=== PATIENT | male | born 1935 | race Caucasian/White ===

== ENCOUNTER → 2018-01-24 00:16 | Outpatient (CLI) | payer MEDICARE, OTHER, SELFPAY ==
--- NOTE | 2018-01-24 09:45 | DI.REPORT_ITS ---
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 Comparison CT scan is 01/05/18. There is normal signal in the spinal cord. No evidence of tonsillar ectopia is seen. At C7-T1 there is no focal disc herniation, central spinal canal or neuroforaminal stenosis. At C6-C7 there is a moderate sized left paracentral bridging osteophyte seen posteriorly. It does impinge upon the anterior aspect of the spinal cord. There is CSF seen posterior to the spinal cord but the result is mild narrowing of the central spinal canal. There does appear to be a small right paracentral disc herniation at this level also contributing to narrowing of the spinal canal. Mild bilateral neural foraminal narrowing is seen. At C5-C6 there is prominence of the osteophyte disc complex resulting in narrowing of the central spinal canal. There is moderately severe narrowing of the right neural foramen and mild narrowing of the left neural foramen. At C4-C5 there is prominence of the osteophyte disc complex without significant central spinal canal stenosis. There are hypertrophic changes of the facets on the left causing mild narrowing of the neural foramen. The right neural foramen is patent. At C3-C4 there are hypertrophic changes of the facets on the left causing marked narrowing of the left neural foramen. No central spinal canal stenosis or right neural foraminal stenosis is present. C2-C3 shows prominence of the uncal vertebral joints bilaterally causing moderate narrowing of the neural foramen. No significant central spinal canal stenosis is seen. Prominent bridging osteophytes are seen from C4-5 through C7-T1. IMPRESSION: 1. Marked arthritic changes throughout the cervical spine. The findings do result in central spinal canal and neural foraminal stenosis. The findings are most marked at C6-C7, C5-C6 and on the left at C3-C4. Please refer to the above discussion for complete details.
== END ==
PROVIDERS: PCP Family Medicine; Visit Provider Internal Medicine
DX: M47.812 Spondylosis without myelopathy or radiculopathy, cervical region (principal); M54.2 Cervicalgia; M50.322 Other cervical disc degeneration at C5-C6 level
CPT/HCPCS: 72141

== ENCOUNTER 2018-07-23 00:14 | Outpatient (CLI) | payer MEDICARE, OTHER, SELFPAY ==
--- NOTE | 2018-07-23 10:20 | MERGE_ITS ---
*[facility]* *[facility]* [address] [place] [address] Date of study: 07/23/2018 Transthoracic Echocardiography M-mode, complete 2D, complete spectral Doppler, and color Doppler *STUDY CONCLUSIONS* Summary: 1. Left ventricle: The cavity size was normal. Wall thickness was increased in a pattern of mild LVH. Systolic function was normal. The estimated ejection fraction was 60-65%. Doppler parameters are consistent with high ventricular filling pressure. 2. Mitral valve: Mild prolapse, involving the anterior leaflet and the posterior leaflet. There was moderate to severe regurgitation directed eccentrically and toward the free wall. 3. Left atrium: The atrium was moderately dilated. 4. Right ventricle: The cavity size was normal. Wall thickness was normal. Systolic function was normal. 5. Right atrium: The atrium was mildly dilated. 6. Atrial septum: No defect or patent foramen ovale was identified. 7. Pulmonary arteries: Pulmonary systolic pressure was in the range of 15mm Hg to 25mm Hg. 8. Inferior vena cava: The vessel was patent and normal in size. The respirophasic diameter changes were in the normal range (greater than or equal to 50%), consistent with normal central venous pressure. *PATIENT PRESENTATION* Height: 160cm ((63in) ) S/D Pressure: 158 / 69 Weight: 79.4kg ((174.6lb) ) BSA: 1.91m^2 Test start time: 10:40 AM. Test stop time: 11:30 AM. PERFORMING Unknown ORDERING Tanja Thakkar REFERRING Tanja Thakkar CONSULTING Guzman Thompson PERFORMING [facility] CUSTOMER SUCCESS DIRECTOR RT Rachel (R)(CT), RDCS *PROCEDURE DATA* Procedure information: The patient was identified by two identifiers. This study was interpreted by [facility]. Pertinent images and digital data are archived for permanent storage and are available for subsequent review. Comparison was made to the study of 11/25/2016. Study status: Routine. Transthoracic echocardiography. M-mode, complete 2D, complete spectral Doppler, and color Doppler. A Transthoracic Echocardiogram was performed. Scanning was performed from the parasternal, apical, subcostal, and suprasternal notch acoustic windows. Images were obtained using an [id number] cardiac ultrasound machine. Image quality was adequate. Study completion: The patient tolerated the procedure well. History: PMH: No CP no SOB per patient. Tired. had stents and bypass in past. EKG mat NSR LV LVH mild ef est to be 60-65% borderline filling pressures. mobile lateral annulus. ? apex mildly hypo, anterior wall mildly hypo, inferior and inferolateral midly hypo. RV seems ok LA/RA/IAS FRANCISCO JAVIRE. cannot r/o PFO MV thickened valve. MVP. moderate to severe MR. cannot exclude chordae rupture AOV trileaflet trivial AI no TV tr trivial RVSP = 19+RAP PV IVC normal pericardium ? small posterior pericardial effusion vs. circumferential fat. cannot exclude pleural OTHER Limited SSn due to neck mobility issues. Technically challenging study, patient unable to stay close to side of table, afraid to fall, leaning back, vs. LLD. *CARDIAC ANATOMY* Left ventricle: The cavity size was normal. Wall thickness was increased in a pattern of mild LVH. Systolic function was normal. The estimated ejection fraction was 60-65%. Doppler parameters are consistent with high ventricular filling pressure. Aortic valve: Trileaflet. Doppler: There was no stenosis. There was no significant regurgitation. VTI ratio of LVOT to aortic valve: 0.74. Valve area (VTI): 2.3cm^2. Indexed valve area (VTI): 1.2cm^2/m^2. Peak velocity ratio of LVOT to aortic valve: 0.67. Valve area (Vmax): 2.1cm^2. Indexed valve area (Vmax): 1.1cm^2/m^2. Mean velocity ratio of LVOT to aortic valve: 0.74. Valve area (Vmean): 2.3cm^2. Indexed valve area (Vmean): 1.2cm^2/m^2. Mean gradient (S): 3mm Hg. Peak gradient (S): 6.4mm Hg. Aorta: Aortic root: The aortic root was normal in size. Ascending aorta: The ascending aorta was normal in size. Mitral valve: Mild prolapse, involving the anterior leaflet and the posterior leaflet. Doppler: There was no evidence for stenosis. There was moderate to severe regurgitation directed eccentrically and toward the free wall. Valve area by pressure half-time: 4.6cm^2. Indexed valve area by pressure half-time: 2.4cm^2/m^2. Peak gradient (D): 3.7mm Hg. Left atrium: The atrium was moderately dilated. Atrial septum: No defect or patent foramen ovale was identified. Right ventricle: The cavity size was normal. Wall thickness was normal. Systolic function was normal. Pulmonic valve: Doppler: There was no evidence for stenosis. There was mild regurgitation. Tricuspid valve: Doppler: There was mild regurgitation. Pulmonary artery: Poorly visualized. Pulmonary systolic pressure was in the range of 15mm Hg to 25mm Hg. Right atrium: The atrium was mildly dilated. Pericardium: There was no pericardial effusion. Systemic veins: Inferior vena cava: Well visualized. The vessel was patent and normal in size. The respirophasic diameter changes were in the normal range (greater than or equal to 50%), consistent with normal central venous pressure. Baseline ECG: Sinus bradycardia. Measurements Left ventricle Value 11/25/2016 Reference LV ID, ED, PLAX 4.8 cm 4.8 3.5 - 6.0 LV ID, ES, PLAX 2.9 cm 3.5 2.1 - 4.0 LV PW thickness, ED, PLAX 1.1 cm 1.2 LV end-diastolic volume, 99 ml 85 1-p A2C LV ejection fraction, 1-p 59 % 63 A2C LV end-diastolic volume, 136 ml 103 1-p A4C LV ejection fraction, 1-p 70 % 69 A4C LV e', lateral 0.102 m/sec LV E/e', lateral 9 LV e', medial 0.037 m/sec LV E/e', medial 26 LV e', average 0.07 m/sec LV E/e', average 14 Ventricular septum Value 11/25/2016 Reference IVS thickness, ED, PLAX 1.3 cm 1.2 LVOT Value 11/25/2016 Reference LVOT ID, A-P 2.0 cm 2.0 LVOT area 3.1 cm^2 3.3 LVOT peak velocity, S 0.84 m/sec 0.85 LVOT mean velocity, S 0.59 m/sec LVOT VTI, S 17.7 cm 18.1 LVOT peak gradient, S 2.8 mm Hg LVOT mean gradient, S 1.6 mm Hg 1.5 Stroke volume (SV), LVOT 55 ml DP Stroke index (SV/bsa), 29 ml/m^2 LVOT DP Aortic valve Value 11/25/2016 Reference Aortic valve peak 1.3 m/sec velocity, S Aortic valve mean 0.8 m/sec velocity, S Aortic valve VTI, S 24.0 cm Aortic mean gradient, S 3 mm Hg 4 Aortic peak gradient, S 6.4 mm Hg 7 VTI ratio, LVOT/AV 0.74 Aortic valve area, VTI 2.3 cm^2 2.3 Velocity ratio, peak, 0.67 LVOT/AV Aortic valve area, peak 2.1 cm^2 2.1 velocity Velocity ratio, mean, 0.74 LVOT/AV Aortic valve area, mean 2.3 cm^2 velocity Aortic valve area/bsa, 1.2 cm^2/m^2 mean velocity Aorta Value 11/25/2016 Reference Aortic root ID, ED 3.5 cm 3.6 Ascending aorta ID, A-P, S 3.5 cm 3.5 Left atrium Value 11/25/2016 Reference LA ID, A-P, ES 3.6 cm LA ID/bsa, A-P 1.9 cm/m^2 <=2.2 LA area, ES, A4C (H) 26.3 cm^2 24 8.8 - 23.4 LA area, ES, A2C 27 cm^2 LA volume/bsa, ES, 1-p A4C 60 ml/m^2 47 LA volume, ES, 2-p 91 ml LA volume/bsa, ES, 2-p 48 ml/m^2 LA/aortic root ratio 1.01 1.11 Mitral valve Value 11/25/2016 Reference Mitral E-wave peak 0.97 m/sec 0.98 velocity Mitral A-wave peak 0.73 m/sec 0.63 velocity Mitral deceleration time 164 ms 150 - 230 Mitral pressure half-time 48 ms 54 Mitral peak gradient, D 3.7 mm Hg Mitral E/A ratio, peak 1.33 1.56 Mitral valve area, PHT, DP 4.6 cm^2 4.1 Pulmonary veins Value 11/25/2016 Reference Pulmonary vein peak 0.67 m/sec 0.66 velocity, S Pulmonary vein peak 0.98 m/sec 0.8 velocity, D Pulmonary vein velocity 0.68 0.83 ratio, peak, S/D Pulmonary vein A-wave 0.45 m/sec 0.41 reversal peak velocity Tricuspid valve Value 11/25/2016 Reference Tricuspid regurg peak 2.2 m/sec 2.5 velocity Tricuspid peak RV-RA 18.9 mm Hg 25.1 gradient Right atrium Value 11/25/2016 Reference RA area, ES, A4C (H) 19.7 cm^2 21 8.3 - 19.5 Legend: (L) and (H) gonzalo values outside specified reference range. I have personally reviewed the images and have reviewed and edited the reported findings. Electronically signed by Pranav Scott MD 07/23/2018 16:37
== END 2018-07-23 00:34 ==
PROVIDERS: PCP Family Medicine; Visit Provider Internal Medicine Cardiovascular Disease
DX: I05.9 Rheumatic mitral valve disease, unspecified (principal); I51.7 Cardiomegaly; I25.10 Atherosclerotic heart disease of native coronary artery without angina pectoris; I10 Essential (primary) hypertension; Z95.1 Presence of aortocoronary bypass graft
CPT/HCPCS: 93306

== ENCOUNTER → 2018-08-16 11:05 | Outpatient (BNVA) | payer MEDICARE, OTHER, SELFPAY | PROVIDERS: Visit Provider Internal Medicine Cardiovascular Disease | DX: E78.5 Hyperlipidemia, unspecified (principal); I10 Essential (primary) hypertension; I25.10 Atherosclerotic heart disease of native coronary artery without angina pectoris; I05.9 Rheumatic mitral valve disease, unspecified | CPT/HCPCS: 99214 ==

== ENCOUNTER 2018-09-08 21:52 | Emergency (ER) | payer MEDICARE, OTHER, SELFPAY ==
[2018-09-08] VITALS (15 sets, daily range): BP systolic 138–190; BP diastolic 60–89; PULSE 51–62; RESP 18–20; TEMP 36.3; O2SAT 86–97
[2018-09-08] MEDS: FAMOTIDINE 20 MG/50 ML BAG 200 MG IVPB (22:07)
[2018-09-08] MEDS: methylPREDNISolone SUCC 125 MG VIAL IVP (22:07)
--- NOTE | 2018-09-08 22:07 | ED.GENADUL_ITS ---
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) Primary Care Provider: Guzman Thompson ED Provider: Pranav Red Home Meds and New Rx's Prescriptions: New prednisone 20 mg tablet 20 mg PO DAILY 4 Days Qty: 4 RF: 0 famotidine 20 mg tablet 20 mg PO BID 7 Days Qty: 14 RF: 0 Continued lovastatin 40 mg tablet 20 mg PO DAILY RF: 0 sildenafil (antihypertensive) 20 mg tablet 20 - 100 mg PO DAILY PRN (Reason: sexual activity) Qty: 30 RF: 5 nitroglycerin 0.4 mg tablet, sublingual 0.4 mg Sublingual TID PRN (Reason: chest pain) Qty: 25 RF: 0 aspirin 81 MG tablet,chewable 81 mg PO DAILY RF: 0 epinephrine [EpiPen 2-Raffi] 0.3 MG/0.3 ML auto-injector 0.3 mg IM ONCE PRNRF: 0 Metoprolol Succinate 25 MG TAB.ER.24H 25 mg PO DAILY Qty: 90 RF: 3 Discontinued lisinopril 10 mg tablet 10 mg PO DAILY Qty: 90 RF: 3 Discharge Instructions Instructions: Angioedema (ED) Additional Instructions: Stop taking your lisinopril as this likely caused your tongue and lip swelling. Follow up with your primary care provider this week to discuss a new blood pressure medicine if you feel you are having worsening swelling, difficulty breathing or severe abdominal pain/persistent vomit return to the emergency department Medical Decision Making 83 yo male comes in with cc of tongue and lip swelling starting earlier today. Denies gi or respiratory symptoms. Has had a rash on his right arm for 2 weeks and saw his pcp on 08/28 for this and was felt to be hives due to omeprazole. he has mild erythema of right forearm that is not warm to touch and does have apperaance of hives, and he reiterates this has been present for over 2 weeks. He has a swollen tongue and lower lip, speaking in full setnences and clearing his secreations. i am unable to visualize the posterior phyarnx. Clera lungs, soft abdomen. I suspect jeremie inhibitor angioedema. Will treat with steroids and ffp along and monitor. pt already improving with just steroids and famotidine. Will hold on FFP at this time. pt remains stable, tongue much reduced in size as is lip with clear lung sounds. will d/c with steroids and famotidine and have him f/u with pcp Differential Diagnosis angioedema, jeremie inhibitor angioedema HPI General Mode of arrival: ambulatory . Date/Time Provider Initiated Documentation: 09/08/18 21:53 . Limitations to Documentation: no limitations . Information obtained by: patient . History of Present Illness 83 year old M presents to the emergency department with the chief complaint of tongue and lip swelling, described as moderate, with intensity rated at 5. Patient started experiencing this hour(s) (4) and it has been constant. No relieving factors improve symptom(s), No exacerbating factors reported . Patient notes no other symptoms.. Patient did receive the following treatments prior to arrival, none Related Data Home Medications Medication Instructions Recorded Confirmed aspirin 81 mg PO DAILY tab-cap 08/18/16 09/08/18 epinephrine [EpiPen 2-Raffi] 0.3 mg IM ONCE PRN 08/23/16 09/08/18 nitroglycerin 0.4 mg sublingual 0.4 mg SUBLINGUAL TID PRN #25 05/23/18 09/08/18 tablet tab-cap lovastatin 40 mg tablet 20 mg PO DAILY tab-cap 08/16/18 09/08/18 sildenafil (antihypertensive) 20 20 - 100 mg PO DAILY PRN #30 tab 08/28/18 09/08/18 mg tablet famotidine 20 mg PO BID 7 Days #14 tab 09/08/18 prednisone 20 mg PO DAILY 4 Days #4 tab 09/08/18 Previous Rx's Medication Instructions Recorded nitroglycerin 0.4 mg sublingual 0.4 mg SUBLINGUAL TID PRN #25 05/23/18 tablet tab-cap sildenafil (antihypertensive) 20 20 - 100 mg PO DAILY PRN #30 tab 08/28/18 mg tablet famotidine 20 mg PO BID 7 Days #14 tab 09/08/18 prednisone 20 mg PO DAILY 4 Days #4 tab 09/08/18 Allergies Allergy/AdvReac Type Severity Reaction Status Date / Time lisinopril Allergy Severe Anaphylaxsi Unverified 09/08/18 22:36 s niacin Allergy Unknown Unverified 08/28/18 08:58 Pyrazoles Allergy Unknown Unverified 08/28/18 08:58 sertraline Allergy Unknown Unverified 08/28/18 08:58 omeprazole Allergy Hives Verified 08/28/18 08:58 trazodone Allergy Unverified 08/28/18 08:58 ezetimibe AdvReac Unknown intolerance Unverified 08/28/18 08:58 rosuvastatin AdvReac Unknown intolerance Unverified 08/28/18 08:58 Review of Systems Review of Systems All systems reviewed & are unremarkable except as noted in HPI and below Constitutional Denies chills, Denies fever(s) and Denies weakness ENT Denies change in voice Cardiovascular Denies chest pain and Denies dyspnea Respiratory Denies cough and Denies dyspnea Gastrointestinal Denies abdominal pain, Denies nausea and Denies vomiting Genitourinary Denies dysuria Integumentary/Breasts Denies rash Neurologic Denies weakness [facility] Surgical History Coronary Artery Bypass Gaft (CABG) (~1988) Extraction of cataract Stent placement ZIO PATCH Family History Mother Diabetes Heart disease Father Depression Sister Heart disease Grandfather No problems noted. Grandfather No problems noted. Grandmother No problems noted. Grandmother No problems noted. Son Diabetes Heart disease Son Heart disease Social History Smoking/Tobacco Use Status: Never Alcohol Intake: never Drug use: Never Substance use type: does not use Do you feel safe at home: Yes Do you feel safe in your relationship?: Yes Exam Const General: no acute distress Orientation: alert HENMT Head: normal to inspection Ears: external ears normal General nose exam: external nose normal Mouth: moist mucous membranes Eyes General: appearance normal, both eyes and all related structures Neck Neck: normal visual inspection Resp Effort & Inspection: normal respiratory effort and able to speak in complete sentences Cardio Rate: regular rate Skin General skin exam: no rashes or lesions noted Neuro General: alert and oriented x3 Extrem General: normal to inspection Psych Mental Status: mental status grossly normal
--- NOTE | 2018-09-08 23:34 | NUR.NOTE ---
Nursing Note: patient resting quietly, hives have subsided, tongue swelling decreased but still present, speech clearer. MD aware.
--- NOTE | 2018-09-10 09:51 | PDOC.ERCMPRO ---
Care Management Progress Note 09/10-Dr. Red requested assistance with a PCP (Jay) f/u within one week for angioedema, stopped Lisinopril. Referral faxed to [facility] this am.
== END 2018-09-08 23:58 | disposition home or self-care (01) ==
PROVIDERS: Emergency Provider Emergency Medicine; PCP Family Medicine
DX: T78.3XXA Angioneurotic edema, initial encounter (principal); T44.5X5A Adverse effect of predominantly beta-adrenoreceptor agonists, initial encounter
CPT/HCPCS: 36415; 86850; 86900; 86901; 96374; 96375; 99284; J2930

== ENCOUNTER → 2019-03-21 11:14 | Outpatient (BNVA) | payer MEDICARE, OTHER, SELFPAY | PROVIDERS: PCP Family Medicine; Referring Provider Family Medicine; Visit Provider Internal Medicine Cardiovascular Disease | DX: E78.2 Mixed hyperlipidemia (principal); I34.0 Nonrheumatic mitral (valve) insufficiency; I10 Essential (primary) hypertension; I25.10 Atherosclerotic heart disease of native coronary artery without angina pectoris; Z95.1 Presence of aortocoronary bypass graft | CPT/HCPCS: 99213 ==

== ENCOUNTER 2019-05-01 08:22 | Outpatient (CLI) | payer MEDICARE, OTHER, SELFPAY ==
--- NOTE | 2019-05-01 08:00 | DI.RAD_ITS ---
EXAM: XR CHEST 2V PA LATERAL CLINICAL HISTORY: cough, hx of asbestos exposure, R05, Z77.090 COMPARISON: CHEST 2 VIEWS PA,LAT from 08/01/2016 PORTABLE CHEST ONE VIEW from 08/12/2016 FINDINGS: PA and lateral chest was obtained and is compared with prior PA and lateral chest of 08/01/2016. Car diac size is within normal limits. Note is made of sternal sutures. Lungs are predominantly clear. There is question of enlargement of the inferior right hilum in comparison with the previous examina tion. No focal pulmonary consolidation seen. There is mild diffuse pulmonary scarring. No pleural effusion seen. IMPRESSION: Question enlargement inferior right hilum. Chest CT recommended for further evaluation to exclude n eoplastic disease.
== END 2019-05-01 08:42 ==
PROVIDERS: PCP Family Medicine; Visit Provider Family Medicine
DX: R05 Cough (principal); J98.4 Other disorders of lung; Z77.090 Contact with and (suspected) exposure to asbestos
CPT/HCPCS: 71046

== ENCOUNTER 2019-05-06 01:16 | Outpatient (CLI) | payer MEDICARE, OTHER, SELFPAY ==
[2019-05-06 14:17] LABS: CREATININE 1.13 mg/dL (0.70-1.30)
--- NOTE | 2019-05-06 14:50 | DI.CT_ITS ---
EXAM: CT CHEST W CLINICAL HISTORY: ABNL CXR R93.89, ? ENLARGEMENT INFERIOR RT HILUM TECHNIQUE: Imaging Protocol: Axial computed tomography images with coronal and sagittal reformatted images were created and reviewed CONTRAST MATERIAL: Intravenous: Omnipaque 350 Contrast volume:100 mL contrast route:IV - Oral: No COMPARISON: CHEST ABD WITH CONTRAST from 03/15/2014 XR CHEST 2V PA LATERAL from 05/01/2019 FINDINGS: Tracheobronchial tree: Patent where visualized. Mediastinum and Jada: No dominant adenopathy or fluid collection. Pulmonary parenchyma: No focal consolidation is present. Areas of scarring or atelectasis are seen i n the lung bases bilaterally. No pulmonary mass is appreciated. No architectural distortion. Pleura: No effusion or pneumothorax. Heart/Aorta: There is no evidence of a thoracic aortic aneurysm. There is atherosclerosis present. The heart appears mildly enlarged. Coronary artery calcifications are present. No pericardial effus ion is present. Upper abdomen: No acute abnormality. Lymph nodes: Within normal limits. Pulmonary arteries: No evidence of central pulmonary emboli. Bones: Median sternotomy wires are present. 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 IMPRESSION: 1. No evidence of a thoracic mass or mediastinal adenopathy. 2. Atelectasis or scarring in the lung bases bilaterally. No pulmonary nodules are identified. DATA REPOSITORY: All CT scans at this facility are submitted to the National Radiology Data Registry (NRDR) Dose Index Registry (DIR) with the [employer] (A[employer]). RADIATION OPTIMIZATION: All CT scans at this facility use at least one of these dose optimization te chniques: automated exposure control; mA and/or kV adjustment per patient size (includes targeted exa ms where dose is matched to clinical indication); or iterative reconstruction.
[2019-05-06] MEDS: Omnipaque 350 MG/ML 100 ML BTL 70 ML IJ (14:51)
== END 2019-05-06 01:36 ==
PROVIDERS: PCP Family Medicine; Visit Provider Family Medicine
DX: R91.8 Other nonspecific abnormal finding of lung field (principal); J98.4 Other disorders of lung; I51.7 Cardiomegaly
CPT/HCPCS: 71260; 82565; J3490

== ENCOUNTER 2019-06-14 02:40 | Outpatient (CLI) | payer MEDICARE, OTHER, SELFPAY ==
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
== END 2019-06-14 03:00 ==
PROVIDERS: PCP Family Medicine; Visit Provider Family Medicine
DX: M79.672 Pain in left foot (principal); M25.772 Osteophyte, left ankle; M19.072 Primary osteoarthritis, left ankle and foot
CPT/HCPCS: 73630

== ENCOUNTER 2019-07-25 20:53 | Observation (INO) | payer MEDICARE, OTHER, SELFPAY ==
[2019-07-25 21:02] VITALS: BP 175/69; PULSE 87; RESP 20; TEMP 37.7; O2SAT 94
[2019-07-25 21:05] VITALS: RESP 20
--- NOTE | 2019-07-25 21:11 | ED.GENADUL_ITS ---
Discharge Plan Disposition Patient Disposition: [facility] INPATIENT Condition: Fair Discharge Details Chief Complaint: GenMedical Clinical Impression: General weakness, CAP (community acquired pneumonia) Primary Care Provider: Guzman Thompson ED Provider: Garrett Saha Home Meds and New Rx's Prescriptions: No Action nitroglycerin 0.4 mg tablet, sublingual 0.4 mg Sublingual TID PRN (Reason: chest pain) Qty: 25 RF: 0 aspirin 81 MG tablet,chewable 81 mg PO DAILY RF: 0 epinephrine [EpiPen 2-Raffi] 0.3 MG/0.3 ML auto-injector 0.3 mg IM ONCE PRNRF: 0 metoprolol succinate 25 mg tablet extended release 24 hr 25 mg PO DAILY Qty: 90 RF: 2 lovastatin 40 mg tablet 20 mg PO DAILY Qty: 45 RF: 3 Medical Decision Making Patient feels a lot warmer than 100 degrees. He has complaint of weakness, runny nose, cough and has focal lung findings on physical exam. He is not tachycardic but he is beta blocked. He is not hypotensive. IV established and fluids started. Tylenol given for fever. Laboratory studies obtained including blood cultures and lactic acid. Chest x-ray and urine ordered. Laboratory studies are unremarkable. Lactic acid is normal. White count is normal. Kidney function fine. Urine still not collected at this point. Vitals have been stable. Chest x-ray read by radiology preliminary is negative. On reevaluation patient continues to have focal findings on lung exam at the right base. His flu swab is negative. I suspect pneumonia and given 2 falls this evening and the fact that he lives home alone will discuss with hospitalist for observation admission overnight. Patient is agreeable to admission. Medical Records Medical records reviewed: Yes I reviewed the patient's medical records. Lab Data Lab results reviewed: Yes I reviewed the patient's lab results. HPI General Mode of arrival: wheelchair . Date/Time Provider Initiated Documentation: 07/25/19 21:06 . Limitations to Documentation: no limitations . Information obtained by: patient, family, RN notes reviewed and old records reviewed . HPI Narrative: Patient presents to ED with complaint of generalized weakness and falls this evening. Patient felt fine yesterday. Today he has had a little bit of a cough and runny nose. This evening he fell twice due to generalized weakness. He did not injure himself in the falls. He did not have syncope. He lives by himself but was able to call for help. He is brought in for evaluation. He denies having headache, chest pain, shortness of breath, abdominal pain, vomiting, diarrhea, bloody stool, difficulty urinating. He did eat and drink today. Related Data Home Medications Medication Instructions Recorded Confirmed aspirin 81 mg PO DAILY tab-cap 08/18/16 07/25/19 epinephrine [EpiPen 2-Raffi] 0.3 mg IM ONCE PRN 08/23/16 07/25/19 metoprolol succinate 25 mg 25 mg PO DAILY #90 tab 05/17/19 07/25/19 tablet,extended release 24 hr nitroglycerin 0.4 mg sublingual 0.4 mg SUBLINGUAL TID PRN #25 06/07/19 07/25/19 tablet tab-cap lovastatin 40 mg tablet 20 mg PO DAILY #45 tab-cap 06/12/19 07/25/19 Previous Rx's Medication Instructions Recorded metoprolol succinate 25 mg 25 mg PO DAILY #90 tab 05/17/19 tablet,extended release 24 hr nitroglycerin 0.4 mg sublingual 0.4 mg SUBLINGUAL TID PRN #25 06/07/19 tablet tab-cap lovastatin 40 mg tablet 20 mg PO DAILY #45 tab-cap 06/12/19 Allergies Allergy/AdvReac Type Severity Reaction Status Date / Time lisinopril Allergy Severe Anaphylaxsi Verified 07/25/19 21:04 s niacin Allergy Unknown Verified 07/25/19 21:04 Pyrazoles Allergy Unknown Verified 07/25/19 21:04 sertraline Allergy Unknown Verified 07/25/19 21:04 omeprazole Allergy Hives Verified 07/25/19 21:04 trazodone Allergy Verified 07/25/19 21:04 ezetimibe AdvReac Unknown intolerance Verified 07/25/19 21:04 rosuvastatin AdvReac Unknown intolerance Verified 07/25/19 21:04 General Stated Complaint: GenMedical DEB: 3 Review of Systems Narrative: 04/08 Review of Systems completed and is negative except as stated above in HPI (Systems reviewed: Const, Eyes, ENT, Resp, CV, GI, , MSK, Skin, Neuro) [facility] Medical History (Updated 07/25/19 @ 22:44 by Garrett Saha MD) Anxiety disorder (Chronic) Chronic GERD (Chronic) resume omeprazole Glaucoma (Chronic 08/26/11) Hypertension (Chronic) PTSD (post-traumatic stress disorder) (Chronic) Pure hypercholesterolemia (Chronic 06/26/88) MEVACOR EFFECTIVE 1988 Surgical History Coronary Artery Bypass Gaft (CABG) (~1988) X 2 Extraction of cataract LEFT 09/23/04 Stent placement 08/16/16-[facility] [place]; 3 STENTS PLACED;1) LEFT MAIN ARTERY 2) 1ST DIAG OF LAD 3) 2ND DIAG OF LAD ZIO PATCH 01/01/18-NEGATIVE Social History Smoking/Tobacco Use Status: Former Tobacco Use Alcohol Intake: never Drug use: Never Substance use type: does not use Do you feel safe at home: Yes Do you feel safe in your relationship?: Yes Exam Narrative Exam Narrative: Vitals: Temp of 100. Room air saturations in the low 90s. Heart rate normal at 87 but beta-hu. Blood pressure elevated initially 175/69. Const: Obese male in NAD. HEENT: NC/AT. Normal facial exam. Eyes: Normal conjunctiva and sclera. Neck: Supple. Trachea midline. Normal ROM. Lungs: Normal respiratory effort. Lungs with rhonchi and wheeze in the right base otherwise clear. Cor: RRR with systolic murmur heard best at apex. Good radial pulses. GI: Soft. NT/ND. No guarding or rebound. Neuro: A+O x 3. Normal speech, mentation, gait. Cranial nerves II - XII grossly intact. No gross motor or sensory deficit. Ext: No C/C/E. Skin: Warm and dry without rash or wound. Course Vital Signs Vital signs: Vital Signs Temperature 100 F H 07/25/19 21: Pulse 87 07/25/19 21:02 Respiratory Rate 07/25/19 21:02 Blood Pressure 175/69 H 07/25/19 21:02 Pulse Oximetry 94 L 07/25/19 21:02 Temperature 100 F H 07/25/19 21:02 Temperature Source Oral 07/25/19 21:02 Pulse 87 07/25/19 21:02 Respiratory Rate 20 07/25/19 21:05 Respiratory Effort Non-Labored 07/25/19 21:05 Respiratory Depth Normal 07/25/19 21:05 Respiratory Pattern Normal 07/25/19 21:05 Blood Pressure 175/69 H 07/25/19 21:02 Blood Pressure Position Sitting 07/25/19 21:02 Pulse Oximetry 94 L 07/25/19 21:02 Oxygen Delivery Method Room Air 07/25/19 21:02 Oxygen Flow Rate 0 07/25/19 21:02 Pain Level 0 07/25/19 21:02 Lab/Test Results Lab/Test Results: 07/25/19 21:09 Nasopharynx Influenza Types A,B Antigen - Pending
[2019-07-25 21:44] LABS: Absolute Basophil Count 0.01 k/cumm (0.0-0.2); Absolute Lymphocyte Count 0.37 k/cumm (1.2-3.4); Absolute Monocyte Count 0.53 k/cumm (0.11-0.7); Absolute Neutrophil Count 4.89 k/cumm (1.2-6.7); Basophils % 0.2; Eosinophils % 1.7; HCT 39.1 % (40.0-50.0); HGB 13.2 g/dL (13.5-17.5); Lactate 1.2 mmol/L (0.6-1.4); Lymphocytes % 6.3; Mean Corp. HGB Concentration 33.8 g/dL (32.0-36.0); Mean Corpuscular Hemoglobin 30.4 pg (27.0-33.0); Mean Corpuscular Volume 90.1 fL (80-95); Mean Platelet Volume 10.5 fL (8.0-11.0); Neutrophils % 82.8; Platelet Count 161 x1000/uL (130-400); RBC 4.34 m/cumm (4.50-6.00); RBC Distribution Width 12.2 % (11.8-14.1)
[2019-07-25 22:03] LABS: ALT 15 U/L (16-63); AST 14 U/L (15-37); Albumin 3.6 g/dL (3.4-5.0); Alkaline Phosphatase 72 U/L (46-116); Anion Gap 7.9 mmol/L (3-11); BUN 18 mg/dL (7-18); Bilirubin, Total 0.9 mg/dL (0.2-1.0); CO2 27.1 mmol/L (21.0-32.0); Calcium 8.2 mg/dL (8.5-10.1); Chloride 104 mmol/L (98-107); Glucose 133 mg/dL (74-106); Magnesium 1.7 mg/dL (1.8-2.4); Potassium 3.9 mmol/L (3.5-5.1); Sodium 139 mmol/L (136-145); Troponin I < 0.05 ng/Ml (<0.06)
--- NOTE | 2019-07-25 22:15 | DI.RAD_ITS ---
EXAM: XR CHEST 2V PA LATERAL CLINICAL HISTORY: fever, cough, rhonchi right base TECHNIQUE: COMPARISON: XR CHEST 2V PA LATERAL from 05/01/2019 FINDINGS: There are multiple sternal sutures cardiac size is at the upper limits of normal. No focal pulmonary consolidation. No change in appearance of the chest since examination of May 01, 2019. No pleural effusion seen. IMPRESSION: No evidence of acute process.
[2019-07-25] MEDS: Lactated Ringers 1,000 ML 150 ML IV (22:22)
[2019-07-25] MEDS: Acetaminophen 325 MG TAB 650 MG PO (22:23)
[2019-07-25] MEDS: Normal Saline Flush 10 ML SYR IVP (22:23)
--- NOTE | 2019-07-25 22:25 | DI.VRAD_ITS ---
PROCEDURE INFORMATION: Exam: XR Chest, 2 Views Exam date and time: 07/25/2019 10:05 PM Age: 84 years old Clinical indication: Cough and fever; Prior surgery; Surgery date: 6+ months; Additional info: Fever, cough, ronchi right base TECHNIQUE: Imaging protocol: XR of the chest Views: 2 views. COMPARISON: CR XR CHEST 2V PA LATERAL 05/01/2019 7:49 AM FINDINGS: Lungs: Mild chronic interstitial prominence.No consolidation. Pleural space: . No pleural effusion. No pneumothorax. Heart/Mediastinum: Grossly stable. Bones/joints: Unremarkable. IMPRESSION: No acute findings. No radiographic eviedence for pneumonia Dictated and Authenticated by: Cayetano Valdivia MD. Ordering:DOMINIQUE Tucker MD
[2019-07-25 22:26] VITALS: TEMP 37.5
[2019-07-25] MEDS: cefTRIAXone 1 GM/50 ML BAG IVPB (22:43)
--- NOTE | 2019-07-25 23:07 | W.PM.HP.N ---
Date of service: 07/25/19 Time of Service: 23:07 Assessment and Plan Assessment and plan (1) CAP (community acquired pneumonia): Status: Acute Assessment and plan: Continue parenteral antibiotics including ceftriaxone, doxycycline. Continue with mucolytic's including Mucinex and will treat his cough with Tessalon Perles. He will be given aerosolized bronchodilators and supplemental oxygen on an as-needed basis. Continue to receive IV fluids overnight. Depending upon his amatory status he may be able to be discharged home on oral antibiotics in the morning Qualifiers: Laterality: unspecified laterality Qualified Code(s): J18.9 - Pneumonia, unspecified organism (2) General weakness: Status: Acute Assessment and plan: Will consult with physical therapy to evaluate his strength and ambulatory status. He may benefit from some home PT upon discharge History of Present Illness History of Present Illness Chief Complaint: Fever, chills, falls Narrative: 84-year-old gentleman presents emergency department with complaints of generalized weakness and a couple of falls this evening. Patient was in his usual state of good health as of yesterday but today was complaining of a cough and a runny nose and generalized weakness. Patient has to go up and down stairs to feed his wood fired furnace. During one of these trips he sustained a fall not associated with any syncope. He denies any injuries from the falls. He reportedly was running a fever of 101.4 at home. He called his son who brought him to the emergency department. Patient was evaluated the emergency department by Dr. Garrett Saha and work-up included routine labs including a CBC that did not show a leukocytosis. Hemoglobin hematocrit are borderline anemic with hemoglobin 13.2 g hematocrit 39%. Normal platelet count 161,000. CMP was fairly unremarkable except for a borderline low calcium 8.2 and magnesium 1.7 otherwise normal electrolytes LFTs and renal function. Chest 2 Views showed mild chronic interstitial prominence but no consolidation no pleural effusion no pneumothorax. Nevertheless the patient was found to be with coarse rhonchi and wheezes at the right lung base on physical exam and running a low-grade temperature 37.7 ?C he was not hypotensive but rather he was hypertensive at 175/69. His pulse oximetry was 94% on room air. Respirations were nonlabored at 20 breaths/min as pulse is 87 bpm. Patient felt he was too weak to return home tonight and was decided to treat him empirically for an incipient pneumonia and admit him on observation for aerosolized bronchodilators, mucolytic's, Acapella treatments, parenteral antibiotics. Patient was started on Rocephin 1 g IV and doxycycline 100 mg IV in the emergency department. Patient acknowledges he has had a cough productive of yellowish sputum today. No chest tightness or pain or pressure however some dyspnea Along with fever and rigors. [facility] Medical History (Updated 07/26/19 @ 00:43 by Kelvin Henry) Anxiety disorder (Chronic) CAD (coronary artery disease) (Chronic) Chronic GERD (Chronic) resume omeprazole Glaucoma (Chronic 08/26/11) Hypertension (Chronic) PTSD (post-traumatic stress disorder) (Chronic) Pure hypercholesterolemia (Chronic 06/26/88) MEVACOR EFFECTIVE 1988 Surgical History Coronary Artery Bypass Gaft (CABG) (~1988) X 2 Extraction of cataract LEFT 09/23/04 Stent placement 08/16/16[place] [place]; 3 STENTS PLACED;1) LEFT MAIN ARTERY 2) 1ST DIAG OF LAD 3) 2ND DIAG OF LAD ZIO PATCH 01/01/18-NEGATIVE Social History Smoking/Tobacco Use Status: Former Tobacco Use Alcohol Intake: never Drug use: Never Substance use type: does not use Do you feel safe at home: Yes Do you feel safe in your relationship?: Yes Meds Home Medications and Allergies Home Medications Medication Instructions Recorded Confirmed Type aspirin 81 mg PO DAILY tab-cap 08/18/16 07/25/19 History epinephrine [EpiPen 2-Raffi] 0.3 mg IM ONCE PRN 08/23/16 07/25/19 History metoprolol succinate 25 mg 25 mg PO DAILY #90 tab 05/17/19 07/25/19 Rx tablet,extended release 24 hr nitroglycerin 0.4 mg sublingual 0.4 mg SUBLINGUAL TID PRN #25 06/07/19 07/25/19 Rx tablet tab-cap lovastatin 40 mg tablet 20 mg PO DAILY #45 tab-cap 06/12/19 07/25/19 Rx Allergies Allergy/AdvReac Type Severity Reaction Status Date / Time aspirin Allergy Severe Anaphylaxsi Unverified 07/25/19 22:59 s lisinopril Allergy Severe Anaphylaxsi Verified 07/25/19 21:04 s niacin Allergy Unknown Verified 07/25/19 21:04 Pyrazoles Allergy Unknown Verified 07/25/19 21:04 sertraline Allergy Unknown Verified 07/25/19 21:04 omeprazole Allergy Hives Verified 07/25/19 21:04 trazodone Allergy Verified 07/25/19 21:04 ezetimibe AdvReac Unknown intolerance Verified 07/25/19 21:04 rosuvastatin AdvReac Unknown intolerance Verified 07/25/19 21:04 Exam Narrative Exam Narrative: Elderly male who is alert oriented person place time and circumstance but very hard of hearing. HEENT is remarkable for upper dentures otherwise TMs are intact without erythema or bulging nares is moist pale without epistaxis or discharge oropharynx without injection or exudate Neck supple nontender without JVD normal carotid pulses no bruits. Lungs reveal rales at the right lung base upper bella are clear Heart is regular rate and rhythm without murmur rub or gallop. Abdomen is obese soft and nontender Extremities without peripheral cyanosis or edema. Neurologic exam is grossly intact except he is very hard of hearing. No facial asymmetry no dysarthric speech, No focal motor deficits and range of motion. Results Labs Result diagrams: 07/25/19 21:30 07/25/19 21:30 Labs: Laboratory Results - last 24 hr 07/25/19 07/25/19 07/25/19 21:30 21:30 21:30 WBC 5.90 RBC 4.34 L Hgb 13.2 L Hct 39.1 L MCV 90.1 MCH 30.4 MCHC 33.8 RDW 12.2 Plt Count 161 MPV 10.5 Immature Gran % 0.0 Neutrophils % 82.8 Lymphocytes % 6.3 Monocytes % 9.0 Eosinophils % 1.7 Basophils % 0.2 Absolute Neutrophils 4.89 Absolute Lymphocytes 0.37 L Absolute Monocytes 0.53 Absolute Eosinophils 0.10 Absolute Basophils 0.01 Sodium 139 Potassium 3.9 Chloride 104 Carbon Dioxide 27.1 Anion Gap 7.9 BUN 18 Creatinine 1.10 Estimated GFR/1.73 m2 >= 60.00 Glucose 133 H Lactate 1.2 Calcium 8.2 L Magnesium 1.7 L Total Bilirubin 0.9 AST 14 L ALT 15 L Alkaline Phosphatase 72 Troponin I < 0.05 Total Protein 7.0 Albumin 3.6 Last Vital Signs Temp 37.5 C 07/25/19 22:26 Pulse 87 07/25/19 21:02 Resp 20 07/25/19 21:05 BP 175/69 H 07/25/19 21:02 Pulse Ox 94 L 07/25/19 21:02
[2019-07-25 23:27] VITALS: BP 175/69; PULSE 87; RESP 20; TEMP 37.5; O2SAT 94
[2019-07-25 23:48] LABS: Procalcitonin < 0.1 ng/mL
[2019-07-25] MEDS: Benzonatate 200 MG CAP PO (23:59)
[2019-07-25] MEDS: guaiFENesin 600 MG TABCR PO (23:59)
[2019-07-26] VITALS (7 sets, daily range): BP systolic 145–186; BP diastolic 67–74; PULSE 67–82; RESP 1–22; TEMP 37–38.5; O2SAT 95–98
[2019-07-26] MEDS: DOXYCYCLINE 100 MG in Normal Saline 100 ML IVPB ×2 (00:13→10:40)
[2019-07-26] MEDS: Normal Saline 1,000 ML 65 ML IV (00:13)
[2019-07-26] MEDS: Normal Saline Flush 10 ML SYR IVP ×3 (00:14→11:50)
[2019-07-26] MEDS: Albuterol/Ipratropium 3 ML UPD VIAL UPD ×2 (00:23→04:57)
[2019-07-26 00:49] LABS: Clarity Clear (Clear)
[2019-07-26 00:50] LABS: Bilirubin Negative (Negative); Blood Trace-lysed (Negative); Glucose Negative (Negative); Ketones Negative (Negative); Leukocyte Esterase Negative (Negative); Nitrite Negative (Negative); Urobilinogen 0.2 EU/dL (Up TO 0.2)
[2019-07-26 00:51] LABS: C & S Indicated? No
[2019-07-26 07:38] LABS: Abs Immature Grans 0.01 k/cumm (0.0-0.09); Absolute Basophil Count 0.01 k/cumm (0.0-0.2); Absolute Eosinophil Count 0.03 k/cumm (0.0-0.7); Absolute Lymphocyte Count 0.63 k/cumm (1.2-3.4); Absolute Monocyte Count 0.54 k/cumm (0.11-0.7); Absolute Neutrophil Count 2.71 k/cumm (1.2-6.7); Basophils % 0.3; Eosinophils % 0.8; HCT 39.4 % (40.0-50.0); Immature Grans % 0.3 %; Mean Platelet Volume 10.8 fL (8.0-11.0); Monocytes % 13.7; Neutrophils % 68.9; Platelet Count 159 x1000/uL (130-400); RBC 4.33 m/cumm (4.50-6.00); RBC Distribution Width 12.5 % (11.8-14.1); White Blood Cell Count 3.93 k/cumm (4.4-10.8)
[2019-07-26 07:47] LABS: Anion Gap 8.9 mmol/L (3-11); BUN 17 mg/dL (7-18); CO2 27.1 mmol/L (21.0-32.0); CREATININE 1.17 mg/dL (0.70-1.30); Chloride 108 mmol/L (98-107); Estimated GFR 59.68 (mL/min/1.73m2); Glucose 170 mg/dL (74-106); Potassium 3.3 mmol/L (3.5-5.1); Sodium 144 mmol/L (136-145)
[2019-07-26] MEDS: Benzonatate 200 MG CAP PO ×2 (08:39→14:33)
[2019-07-26] MEDS: Lovastatin 20 MG TAB PO (08:39)
[2019-07-26] MEDS: Metoprolol CR 25 MG TABCR PO (08:40)
[2019-07-26] MEDS: guaiFENesin 600 MG TABCR PO (08:40)
[2019-07-26] MEDS: Aspirin 81 MG CHEW PO (08:40)
[2019-07-26] MEDS: Enoxaparin 40 MG/0.4 ML SYR SC (08:41)
--- NOTE | 2019-07-26 11:15 | IN_ITS ---
Date of service: 07/26/19 PT Notes Visit Reasons: Pneumonia Physical Therapy Inpatient Initial Evaluation Date: 07/25/2019 Referring Doctor: Kelvin Henry M.D. PT Orders: PT CONSULT: Safety consult for D/C Precautions: Fall. Standard. Activity as tolerated. Patient Profile/Admitting Diagnosis: Patient is an 84-year-old male that presented to the ER on 07/24/2019 with complaints of weakness, runny nose, falls, cough, and focal lung findings. He was admitted to the hospital with a diagnosis of community acquired pneumonia and generalized weakness. PMHX: Medical History (Updated 07/26/19 @ 00:43 by Kelvin Henry) Anxiety disorder (Chronic) CAD (coronary artery disease) (Chronic) Chronic GERD (Chronic) resume omeprazole Glaucoma (Chronic 08/26/11) Hypertension (Chronic) PTSD (post-traumatic stress disorder) (Chronic) Pure hypercholesterolemia (Chronic 06/26/88) MEVACOR EFFECTIVE 1988 Surgical History Coronary Artery Bypass Gaft (CABG) (~1988) X 2 Extraction of cataract LEFT 09/23/04 Stent placement 08/16/16-[facility] [place]; 3 STENTS PLACED;1) LEFT MAIN ARTERY 2) 1ST DIAG OF LAD 3) 2ND DIAG OF LAD ZIO PATCH 01/01/18-NEGATIVE Social History/Home Situation: Patient lives alone at home. He has one step into the home. There are 12 steps to the basement, which he says he has to use about 4-5x every day to put wood in fire. His son lives about a half mile down the road. Equipment Owned/DME: walker, cane, crutches. Subjective: Patient reports that last night while putting wood in his fire in the basement felt very off balance fell two times. He was able to crawl up the stairs and fell again in the kitchen. He then crawled to the phone to call his son to bring him to the hospital. Denies pain from the falls. He reports that other than the falls he had last night he has only had one other fall in the past 12 months which was due to snow and ice. States that he still cuts his own firewood, shovels, climbs mountains and is very physically activity Objective: General Observation: Patient was independently walking around his room with shoes on when PT arrived for initial evaluation. Mental status: alert and oriented x4 Pain: 0/10 ROM: Right Upper Extremity: Shoulder Flexion WFL. Shoulder abduction WFL. Elbow flexion WFL. Wrist flexion WFL. Opening and closing of hand WFL. Left Upper Extremity: Shoulder Flexion WFL. Shoulder abduction WFL. Elbow flexion WFL. Wrist flexion WFL. Opening and closing of hand WFL. Right Lower Extremity: Hip flexion WFL. Hip abduction WFL. Knee flexion WFL. Ankle dorsiflexion WFL. Ankle plantarflexion WFL. Left Lower Extremity: Hip flexion WFL. Hip abduction WFL. Knee flexion WFL. Ankle dorsiflexion WFL. Ankle plantarflexion WFL. Strength: Right Upper Extremity: Shoulder flexors 3+/5. Shoulder abductors 3+/5. Elbow flexors 5/5. Elbow extensors 5/5. Baby Doctor strong. Left Upper Extremity: Shoulder flexors 3+/5. Shoulder abductors 3+/5. Elbow flexors 5/5. Elbow extensors 5/5. Baby Doctor strong. Right Lower Extremity: Hip flexors 5/5. Hip abductors 5/5. Knee flexors 5/5. Knee extensors 5/5. Ankle dorsiflexors 5/5. Ankle plantarflexors 5/5. Left Lower Extremity: Hip flexors 5/5. Hip abductors 5/5. Knee flexors 5/5. Knee extensors 5/5. Ankle dorsiflexors 5/5. Ankle plantarflexors 5/5. Sensation: Intact as to pain and pressure on bilateral lower extremities. Bed Mobility/Transfers: Rolling independent Supine to sit independent Sit to supine independent Sit to stand independent Stand to sit independent Bed to chair independent Chair to bed independent Gait: Patient was able to ambulate independently 150 feet + 100 feet + 50 feet + 50 feet without the use of an assistive device. He denied experiencing SOB, chest pain, dizziness. Reciprocal gait pattern. Unremarkable. Balance: Static Sitting: Normal Dynamic Sitting: Normal Static Standing: Good Dynamic Standing: Good 4-stage balance test: Patient was able to maintain a narrow base of support and semi-tandem stance for greater than 10 seconds without difficulty. With tandem stance he was able to maintain balance for about 8 seconds leading with the left and less than 5 seconds leading with the right. Unable to perform single leg stance bilaterally. Special Tests: Mobility Limitations Standardized Measure [facility] AM-PAC 6 clicks Basic Mobility Inpatient Short Form: Raw Score: 24 CMS Score: 0% deficit Two-minute walk test: Patient was able to complete 187 feet within two minutes of walking which signifies ability to perform community ambulation (norm for his age is 177 feet) Informed Consent/Education: Patient instructed in purpose of PT consult and plan of care. Assessment: Patient is an 84-year-old male that presented to the ER on 07/24/2019 with complaints of weakness, runny nose, falls, cough, and focal lung findings. He was admitted to the hospital with a diagnosis of community acquired pneumonia and generalized weakness. Patient presented to physical therapy with good strength and functional range of motion of the upper and lower extremities. He demonstrated some difficulty with balance as he had difficulty with tandem stance and unable to perform a single leg stance. Patient also presented with good endurance as he was able to complete 187 steps in two minutes, which is good compared to the average for his age group of 177 steps. He does not require skilled physical therapy at this time. Patient presents with clinical signs and symptoms consistent with current/admitting diagnoses that have resulted to mobility limitations and generalized weakness demonstrated by the following impairment level findings: 1. Decreased strength to B UE shoulder muscle groups 2. Impaired standing balance Impairments are contributing to the following functional limitations: 1. Increased fall risk Patient is [place] a 50493 low complexity based on the following: History: Patient is an 84-year-old male that presented to the ER on 07/24/2019 with complaints of weakness, runny nose, falls, cough, and focal lung findings. He was admitted to the hospital with a diagnosis of community acquired pneumonia and generalized weakness. Examination: Demonstrable impairment balance with underlying impairments and functional limitations as documented above Presentation: Stable Decision Makin low complexity Goals: N/A. Physical therapy evaluation only. DISCHARGE RECOMMENDATIONS: Discharge to home when medically cleared. No equipment recommendations at this time. TREATMENT CODE/TIME: 19689 low complexity x 20 minutes beginning at 9:40 A.M. Thank you very much for this referral. Tamar Garcia, SPT Doctor of Physical Therapy Student [facility] Supervision provided by Hermila Cowan PT, DPT, CLT [facility] [place], [place]
[2019-07-26] MEDS: Potassium Chloride 20 MEQ TABCR 40 MEQ PO (11:48)
--- NOTE | 2019-07-26 12:24 | PHARADMIT ---
Admission Pharmacy Clinical Review PNEUMONIA Code Status Full Code Current Weight Wgt-79.8 kg Renally Cleared and Narrow Therapeutic Index Meds CrCl~ 37 mL/min Meds-OK QTc Value / Action Taken none current BP Control, Fever BP- 163/68 Tmax- 37.5C Electrolytes reviewed Na- 144 K63.3 Mag1.7 DVT Prophylaxis ASA, Lovenox 40mg Opiate Usage / Scheduled Bowel Regimen Ordered No Yes Plt/SCr for Heparin / Enoxaparin Plts-19 SCr-1.17 INR for Warfarin na H/H stable, WBC/Bands H&H- 13.0/39.4 WBC- 3.93 Antibiotic appropriateness Rocephin, Doxycycline Cultures and Sensitivities Sputum, Blood, Pending, Flu-neg Surgical ABX d/c within 24 hr na DM control / Insulin Dosing BG- 170 Heart Failure (Check EF%) (JEREMIE's, B-Block, Diuretics) Toprol-XL, NTG IV to PO Switch No Home Meds Reviewed Yes Home Meds Not Ordered EpiPen, Omeprazole Comments
[2019-07-26] MEDS: Normal Saline 500 ML 65 ML IVPB (12:54)
--- NOTE | 2019-07-26 13:46 | INITIAL_ITS ---
- If Service Date Differs Date of service: 07/26/19 Time of Service: 13:46 Care Management Initial Assess REASON FOR HOSPITALIZATION:: Community Aquired Pneumonia PAST MEDICAL HISTORY/PAST SURGICAL HISTORY:: Anxiety disorder, coronary artery disease, GERD, glaucoma, hypertension, PTSD, hypercholesteremia, insomnia, osteoarthritis, neoplasm of the uncertain skin, mitral valve disorder, lactose intolerant, surgical history: Coronary artery bypass graft, cataract surgery, stent placement. PREVIOUS FUNCTIONAL STATUS/SOCIAL/FAMILY SUPPORTS:: Timmy lives alone in [place], [place] he has two boys both grown. Timmy is independent and is able to care to his own ADL's. He has a supportive family and community. CURRENT FUNCTIONAL STATUS:: Timmy is alert and engaged, he smiles frequently he is ambulating independently. He states he feels better today and ready to be discharged home. He was able to ambulate in the halls including the stairs with PT. Timmy is being discharged home on oral antibiotics. ADVANCE DIRECTIVES:: On file Syed Farrell is the agent Has patient been provided with information about the portal?: Yes Did the patient sign up for the portal?: No CODE STATUS:: Full Code INSURANCE COVERAGE / FINANCIAL ISSUES:: Medicare and [facility] CURRENT HOME/COMMUNITY SERVICES/EQUIPMENT:: None PRIMARY CARE PHYSICIAN:: Dr. Thompson POTENTIAL DISCHARGE NEEDS:: Follow-up appointment scheduled with Dr. Thompson PATIENT/FAMILY EDUCATION NEEDS:: Discharge education, limitations, follow-up plan of care and asked me 3. ANTICIPATED BARRIERS TO DISCHARGE:: None TRANSPORTATION:: Via private car with family at time of discharge. PLAN:: Timmy is improved today, anticipate he will be discharged this afternoon. He will return home on oral antibiotics and follow-up with his primary care provider as directed. CM to continue to provide support discharge planning.
--- NOTE | 2019-07-26 15:13 | CHAPLAIN ---
Timmy was sitting up in his chair when I visited. He told me about falling at home and having to call his son for assistance, and how wiped out he felt from the pneumonia, after feeling fine for several days. His sister came into visit as I was leaving. He has two sons in the area. 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 He said he loved his work and having his own business.
--- NOTE | 2019-07-26 19:38 | DSE_ITS ---
Date of service: 07/26/19 Time of Service: 19:38 DS: Diagnosis Discharge Diagnosis (1) CAP (community acquired pneumonia): Status: Acute Asessment and Plan: Presented with fever and weakness. Clinically found to have pneumonia in the right lower lobe despite negative chest x-ray. Treated with ceftriaxone and doxycycline. Discharged on oral doxycycline x7 more days. (2) General weakness: Status: Acute Asessment and Plan: He was stumbling and falling with weakness and RIG ORs. It is presumed it was secondary to this acute respiratory illness. He is asymptomatic at this time Discharge Plan Disposition Patient Disposition: HOME Condition: Improving Discharge Details Chief Complaint: GenMedical Clinical Impression: General weakness, CAP (community acquired pneumonia) Reason For Visit: PNEUMONIA Admit Date/Time: 07/25/19 22:53 Admit Provider: Kelvin Henry Attending Provider: Kelvin Henry Primary Care Provider: Guzman Thompson ED Provider: [facility] Course Hospital Course: This is an 84-year-old man who presented to the emergency room with complaint of generalized weakness after a couple of falls the evening of admission. He was previously healthy but on the day of admission developed a cough runny nose and generalized weakness. He had been going up and down stairs to feed his wood fired furnace, he felt woozy and leaned against the wall. A similar instance occurred when he went back upstairs. He developed a fever of 101.4 at home In the emergency room there was suspicion of a right lower lobe pneumonia by exam, [id number] ultrasound, and hinted at in the x-ray. He subsequently went on to develop a fever of 38.5. He was admitted to observation. He received ceftriaxone and doxycycline intravenously. By hospital day 2 he was walking around actively without any complaints. He had no cough. He had no further fever. His flu swab was negative, procalcitonin negative. He is discharged on 7 days of oral doxycycline. Home Meds and New Rx's Prescriptions: New doxycycline hyclate 100 mg capsule 100 mg PO BID Qty: 14 RF: 0 Continued nitroglycerin 0.4 mg tablet, sublingual 0.4 mg Sublingual TID PRN (Reason: chest pain) Qty: 25 RF: 0 aspirin 81 MG tablet,chewable 81 mg PO DAILY RF: 0 epinephrine [EpiPen 2-Raffi] 0.3 MG/0.3 ML auto-injector 0.3 mg IM ONCE PRNRF: 0 metoprolol succinate 25 mg tablet extended release 24 hr 25 mg PO DAILY Qty: 90 RF: 2 lovastatin 40 mg tablet 20 mg PO DAILY Qty: 45 RF: 3 Discharge Instructions Instructions: Community Acquired Pneumonia (DC) Stand Alone Forms: Nursing Discharge Form Referrals: Guzman Thompson [Primary Care Provider] - (Please call Monday to make a follow up appointment with you PCP. ) Activity:: Activity as Tolerated Equipment/Supplies:: No Equipment Needed Diet:: As Tolerated Discharge Orders Discharge Orders: Discharge Order (Routine); Ordered 07/26/19 Ordered By: Pranav Gamble Discharge Data Discharge Date/Time-TO BE ENTERED AT DEPARTURE: 07/26/19 15:43 DS: Summary Status at Discharge Functional status at discharge: independent ambulation Overall status at discharge: patient is back to baseline Mental Status: mental status grossly normal Speech and Movement: speech and movement normal Mood: congruent mood Affect: normal affect Time Spent with Patient providing and/or coordinating discharge services: Greater than 30 minutes Exam Narrative Exam Narrative: On the day of discharge patient was wandering the halls without oxygen without any difficulty. He was alert and lucid without any evident weakness. His lung exam still shows a hint of rales at the right base clear and the other lung bella. Heart was regular and strong. Psych Mental Status: mental status grossly normal Speech and Movement: speech and movement normal Mood: congruent mood Affect: normal affect DS: Data Vitals/I&O Vitals and I&O: Vital Signs Temperature 37 C 07/26/19 15:30 Temperature Source Temporal Artery Scan 07/26/19 15:30 Pulse 67 07/26/19 15:30 Pulse Rhythm Regular 07/26/19 08:20 Respiratory Rate 20 07/26/19 15:30 Respiratory Effort 07/26/19 08:20 Respiratory Depth Normal 07/26/19 08:20 Respiratory Pattern Normal 07/26/19 08:20 Blood Pressure 186/70 H 07/26/19 15:30 Blood Pressure Position Sitting 07/25/19 21:02 Pulse Oximetry 98 07/26/19 15:30 Oxygen Delivery Method Room Air 07/26/19 15:30 Oxygen Flow Rate 0 07/26/19 15:30 Pain Level 0 07/26/19 11:25 Intake & Output 07/25/19 07/26/19 07/26/19 23:59 11:59 23:59 Intake Total 930 / 1420 490 / 1420 Output Total 1425 / 1425 Balance -495 / -5 490 / -5 Weight 78.018 kg 79.8 kg Intake: Oral 930 / 1420 490 / 1420 Output: Urine 1425 / 1425 Other: Urine Color Yellow Urine Appearance Clear Urine Odor Normal Comment very light yellow this void. Voiding Methods Urinal Data Completed and Pending Labs on day of discharge: Labs from last 24 hours 07/26/19 07/26/19 07/26/19 06:32 06:32 00:05 WBC 3.93 L D RBC 4.33 L Hgb 13.0 L Hct 39.4 L MCV 91.0 MCH 30.0 MCHC 33.0 RDW 12.5 Plt Count 159 MPV 10.8 Immature Gran % 0.3 Neutrophils % 68.9 Lymphocytes % 16.0 Monocytes % 13.7 Eosinophils % 0.8 Basophils % 0.3 Absolute Neutrophils 2.71 Absolute Lymphocytes 0.63 L Absolute Monocytes 0.54 Absolute Eosinophils 0.03 Absolute Basophils 0.01 Sodium 144 Potassium 3.3 L Chloride 108 H Carbon Dioxide 27.1 Anion Gap 8.9 BUN 17 Creatinine 1.17 Estimated GFR/1.73 m2 59.68 Glucose 170 H Lactate Calcium 8.0 L Magnesium Total Bilirubin AST ALT Alkaline Phosphatase Troponin I Total Protein Albumin Procalcitonin Urine Color Urine Clarity Urine pH Ur Specific [place] Urine Protein Urine Ketones Urine Blood Urine Nitrite Urine Bilirubin Urine Urobilinogen Ur Leukocyte Esterase Urine RBC Urine WBC Ur Epithelial Cells Urine Crystals Urine Bacteria Urine Mucus Ur Culture Indicated? Urine Glucose Ur Strep pneumoniae Ag Pending 07/25/19 07/25/19 07/25/19 21:30 21:30 21:30 WBC 5.90 RBC 4.34 L Hgb 13.2 L Hct 39.1 L MCV 90.1 MCH 30.4 MCHC 33.8 RDW 12.2 Plt Count 161 MPV 10.5 Immature Gran % 0.0 Neutrophils % 82.8 Lymphocytes % 6.3 Monocytes % 9.0 Eosinophils % 1.7 Basophils % 0.2 Absolute Neutrophils 4.89 Absolute Lymphocytes 0.37 L Absolute Monocytes 0.53 Absolute Eosinophils 0.10 Absolute Basophils 0.01 Sodium Potassium Chloride Carbon Dioxide Anion Gap BUN Creatinine Estimated GFR/1.73 m2 Glucose Lactate 1.2 Calcium Magnesium Total Bilirubin AST ALT Alkaline Phosphatase Troponin I Total Protein Albumin Procalcitonin < 0.1 Urine Color Urine Clarity Urine pH Ur Specific [place] Urine Protein Urine Ketones Urine Blood Urine Nitrite Urine Bilirubin Urine Urobilinogen Ur Leukocyte Esterase Urine RBC Urine WBC Ur Epithelial Cells Urine Crystals Urine Bacteria Urine Mucus Ur Culture Indicated? Urine Glucose Ur Strep pneumoniae Ag 07/25/19 07/25/19 21:30 00:05 WBC RBC Hgb Hct MCV MCH MCHC RDW Plt Count MPV Immature Gran % Neutrophils % Lymphocytes % Monocytes % Eosinophils % Basophils % Absolute Neutrophils Absolute Lymphocytes Absolute Monocytes Absolute Eosinophils Absolute Basophils Sodium 139 Potassium 3.9 Chloride 104 Carbon Dioxide 27.1 Anion Gap 7.9 BUN 18 Creatinine 1.10 Estimated GFR/1.73 m2 >= 60.00 Glucose 133 H Lactate Calcium 8.2 L Magnesium 1.7 L Total Bilirubin 0.9 AST 14 L ALT 15 L Alkaline Phosphatase 72 Troponin I < 0.05 Total Protein 7.0 Albumin 3.6 Procalcitonin Urine Color Yellow Urine Clarity Clear Urine pH 8.0 Ur Specific [place] 1.020 Urine Protein Negative Urine Ketones Negative Urine Blood Trace-lysed H Urine Nitrite Negative Urine Bilirubin Negative Urine Urobilinogen 0.2 Ur Leukocyte Esterase Negative Urine RBC 5-10 H Urine WBC Not Applicable Ur Epithelial Cells Not Applicable Urine Crystals Not Applicable Urine Bacteria Not Applicable Urine Mucus Not Applicable Ur Culture Indicated? No Urine Glucose Negative Ur Strep pneumoniae Ag 07/25/19 21:45 Blood Blood Culture - Pending 07/25/19 21:30 Blood Blood Culture - Pending Preliminary micro results at discharge 07/25/19 21:45 Blood Culture - Pending Blood 07/25/19 21:30 Blood Culture - Pending Blood [facility] Medical History Anxiety disorder (Chronic) CAD (coronary artery disease) (Chronic) Chronic GERD (Chronic) resume omeprazole Glaucoma (Chronic 08/26/11) Hypertension (Chronic) PTSD (post-traumatic stress disorder) (Chronic) Pure hypercholesterolemia (Chronic 06/26/88) MEVACOR EFFECTIVE 1988 Surgical History Coronary Artery Bypass Gaft (CABG) (~1988) X 2 Extraction of cataract LEFT 09/23/04 Stent placement 08/16/16[place] – [place]; 3 STENTS PLACED;1) LEFT MAIN ARTERY 2) 1ST DIAG OF LAD 3) 2ND DIAG OF LAD ZIO PATCH 01/01/18-NEGATIVE Family History Mother Diabetes Heart disease Father , SUICIDE at age 77. Depression Sister Heart disease Grandfather No problems noted. Grandfather No problems noted. Grandmother No problems noted. Grandmother No problems noted. Son Diabetes Heart disease Son Heart disease Social History Smoking/Tobacco Use Status: Former Tobacco Use Alcohol Intake: never Drug use: Never Substance use type: does not use Do you feel safe at home: Yes Do you feel safe in your relationship?: Yes
[2019-07-29 09:00] LABS: Streptococcus Pneumoniae Ag, U Negative (Negative)
== END 2019-07-26 15:43 | disposition home or self-care (01) ==
LOC: ER 23:05 → MS 23:17
PROVIDERS: Admitting Provider Internal Medicine; Emergency Provider Emergency Medicine; PCP Family Medicine; Visit Provider Family Medicine
DX: J18.9 Pneumonia, unspecified organism (principal); R53.1 Weakness; W19.XXXA Unspecified fall, initial encounter; I10 Essential (primary) hypertension; H40.9 Unspecified glaucoma; K21.9 Gastro-esophageal reflux disease without esophagitis
CPT/HCPCS: 36415; 80048; 80053; 84145; 87040; 87449; 93005; 96361; 96365; 97161; 99217; 99220; 99285; J1650; 71046; 81003; 81015; 83605; 83735; 84484; 85025; 87070; 87205; 87450; 93010; G0378; J0696; J7620

== ENCOUNTER 2019-09-12 10:04 | Outpatient (CLI) | payer MEDICARE, OTHER, SELFPAY ==
--- NOTE | 2019-09-12 15:13 | DI.US_ITS ---
APPROVED REPORT EXAM: Comprehensive 2D, Doppler, and color-flow Echocardiogram Patient Location: Out-Patient [employer] Supervisor: Jany Garcia RDCS (AE) Indications: CAD, Mitral Regurgitation Conclusion Left Ventricle : The left ventricle is normal size. The left ventricular systolic function is normal. The left ventricular ejection fraction is within the normal range. There is normal left ventricular wall thickness. There is normal LV segmental wall motion. LVEF is 50-55%. There is grade 2 diastolic dysfunction with decreased relaxation and elevated LA pressure. Right Ventricle : The right ventricle is normal size. The right ventricular systolic function is norm al. Atria : Left atrium is dilated. Right atrium is borderline dilated. Mitral Valve : There is mitral annular calcification. Moderate mitral regurgitation. Mitral regurgita tion jet is eccentrically directed. No evidence of mitral valve stenosis. Mild mitral valve prolapse. Tricuspid Valve : The tricuspid valve is normal in structure. Trace tricuspid regurgitation. There i s no tricuspid valve stenosis. Great Vessels : IVC is normal in size and collapses >50% with inspiration. There is not enough TR to assess PA pressure. Compared to echocardiogram dated 07/23/2018: The patient's mitral regurgitation has not worsened but e jection fraction has decreased slightly. Wall motion Left Ventricle The left ventricle is normal size. The left ventricular systolic function is normal. The left ventric ular ejection fraction is within the normal range. There is normal left ventricular wall thickness. T here is normal LV segmental wall motion. There is grade 2 diastolic dysfunction with decreased relaxa tion and elevated LA pressure. Ventricular septum is not well visualized. LVEF is 50-55%. Right Ventricle The right ventricle is normal size. The right ventricular systolic function is normal. Atria Left atrium is dilated. Right atrium is borderline dilated. The interatrial septum is intact with no evidence for an atrial septal defect. Aortic Valve Aortic valve is trileaflet. The Aortic valve is sclerotic. There is no aortic valvular stenosis. Trac e aortic regurgitation. Mitral Valve There is mitral annular calcification. No evidence of mitral valve stenosis. Moderate mitral regurgit ation. Mitral regurgitation jet is eccentrically directed. Mild mitral valve prolapse. Tricuspid Valve The tricuspid valve is normal in structure. There is no tricuspid valve stenosis. Trace tricuspid reg urgitation. Pulmonic Valve The pulmonary valve is normal in structure. There is no pulmonic valvular stenosis. Trace pulmonic re gurgitation. Great Vessels The aortic root is normal in size. The ascending aorta is normal in size. Aortic arch is not well vis ualized. IVC is normal in size and collapses >50% with inspiration. There is not enough TR to assess PA pressure. Pericardium There is no pericardial effusion. There is no pleural effusion. 2D Dimensions IVSD d PLAX 1.03 cm M: 0.6-1.2 LV Vol A2C d MOD 143.7 mL LVPW d PLAX 1.05 cm M: 0.6 - 1.2 LV Vol A4C d MOD 131.3 mL LVID d PLAX 4.96 cm M: 4.2 - 5.8 LA vol/ BSA A2C s A-L 49.3 mL/m2 LVDs 3.00 cm M: 2.5 - 4.0 LA vol/ BSA A4C s A-L 38.7 mL/m2 Ao Root d 3.40 cm M: 3.1 - 3.7 LA Vol/ BSA Biplane s A-L 44.6 mL/m2 RA Area A4C 19.99 cm2 LA Area A4C s MOD 21.72 cm2 RA Vol/ BSA A4C s A-L 35.1 mL/m2 LA Area A2C s MOD 25.02 cm2 Ao Asc Diam d 3.48 cm M: 2.6 - 3.4 LV EF A4C MOD 57.3 % LV EF Teichholz 69.7 % LV EF A2C MOD 50.0 % LVEF (Day's) 53.04 % M: 52 - 72 LV EF Biplane MOD 53.0 % LV Volume 109.61 mL M: 62 - 150 LV Volume Index 60.22 mL/m2 M: 34 - 74 LV Vol Biplane MOD 141.7 mL FS 39.40 % LV Diastology MV E' medial 0.042 (>0.07 m/s) E/A Ratio 1.2 LV E/e MED 19.30 (<14) MV E Vmax 0.82 (0.4-1.3 m/s) MV E' lateral 0.093 (>0.1 m/s) MV A Vmax 0.70 (0.4-1.3 m/s) LV E/e LAT 8.80 (<14) MV E/A Ratio 1.17 MV E/E' medial 19.33 MV E/E' lateral 8.82 Aortic Valve LVOT Area 2.30 cm2 AoV Area Vmax 1.79 cm2 LVOT Vmax 1.03 m/s AoV Area/ BSA (Vmax) 0.98 cm2/m2 LVOT Mean René. 0.59 m/s EMILIO Mean René. 1.54 cm2 LVOT Peak Grad 4.2 mmHg EMILIO Mean René. Index 0.84 cm2/m2 LVOT Mean Grad 1.7 mmHg LVOT VTI 0.215 m LVOT Diam s 1.70 cm (M/F) 1.5-2.5 AoV Vmax 1.32 (0.5-1.3 m/s) Velocity Ratio 0.78 AoV Mean René. 0.88 m/s AoV Peak Grad 7.0 mmHg LVOT SV 49.58 mL AoV Mean Grad 3.7 (<5 mmHg) AoV VTI 0.263 (0.18-0.25 m) AoV Area VTI 1.89 (2.5-4.5 cm2) AoV Area/ BSA (VTI) 1.03 cm/m2 Mitral Valve MV DT 178 (160-240 msec) MR Vmax 5.96 m/s MV PHT 52 msec MR VTI 1.217 m MV Area PHT 4.26 cm2 MR Peak Grad 142.3 mmHg MV VTI 0.443 m MR Mean Grad 83.4 mmHg MV Area VTI 1.12 (4.0-6.0 cm2) MR PISA Radius 0.44 cm MR EROA 0.07 cm2 MR Aliasing Velocity 0.35 m/s MR PISA 1.23 cm2 Pulmonary Valve PV Vmax 1.20 (0.5-1.5 m/s) RVOT Peak Gr. 1.44 mmHg PV Peak Grad 5.8 mmHg RVOT Mean Gr. 0.80 mmHg PV Mean Grad 3.2 mmHg RVOT VTI 0.145 m PV VTI 0.254 m RVOT Vmax 0.60 m/s
== END 2019-09-12 10:24 ==
PROVIDERS: PCP Family Medicine; Visit Provider Internal Medicine Cardiovascular Disease
DX: I34.0 Nonrheumatic mitral (valve) insufficiency (principal); I34.1 Nonrheumatic mitral (valve) prolapse; I25.10 Atherosclerotic heart disease of native coronary artery without angina pectoris; I50.30 Unspecified diastolic (congestive) heart failure; I10 Essential (primary) hypertension
CPT/HCPCS: 93306

== ENCOUNTER → 2019-09-24 14:41 | Outpatient (BNVA) | payer MEDICARE, OTHER, SELFPAY | PROVIDERS: PCP Family Medicine; Referring Provider Family Medicine; Visit Provider Internal Medicine Cardiovascular Disease | DX: I25.10 Atherosclerotic heart disease of native coronary artery without angina pectoris (principal); I05.9 Rheumatic mitral valve disease, unspecified; I10 Essential (primary) hypertension | CPT/HCPCS: 99212; 99441 ==

== ENCOUNTER → 2020-03-24 09:07 | Outpatient (BNVA) | payer MEDICARE, OTHER, SELFPAY | PROVIDERS: PCP Family Medicine; Referring Provider Family Medicine; Visit Provider Internal Medicine Cardiovascular Disease | DX: I25.10 Atherosclerotic heart disease of native coronary artery without angina pectoris (principal); I10 Essential (primary) hypertension; I34.0 Nonrheumatic mitral (valve) insufficiency; Z95.1 Presence of aortocoronary bypass graft | CPT/HCPCS: 99214 ==

== ENCOUNTER → 2020-09-21 10:48 | Outpatient (BNVA) | payer MEDICARE, OTHER, SELFPAY | PROVIDERS: PCP Family Medicine; Referring Provider Family Medicine; Visit Provider Internal Medicine Cardiovascular Disease | DX: E78.00 Pure hypercholesterolemia, unspecified (principal); I25.10 Atherosclerotic heart disease of native coronary artery without angina pectoris; Z95.1 Presence of aortocoronary bypass graft; I05.9 Rheumatic mitral valve disease, unspecified | CPT/HCPCS: 99214; 99213 ==

== ENCOUNTER 2021-01-27 07:04 | Outpatient (RCR) | payer MEDICARE, OTHER, SELFPAY ==
--- NOTE | 2021-01-27 13:30 | HOLTER_ITS ---
APPROVED REPORT Conclusion Is a 48-hour monitor ordered for occasional palpitations. The patient was in normal sinus rhythm for the majority of the recording with an average heart rate o f 66 bpm. There were no episodes of ventricular tachycardia and rare PVCs. The patient had one episode of atrial fibrillation lasting a total of 9 hours. During this time the peak heart rate was 160. The patient had no symptomatic episodes during this recording.
--- NOTE | 2021-01-29 15:25 | RESPIRATORY ---
[facility] were called and I left about the 5 second pause with no symptoms during AF
== END 2021-02-23 23:59 | disposition home or self-care (01) ==
LOC: RT 07:04
PROVIDERS: PCP Family Medicine; Visit Provider Family Medicine
DX: R00.2 Palpitations (principal); I48.91 Unspecified atrial fibrillation
CPT/HCPCS: 93227; 93225; 93226

== ENCOUNTER → 2021-03-23 09:52 | Outpatient (BNVA) | payer MEDICARE, OTHER, SELFPAY | PROVIDERS: PCP Family Medicine; Referring Provider Family Medicine; Visit Provider Internal Medicine Cardiovascular Disease | DX: I48.0 Paroxysmal atrial fibrillation (principal); I25.10 Atherosclerotic heart disease of native coronary artery without angina pectoris; I10 Essential (primary) hypertension; Z79.01 Long term (current) use of anticoagulants | CPT/HCPCS: 99214; 99213 ==

== ENCOUNTER 2021-05-04 01:04 | Outpatient (CLI) | payer MEDICARE, OTHER, SELFPAY ==
--- NOTE | 2021-05-04 06:30 | DI.US_ITS ---
APPROVED REPORT EXAM: Comprehensive 2D, Doppler, and color-flow Echocardiogram Patient Location: Out-Patient Indications: CAD Other Information Study Quality: Adequate Conclusion Normal left ventricular wall thickness and chamber size. Estimated ejection fraction is 55 to 60%. Wall motion is normal Normal right ventricular size and systolic function Left atrium is mildly dilated. The right atrium is normal in size Aortic valve is trileaflet without stenosis or regurgitation Mildly thickened mitral leaflets. There is moderate eccentric mitral regurgitation. Mild mitral amarilis ve prolapse of anterior leaflet Normal tricuspid valve with trace regurgitation. Right ventricular systolic pressure could not be es timated Mildly dilated ascending aorta measuring 3.51 cm Wall motion Left Ventricle The left ventricle is normal size. The left ventricular systolic function is normal. The left ventric ular ejection fraction is within the normal range. There is normal left ventricular wall thickness. T here is normal LV segmental wall motion. There is no ventricular septal defect visualized. LVEF is 55 -60%. Right Ventricle The right ventricle is normal size. The right ventricular systolic function is normal. Atria Left atrium is mildly dilated. The right atrium size is normal. The interatrial septum is intact with no evidence for an atrial septal defect. Aortic Valve The aortic valve is normal in structure. Aortic valve is trileaflet. There is no aortic valvular sten osis. No aortic regurgitation is present. Mitral Valve Mitral valve leaflets are mildly thickened. No evidence of mitral valve stenosis. Moderate mitral reg urgitation. Mitral regurgitation jet is eccentrically directed. Mild mitral valve prolapse. Tricuspid Valve The tricuspid valve is normal in structure. There is no tricuspid valve stenosis. Trace tricuspid reg urgitation. Unable to assess PA pressure. Pulmonic Valve The pulmonary valve is normal in structure. There is no pulmonic valvular stenosis. Trace pulmonic re gurgitation. Great Vessels The aortic root is normal in size. The ascending aorta is mildly dilated. Aortic arch is not well vis ualized. IVC is normal in size and collapses >50% with inspiration. Pericardium There is no pericardial effusion. 2D Dimensions IVSD d PLAX 1.01 cm M: 0.6-1.2 LV Vol A2C d MOD 122.7 mL LVPW d PLAX 1.01 cm M: 0.6 - 1.2 LV Vol A4C d MOD 130.4 mL LVID d PLAX 4.85 cm M: 4.2 - 5.8 LA vol/ BSA A2C s A-L 36.4 mL/m2 LVDs 3.20 cm M: 2.5 - 4.0 LA vol/ BSA A4C s A-L 32.2 mL/m2 Ao Root d 3.48 cm M: 3.1 - 3.7 LA Vol/ BSA Biplane s A-L 34.3 mL/m2 RA Area A4C 15.18 cm2 LA Area A4C s MOD 19.35 cm2 RA Vol/ BSA A4C s A-L 21.0 mL/m2 LA Area A2C s MOD 20.61 cm2 Ao Asc Diam d 3.51 cm M: 2.6 - 3.4 LV EF A4C MOD 55.9 % LV EF Teichholz 62.5 % LV EF A2C MOD 56.1 % LVEF (Day's) 56.39 % M: 52 - 72 LV EF Biplane MOD 56.4 % LV Volume 99.46 mL M: 62 - 150 SV 72.18 mL LV Volume Index 55.25 mL/m2 M: 34 - 74 SV Index 39.99 mL/m2 LV Vol Biplane MOD 128.0 mL FS 33.80 % M-Mode TAPSE 1.93 cm (M/F) >1.7 LV Diastology MV E' medial 0.087 (>0.07 m/s) E/A Ratio 1.3 LV E/e MED 10.25 (<14) MV E Vmax 0.89 (0.4-1.3 m/s) MV E' lateral 0.110 (>0.1 m/s) MV A Vmax 0.70 (0.4-1.3 m/s) LV E/e LAT 8.05 (<14) MV E/A Ratio 1.26 MV E/E' medial 10.25 MV E/E' lateral 8.08 Aortic Valve LVOT Area 2.67 cm2 AoV Area Vmax 2.00 cm2 LVOT Vmax 0.94 m/s AoV Area/ BSA (Vmax) 1.11 cm2/m2 LVOT Mean René. 0.59 m/s EMILIO Mean René. 1.87 cm2 LVOT Peak Grad 3.5 mmHg EMILIO Mean René. Index 1.04 cm2/m2 LVOT Mean Grad 1.7 mmHg LVOT VTI 0.194 m LVOT Diam s 1.80 cm AoV Vmax 1.25 m/s Velocity Ratio 0.75 AoV Mean René. 0.84 m/s AoV Peak Grad 6.3 mmHg LVOT SV 51.80 mL AoV Mean Grad 3.4 mmHg AoV VTI 0.243 m AoV Area VTI 2.13 cm2 AoV Area/ BSA (VTI) 1.18 cm/m2 Mitral Valve MV DT 178 (160-240 msec) MR Vmax 5.62 m/s MV PHT 52 msec MR VTI 1.538 m MV Area PHT 4.26 cm2 MR Peak Grad 126.4 mmHg MV VTI 0.419 m MR Mean Grad 66.6 mmHg MV Area VTI 1.24 (4.0-6.0 cm2) Pulmonary Valve PV Vmax 1.18 (0.5-1.5 m/s) RVOT Peak Gr. 1.52 mmHg PV Peak Grad 5.5 mmHg RVOT Mean Gr. 0.85 mmHg PV Mean Grad 2.8 mmHg RVOT VTI 0.156 m PV VTI 0.255 m RVOT Vmax 0.62 m/s
== END 2021-05-04 01:24 ==
PROVIDERS: PCP Family Medicine; Visit Provider Internal Medicine Cardiovascular Disease
DX: I25.84 Coronary atherosclerosis due to calcified coronary lesion (principal); I25.10 Atherosclerotic heart disease of native coronary artery without angina pectoris; I77.810 Thoracic aortic ectasia; I34.1 Nonrheumatic mitral (valve) prolapse
CPT/HCPCS: 93016; 93018; 93306

== ENCOUNTER 2021-07-14 03:06 | Outpatient (CLI) | payer MEDICARE, OTHER, SELFPAY ==
[2021-07-14 10:19] LABS: Anion Gap 3.2 mmol/L (3-11); BUN 15 mg/dL (7-18); CO2 31.8 mmol/L (21.0-32.0); CREATININE 1.1 mg/dL (0.70-1.30); Calcium 8.5 mg/dL (8.5-10.1); Calculated LDL 112 mg/dL (<100); Chloride 106 mmol/L (98-107); Cholesterol 178 mg/dL (<200); Glucose 91 mg/dL (74-106); HDL Cholesterol 51 mg/dL (40-60); Potassium 4.3 mmol/L (3.5-5.1); Sodium 141 mmol/L (136-145); Triglyceride 77 mg/dL (<150)
== END 2021-07-14 03:07 | disposition home or self-care (01) ==
LOC: LBO 03:06
PROVIDERS: PCP Family Medicine; Visit Provider Family Medicine
DX: E87.1 Hypo-osmolality and hyponatremia (principal); E78.5 Hyperlipidemia, unspecified; I25.84 Coronary atherosclerosis due to calcified coronary lesion; I48.0 Paroxysmal atrial fibrillation
CPT/HCPCS: 36415; 80048; 80061

== ENCOUNTER 2021-07-22 03:28 | Outpatient (CLI) | payer MEDICARE, OTHER, SELFPAY ==
[2021-07-22 09:16] LABS: HCT 42.1 % (40.0-50.0); HGB 13.7 g/dL (13.5-17.5); MCH 30.6 pg (27.0-33.0); MCHC 32.5 % (32.0-36.0); MCV 94.2 fL (80-95); Platelet Count 158 10^3/uL (130-400); RBC 4.47 10^6/uL (4.36-5.78); RDW-SD 41.9 fL; WBC 5.53 10^3/uL (4.4-10.8)
== END 2021-07-22 03:29 | disposition home or self-care (01) ==
LOC: LBO 03:28
PROVIDERS: PCP Family Medicine; Visit Provider Family Medicine
DX: R53.83 Other fatigue (principal)
CPT/HCPCS: 36415; 85027

== ENCOUNTER → 2021-08-12 09:52 | Outpatient (BNVA) | payer MEDICARE, OTHER, SELFPAY | PROVIDERS: PCP Family Medicine; Visit Provider Internal Medicine Cardiovascular Disease | DX: I48.0 Paroxysmal atrial fibrillation (principal); I25.10 Atherosclerotic heart disease of native coronary artery without angina pectoris; I25.84 Coronary atherosclerosis due to calcified coronary lesion | CPT/HCPCS: 99214; 99213 ==

== ENCOUNTER 2021-10-29 20:35 | Inpatient (IN) | payer MEDICARE, OTHER, SELFPAY ==
[2021-10-29] VITALS (42 sets, daily range): BP systolic 132–218; BP diastolic 64–126; PULSE 56–162; RESP 12–45; TEMP 36.5–37.1; O2SAT 87–100
--- NOTE | 2021-10-29 20:30 | RT.EKG_ITS ---
APPROVED REPORT Exam: Resting ECG Reason for Exam: SHORT OF BREATH Patient Location: E HR:161 bpm ECG Measurements Heart Rate 161 AXIS AZ 129 P 180 QRSd 126 QRS 54 QT 344 T -78 QTc 564 Conclusion Wide-QRS tachycardia...V-rate>(220-age), QRSd>120 Nonspecific intraventricular conduction delay...QRSd >115mS, not LBBB/RBBB narrow complex regular rhythm, normal axis
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
[2021-10-29 20:56] LABS: Abs Immature Grans 0.02 10^3/uL (0.0-0.06); Absolute Basophil Count 0.01 10^3/uL (0.0-0.2); Absolute Eosinophil Count 0.06 10^3/uL (0.0-0.7); Absolute Lymphocyte Count 0.67 10^3/uL (1.2-3.4); Absolute Monocyte Count 0.69 10^3/uL (0.1-0.8); Absolute Neutrophil Count 4.61 10^3/uL (1.2-6.7); Basophils % 0.2; HCT 36.5 % (40.0-50.0); HGB 12.1 g/dL (13.5-17.5); Immature Grans % 0.3; Lymphocytes % 11.1; MCH 30.5 pg (27.0-33.0); MCHC 33.2 % (32.0-36.0); MCV 92 fL (80-95); MPV 11.7 fL (8.0-11.0); Monocytes % 11.4; Platelet Count 159 10^3/uL (130-400); RBC 3.97 10^6/uL (4.36-5.78); RDW 12.8 % (11.8-14.1); RDW-SD 43.4 fL; WBC 6.06 10^3/uL (4.4-10.8)
[2021-10-29] MEDS: dilTIAZem 25 MG/5 ML VIAL 15 MG IVP (20:56)
[2021-10-29] MEDS: Normal Saline 1,000 ML 1000 ML IV (20:56)
[2021-10-29 21:10] LABS: ALT 24 U/L (16-63); AST 23 U/L (15-37); Albumin 3.1 g/dL (3.4-5.0); Alkaline Phosphatase 75 U/L (46-116); Anion Gap 11.6 mmol/L (3-11); BUN 21 mg/dL (7-18); Bilirubin, Total 1.6 mg/dL (0.2-1.0); CO2 20.4 mmol/L (21.0-32.0); CREATININE 1.1 mg/dL (0.70-1.30); Calcium 7.7 mg/dL (8.5-10.1); Chloride 108 mmol/L (98-107); Glucose 135 mg/dL (74-106); Potassium 3.7 mmol/L (3.5-5.1); Sodium 140 mmol/L (136-145); Total Protein 6.6 g/dL (6.4-8.2)
[2021-10-29 21:14] LABS: INR 1.2 (0.9-1.1); PTT Activated 30.1 sec (21.0-27.5); Prothrombin Time 12.4 sec (9.3-11.0)
--- NOTE | 2021-10-29 21:45 | DI.RAD_ITS ---
Exam(s) XR PORTABLE CHEST AP EXAM: XR PORTABLE CHEST AP CLINICAL HISTORY: sob, tachy, concern for chf TECHNIQUE: COMPARISON: CR,XR XR CHEST 2V PA LATERAL from 07/25/2019 FINDINGS: There are multiple sternal sutures. Heart is mildly enlarged. There is suspicion of right pleural e ffusion. This cannot be confirmed on the frontal film. There are patchy and streaky areas of increa sed radiodensity in both lungs, most prominent in perihilar areas and lung bases, findings are sugges tive of CHF, however other etiologies including multifocal pneumonia are not excluded on the basis of these findings. IMPRESSION: Probable CHF, multifocal pneumonia not excluded, please correlate clinically. RADIATION DOSE DELIVERED: Total DLP
[2021-10-29] MEDS: Furosemide 40 MG/4 ML VIAL IVP (22:05)
[2021-10-29 22:12] LABS: Source Nasal/Nares
[2021-10-29 22:27] LABS: NT-proBNP 2360 pg/mL (<300)
[2021-10-29 22:30] LABS: Troponin I 64 ng/L (<or=60)
[2021-10-29 22:57] LABS: COVID-19 PCR Negative (Negative)
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
[2021-10-29] MEDS: nitroGLYcerin 0.4 MG TAB SL (23:14)
--- NOTE | 2021-10-29 23:34 | DI.VRAD_ITS ---
PROCEDURE INFORMATION: Exam: XR Chest Exam date and time: 10/29/2021 23:00 Age: 86 years old Clinical indication: Shortness of breath; Additional info: SOB TECHNIQUE: Imaging protocol: XR of the chest. Views: 1 view. COMPARISON: CR XR CHEST 2V PA LATERAL 07/25/2019 22:04 FINDINGS: Lungs: Probable dependent mild compressive atelectasis. Favored over pneumonia. Probable interstitial edema. Pleural spaces: New small right pleural effusion. No pneumothorax. Heart/Mediastinum: Mild cardiomegaly with mild vascular congestion both new since prior. Bones/joints: Median sternotomy wires. No displaced fracture. IMPRESSION: 1. New mild to moderate CHF/volume overload. 2. Probable dependent mild compressive atelectasis. Favored over pneumonia. Dictated and Authenticated by: Kate Duncan MD. Ordering:SANJUANA Galloway MD
[2021-10-30] VITALS (95 sets, daily range): BP systolic 111–152; BP diastolic 61–86; PULSE 77–108; RESP 12–28; TEMP 36.2–37.6; O2SAT 95–97
[2021-10-30 01:40] LABS: Troponin I 83 ng/L (<or=60)
[2021-10-30 07:04] LABS: BUN 21 mg/dL (7-18); CREATININE 1.2 mg/dL (0.70-1.30); Calcium 8.1 mg/dL (8.5-10.1); Chloride 105 mmol/L (98-107); Estimated GFR 57.68 (mL/min/1.73m2); Glucose 123 mg/dL (74-106); Potassium 3.6 mmol/L (3.5-5.1); Sodium 139 mmol/L (136-145)
[2021-10-30 07:05] LABS: Calculated LDL 108 mg/dL (<100); Cholesterol 163 mg/dL (<200); HDL Cholesterol 43 mg/dL (40-60); Triglyceride 61 mg/dL (<150)
[2021-10-30 07:07] LABS: Troponin I 79 ng/L (<or=60)
[2021-10-30] MEDS: Furosemide 40 MG/4 ML VIAL IVP (08:12)
[2021-10-30] MEDS: Normal Saline Flush 10 ML SYR IVP (08:12)
[2021-10-30] MEDS: Lovastatin 20 MG TAB PO (08:12)
[2021-10-30] MEDS: Aspirin 81 MG CHEW PO (08:12)
[2021-10-30] MEDS: Apixaban 5 MG TAB PO ×2 (08:13→20:34)
[2021-10-30] MEDS: Carvedilol 6.25 MG TAB 12.5 MG PO ×2 (08:13→20:33)
[2021-10-30] MEDS: Omeprazole 20 MG CAPCR 40 MG PO (08:13)
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
--- NOTE | 2021-10-30 08:53 | W.PM.PROGNOT ---
Date of Service Date of service: 10/30/21 Time of Service: 08:53 Assessment and Plan Assessment and plan (1) Atrial flutter with rapid ventricular response: Status: Resolved Assessment and plan: Rates are now controlled. Continue higher dose of coreg. Continue apixaban. Ok to transfer out of the ICU. (2) Acute on chronic diastolic CHF (congestive heart failure), NYHA class 1: Status: Acute Assessment and plan: Likely rate related and the primary cause of acute hypoxic respiratory failure. Control HR. Ok to transition to PO lasix. Monitor I/O's and daily weights. Wean O2 as tolerated. Last echo in our system was done on 05/04/21: LVEF of 55-60%, preserved wall motion, moderate mitral regurgitation. If still hospitalized on Monday, would benefit from a repeat echo. (3) Acute respiratory failure with hypoxia: Status: Acute Assessment and plan: As above. Off BiPAP and on 2L of O2 by NC. Diurese and wean o2 as tolerated. O2 is new. (4) Elevated troponin I level: Status: Acute Assessment and plan: No evidence of ACS. Troponin elevation was due to demand ischemia of rapid heart rate, CHF, hypoxia. No further ischemic workup planned at this time., (5) CAD (coronary artery disease): Status: Chronic Assessment and plan: Continue increased dose of coreg, asa, statin. Qualifiers: Associated angina: without angina Coronary Disease-Associated Artery/Lesion type: [place] artery [place] vs. transplanted heart: [place] heart Qualified Code(s): I25.10 - Atherosclerotic heart disease of [place] coronary artery without angina pectoris (6) Chronic GERD: Status: Chronic Assessment and plan: Continue omeprazole (7) Pure hypercholesterolemia: Status: Chronic Assessment and plan: LDL 108, HDL 43. Continue lovastatin - it appears the patient has intolerance to other statins. (8) Hypertension: Status: Chronic Assessment and plan: Monitor BP on increased dose of coreg. Qualifiers: Hypertension type: essential hypertension Qualified Code(s): I10 - Essential (primary) hypertension (9) Leg cramps, sleep related: Status: Chronic Assessment and plan: Suspect restless legs. Will try baclofen tonight. Check iron studies. (10) DVT prophylaxis: Status: Acute Assessment and plan: On chronic apixaban (11) Discharge planning issues: Status: Acute Assessment and plan: DNR/DNI PT consulted. Transfer out of the ICU. Subjective Subjective Interval history since last seen: Mr Farrell is now in rate controlled A flutter with HR in the 80s. His breathing is night and day. He is off of BiPAP and on 2L of O2 with O2 sats in the 90s. We discussed that the form of heart failure he had was likely due to the rapid heart rate, but that he would benefit from a repeat echocardiogram, be that as inpatient or outpatient. Denies dizziness, chest pain, shortness of breath, nausea. Reports chronic cramps in his legs at night - better with movement. He states that he does not kick. We discussed that he might have restless legs and that we would try baclofen tonight to see if there is an improvement while I am checking iron studies. Exam Narrative Exam Narrative: General: Pleasant elderly male who is sitting up in a chair, A&Ox3, on 2L of O2, no dyspnea/tachypnea/cyanosis HEENT: EOMI, MMM Heart: RRR, no m/r/g (Aflutter with HR of 82 on the monitor) Lungs: Diminished breath sounds at B bases Abdomen: soft, nontender, nondistended Extremities: 1+ pitting BLE edema to B ankles Objective Last Vital Signs Temp 36.8 C 10/30/21 07:15 Pulse 81 10/30/21 05:01 Resp 17 10/30/21 07:15 BP 130/64 10/30/21 05:01 Pulse Ox 97 10/30/21 07:15 Laboratory Results - last 24 hr 10/29/21 10/29/21 10/29/21 20:50 20:50 20:50 WBC 6.06 RBC 3.97 L Hgb 12.1 L Hct 36.5 L MCV 92 MCH 30.5 MCHC 33.2 RDW 12.8 Plt Count 159 MPV 11.7 H Immature Gran % 0.3 Neutrophils % 76.0 Lymphocytes % 11.1 Monocytes % 11.4 Eosinophils % 1.0 Basophils % 0.2 Nucleated RBC % 0.0 Absolute Neutrophils 4.61 Absolute Lymphocytes 0.67 L Absolute Monocytes 0.69 Absolute Eosinophils 0.06 Absolute Basophils 0.01 PT 12.4 H INR 1.2 H APTT 30.1 H Sodium 140 Potassium 3.7 Chloride 108 H Carbon Dioxide 20.4 L Anion Gap 11.6 H BUN 21 H Creatinine 1.1 Estimated GFR/1.73 m2 >= 60.00 Glucose 135 H Calcium 7.7 L Magnesium 2.0 Total Bilirubin 1.6 H AST 23 ALT 24 Alkaline Phosphatase 75 Troponin I NT-Pro-B Natriuret Pep Total Protein 6.6 Albumin 3.1 L Triglycerides Total Cholesterol LDL Cholesterol, Calc HDL Cholesterol COVID-19 Source SARS-CoV-2 (PCR) 10/29/21 10/29/21 10/30/21 22:05 22:09 00:50 WBC RBC Hgb Hct MCV MCH MCHC RDW Plt Count MPV Immature Gran % Neutrophils % Lymphocytes % Monocytes % Eosinophils % Basophils % Nucleated RBC % Absolute Neutrophils Absolute Lymphocytes Absolute Monocytes Absolute Eosinophils Absolute Basophils PT INR APTT Sodium Potassium Chloride Carbon Dioxide Anion Gap BUN Creatinine Estimated GFR/1.73 m2 Glucose Calcium Magnesium Total Bilirubin AST ALT Alkaline Phosphatase Troponin I 64 H* Cancelled NT-Pro-B Natriuret Pep 2360 H Total Protein Albumin Triglycerides Total Cholesterol LDL Cholesterol, Calc HDL Cholesterol COVID-19 Source Nasal/Nares SARS-CoV-2 (PCR) Negative 10/30/21 10/30/21 10/30/21 01:01 03:02 06:04 WBC RBC Hgb Hct MCV MCH MCHC RDW Plt Count MPV Immature Gran % Neutrophils % Lymphocytes % Monocytes % Eosinophils % Basophils % Nucleated RBC % Absolute Neutrophils Absolute Lymphocytes Absolute Monocytes Absolute Eosinophils Absolute Basophils PT INR APTT Sodium Potassium Chloride Carbon Dioxide Anion Gap BUN Creatinine Estimated GFR/1.73 m2 Glucose Calcium Magnesium Total Bilirubin AST ALT Alkaline Phosphatase Troponin I 83 H* Cancelled 79 H* NT-Pro-B Natriuret Pep Total Protein Albumin Triglycerides 61 Total Cholesterol 163 LDL Cholesterol, Calc 108 H HDL Cholesterol 43 COVID-19 Source SARS-CoV-2 (PCR) 10/30/21 06:04 WBC RBC Hgb Hct MCV MCH MCHC RDW Plt Count MPV Immature Gran % Neutrophils % Lymphocytes % Monocytes % Eosinophils % Basophils % Nucleated RBC % Absolute Neutrophils Absolute Lymphocytes Absolute Monocytes Absolute Eosinophils Absolute Basophils PT INR APTT Sodium 139 Potassium 3.6 Chloride 105 Carbon Dioxide 25.0 Anion Gap 9.0 BUN 21 H Creatinine 1.2 Estimated GFR/1.73 m2 57.68 Glucose 123 H Calcium 8.1 L Magnesium Total Bilirubin AST ALT Alkaline Phosphatase Troponin I NT-Pro-B Natriuret Pep Total Protein Albumin Triglycerides Total Cholesterol LDL Cholesterol, Calc HDL Cholesterol COVID-19 Source SARS-CoV-2 (PCR)
--- NOTE | 2021-10-30 12:39 | IN_ITS ---
PT Notes Visit Reasons: Artrial Flutter w/ RVR, Acute CHF, Elevated Tropon Inpatient Physical Therapy Evaluation Date: October Referring Doctor: Lelo Hicks PT Orders: PT CONSULT: Precautions: standard Patient Profile/Admitting Diagnosis: Pt. is a pleasant 86 yo male admitted 10/29/2021 with Atrial Flutter, PT evaluation for discharge planning in ICU. PMHX: All Active Problems?(Updated 10/30/21 @ 01:00 by Kelvin Henry) DNR (do not resuscitate) discussion (Chronic) Elevated troponin I level (Acute) Lipoma of neck (Acute) Lipoma of arm (Acute) CAD (coronary artery disease) (Chronic) CHF (congestive heart failure) (Chronic) Atrial flutter (Chronic) Abdominal pain (Acute) Paroxysmal atrial fibrillation (Acute) Holter alpitations (Acute) Pure hypercholesterolemia (Chronic 06/26/88) MEVACOR EFFECTIVE 1988 Chronic GERD (Chronic) resume omeprazole Social History/Home Situation: Lives alone, independnet with all activity of daily living including manageing 7 cords of wood. Has steep basement stairs that he maneuvers without railing carrying wood, laundry. Living area all on 1 floor but needs basement for laundry and wood. Has plenty of neighbors to help out if he needs it but he doesn't Current Functional Limitations: Cramping primarily left foot, chronic, steps on ice to relieve Equipment Owned/DME: N/A Subjective: I have a goal to hike [place] before I'm 87 I get dehydrated becasue I don't want to have to get up to go to the bathroom becasue I get terrible cramps Objective: General Observation: Independent, cramping left foot on standing, icing to alleviate Mental Status: A and O x3 Pain: none except cramp Vital signs: HR 80 O2 96 on 2 L nasal cannula ROM: Right Upper Extremity: WNL Left Upper Extremity: WNL Right Lower Extremity: WNL Left Lower Extremity: WNL Strength: Right Upper Extremity: WFL Left Upper Extremity: WFL Right Lower Extremity: WFL Left Lower Extremity: WFL Sensation: Intact to light touch Bed Mobility/Transfers: Independent Gait: Without assisted device, linited due to confines of the room and leads however moving about without issue. Balance: Static Sitting: Indep Dynamic Sitting: Indep Static Standing: Indep Dynamic Standing: Indep Special Tests: Mobility Limitations Standardized Measure [facility] AM-PAC 6 clicks Basic Mobility Inpatient Short Form: Raw Score: 24 Standardized Score: CMS Score: 0% Informed Consent/Education: Patient instructed in purpose of PT consult and plan of care. Assessment: Patient is a 86 year old male referred to physical therapy services with the diagnosis of Atrial Flutter. Patient has no noted limitations on PT exam that would prevent him from returning home independently once medical status allows Patient is assessed as a x Low 54132 Moderate 52936 [] High 29184 complexity based on the following: Goals: Pt. should be able to return to home indepdnently once medically cleared. He is advised to gradually increase activity at home. Plan of Care/Treatment Plan: No need for skilled PT services at this time. TREATMENT CODE/TIME: 24835/'
--- NOTE | 2021-10-30 14:37 | NUR.NOTE ---
Nursing Note: At 1417 patient transferred from ICU to room 207 on med surg.
[2021-10-30] MEDS: Furosemide 40 MG TAB PO (16:37)
[2021-10-30] MEDS: Baclofen 10 MG TAB 5 MG PO (21:11)
[2021-10-31] VITALS (9 sets, daily range): BP systolic 105–123; BP diastolic 55–74; PULSE 78–85; RESP 16–20; TEMP 36.2–36.5; O2SAT 94–98
[2021-10-31 06:53] LABS: HCT 37.3 % (40.0-50.0); HGB 12.1 g/dL (13.5-17.5); MCH 30.4 pg (27.0-33.0); MCHC 32.4 % (32.0-36.0); MCV 94 fL (80-95); MPV 11.7 fL (8.0-11.0); Platelet Count 156 10^3/uL (130-400); RBC 3.98 10^6/uL (4.36-5.78); RDW 12.9 % (11.8-14.1); WBC 5.09 10^3/uL (4.4-10.8)
[2021-10-31 07:06] LABS: Anion Gap 6.8 mmol/L (3-11); BUN 27 mg/dL (7-18); CO2 28.2 mmol/L (21.0-32.0); CREATININE 1.3 mg/dL (0.70-1.30); Chloride 106 mmol/L (98-107); Estimated GFR 52.59 (mL/min/1.73m2); Glucose 90 mg/dL (74-106); Potassium 3.9 mmol/L (3.5-5.1); Sodium 141 mmol/L (136-145)
[2021-10-31 07:15] LABS: Iron 24 ug/dL (65-175); Total Iron Binding Capacity 254 ug/dL (250-450); Transferrin Sat 9 % (20-55)
[2021-10-31 07:23] LABS: Ferritin 199 ng/mL (26-388); Magnesium 2.2 mg/dL (1.8-2.4); TSH (W/Ref FT4) 3.52 uIU/mL (0.36-3.74)
[2021-10-31] MEDS: Lovastatin 20 MG TAB PO (07:41)
[2021-10-31] MEDS: Omeprazole 20 MG CAPCR 40 MG PO (07:41)
[2021-10-31] MEDS: Carvedilol 6.25 MG TAB 12.5 MG PO (07:41)
[2021-10-31] MEDS: Furosemide 40 MG TAB PO (07:41)
[2021-10-31] MEDS: Aspirin 81 MG CHEW PO (07:41)
[2021-10-31] MEDS: Apixaban 5 MG TAB PO (07:42)
[2021-10-31] MEDS: Normal Saline Flush 10 ML SYR IVP (07:42)
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
== END 2021-10-31 16:16 | disposition home or self-care (01) | DRG 291 ==
LOC: ER 23:42 → ICU 10-30 00:01 → MS 10-30 14:33
PROVIDERS: Internal Medicine; Admitting Provider Internal Medicine; Emergency Provider Emergency Medicine; PCP Family Medicine; Visit Provider Internal Medicine
DX: I11.0 Hypertensive heart disease with heart failure (principal); I50.33 Acute on chronic diastolic (congestive) heart failure; J96.01 Acute respiratory failure with hypoxia; I48.92 Unspecified atrial flutter; I24.8 Other forms of acute ischemic heart disease; Z66 Do not resuscitate; I25.10 Atherosclerotic heart disease of native coronary artery without angina pectoris; I48.0 Paroxysmal atrial fibrillation; E78.00 Pure hypercholesterolemia, unspecified; K21.9 Gastro-esophageal reflux disease without esophagitis; H40.9 Unspecified glaucoma; F41.9 Anxiety disorder, unspecified; F43.10 Post-traumatic stress disorder, unspecified; G47.00 Insomnia, unspecified; M47.812 Spondylosis without myelopathy or radiculopathy, cervical region; I34.0 Nonrheumatic mitral (valve) insufficiency; K58.9 Irritable bowel syndrome, unspecified; E78.5 Hyperlipidemia, unspecified; G47.62 Sleep related leg cramps; E73.8 Other lactose intolerance; I25.84 Coronary atherosclerosis due to calcified coronary lesion; Z95.1 Presence of aortocoronary bypass graft; Z95.5 Presence of coronary angioplasty implant and graft; Z87.891 Personal history of nicotine dependence
CPT/HCPCS: 36415; 80048; 80053; 80061; 85027; 87635; 93005; 96361; 96374; 96375; 97161; 99285; 71045; 82728; 83540; 83550; 83735; 83880; 84443; 84484; 85025; 85610; 85730; 93010; 94660; 99232; 99239; 99291; J1940

== ENCOUNTER 2021-10-31 13:47 | Outpatient (CLI) | payer MEDICARE, OTHER, SELFPAY ==
--- NOTE | 2021-12-02 15:17 | W.CARDEVENT ---
Date of service: 12/02/21 Time of Service: 15:17 Cardiac Event Recorder Referring Provider:: Lelo Hicks Indications:: Paroxysmal atrial flutter Cardiac Event Note: This is a 30-day radiation monitor ordered for atrial flutter Predominant rhythm was atrial flutter, though occasionally the patient converted to sinus rhythm. Conversion pauses were noted, ranging from 3.4 seconds, 3.7,.seconds, 5.2 seconds, 5.6 seconds and 8.8 seconds When in sinus rhythm heart rate was 50 to 53 bpm
== END 2021-10-31 13:48 | disposition home or self-care (01) ==
LOC: RT 11-10 14:24
PROVIDERS: PCP Family Medicine; Visit Provider Internal Medicine
DX: I48.92 Unspecified atrial flutter (principal)
CPT/HCPCS: 93270

== ENCOUNTER → 2021-11-08 02:24 | Outpatient (CLI) | payer MEDICARE, OTHER, SELFPAY ==
--- NOTE | 2021-11-08 15:07 | DI.US_ITS ---
APPROVED REPORT EXAM: Comprehensive 2D, Doppler, and color-flow Echocardiogram Patient Location: Out-Patient Tar Roofer: Jany Garcia RDCS (AE) Indications: CHF Rapid A Flutter Other Information Study Quality: Adequate Conclusion Normal left ventricular wall thickness and chamber size. Estimated ejection fraction is 55 to 60%. Wall motion is normal Right ventricle is grossly normal in size and systolic function Mildly dilated left atrium. Right atrium is normal in size Trileaflet aortic valve without stenosis or regurgitation Mildly thickened mitral leaflets with systolic prolapse. There is moderate mitral regurgitation Normal tricuspid valve with mild regurgitation. Estimated right ventricular systolic pressure is 43 mmHg Wall motion Left Ventricle The left ventricle is normal size. The left ventricular systolic function is normal. The left ventric ular ejection fraction is within the normal range. There is normal left ventricular wall thickness. T here is normal LV segmental wall motion. There is no ventricular septal defect visualized. LVEF is 57 %. Right Ventricle Right ventricle is grossly normal in size. Right ventricular systolic function is grossly normal. The RVSP is 43.0mmHg. There is a thrombus in the right ventricle. A calcified moderator band is seen in the right ventricle. Pacemaker lead is present in the right ventricle. Device lead is present in the right ventricle. Atria Left atrium is mildly dilated. The right atrium size is normal. The interatrial septum is intact with no evidence for an atrial septal defect. Aortic Valve The aortic valve is normal in structure. Aortic valve is trileaflet. There is no aortic valvular sten osis. No aortic regurgitation is present. Mitral Valve Mitral valve leaflets are mildly thickened. No evidence of mitral valve stenosis. Moderate mitral reg urgitation. Mitral regurgitation jet is eccentrically directed. Mild mitral valve prolapse. Tricuspid Valve The tricuspid valve is normal in structure. There is no tricuspid valve stenosis. Mild tricuspid regu rgitation. Pulmonic Valve The pulmonary valve is normal in structure. There is no pulmonic valvular stenosis. Trace pulmonic re gurgitation. Great Vessels The aortic root is normal in size. Ascending aorta is normal in caliber. Aortic arch is not well visu alized. IVC is normal in size and collapses >50% with inspiration. Pericardium There is no pericardial effusion. 2D Dimensions IVSD d PLAX 1.06 cm M: 0.6-1.2 LV Vol A2C d MOD 162.5 mL LVPW d PLAX 1.05 cm M: 0.6 - 1.2 LV Vol A4C d MOD 143.7 mL LVID d PLAX 4.72 cm M: 4.2 - 5.8 LA vol/ BSA A2C s A-L 48.3 mL/m2 LVDs 3.40 cm M: 2.5 - 4.0 LA vol/ BSA A4C s A-L 35.2 mL/m2 Ao Root d 3.47 cm M: 3.1 - 3.7 LA Vol/ BSA Biplane s A-L 43.0 mL/m2 RA Area A4C 17.24 cm2 LA Area A4C s MOD 20.75 cm2 RA Vol/ BSA A4C s A-L 25.6 mL/m2 LA Area A2C s MOD 25.33 cm2 Ao Asc Diam d 3.52 cm M: 2.6 - 3.4 LV EF A4C MOD 57.8 % LV EF Teichholz 52.7 % LV EF A2C MOD 57.2 % LVEF (Day's) 56.81 % M: 52 - 72 LV EF Biplane MOD 56.8 % LV Volume 120.75 mL M: 62 - 150 SV 88.29 mL LV Volume Index 67.08 mL/m2 M: 34 - 74 SV Index 48.92 mL/m2 LV Vol Biplane MOD 155.4 mL FS 27.05 % M-Mode TAPSE 1.06 cm (M/F) >1.7 LV Diastology MV E' medial 0.040 (>0.07 m/s) E/A Ratio 3.2 LV E/e MED 27.95 (<14) MV E Vmax 1.12 (0.4-1.3 m/s) MV E' lateral 0.045 (>0.1 m/s) MV A Vmax 0.35 (0.4-1.3 m/s) LV E/e LAT 24.90 (<14) MV E/A Ratio 3.19 MV E/E' medial 27.97 MV E/E' lateral 24.93 Aortic Valve LVOT Area 3.10 cm2 AoV Area Vmax 2.37 cm2 LVOT Vmax 1.10 m/s AoV Area/ BSA (Vmax) 1.32 cm2/m2 LVOT Mean René. 0.68 m/s EMILIO Mean René. 2.24 cm2 LVOT Peak Grad 4.8 mmHg EMILIO Mean René. Index 1.24 cm2/m2 LVOT Mean Grad 2.2 mmHg LVOT VTI 0.199 m LVOT Diam s 1.95 cm AoV Vmax 1.44 m/s Velocity Ratio 0.76 AoV Mean René. 0.94 m/s AoV Peak Grad 8.2 mmHg LVOT SV 61.78 mL AoV Mean Grad 4.2 mmHg AoV VTI 0.201 m AoV Area VTI 3.07 cm2 AoV Area/ BSA (VTI) 1.70 cm/m2 Mitral Valve MV DT 199 (160-240 msec) MV PHT 58 msec MV Area PHT 3.81 cm2 MV VTI 0.388 m MV VTI Annulus 0.367 m MV Area VTI 1.51 (4.0-6.0 cm2) Pulmonary Valve PV Vmax 0.90 (0.5-1.5 m/s) RVOT Peak Gr. 1.09 mmHg PV Peak Grad 3.2 mmHg RVOT Mean Gr. 0.50 mmHg PV Mean Grad 1.4 mmHg RVOT VTI 0.106 m PV VTI 0.141 m RVOT Vmax 0.52 m/s Tricuspid Valve TR Peak Grad 39.9 mmHg TR Vmax 3.16 m/s RA Pressure 3.00 mmHg RVSP (TR) 43.0 mmHg
== END ==
PROVIDERS: PCP Family Medicine; Visit Provider Internal Medicine
DX: I48.92 Unspecified atrial flutter (principal); I50.33 Acute on chronic diastolic (congestive) heart failure; I34.0 Nonrheumatic mitral (valve) insufficiency
CPT/HCPCS: 93306

== ENCOUNTER 2021-11-09 02:11 | Outpatient (CLI) | payer MEDICARE, OTHER, SELFPAY ==
[2021-11-09 11:28] LABS: Anion Gap 5.2 mmol/L (3-11); BUN 24 mg/dL (7-18); CO2 27.8 mmol/L (21.0-32.0); CREATININE 1.2 mg/dL (0.70-1.30); Calcium 8.3 mg/dL (8.5-10.1); Chloride 106 mmol/L (98-107); Estimated GFR 57.68 (mL/min/1.73m2); Glucose 106 mg/dL (74-106); NT-proBNP 1648 pg/mL (<300); Sodium 139 mmol/L (136-145)
== END 2021-11-09 02:12 | disposition home or self-care (01) ==
LOC: LBO 02:11
PROVIDERS: PCP Family Medicine; Visit Provider Internal Medicine
DX: I50.33 Acute on chronic diastolic (congestive) heart failure (principal)
CPT/HCPCS: 36415; 80048; 83880

== ENCOUNTER 2021-11-14 18:45 | Emergency (ER) | payer MEDICARE, OTHER, SELFPAY ==
[2021-11-14] VITALS (41 sets, daily range): BP systolic 142–189; BP diastolic 57–117; PULSE 53–124; RESP 2–31; TEMP 37.1; O2SAT 88–100
--- NOTE | 2021-11-14 18:45 | RT.EKG_ITS ---
APPROVED REPORT Exam: Resting ECG Reason for Exam: SOB Patient Location: E HR:81 bpm ECG Measurements Heart Rate 81 AXIS NC [id number] P [id number] QRSd 90 QRS 33 QT 496 T 261 QTc 596 Conclusion Atrial flutter with predominant 4:1 AV block. Multiple ventricular premature complexes. Nonspecific T abnormalities, lateral leads..
--- NOTE | 2021-11-14 19:00 | DI.RAD_ITS ---
Exam(s) XR PORTABLE CHEST AP EXAM: XR PORTABLE CHEST AP CLINICAL HISTORY: PUI, SOB TECHNIQUE: 2D digital imaging was performed. COMPARISON: CR XR CHEST 2V PA LATERAL from 05/01/2019 CR,XR XR CHEST 2V PA LATERAL from 07/25/2019 CR,XR XR PORTABLE CHEST AP from 10/29/2021 FINDINGS: LUNGS: Blunting both costophrenic angles. Some improvement in bilateral lower lobe infiltrates. HEART: Normal. AORTA: Mildly tortuous. BONES: Sternal wires. Degenerative changes both shoulders. Soft tissues: Monitoring device projecting over upper thoracic region. IMPRESSION: Some improvement in bibasilar infiltrates. Small bilateral pleural effusions are suspected. Finding s could represent CHF. DATA REPOSITORY: RADIATION DOSE DELIVERED:
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
[2021-11-14 19:43] LABS: Abs Immature Grans 0.01 10^3/uL (0.0-0.06); Absolute Basophil Count 0.01 10^3/uL (0.0-0.2); Absolute Eosinophil Count 0.18 10^3/uL (0.0-0.7); Absolute Lymphocyte Count 1.06 10^3/uL (1.2-3.4); Absolute Monocyte Count 0.72 10^3/uL (0.1-0.8); Absolute Neutrophil Count 4.15 10^3/uL (1.2-6.7); Basophils % 0.2; Eosinophils % 2.9; HCT 38.4 % (40.0-50.0); HGB 12.4 g/dL (13.5-17.5); Immature Grans % 0.2; Lymphocytes % 17.3; MCH 29.7 pg (27.0-33.0); MCHC 32.3 % (32.0-36.0); MCV 92 fL (80-95); MPV 11.1 fL (8.0-11.0); Monocytes % 11.7; Neutrophils % 67.7; Platelet Count 180 10^3/uL (130-400); RBC 4.18 10^6/uL (4.36-5.78); RDW 12.7 % (11.8-14.1); RDW-SD 42.6 fL; WBC 6.13 10^3/uL (4.4-10.8)
[2021-11-14 19:57] LABS: INR 1.1 (0.9-1.1); PTT Activated 30.3 sec (21.0-27.5); Prothrombin Time 11.1 sec (9.3-11.0)
[2021-11-14 20:02] LABS: ALT 20 U/L (16-63); AST 19 U/L (15-37); Albumin 3.4 g/dL (3.4-5.0); Alkaline Phosphatase 76 U/L (46-116); Anion Gap 9.2 mmol/L (3-11); BUN 21 mg/dL (7-18); CO2 26.8 mmol/L (21.0-32.0); CREATININE 1.4 mg/dL (0.70-1.30); Calcium 8.1 mg/dL (8.5-10.1); Chloride 104 mmol/L (98-107); Estimated GFR 48.28 (mL/min/1.73m2); Glucose 102 mg/dL (74-106); Magnesium 1.9 mg/dL (1.8-2.4); NT-proBNP 3038 pg/mL (<300); Sodium 140 mmol/L (136-145); Total Protein 7.2 g/dL (6.4-8.2); Troponin I < 50 ng/L (<or=60)
[2021-11-14] MEDS: Baclofen 10 MG TAB 5 MG PO (20:38)
[2021-11-14 20:40] LABS: COVID-19 PCR Negative (Negative); Influenza A PCR Negative (Negative); Influenza B PCR Negative (Negative); RSV PCR Negative (Negative)
--- NOTE | 2021-11-14 20:46 | DI.VRAD_ITS ---
PROCEDURE INFORMATION: Exam: XR Chest Exam date and time: 11/14/2021 8:13 PM Age: 86 years old Clinical indication: Cough and shortness of breath TECHNIQUE: Imaging protocol: XR of the chest. Views: 1 view. COMPARISON: XR PORTABLE CHEST AP 10/29/2021 11:00 PM FINDINGS: Lungs: Bibasilar airspace opacities have improved since the prior study. Pleural spaces: Small right pleural effusion, stable. No pneumothorax. Heart/Mediastinum: Cardiomegaly. Bones/joints: Sternotomy. IMPRESSION: Bibasilar airspace opacities have improved since the prior study. Dictated and Authenticated by: Trenton Chris MD. Ordering:TOM Mcclure MD
[2021-11-14] MEDS: Albuterol/Ipratropium 3 ML UPD VIAL UPD (20:55)
[2021-11-14] MEDS: Furosemide 20 MG/2 ML VIAL IVP (20:55)
[2021-11-14 22:34] LABS: Troponin I < 50 ng/L (<or=60)
[2021-11-14] MEDS: Inhaler, Assist Device 1 EACH MC (22:56)
[2021-11-14] MEDS: Albuterol HFA 8 GM 60 PUFF INH IH (22:56)
== END 2021-11-14 23:15 | disposition home or self-care (01) ==
PROVIDERS: Emergency Provider Registered Nurse Emergency; PCP Family Medicine
DX: I11.0 Hypertensive heart disease with heart failure (principal); I50.32 Chronic diastolic (congestive) heart failure; R06.02 Shortness of breath
CPT/HCPCS: 80053; 87637; 93005; 94640; 96374; 99284; 71045; 83735; 83880; 84484; 85025; 85610; 85730; 93010; J1941; J7620

== ENCOUNTER → 2021-11-19 15:00 | Outpatient (BNVA) | payer MEDICARE, OTHER, SELFPAY | PROVIDERS: PCP Family Medicine; Referring Provider Family Medicine; Visit Provider Internal Medicine Cardiovascular Disease | DX: I48.92 Unspecified atrial flutter (principal); I50.9 Heart failure, unspecified; I25.10 Atherosclerotic heart disease of native coronary artery without angina pectoris; I05.9 Rheumatic mitral valve disease, unspecified | CPT/HCPCS: 99214; 99213 ==

== ENCOUNTER 2021-12-02 15:17 | Outpatient (CLI) | payer MEDICARE, OTHER, SELFPAY | END 2021-12-02 15:18 | LOC: CARDO 01-10 12:26 | PROVIDERS: PCP Family Medicine; Referring Provider Internal Medicine; Visit Provider Internal Medicine Cardiovascular Disease | DX: I48.92 Unspecified atrial flutter (principal) | CPT/HCPCS: 93272 ==

== ENCOUNTER → 2022-02-18 10:39 | Outpatient (BNVA) | payer MEDICARE, OTHER, SELFPAY | PROVIDERS: PCP Family Medicine; Referring Provider Family Medicine; Visit Provider Internal Medicine Cardiovascular Disease | DX: I48.92 Unspecified atrial flutter (principal); I25.10 Atherosclerotic heart disease of native coronary artery without angina pectoris; I50.9 Heart failure, unspecified | CPT/HCPCS: 99213 ==

== ENCOUNTER → 2022-03-24 03:06 | Outpatient (CLI) | payer MEDICARE, OTHER, SELFPAY ==
--- NOTE | 2022-03-24 06:45 | DI.CT_ITS ---
Exam(s) CT ABDOMEN PELVIS W EXAM: CT ABDOMEN PELVIS W CLINICAL HISTORY: abd distension,r14.0 TECHNIQUE: Imaging Protocol: Axial computed tomography images with coronal and sagittal reformatted images were created and reviewed CONTRAST MATERIAL: Intravenous: Omnipaque 350 Contrast volume:100 mL Oral: Yes COMPARISON: CT ABD PELVIS WITH CONTRAST from 07/15/2008 CT PELVIC/LOWER ABD WITH CON(P) from 11/24/2009 CT CTA BRAIN AND NECK from 12/21/[address] CHEST W from 05/06/2019 FINDINGS: ABDOMEN: Lung Bases: There is a moderate-sized right pleural effusion. There is consolidation in the right lo wer lobe. Patchy infiltrates are also seen in the left lower lobe. Cardiomegaly is present. Flores ry artery calcifications are present. Liver: There is a mottled enhancement pattern of the liver without discrete mass. There are tiny hyp odensities seen within the liver which are too small for further characterization but may reflect sma ll cysts. There is a stable cyst in the caudal aspect of the liver. Portal, Superior Mesenteric, and Splenic Veins: Unremarkable. Gallbladder and Biliary Tract: No radiodense calculus or dilation. Pancreas: Normal density, no abnormal calcifications or inflammatory process. Spleen: Normal. Adrenals: No masses seen. Kidneys: Normal size, contour and axis. No radiodense stones or obstructive uropathy. No masses seen. Abdominal Aorta: Abdominal portion non-dilated. Atherosclerosis is present. Bowel: No obstruction or bowel wall thickening. Appendix is unremarkable. Peritoneal Cavity: No ascites, collection or mesenteric inflammatory response. No free air. Lymph Nodes: Within normal limits. Bones: Within normal limits for the patient's age. Soft Tissues: There are large bilateral fat containing inguinal hernias, left greater than right. Th ere is a small fat containing umbilical hernia. PELVIS: Bladder: There is diffuse thickening of the wall of the urinary bladder. Reproductive Organs: The prostate gland is markedly enlarged. Lymph Nodes: Within normal limits. Bones: Within normal limits for the patient's age. IMPRESSION: 1. Mottled enhancement pattern of the liver without discrete mass. This may reflect diffuse hepatic disease/hepatitis, abnormal cardiac function/congestive heart failure or hepatic cirrhosis among othe r causes. Please correlate clinically. MRI may be considered for further evaluation. 2. Moderate right pleural effusion and bilateral basilar infiltrates which may represent pneumonia or atelectasis. Please correlate clinically. 3. Cardiomegaly, coronary artery disease and atherosclerosis. 4. Prostatomegaly. 5. Diffuse thickening of the wall of the urinary bladder. This may be due to chronic bladder outlet obstruction, neurogenic bladder or infectious/inflammatory cystitis. 6. Umbilical and bilateral fat containing inguinal hernia. RADIATION DOSE DELIVERED: 920.87mGy.cm Total DLP DATA REPOSITORY: All CT scans at this facility are submitted to the National Radiology Data Registry (NRDR) Dose Index Registry (DIR) with the [employer] (A[employer]). RADIATION OPTIMIZATION: All CT scans at this facility use at least one of these dose optimization te chniques: automated exposure control; mA and/or kV adjustment per patient size (includes targeted exa ms where dose is matched to clinical indication); or iterative reconstruction.
[2022-03-24] MEDS: Barium Sulfate 2% W/V-Berry Smoothie 450 ML BTL 900 ML PO (07:00)
[2022-03-24 07:36] LABS: CREATININE 1.6 mg/dL (0.70-1.30); Estimated GFR 41.96 (mL/min/1.73m2)
[2022-03-24] MEDS: Omnipaque 350 MG/ML 100 ML BTL IJ (08:11)
== END ==
PROVIDERS: PCP Family Medicine; Visit Provider Family Medicine
DX: K40.90 Unilateral inguinal hernia, without obstruction or gangrene, not specified as recurrent (principal); I25.10 Atherosclerotic heart disease of native coronary artery without angina pectoris; I51.7 Cardiomegaly; R91.8 Other nonspecific abnormal finding of lung field; N40.0 Benign prostatic hyperplasia without lower urinary tract symptoms
CPT/HCPCS: 74177; 82565; J3490

== ENCOUNTER 2022-04-08 01:34 | Outpatient (CLI) | payer MEDICARE, OTHER, SELFPAY ==
--- OUTSIDE RECORDS SUMMARY | 2022-04-08 01:37 | XMS_ITS | Clinical Summary ---
:1935 Author Organization [facility] [place] [address] Care Team Providers Name Role Phone Guzman Thompson MD Primary Care Provider [phone] Allergies Active Allergy Reactions Severity Noted Date Comments Ezetimibe 07/10/2015 Other reaction( s): intolerance Niacin Other (See 07/10/2015 Comments) Prednisone 08/13/2016 Per pt, he repo rted hallucinations after taking predniso ne Pyrazolones Other (See 07/10/2015 Comments) Rosuvastatin Other (See 07/10/2015 Comments) Rosuvastatin Calcium HEAD SO RENESS Sertraline Other (See 07/10/2015 Comments) Llwyrqt-Jvv-Ptb INTOLERANce . However, Reductase Inhibitors tolerat es Mevacor without problem s. Trazodone Other (See 07/10/2015 Comments) Medications Medication Sig Dispensed Refills Start Date End Date Status epiNEPHrine (EPIPEN) one injection, 0 01/15/2009 Active 0.3 mg/0.3 mL injection IM, PRN lovastatin (MEVACOR) 40 Take 1 tablet by 90 tablet 3 6 Active mg Tablet mouth nightly. Additional Information Patient taking differently: 40 mg Oral NIGHTLY, Takes 1/2 once a day, Reported on 12/02/2021 aspirin 81 mg Tablet, Chewable Take 81 mg by mouth 30 tablet 0 08/16/2016 Active daily. nitroGLYcerin (NITROSTAT) 0.4 Place 1 tablet under 25 tablet 08/16/2016 Active mg Tablet, Sublingual the tongue every 5 minutes as needed for Chest pain. meTOPROLOL succinate (TOPROL Take 1 tablet by mouth 30 tablet 3 08/16/2016 Active XL) 50 mg Tablet Sustained daily. Release 24 hr furosemide (Lasix) 20 mg Take 20 mg by mouth 2 0 Active Tablet times daily. omeprazole (PriLOSEC) 40 mg Take 40 mg by mouth 0 Active Capsule, Delayed Release(E.C.) daily. apixaban (Eliquis) 5 mg Tablet Take by mouth. 0 Active albuteroL 90 mcg/actuation HFA Inhale 2 puffs into the 0 Active Aerosol Inhaler lungs every 4 hours as needed for Wheezing. Use with spacer Active Problems Problem Noted Date Atrial flutter 03/29/2022 Atrial flutter with rapid ventricular response 022 Urticaria 09/02/2017 Unstable angina with positive stress test 08/13/2016 Cardiomyopathy, ischemic 08/13/2016 Actinic keratosis 07/21/2015 Essential hypertension 07/21/2015 History of tobacco use 07/21/2015 Lactose intolerance 07/21/2015 Disorder of joint 08/26/2011 Irritable bowel syndrome 08/26/2011 3+ Mitral regurgitation 08/26/2011 Overview: Myxomatous valve with anterior prolapse her echo at [facility] Obesity 08/26/2011 Dyssomnia 08/26/2011 Bilateral inguinal hernia 08/26/2011 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 Was on no meds as of June 2015 --> st arted Mevacor 20 05/2016: uptitrate Mevacor to 40. Refuse s clopidogrel. Resolved Problems Problem Noted Date Resolved Date Pure hypercholesterolemia 06/26/1988 06/08/2016 Encounters Date Type Specialty Care Team Description 03/29/2022 Anesthesia Event Cardiology Amado Rolon MD 03/29/2022 Surgery Cardiology Yury Francis MD ELECTROPHY SIOLOGY PROCEDURE 03/29/2022 - Hospital Encounter Cardiology Yury Francis MD Typical atrial flutter; 03/30/2022 Kentrell Michelle, 3+ Mitral regurgitation; Acute and chron ic respiratory failure with hypoxia; Acute respirato ry failure with hypoxia; Chest pain, uns pecified type 03/16/2022 Telephone Cardiology Jeane Cedillo, Elias Procedu re Call RN 02/16/2022 Office Visit Cardiology Yury Francis MD Typical at rial flutter from Last 3 Months Immunizations Name Administration Dates Next Due Td, adult 01/03/2006 Family History Medical History Relation Comments Diabetes Mother Relation Status Comments Mother Social History Tobacco Use Types Packs/Day Years Used Date Former Smoker Quit: 06/26/18 Smokeless Tobacco: Never Used Alcohol Use Standard Drinks/Week Comments Not Currently 2 (1 standard drink = 0.6 oz pure alcoho l) Sex Assigned at Date Recorded Not on file Last Filed Vital Signs Vital Sign Reading Time Taken Comments Blood Pressure 104/53 03/30/2022 10:00 AM EDT Pulse 77 03/30/2022 10:00 AM EDT Temperature 36.9 ??C (98.4 ??F) 03/30/2022 9:00 AM EDT Respiratory Rate 21 03/30/2022 10:00 AM EDT Oxygen Saturation 93% 03/30/2022 10:00 AM EDT Inhaled Oxygen Concentration - - Weight 78 kg (172 lb) 03/29/2022 7:14 AM EDT Height 157.5 cm (5' 2) 03/29/2022 7:14 AM EDT Body Mass Index 31.46 03/29/2022 7:14 AM EDT Plan of Treatment Health Maintenance Due Date Last Done Comments Covid-19 Vaccine (#1) 1935 Pneumoccocal Vaccine: 65+ (1 - PCV) 1941 Tdap adult 1956 Zoster vaccine (1 of 2) 1987 Advance Directive 1992 Tetanus vaccine 01/04/2016 01/03/2006 Influenza (Flu) vaccine (1 of 1 - Influenza standard 02/24/2022 series) Procedures Procedure Name Priority Date/Time Associated Comments Diagnosis HC POTASSIUM Routine 03/30/2022 8:00 Results for this AM EDT procedure are i n the results section. HC TROPONIN T STAT 03/30/2022 8:00 Results for this AM EDT procedure are i n the results section. EKG 12-LEAD Routine 03/30/2022 7:51 Acute respiratory Results for this AM EDT failure with procedure are i n hypoxia the results section. XR CHEST ONE VIEW Routine 03/30/2022 6:25 Results for this AM EDT procedure are i n the results section. HC TROPONIN T STAT 03/30/2022 1:30 Results for this AM EDT procedure are i n the results section. DIFFERENTIAL, AUTOMATED Routine 03/30/2022 1:30 R esults for this AM EDT procedure are i n the results section. HEMOGRAM Routine 03/30/2022 1:30 Results for this AM EDT procedure are i n the results section. HC MAGNESIUM, SERUM Routine 03/30/2022 1:30 Resul ts for this AM EDT procedure are i n the results section. HC CBC,PLT & AUTO DIFF Routine 03/30/2022 1:30 AM EDT BASIC METABOLIC PANEL Routine 03/30/2022 1:30 Res ults for this (NON-FASTING) AM EDT procedure are in the results section. BLOOD GAS 2 ARTERIAL Routine 03/29/2022 5:42 Resu lts for this PM EDT procedure are i n the results section. HC TROPONIN T STAT 03/29/2022 5:20 Results for this PM EDT procedure are i n the results section. DIFFERENTIAL, AUTOMATED Routine 03/29/2022 5:20 R esults for this PM EDT procedure are i n the results section. HEMOGRAM Routine 03/29/2022 5:20 Results for this PM EDT procedure are i n the results section. HC PROBNP Routine 03/29/2022 5:20 Results for this PM EDT procedure are i n the results section. BASIC METABOLIC PANEL Routine 03/29/2022 5:20 Res ults for this (NON-FASTING) PM EDT procedure are in the results section. HC CBC,PLT & AUTO DIFF Routine 03/29/2022 5:20 PM EDT HC TROPONIN T STAT 03/29/2022 4:15 Results for this PM EDT procedure are i n the results section. HC PROBNP Routine 03/29/2022 4:15 Results for this PM EDT procedure are i n the results section. ECHOCARDIOGRAM Routine 03/29/2022 4:06 Results fo r this TRANSTHORACIC(LEB) PM EDT procedure are in the results section. EKG 12-LEAD STAT 03/29/2022 3:59 Acute and chronic Results for this PM EDT respiratory procedure are i n failure with the results hypoxia section. XR CHEST ONE VIEW STAT 03/29/2022 3:10 Results for this PM EDT procedure are i n the results section. SCAN DOC: TELEMETRY 03/29/2022 10:52 Resu lts for this STRIPS AM EDT procedure are i n the results section. ELECTROPHYSIOLOGY Routine 03/29/2022 7:32 Typical atrial Resul ts for this PROCEDURE AM EDT flutter procedure are i n the results section. DIFFERENTIAL, AUTOMATED STAT 03/29/2022 7:20 R esults for this AM EDT procedure are i n the results section. HEMOGRAM STAT 03/29/2022 7:20 Results for this AM EDT procedure are i n the results section. BMP W/FASTING GLUCOSE STAT 03/29/2022 7:20 Res ults for this AM EDT procedure are i n the results section. HC CBC,PLT & AUTO DIFF STAT 03/29/2022 7:20 AM EDT HC PROTHROMBIN TIME STAT 03/29/2022 7:20 Resul ts for this AM EDT procedure are i n the results section. EKG 12-LEAD Routine 02/16/2022 3:56 Typical atrial Results fo r this PM EDT flutter procedure are i n the results section. from Last 3 Months Results (ABNORMAL) Troponin (03/30/2022 8:00 AM EDT)Only the most recent of4 results within the time period is included. athologist Signature Troponin-T 0.47 (H) 0.00 - [place] [facility] 0.00 ng/mL [facility] Comment: The 99th percentile for Troponin T is le ss than 0.01 ng/mL, any detectable cTnT concentration using this assay should be considered elevated. According to the third universal definit ion of myocardial infarction the following criteria with a clinical prese ntation consistent with acute myocardial ischemia meets the diagnosis for a myocardial infarction (LA). Detection of a rise and/or fall of cTnT, with at least one value greater than the 99th percentile (> or = 0.01) and wi th at least one of the following ?? Symptoms of ischemia ?? New or presumed new significant ST-se gment-T wave (ST-T) changes or new left bundle branch block (LBBB) ?? Development of pathologic Q waves in the ECG ?? Imaging evidence of new loss of viabl e myocardium or new regional wall motion abnormality ?? Identification of an intracoronary th rombus by angiography or autopsy Samples for cTnT testing should be obtai ren serially upon first assessment and again 3 to 6 hours later. If the clinica l suspicion is high and previous samples have been negative an additional sample may be indicated. Reference: Third [place] Definition of Myocardial Infarction. Journal of the [place] College [employer] 2012;60:1581-98 Troponin-T HS 430 (H) <=22 ng/L [facility] Comment: This patient's troponin T concentration was determined using the Shandra 5th Generation troponin T assay. The 99th pe rcentile for Troponin T for this test is 14 ng/L for females, and 22 ng/L for males. According to the fourth universal defini tion of myocardial infarction, the term acute myocardial infarction should be used when there is acute myocardial injury with clinical evidence of acute m yocardial ischemia and with detection of a rise and/or fall of cardiac troponi n values with at least one value above the 99th percentile and at least one of the following: - Symptoms of myocardial ischemia; - New ischemic ECG changes; - Development of pathological Q waves; - Imaging evidence of new loss of viable myocardium or new regional wall motion abnormality in a pattern consistent with an ischemic etiology; - Identification of a coronary thrombus by angiography or autopsy (not for type 2 or 3 MIs) Serial measurement of troponin and the c hange in troponin concentration over time (delta) is crucial for the diagnosi s of acute myocardial infarction. Guidance on the interpretation of the ne w 5th Generation Troponin T values and the delta troponin value can be found in the [facility] Laboratory Test Catalog Troponin - [facility] Laboratory Test Catalog Reference: Fourth [place] Definition of Myocardia l Infarction. Journal of the [place] College [employer]iology 2018;72:0360-8193 Specimen Anatomical Collection Method Collection Time Receive d Time (Source) Location / / Volume Laterality Blood 03/30/2022 8:00 AM 2 8:11 EDT AM EDT Resulting Agency Comment Spec In Lab Jaja Cronin MD CHEMISTRY ORDERABLES Performing Organization Address City/[facility]/ZIP Code Phon e Number [address] Potassium (03/30/2022 8:00 AM EDT) P athologist Signature Potassium 3.7 3.5 - 5.0 [facility] mmol/L [facility] Comment: Please note: ??Patients with WBC >100,00 0 may have falsely elevated Potassium levels. ??For accurate Potassium quantif ication in these patients send serum separator tube (gold top) for subsequent determinations. ??Contact the Clinical Chemistry Laboratory if there are any qu estions. Specimen Anatomical Collection Method Collection Time Receive d Time (Source) Location / / Volume Laterality Blood 03/30/2022 8:00 AM 2 8:11 EDT AM EDT Resulting Agency Comment Spec In Lab Kentrell Michelle MD CHEMISTRY ORDERABLES Performing Organization Address City/[facility]/ZIP [place] [address] EKG 12 Lead (03/30/2022 7:51 AM EDT)Only the most recent of3 resultswithin the time period is included. Component Value Ref Range Test Analysis Performed Pathologis t Method Time At Signature Ventricular rate 70 BPM MUSE SYSTEM Atrial Rate 70 BPM MUSE SYSTEM P-R Interval 196 ms MUSE SYSTEM QRS Duration 100 ms MUSE SYSTEM Q-T Interval 400 ms MUSE SYSTEM QTC Calculated 432 ms MUSE SYSTEM (Bezet) Calculated P Eastern 41 degrees MUSE SYSTEM Calculated R Eastern 53 degrees MUSE SYSTEM Calculated T Eastern -25 degrees MUSE SYSTEM INTERPRETATION Sinus rhythm Occasional Premature ventricular complexe s MUSE SYSTEM T wave abnormality, consider anterior ischemia Inferior infarct Abnormal ECG When compared with ECG of 29-MAR-2022 15:59, (unconfirmed) No significant change was found Confirmed by fellow MD Navas Daniel ([id number]) on 03/30/2022 9:42:51 AM Confirmed by MD Miguel Angel, Kentrell ([id number]) on 03/30/2022 10:41:05 AM Specimen Anatomical Collection Method Collection Time Receive d Time (Source) Location / / Volume Laterality 03/30/2022 7:51 AM EDT 10:41 AM EDT Kentrell Michelle MD ECG ORDERABLES Performing Organization Address City/State/ZIP Code Phon e Number MUSE SYSTEM XR Chest One View (03/30/2022 6:25 AM EDT)Only the most recent of2 resultswithin the time period is included. Anatomical Region Laterality Modality Chest N/A Digital Radiography Specimen (Source) Anatomical Location Collection Method / Collectio n Time Received Time / Laterality Volume Impressions 03/30/2022 8:26 AM EDT 1. Diminished lung volumes and enlarged right pleural effusion and right base opacity compared to the exam of the day prior. Compressive atelectasis versus pneumonia. 2. Continued evidence of pulmonary edema . Thank you for letting us participate in the care of this patient. ??If you are a health care provider and have any questi ons regarding this report, please contact the number below. ??For patients who have questions please contact the health day care attendant that requested your imaging first. ? Electronically signed by: Kristin simmons MD, [facility] ([phone]), at 03/30/2022 8:26 AM Narrative 03/30/2022 8:26 AM EDT EXAMINATION: XR CHEST ONE VIEW CLINICAL HISTORY: pulmonary edema TECHNIQUE: 1 view of the chest Single upright AP ch est portable radiograph COMPARISON: 03/29/2022 FINDINGS: Sternotomy wires are intact. Indistinct vascular markings, enlarged cardiac silhouette and hazy opacities of the pratik gs accentuating interstitial markings suggesting ongoing pulmonary edema. Mode rate right pleural effusion. No pneumothorax. Diminished aeration bilate ral bases, particularly at the right likely related to combination of atelect asis and fluid although underlying pneumonia would be difficult to exclude with certainty. Osseous structures are stable. Lung volumes are low. Procedure Note Kristin Peres MD - 03/30/2022Form atting of this note might be different from the original. EXAMINATION: XR CHEST ONE VIEW CLINICAL HISTORY: pulmonary edema TECHNIQUE: 1 view of the chest Single upright AP ch est portable radiograph COMPARISON: 03/29/2022 FINDINGS: Sternotomy wires are intact. Indistinct vascular markings, enlarged cardiac silhouette and hazy opacities of the pratik gs accentuating interstitial markings suggesting ongoing pulmonary edema. Mode rate right pleural effusion. No pneumothorax. Diminished aeration bilate ral bases, particularly at the right likely related to combination of atelect asis and fluid although underlying pneumonia would be difficult to exclude with certainty. Osseous structures are stable. Lung volumes are low. IMPRESSION 1. Diminished lung volumes and enlarged right pleural effusion and right base opacity compared to the exam of the day prior. Compressive atelectasis versus pneumonia. 2. Continued evidence of pulmonary edema . Thank you for letting us participate in the care of this patient. If you are a health care provider and have any questi ons regarding this report, please contact the number below. For patients w ho have questions please contact the health day care attendant that requested your imaging first. Yury Francis MD IMG DX ORDERABLES (ABNORMAL) Hemogram (03/30/2022 1:30 AM EDT)Only the most recent of3 results within the time period is included. Analysis Performed At Patho logist Time Signature WBC 8.1 4.0 - 9.5 [facility] LABORATORY RBC 3.94 (L) 4.58 - [facility] 5.54 [facility] x10(6)/[facility] LABORATORY Hemoglobin 12.1 (L) 13.7 - [facility] 16.5 g/dL [facility] Hematocrit 36.0 (L) 40.5 - [facility] 48.5 % [facility] MCV 91.4 82.9 - [facility] 93.1 fL [facility] MCH 30.7 27.5 - [facility] 32.1 pg [facility] MCHC 33.6 32.0 - [facility] 35.7 g/dL [facility] Platelets 165 145 - 357 [facility] x10(3)/[facility] LABORATORY RDWSD 45.0 36.0 - [facility] 45.0 [facility] LABORATORY RDWCV 13.4 11.4 - [facility] 13.8 % [facility] MPV 11.9 7.6 - 12.9 [facility] LABORATORY nRBC % Auto 0.0 % [facility] LABORATORY nRBC Abs Auto 0.000 0.000 - [facility] 0.000 [facility] x10(3)[facility] LABORATORY Specimen Anatomical Collection Method Collection Time Receive d Time (Source) Location / / Volume Laterality Blood 03/30/2022 1:30 AM 2:15 EDT AM EDT Resulting Agency Comment Spec In Lab Lissa Franco MD HEMATOLOGY ORDERABLES Performing Organization Address City/State/[place] [address] Differential, Automated (03/30/2022 1:30 AM EDT)Only the most recent of3 results within the time period is included. P athologist Signature Neutrophils % 72.2 % [facility] LABORATORY Neutr Abs (ANC) 5.83 1.70 - [facility] 6.10 [facility] x10(3)[facility] LABORATORY Lymphocytes % 16.7 % [facility] LABORATORY Lymphocytes Abs 1.4 0.9 - 3.2 [facility] x10(3)/[facility] LABORATORY Monocytes % 9.0 % [facility]ORY Monocyte Abs 0.7 0.3 - 0.9 [facility] x10(3)/[facility] LABORATORY Eosinophils % 1.7 % [facility] Eosinophils Abs 0.1 0.0 - 0.4 [facility] x10(3)/[facility] LABORATORY Basophils % 0.2 % [facility] Basophils Abs 0.0 0.0 - 0.1 [facility] x10(3)/[facility] LABORATORY Immature Gran % 0.20 % [facility] Comment: Immature granulocytes(IG's)percentage an d absolute count will include metamyelocytes, myelocytes, and promyelo cytes. Blood smears from CBCs yielding IG's will be scanned manually for concor dance. If this scan disagrees with the automated IG or if promyelocytes are not ed, a manual differential will be performed. Karen Gran Abs 0.02 0.00 - 0.04 x10(3)/[facility] LABORATORY Specimen Anatomical Collection Method Collection Time Receive d Time (Source) Location / / Volume Laterality Blood 03/30/2022 1:30 AM 2 2:15 EDT AM EDT Resulting Agency Comment Spec In Lab Lissa Franco MD HEMATOLOGY ORDERABLES Performing Organization Address City/[facility]/ZIP Code Phon e Number [address] Magnesium (03/30/2022 1:30 AM EDT) athologist Signature Magnesium 0.83 0.69 - 1.07 [facility] mmol/L [facility] Specimen Anatomical Collection Method Collection Time Receive d Time (Source) Location / / Volume Laterality Blood 03/30/2022 1:30 AM 2 2:15 EDT AM EDT Resulting Agency Comment Spec In Lab Kentrell Michelle MD CHEMISTRY ORDERABLES Performing Organization Address City/State/[place] [address] (ABNORMAL) Basic Metabolic Panel (non-fasting) (03/30/2022 1:30 AM EDT)Only the most recent of2 resultswithin the time period is included. athologist Signature Glucose Lvl 118 65 - 199 [facility] mg/dL [facility] Comment: Diabetes: >=200 mg/dL plus symp toms BUN 20 10 - 20 mg/dL [facility] Creatinine 1.58 (H) 0.80 - 1.50 mg/dL [facility] Sodium 141 135 - 145 mmol/L [facility] Potassium 3.3 (L) 3.5 - 5.0 mmol/L [facility] Comment: result rechecked-trb Please note: ??Patients with WBC >100,00 0 may have falsely elevated Potassium levels. ??For accurate Potassium quantif ication in these patients send serum separator tube (gold top) for subsequent determinations. ??Contact the Clinical Chemistry Laboratory if there are any qu estions. Chloride 104 98 - 107 mmol/L [facility] CO2 26 22 - 31 mmol/L [facility] Anion Gap 11 5 - 15 mmol/L [facility] Calcium 8.6 8.5 - 10.5 mg/dL [facility] Estimated GFR 43 (L) >=60 mL/min/1.73 m?? [facility] Comment: This patient's estimated GFR was calcula ally using the 2020 CKD-EPI equation. The estimated GFR can vary from the mary ured GFR by up to 30% in the absence of rapidly changing kidney function. Assess ment of the estimated GFR is not appropriate when creatinine concentratio ns are rapidly changing. For clinical situations in which a more precise estim ate of GFR is necessary, consider alternative methods of GFR estimation mata ch as a 24-hour urine creatinine clearance. Assignment of CKD stage 1-5 for patients with an eGFR near the transition point between stages may be based on clinical assessment of muscle mass and symptoms in addition to eGFR. Specimen Anatomical Collection Method Collection Time Receive d Time (Source) Location / / Volume Laterality Blood 03/30/2022 1:30 AM 2 2:15 EDT AM EDT Resulting Agency Comment Spec In Lab Kentrell Michelle MD CHEMISTRY ORDERABLES Performing Organization Address City/State/[place] [address] (ABNORMAL) BLOOD GAS 2 ARTERIAL (03/29/2022 5:42 PM EDT) Analysis Performed At Patho logis Time Signature pH Art 7.40 7.35 - [facility] 7.45 [facility] pCO2 Art 38 35 - 45 [facility] LABORATORY pO2 Art 126 (H) 85 - 104 [facility] LABORATORY HCO3 Art 23.5 20.0 - [facility] 26.0 [facility] mmol/L [facility] BE Art -1.2 -3.0 - 3.0 [facility] mmol/L [facility] Hgb Blood Gas 13.6 (L) 13.7 - [facility] 16.5 g/dL [facility] O2HB Art 97.2 (H) 94.0 - [facility] 97.0 % [facility] COHB Art 0.4 % [facility] Comment: Nonsmokers: 0.5-1.5% COHB Smokers: Variable, but usually less than 10% Toxic: 20-30% COHB Lethal: Greater than 60% COHB METHB Art 0.7 <=1.5 % [facility] Na Whole Blood 140 135 - 145 mmol/L [facility] K Whole Blood 3.9 3.5 - 5.0 mmol/L [facility] Comment: Please note: Patients with WBC >100,000 may have falsely elevated Potassium levels. Contact the Clinical Chemistry L aboratory if there are any questions. ICa Whole Blood 1.17 1.15 - 1.33 mmol/L [facility] Comment: Note: ??Total bilirubin higher than 20 m g/dL may lead to falsely low ionized calcium. CL Whole Blood 105 98 - 107 mmol/L [facility] Gluc Whole Bld 120 65 - 199 mg/dL [facility] Comment: Diabetes: >=200 mg/dL plus symp toms. Lactate WB 1.1 0.5 - 2.2 mmol/L [facility] FIO2 Art 40 % [facility] PF Ratio Art 315 [facility] Specimen Anatomical Collection Method Collection Time Receive d Time (Source) Location / / Volume Laterality Blood 03/29/2022 5:42 PM 5:42 EDT PM EDT Kentrell Michelle MD CHEMISTRY ORDERABLES Performing Organization Address City/State/[place] [address] (ABNORMAL) pro-Brain Natriuretic Peptide (03/29/2022 5:20 PM EDT)Only the most recent of2 resultswithin the time period is included. athologist Signature ProBNP 3,282 (H) <=449 LYNNE BLEVINS pg/mL [facility] Specimen Anatomical Collection Method Collection Time Receive d Time (Source) Location / / Volume Laterality Blood 03/29/2022 5:20 PM 5:33 EDT PM EDT Resulting Agency Comment Spec In Lab Jaja Cronin MD CHEMISTRY ORDERABLES Performing Organization Address City/State/ZIP Code Phon e Number [address] Echocardiogram Transthoracic (03/29/2022 4:06 PM EDT) Anatomical Region Laterality Modality Cardiac Other Specimen (Source) Anatomical Collection Method Collection Time Re ceived Time Location / / Volume Laterality 03/29/2022 4:06 PM EDT Narrative 03/29/2022 5:30 PM EDT ? Echocardiogram Report Name: LUANNEPAPAY Kit ? Study Date: 03/29/2022 04:06 PM ? HR: 65 : 1935 ? Height: 156 cm Age: 87 yrs ? Weight: 78 kg Gender: Male ?BSA: 1.8 m2 Ordering Physician: Kentrell Michelle MD Referring Physician: Kentrell Michelle MD Performed By: Neville Cadena MD Interpreting Fellow: Neville Cadena. Exam Location: [facility]. Interpretation Summary 1) The left ventricle is normal in size, wall thickness and global systolic function with an estimated ejection frac tion of 65%. Diastology was not assessed. 2) The right ventricle is probably rambo l in size and systolic function. 3) There is mild to moderate eccentric m itral regurgitation (RV 26 ml, ERO 0.19 cm2) due to anterior leaflet prolapse. 4) There is no other hemodynamically sig nificant valvular disease. 5) There is no pericardial effusion. 6) In comparison to the prior study date d 08/14/2016 there is no significant change. Left Ventricle Left ventricle is of normal size. Left v entricular systolic function is normal. Left ventricular ejection fraction is es timated visually at 65%. There are no segmental wall motion abnormalities. Right Ventricle The right ventricle is of normal size. R ight ventricular systolic function is normal. Left Atrium The left atrium is probably normal. No a bnormality of the interatrial septum is identified. There is no evidence for a p atent foramen ovale. Right Atrium The right atrium is probably normal in s ize. Aortic Valve The aortic valve is structurally normal. The aortic valve is tricuspid. There is no aortic stenosis. There is trace aorti c regurgitation. Mitral Valve Moderate prolapse of the anterior leafle t of the mitral valve. There is no mitral stenosis. There is mild to moderate mitr al regurgitation. The eccentric color Doppler jet is due to primary (eg. Prola pse) valve dysfunction. The color Doppler jet is posteriorly directed. The regurgi tant volume is calculated at 26 ml. The effective regurgitant orifice area is ca lculated at 0.19 cm2. Tricuspid Valve The tricuspid valve is structurally norm al. There is no tricuspid stenosis. There is trace tricuspid regurgitation. Pulmonic Valve The pulmonic valve is not well visualize d. There is no valvular pulmonic stenosis. There is no pulmonic valve regurgitation . Great Arteries The aortic root at the level of the sinu ses of Valsalva is mildly dilated. Venous Inferior vena cava is normal in size. In ferior vena cava collapse greater than 50% with respiration. Pericardium/Pleural The pericardium appears normal. There is no pericardial effusion. Hemodynamics The peak right ventricular systolic pres sure is 31 mmHg. Plus RA presssure. The estimated right atrial pressure is 3mmHg . ? 2D Measurements ? Volumes ?I VSd: 1.2 cm ? SV(LVOT): 37.0 ml ?L VIDd: 4.8 cm ?L VPWd: 1.0 cm ?SI(LVOT): 20.8 ml/m2 ?L V mass(C)d: 196.0 grams ?L V mass(C)dI: 110.1 grams/m2 ?A o root diam: 3.5 cm ?A o root diam index: 2.0 ?L VOT diam: 2.0 cm Doppler TR max stephanie: 278.3 cm/sec LV V1 VTI: 11.8 cm MV E max stephanie: 117.6 cm/sec MR ERO: 0.19 cm2 I ?WMSI = 1.00 ? % Normal = 1 00 ?Segments ??Size X - Cannot ?? 1 - Normal ?? 2 - ? 3 - Akinetic 4 - ?1-2 ? small Interpret ? Hypoki netic ?Dyskinetic ?? 3-5 ? moderate 5 - ? 6-14 ?large Aneurysmal ?15-16 ?? diffuse Procedure Note Thomas Avery MD - 03/29/2022Formkindra dunham of this note might be different from the original. Echocardiogram Report Name: JOSE D STROUD Study Date: 03/29/20 04:06 PM HR: 65 : 1935 Height: 156 cm Age: 87 yrs Weight: 78 kg Gender: Male BSA: 1.8 m2 Ordering Physician: Kentrell Michelle MD Referring Physician: Kentrell Michelle MD Performed By: Neville Cadena MD Interpreting Fellow: Neville Cadena. Exam Location: [facility]. Interpretation Summary 1) The left ventricle is normal in size, wall thickness and global systolic function with an estimated ejection frac tion of 65%. Diastology was not assessed. 2) The right ventricle is probably rambo l in size and systolic function. 3) There is mild to moderate eccentric m itral regurgitation (RV 26 ml, ERO 0.19 cm2) due to anterior leaflet prolapse. 4) There is no other hemodynamically sig nificant valvular disease. 5) There is no pericardial effusion. 6) In comparison to the prior study date d 08/14/2016 there is no significant change. Left Ventricle Left ventricle is of normal size. Left v entricular systolic function is normal. Left ventricular ejection fraction is es timated visually at 65%. There are no segmental wall motion abnormalities. Right Ventricle The right ventricle is of normal size. R ight ventricular systolic function is normal. Left Atrium The left atrium is probably normal. No a bnormality of the interatrial septum is identified. There is no evidence for a p atent foramen ovale. Right Atrium The right atrium is probably normal in s ize. Aortic Valve The aortic valve is structurally normal. The aortic valve is tricuspid. There is no aortic stenosis. There is trace aorti c regurgitation. Mitral Valve Moderate prolapse of the anterior leafle t of the mitral valve. There is no mitral stenosis. There is mild to moderate mitr al regurgitation. The eccentric color Doppler jet is due to primary (eg. Prola pse) valve dysfunction. The color Doppler jet is posteriorly directed. The regurgi tant volume is calculated at 26 ml. The effective regurgitant orifice area is ca lculated at 0.19 cm2. Tricuspid Valve The tricuspid valve is structurally norm al. There is no tricuspid stenosis. There is trace tricuspid regurgitation. Pulmonic Valve The pulmonic valve is not well visualize d. There is no valvular pulmonic stenosis. There is no pulmonic valve regurgitation . Great Arteries The aortic root at the level of the sinu ses of Valsalva is mildly dilated. Venous Inferior vena cava is normal in size. In ferior vena cava collapse greater than 50% with respiration. Pericardium/Pleural The pericardium appears normal. There is no pericardial effusion. Hemodynamics The peak right ventricular systolic pres sure is 31 mmHg. Plus RA presssure. The estimated right atrial pressure is 3mmHg . 2D Measurements Volumes IVSd: 1.2 cm SV(LVOT): 37.0 ml LVIDd: 4.8 cm LVPWd: 1.0 cm SI(LVOT): 20.8 ml/m2 LV mass(C)d: 196.0 grams LV mass(C)dI: 110.1 grams/m2 Ao root diam: 3.5 cm Ao root diam index: 2.0 LVOT diam: 2.0 cm Doppler TR max stephanie: 278.3 cm/sec LV V1 VTI: 11.8 cm MV E max stephanie: 117.6 cm/sec MR ERO: 0.19 cm2 I WMSI = 1.00 % Normal = 100 Segments Size X - Cannot 1 - Normal 2 - 3 - Akinetic 4 - 1-2 small Interpret Hypokinetic Dyskinetic 3-5 mod erate 5 - 6-14 large Aneurysmal 15-16 diffuse Unknown ECHO ORDERABLES SCAN DOC: TELEMETRY STRIPS (03/29/2022 10:52 AM EDT) Narrative 03/29/2022 10:52 AM EDT This result has an attachment that is no t available. Ordered by an unspecified provider. Scanning Provider MEDIA MGR SCAN EXT ORDR/RSLT ELECTROPHYSIOLOGY PROCEDURE (03/29/2022 7:32 AM EDT) Anatomical Region Laterality Modality Other Specimen (Source) Anatomical Location Collection Method / Collectio n Time Received Time / Laterality Volume Narrative 04/04/2022 10:36 PM EDT Procedure: Atrial flutter ablation Third Mate: Yuyr Fracnis MD Fellow: Lopez Thompson MD Referring physician: Lynne Ham MD Anesthesia: General anesthesia PATIENT HISTORY: Mr. Stroud is a 87 y/o ma n with CAD and prior CABG, HTN, 3+ mitral regurgitation, obesity, and rambo l LVEF who this year has had multiple admission to hospital with deco mpensated congestive heart failure and concomitant atrial flutter. Atrial f lutter appears typical (counterclockwise cavotricuspid isthmus- dependent) on 12 lead EKG. He has not had atrial fibrillation. He presents for atrial flutter ablation. He has not missed any doses of apixaban ant icoagulation in the past 3 weeks, at least. PROCEDURE: The patient was brought to the Cardiac E lectrophysiology laboratory in a post-absorptive, fasting state. Informed consent was obtained. A peripheral IV was in place. Continuous e lectrocardiographic, blood pressure, oxygen saturation and carbon dioxide monitoring was initiated. Self-adhesive cardioversion p atches were positioned on the chest. General anesthesia was administer ed and the patient intubated per anesthesiology. The patient was then pre pped and draped in the usual sterile fashion. The right groin was inf iltrated with a 50/50 mixture of lidocaine (2%) and bupivicaine (0.5%). The patient arrived in atrial flutter wi th variable AV conduction. An 8.5F sheath and a 7F sheath were plac ed in the right femoral vein using the modified Seldinger technique and a m icropuncture kit. Under fluoroscopic guidance 6F decapolar duc ter was placed in the coronary sinus to record and pace from the left a trium. At this point, an atrial flutter rhythm was identified on the CS catheter with Atrial Cycle length of 210 ms and c oncentric CS activation. Activation mapping showed a clockwise at rial flutter involving the right atrium. Overdriving pacing from the prox imal CS showed a PPI-TCL of 25 ms. Overdrive pacing from the the distal CS showed a PPI-TCL of ~75 ms. Findings were consistent with CTI depend ent Atrial Flutter. At this point our 6 F sheath was exchanged for a long 8.5F RAMP sheath, through which a 7.5 F irrigated ablation catheter was ad vanced to the right atrium. 3D electroanatomic mapping of the Right atrium and CTI region was performed to delineate a CTI ablation li ne. Multiple applications of RF energy were applied to the cavotricuspid isthmus between the tricuspid valve and IVC until the tachycardia was terminated and bidirectional block was demonstrated by mapping the right at rium around the tricuspid annulus with the ablation catheter and CS cathet er. In addition trans-isthmus conduction time post ablation was > 150 ms, and differential pacing demonstrated bidirectional block. Follow ing this a waiting period of 30 minutes was initiated. At the end of the waiting period, transisthmus conduction times remained >150 ms with d ifferential pacing confirming persistent bi-directional block at the C TI line. Post ablation measurements in Sinus Rhyt hm: AH 108 ms HV 49 ms RR 1289 ms OR 214 ms, QRS 93 ms, QT 452 ms Following this the catheters and RAMP sh eath was withdrawn and hemostasis was maintained with manual pressure. The patient tolerated the procedure well and was transferred in stable condi tion. Dr. Francis was present for and participated in the entire procedure . RADIOLOGY SUMMARY: Total Fluoro time (minutes) ??0.3 Dose area product (cGycm2) ??13 CLINICAL IMAGES: FINDINGS: 1. CTI dependent ATRIAL FLUTTER 2. Successful ablation of CTI dependent flutter. 3. Normal HV interval post ablation. CONCLUSIONS: 1. Successful Atrial Flutter ablation. 2. Continue Apixaban 5mg twice daily. 3. Admit overnight for telemetry 4. Follow up in EP Clinic in 2-[address] Francis. Procedures performed: atrial flutter abl ation Yury Francis MD S Cardiac Electrophysiology 04/04/2022 10:35 PM Yury Francis MD EP PROCEDURE ORDERABLES (ABNORMAL) BMP w/fasting Glucose (03/29/2022 7:20 AM EDT) athologist Signature Glucose 101 (H) 65 - 99 [facility] Fasting mg/dL [facility] Comment: ?Fasting* Glucose Interpretive C riteria Normal ?65-99 mg/dL Impaired Fasting glucose ?100-125 mg/dL Consistent with Diabetes Mellitus ? >or= 126 mg/dL *Fasting is defined as no caloric intake for at least 8 hours In the absence of unequivocal hypergly cemia a plasma glucose value of >or= 126 mg/dL should be repeated on a subseq uent day. Diagnosis and Classification of Diabetes Mellitus, Position Statement from the [place] [employer]. ??Diabete s Care, Volume 33, Supplement 1, Jun 2009 BUN 14 10 - 20 mg/dL [facility] Creatinine 1.27 0.80 - 1.50 mg/dL [facility] Sodium 142 135 - 145 mmol/L [facility] Potassium 3.9 3.5 - 5.0 mmol/L [facility] Comment: Please note: ??Patients with WBC >100,00 0 may have falsely elevated Potassium levels. ??For accurate Potassium quantif ication in these patients send serum separator tube (gold top) for subsequent determinations. ??Contact the Clinical Chemistry Laboratory if there are any qu estions. Chloride 108 (H) 98 - 107 mmol/L [facility] CO2 24 22 - 31 mmol/L [facility] Anion Gap 10 5 - 15 mmol/L [facility] Calcium 8.9 8.5 - 10.5 mg/dL [facility] Estimated GFR 55 (L) >=60 mL/min/1.73 m?? [facility] Comment: This patient's estimated GFR was calcula ally using the 2020 CKD-EPI equation. The estimated GFR can vary from the mary ured GFR by up to 30% in the absence of rapidly changing kidney function. Assess ment of the estimated GFR is not appropriate when creatinine concentratio ns are rapidly changing. For clinical situations in which a more precise estim ate of GFR is necessary, consider alternative methods of GFR estimation mata ch as a 24-hour urine creatinine clearance. Assignment of CKD stage 1-5 for patients with an eGFR near the transition point between stages may be based on clinical assessment of muscle mass and symptoms in addition to eGFR. Specimen Anatomical Collection Method Collection Time Receive d Time (Source) Location / / Volume Laterality Blood 03/29/2022 7:20 AM 10/04/202 2 7:41 EDT AM EDT Resulting Agency Comment Spec In Lab Yury Francis MD CHEMISTRY ORDERABLES Performing Organization Address City/State/ZIP Code Phon e Number [place] [id number] (ABNORMAL) Prothrombin Time (03/29/2022 7:20 AM EDT) P athologist Signature PT 21.0 (H) 9.4 - 12.5 [facility] INR 1.8 [facility] Comment: An INR <2.0 indicates adequate procoagul ant activity for hemostasis in most patients without underlying bleeding dis orders, though the INR may not adequately reflect hemostatic capacity i n patients with liver disease and synthetic impairment. The recommended ta rget INR range for therapeutic anticoagulation is 2.0 ? 3.0 for most applications, though lower and higher ranges may be appropriate depending on c linical circumstances. Specimen Anatomical Collection Method Collection Time Receive d Time (Source) Location / / Volume Laterality Blood 03/29/2022 7:20 AM 2 7:41 EDT AM EDT Resulting Agency Comment Spec In Lab Yury Francis MD HEMATOLOGY ORDERABLES Performing Organization Address City/State/[place] [address] from Last 3 Months Insurance Payer Benefit Plan / Subscriber ID Effective Phone Address T ype Group Dates MEDICARE MEDICARE PART A [id number] 2002-Prese [phone] [facility] [place] [id number] [facility] [id number] 2005-Pres [phone] [address] [employer] [address] [place] [address] Advance Directives Latest Code Status on File Code Status Date Activated Date Inactivated Comments Attempt Cardiopulmonary Resuscitation - 03/29/2022 10:27 AM 2021 4:45 PM Inpatient Code Status decision made by: Patient Attempt Cardiopulmonary Resuscitation - 03/29/2022 7:17 AM 022 10:27 AM Inpatient Code Status decision made by: Patient Full Code 08/13/2016 8:23 PM 08/16/2016 4:00 PM Does patient have capacity to make decision: Yes Care Teams Saturation Diver Relationship Specialty Start Date End Date Guzman Thompson MD PCP - General Family Medicine 07/14/[address] [facility] [address] [place] [address]
--- OUTSIDE RECORDS SUMMARY | 2022-04-08 01:37 | XMS_ITS | Encounter Summary ---
:1935 Author Organization [facility] [place] [address] Care Team Providers Name Role Phone Guzman Thompson MD Primary Care Provider [phone] Reason for Referral Consultation (Routine) - Authorized Specialty Diagnoses / Referred By Referred To Cont act Procedures Contact Electrophysiology / Diagnoses Atrial flutter with rapid ventricular response Sinus pause CAD (coronary artery disease) CHF (congestive heart failure) aflutter w/ RVR & heart failure pt has 7-8 second pauses on conversion Lynne Ham MD [facility] [place], [place] Cardiology 4a Cardiology from atrial flutter/fibrillation to sinu s rhythm [address] [place] [address] [address] [place], [place] Phone: [phone] Referral ID Status Reason Start Expiration Visits Visits Date Date Requested Authorized [id number] Authorized Consult, 11/12/2021 11/12/2022 6 6 Test & Treat PCP Updated and/or Approved Encounter Details Date Type Department Care Team Description 11/12/2021 Transcribe Orders eDH Incoming Lynne Ham, Atrial fl utter, unspecified type; Referrals Other specified heart block; [phone] [address] [place] coronary arter y [place] heart without angina pectoris [place] [phone] Social History Tobacco Use Types Packs/Day Years Used Date Former Smoker Quit: 06/26/18 89 Smokeless Tobacco: Never Used Alcohol Use Standard Drinks/Week Comments Yes 1.7 (1 standard drink = 0.6 oz pure alco hol) Sex Assigned at Date Recorded Not on file documented as of this encounter Plan of Treatment Scheduled Referrals Name Type Priority Associated Diagnoses Order S chedule Referral to Outpatient Referral Routine Atrial flutter, Order ed: Cardiology unspecified type 11/12/2021 Other specified heart block Atherosclerosis of [place] coronary artery of [place] heart without angina pectoris documented as of this encounter Visit Diagnoses Diagnosis Atrial flutter, unspecified type Other specified heart block Atherosclerosis [place] coronary arter y [place] heart without angina pectoris documented in this encounter Care Teams Production Line Solderer Relationship Specialty Start Date End Date Guzman Thompson MD PCP - General Family Medicine 07/14/[address] [place] [address] [place] [address] documented as of this encounter
--- OUTSIDE RECORDS SUMMARY | 2022-04-08 01:37 | XMS_ITS | Encounter Summary ---
:1935 Author Organization [facility] [place] [address] Care Team Providers Name Role Phone Guzman Thompson MD Primary Care Provider [phone] Reason for Visit Auth/Cert Specialty Diagnoses / Procedures Referred By Contact Refer red To Contact Diagnoses Atrial flutter Typical atrial flutter [I48.3] Yury Francis MD [facility] Procedures ELECTROPHYSIOLOGY PROCEDURE [facility] [place] [address] Referral ID Status Reason Start Date Expiration Date Visits Requ ested Visits Authorized [id number] 1 1 Encounter Details Date Type Department Care Team Description 03/29/2022 - Hospital Cardiovascular Yury Sherwood MD [facility] [place] [id number] Typical atrial flutter; 03/30/2022 Encounter [facility] Kentrell Michelle MD [facility] [place] [address] 3+ Mitral regurgitation; Hospital Acute and chronic respirator y failure with hypoxia; [facility] Acute res piratory failure with hypoxia; Drive Chest pain, unspecified [place] [address] Social History Tobacco Use Types Packs/Day Years Used Date Former Smoker Quit: 06/26/18 89 Smokeless Tobacco: Never Used Alcohol Use Standard Drinks/Week Comments Not Currently 2 (1 standard drink = 0.6 oz pure alcoho l) Sex Assigned at Date Recorded Not on file documented as of this encounter Last Filed Vital Signs Vital Sign Reading [...] Mass Index 31.46 03/29/2022 7:14 AM EDT documented in this encounter Discharge Summaries Shlomo Ozuna MD - 03/30/2022 1:58 PM EDT Images from the original note were not included. Discharge Summary Patient Name: Timmy Stroud Patient Age: 87 y.o. Admit date: 03/29/2022 Discharge date and time: 03/30/2022 Attending Physician: Kentrell Michelle MD Discharge Physician: Shlomo Ozuna MD PCP: Guzman Thompson MD ID: Timmy Stroud is a 87 y.o. male w/ PMH of HTN, HLD, CAD s/p CABG (1988), former smoker (quit 1988), HFpEF (EF October 2021 57%), A flutter (on apixaban and metoprolol), moderate mitral regurg who was inshort stay after successful A flutter ablation today and developed hypoxic respiratory failure 2/2 volume overload requiring rescue bipap.. Recommendations for Providers: Management/Follow-up recommendations: -A flutter: s/p successful ablation, continue eliquis, follow up with EP -Acute on chronic HFpEF: continue home Lasix 20mg twice daily -HTN: continue metoprolol 50, STOP carvediolol -CAD s/p CAGB (1988): continue ASA and lovastatin History of Presentation (per 03/29/2022 Admission H&P): Timmy Stroud is a 87 y.o. male w/ PMH of HTN, HLD, CAD s/p CABG (1988), former smoker (quit 1988), HFpEF (EF October 2021 57%), A flutter (on apixaban and metoprolol), moderate mitral regurg who was in short stay after successful A flutter ablation today and developed hypoxic respiratory failure 2/2 volume overload requiring rescue bipap.. Per chart review, pt was taken to PACU around 1045 after successful A flutter ablation by Dr. Francis with conversion back to sinus rhythm. Transferred to short stay for anticipated overnight observation. around 1300 hours. Developed respiratory distress around [id number], at which time life safety and EP team were paged. ?? O2 flow via NC increased, head of bed elevated, and pt given IV lasix 80mg (he normally takes 20mg PO bid at home). Initial improvement with these measures, but per life safety team, about 15 minutes later his breathing worsened, O2 saturation dropped to the 80s, and he developed audible crackles/rales. He was trialed on non-rebreather 15L without success and ultimately required rescue bipap 16/10 FiO2 40% to bring his oxygen saturation back up. ?? Pt reports he has been mildly SOB for the past 1-2 weeks, but denies CP, fever/chills, recent illness. 14 point ROS otherwise negative. Hospital Course: Timmy Stroud was admitted to the Hospital Medicine Service on 03/29/2022. The following issues were addressed and he was discharged on 03/30/2022. #Acute on chronic HFpEF #Flash pulmonary edema, RESOLVED #Hypoxic respiratory failure, RESOLVED Pt responded well to diuresis with 80mg IV lasix x2, was net negative 2.5L in 24 hours with resolution of sx. Successfully weaned from bipap to NC and ultimately to room air. Downgraded from CVCC to floor status. On exam the morning of 03/30, JVD was minimal, lungs were clear, and lower extremity edemahad resolved. Pt denied CP, SOB. Cr slightly increased, further confirming pt's dry status. Underlying cause of HFpEF could be HTN or possibly his mitral regurg. Repeat TTE was done in the hospital which was largely unchanged from prior study in 2017 (see full results below). #A flutter s/p successful ablation 03/29/22 #CAD s/p CABG (1988) Pt remained in sinus rhythm with occasional PVCs for the duration of his stay. Serial troponins wereelevated and rising during stay, but this is expected after ablation and pt without any ischemic sx.Serial EKGs also not concerning for acute ischemia. Pt will continue on Eliquis 5mg bid for A flutter per EP and follow up outpatient. For his hx CAD and CABG, he will continue home ASA and statin. ?? Discharge Diagnoses (Hospital Problems) and Secondary Diagnoses (Chronic Problems): Active Hospital Problems Diagnosis ??? Atrial flutter ??? Essential hypertension ??? 3+ Mitral regurgitation Myxomatous valve with anterior prolapse her echo at [facility] ??? CAD s/p CABG Presented with UA vs ND CABG 1988 - [place] to LAD, SVG to distal RCA (Dr. 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 Was on no meds as of June 2015 --> started Mevacor 20 05/2016: uptitrate Mevacor to 40. Refuses clopidogrel. ??? Atrial flutter with rapid ventricular response ??? Cardiomyopathy, ischemic ??? History of tobacco use ??? Irritable bowel syndrome ??? Obesity ??? Hypercholesteremia ??? Anxiety state Resolved Hospital Problems No resolved problems to display. Active Non-Hospital Problems Diagnosis ??? Urticaria ??? Unstable angina with positive stress test ??? Actinic keratosis ??? Lactose intolerance ??? Disorder of joint ??? Dyssomnia ??? Bilateral inguinal hernia ??? Intestinal disaccharidase deficiency ??? Other allergy status, other than to drugs and biological substances ??? Senile cataract ??? Glaucoma ??? Abdominal bloating Procedures: Operations: Procedure(s): ELECTROPHYSIOLOGY PROCEDURE Brief Operative Note ?? Patient Name: Timmy Stroud DOB: [id number] MR#: [id number] ?? Case Date: 03/29/2022 ?? Surgeon: Surgeon(s) and Role: * Yury Francis MD - Primary * Lopez Thompson MD - Fellow ?? Preoperative diagnosis: Typical atrial flutter [I48.3] ?? Postoperative diagnosis: s/p successful flutter ablation ?? Procedure(s) (LRB): ELECTROPHYSIOLOGY PROCEDURE (N/A) ?? Anesthesia: General ?? Findings: 1. 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 2. Successful ablation of CTI-dependent atrial flutter to sinus rhythm. 3. Bidirectional block across the CTI was persistent after a 30 min waiting period. ?? Complications: none Intake: Intraprocedure Crystalloid Total None Transfusion No data found in the last 1 encounters. Output: Estimated Blood Loss: Urine Output:: (no urine output recorded) Other Output: (no other output recorded) Drains: none ?? Specimens removed during surgery: None ?? Disposition: awakened from anesthesia, extubated and taken to the recovery room in a stable condition, having suffered no apparent untoward event. ?? Condition: doing well without problems ?? Attestation: Yury Francis MD Case Date: 03/29/2022 ?? I was present and I participated during the entire procedure (does not need to include opening and closing). ? (Please see the Surgical Encounter Summary for any Implant and Specimen details pertinent to this patient.) ?? Surgical Infection Prevention Bundle Used? N/A Important Studies and Lab Data: Recent Labs 03/30/22 0130 03/29/22 1720 03/29/22 0720 WBC 8.1 8.4 5.1 HGB 12.1* 12.5* 12.7* HCT 36.0* 37.4* 37.9* PLATELET 165 170 155 Recent Labs 03/30/22 0800 03/30/22 0130 03/29/22 1720 03/29/22 0720 NA -- 141 143 142 K 3.7 3.3* 4.6 3.9 CL -- 104 107 108* CO2 -- 26 24 24 BUN -- 20 16 14 CREATININE -- 1.58* 1.27 1.27 MAGNESIUM -- 0.83 -- -- No results for input(s): BILITOT, BILIDIR, AST, ALT, ALKPHOS in the last 168 hours. Recent Labs 03/29/22 0720 INR 1.8 No results for input(s): HA1C in the last 168 hours. No results for input(s): TSH in the last 168 hours. No results for input(s): HDL, LDLCHOL, CHOLHDL, TRIG, CHLPL in the last 168 hours. Microbiology Results (Last 30 days) No results found for the last 720 hours. Imaging/Diagnostics: Results for orders placed or performed during the hospital encounter of 03/29/22 XR Chest One View (Exam End: 03/29/2022 3:10 PM) Impression 1. Pulmonary vascular congestion with interstitial edema. 2. Right lower lobe opacity likely representing a combination of effusion, atelectasis, and/or edema. Superimposed infection cannot be excluded. I have personally reviewed the image(s) and the resident's interpretation and agree with the findings, Enid Yates MD at 03/29/2022 3:25 PM Thank you for letting us participate in the care of this patient. If you are a health care provider and have any questions regarding this report, please contact the number below. For patients who have questions please contact the health childcare administrator that requested your imaging first. Chest One View (Exam End: 03/30/2022 6:25 AM) Impression 1. Diminished lung volumes and enlarged right pleural effusion and right base opacity compared to the exam of the day prior. Compressive atelectasis versus pneumonia. 2. Continued evidence of pulmonary edema. Thank you for letting us participate in the care of this patient. If you are a health care provider and have any questions regarding this report, please contact the number below. For patients who have questions please contact the health childcare administrator that requested your imaging first. 03/30/22: Echocardiogram Report ?? Name: TIMMY STROUD Study Date: 03/29/2022 04:06 PM HR: 65 : 1935 Height: 156 cm Age: 87 yrs Weight: 78 kg Gender: Male BSA: 1.8 m2 Ordering Physician: Kentrell Michelle MD Referring Physician: Kentrell Michelle MD Performed By: Neville Cadena MD Interpreting Fellow: Neville Cadena. Exam Location: [facility]. Interpretation Summary 1) The left ventricle is normal in size, wall thickness and global systolic function with an estimated ejection fraction of 65%. Diastology was not assessed. 2) The right ventricle is probably normal in size and systolic function. 3) There is mild to moderate eccentric mitral regurgitation (RV 26 ml, ERO 0.19 cm2) due to anterior leaflet prolapse. 4) There is no other hemodynamically significant valvular disease. 5) There is no pericardial effusion. 6) In comparison to the prior study dated 08/14/2016 there is no significant change. ?? Left Ventricle Left ventricle is of normal size. Left ventricular systolic function is normal. Left ventricular ejection fraction is estimated visually at 65%. There are no segmental wall motion abnormalities. ?? Right Ventricle The right ventricle is of normal size. Right ventricular systolic function is normal. ?? Left Atrium The left atrium is probably normal. No abnormality of the interatrial septum is identified. There is no evidence for a patent foramen ovale. ?? Right Atrium The right atrium is probably normal in size. ?? Aortic Valve The aortic valve is structurally normal. The aortic valve is tricuspid. There is no aortic stenosis. There is trace aortic regurgitation. ?? Mitral Valve Moderate prolapse of the anterior leaflet of the mitral valve. There is no mitral stenosis. There is mild to moderate mitral regurgitation. The eccentric color Doppler jet is due to primary (eg. Prolapse) valve dysfunction. The color Doppler jet is posteriorly directed. The regurgitant volume is calculated at 26 ml. The effective regurgitant orifice area is calculated at 0.19 cm2. ?? Tricuspid Valve The tricuspid valve is structurally normal. There is no tricuspid stenosis. There is trace tricuspid regurgitation. ?? Pulmonic Valve The pulmonic valve is not well visualized. There is no valvular pulmonic stenosis. There is no pulmonic valve regurgitation. ?? Great Arteries The aortic root at the level of the sinuses of Valsalva is mildly dilated. ?? Venous Inferior vena cava is normal in size. Inferior vena cava collapse greater than 50% with respiration. ?? Pericardium/Pleural The pericardium appears normal. There is no pericardial effusion. ?? Hemodynamics The peak right ventricular systolic pressure is 31 mmHg. Plus RA presssure. The estimated right atrial pressure is 3mmHg. 2D Measurements Volumes IVSd: 1.2 cm SV(LVOT): 37.0 ml LVIDd: 4.8 cm LVPWd: 1.0 cm SI(LVOT): 20.8 ml/m2 LV mass(C)d: 196.0 grams ?? LV mass(C)dI: 110.1 grams/m2 Ao root diam: 3.5 cm Ao root diam index: 2.0 LVOT diam: 2.0 cm ?? Doppler TR max stephanie: 278.3 cm/sec LV V1 VTI: 11.8 cm MV E max stephanie: 117.6 cm/sec ?? MR ERO: 0.19 cm2 ?? I WMSI = 1.00 % Normal = 100 ?? Segments Size X - Cannot 1 - Normal 2 - 3 - Akinetic 4 - 1-2 small Interpret Hypokinetic Dyskinetic 3-5 moderate 5 - 6-14 large Aneurysmal 15-16 diffuse TTE 11/08/21: ?? TTE 08/14/16: SUMMARY: ?? 1. The left ventricular chamber size is normal. Left ventricular wall thickness is normal. There are left ventricular segmental wall motion abnormalities present, as shown in the diagram below. ??There is normal global left ventricular systolic function. The quantitative left ventricular ejection fraction by biplane Day's method is 70%. 2. The right ventricle is normal in size. Right ventricular global systolic function is low normal. 3. There is prolapse of the anterior mitral valve leaflet. There is moderate (2+/4+) mitral regurgitation present. 4. Pulmonary artery hypertension could not be assessed due to inadequate tricuspid regurgitation jet. 5. See remainder of report for additional findings. Discharge Conditions/Prognosis: Upon discharge the patientis hemodynamically stable, afebrile, fullyambulatory without requiring supplemental oxygen, holding down food/drink, and pain free. Discharge to: home Discharge Medications: Your Medications Continued medications with new dosing Dose Details EpiPen 0.3 mg/0.3 mL Atin one injection, IM, PRN Generic drug: EPINEPHrine What changed: Another medication with the same name was removed. Continue taking this medication, and follow the directions you see here. Refills: 0 lovastatin 40 mg Tab Commonly known as: MEVACOR Take 1 tablet by mouth nightly. What changed: additional instructions 40 mg Quantity: 90 tablet Refills: 3 Continued medications, unchanged Dose Details albuteroL 90 mcg/actuation Hfaa Inhale 2 puffs into the lungs every 4 hours as needed for Wheezing. Use with spacer 2 puff Refills: 0 apixaban 5 mg Tab Commonly known as: Eliquis Take by mouth. Refills: 0 aspirin 81 mg Chew Take 81 mg by mouth daily. 81 mg Quantity: 30 tablet Refills: 0 furosemide 20 mg Tab Commonly known as: Lasix Take 20 mg by mouth 2 times daily. 20 mg Refills: 0 metoprolol succinate XL 50 mg Tablet sr Commonly known as: Toprol XL Take 1 tablet by mouth daily. 50 mg Quantity: 30 tablet Refills: 3 nitroGLYcerin 0.4 mg Subl Commonly known as: Nitrostat Place 1 tablet under the tongue every 5 minutes as needed for Chest pain. 0.4 mg Quantity: 25 tablet Refills: PRN omeprazole 40 mg Cpdr Commonly known as: PriLOSEC Take 40 mg by mouth daily. 40 mg Refills: 0 STOPPED Medications carvediloL 3.125 mg Tab Commonly known as: Coreg Instructions Given to Patient at Discharge: Patient Instructions You came to the hospital for an ablation for atrial flutter. After the procedure you developed shortness of breath that required a bipap machine to keep your oxygen levels up. You were found to be in pulmonary edema due to being fluid overloaded. You improved significantly with intravenous Lasix to get the extra fluid off. Atrial flutter: -ablation was performed successfully on 03/29/22 and your heart has stayed in normal rhythm since then -continue to take Eliquis 5mg twice daily for now -you will follow up with the electrophysiology team to discuss when to stop your Eliquis Exacerbation of heart failure: -continue to take your Lasix pills 20mg twice a day Other heart issues: -continue to take metoprolol 50mg for blood pressure -we have STOPPED your carvedilol because it works very similarly to metoprolol -continue to take aspirin and lovastatin every day Return to the hospital if you develop severe or worsening shortness of breath or chest pain. Appointments: -you should get a call from the electrophysiology team within the next week to schedule a follow-up appointment -please make an appointment with your primary care doctor in the next 2 weeks to review your medications and follow up after your hospital stay General Instructions None Inpatient Provider Contact Information: Shlomo Ozuna MD Internal Medicine [facility] Discharge References/Attachments: Discharge References/Attachments None Associated attestation - Kentrell Michelle MD - 03/31/2022 7:17 AM EDT I have seen the patient and reviewed the resident's above history and I agree with the details as written. The assessment and plan were formulated in discussion with me and I agree with them as documented. > 30 minutes spent in discharge prep and planning documented in this encounter Discharge Instructions Patient InstructionsKamalpour, Gumaro, MD - 03/30/2022 11:33 AM EDT You came to the hospital for an ablation for atrial flutter. After the procedure you developed shortness of breath that required a bipap machine to keep your oxygen levels up. You were found to be in pulmonary edema due to being fluid overloaded. You improved significantly with intravenous Lasix to get the extra fluid off. Atrial flutter: -ablation was performed successfully on 03/29/22 and your heart has stayed in normal rhythm since then -continue to take Eliquis 5mg twice daily for now -you will follow up with the electrophysiology team to discuss when to stop your Eliquis Exacerbation of heart failure: -continue to take your Lasix pills 20mg twice a day Other heart issues: -continue to take metoprolol 50mg for blood pressure -we have STOPPED your carvedilol because it works very similarly to metoprolol -continue to take aspirin and lovastatin every day Return to the hospital if you develop severe or worsening shortness of breath or chest pain. Appointments: -you should get a call from the electrophysiology team within the next week to schedule a follow-up appointment -please make an appointment with your primary care doctor in the next 2 weeks to review your medications and follow up after your hospital stay documented in this encounter Medications at Time of Discharge Medication Sig Dispensed Refills Start Date End Date furosemide (Lasix) 20 mg Take 20 mg by mouth 0 Tablet 2 times daily. omeprazole (PriLOSEC) 40 mg Take 40 mg by mouth 0 Capsule, Delayed daily. Release(E.C.) apixaban (Eliquis) 5 mg Take by mouth. 0 Tablet albuteroL 90 mcg/actuation Inhale 2 puffs into 0 HFA Aerosol Inhaler the lungs every 4 hours as needed for Wheezing. Use with spacer aspirin 81 mg Tablet, Take 81 mg by mouth 30 tablet 0 08/16 Chewable daily. nitroGLYcerin (NITROSTAT) Place 1 tablet under 25 tablet 08/16/2016 0.4 mg Tablet, Sublingual the tongue every 5 minutes as needed for Chest pain. meTOPROLOL succinate Take 1 tablet by 30 tablet 3 7 (TOPROL XL) 50 mg Tablet mouth daily. Sustained Release 24 hr lovastatin (MEVACOR) 40 mg Take 1 tablet by 90 tablet 3 Tablet mouth nightly. epiNEPHrine (EPIPEN) 0.3 one injection, IM, 0 mg/0.3 mL injection PRN documented as of this encounter Progress Notes Kal Sepulveda RN - 03/30/2022 2:24 PM EDT Discharge order verified. AVS reviewed w/ patient and son. All questions answered. Patient to east entrance via wheelchair with all property. Shlomo Ozuna MD - 03/30/2022 1:56 PM EDT Cardiology Day of Discharge Note The patient was seen and examined on rounds. He significantly improved after diuresis overnight and was able to be weaned to room air. Denies CP or SOB this morning. Vital signs were stable, a thoroughphysical exam was conducted, and the patients most recent lab values were reviewed. Last value Range last 24 hrs Temperature Temp: 36.9 ??C (98.4 ??F) Temp: [36.5 ??C (97.7 ??F)-36.9 ??C (98.4 ??F)] Heart Rate Heart Rate: 77 Heart Rate: [65-86] Blood Pressure BP: 104/53 BP: (103-160)/(46-86) Respiratory Rate Resp: 21 Resp: [12-23] SpO2 SpO2: 93 % SpO2: [93 %-99 %] GEN: NAD HEENT: AT/NC, EOMI, anicteric. CV: Normal rate, regular rhythm. Normal S1/S2, 2-3/6 murmur at apex. No JVD. Radial pulses 2+ bilaterally. PULM: Lungs clear to auscultation bilaterally. No increased WOB. ABD: Soft, nontender, nondistended, no masses. No hepatosplenomegaly. EXT: No edema, cyanosis, or clubbing. SKIN: Warm and dry without rashes or lesions. NEURO: A&O x3. No focal deficits appreciated. Assessment/Plan: Medications were reviewed, and a discharge plan was finalized. IV access was removed, and the patient was provided with educational material prior to discharge. The patient was discharged in stable condition. Please see the discharge summary (03/30/2022) for a comprehensive assessment and plan. Jaja Cronin MD - 03/29/2022 5:12 PM EDT CRITICAL CARE ATTENDING PROGRESS NOTE ASSESSMENT, MANAGEMENT, and DECISION MAKING: History as noted, events noted. Certainly consistent with acute pulmonary edema and has clearly responded to diuretic administration as well as support with BiPAP. Does have mitral regurgitation noted on TTE - would consider this in differential as most likely, however the differential diagnosis needsto be evaluated. EKG not overly concerning for ischemia. Would continue to control blood pressure, heart rate, and intravascular volume status. Laboratory studies pending. Could likely continue with BiPAP in the short term, then evaluate for its necessity. Patient seen and examined. Timmy Stroud is a 87 y.o. male has issues that include: Active Hospital Problems Diagnosis ??? Atrial flutter ??? Essential hypertension ??? 3+ Mitral regurgitation Myxomatous valve with anterior prolapse her echo at [facility] ??? CAD s/p CABG Presented with UA vs ND CABG 1988 - [place] to LAD, SVG to distal RCA (Dr. 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 Was on no meds as of June 2015 --> started Mevacor 20 05/2016: uptitrate Mevacor to 40. Refuses clopidogrel. ??? Atrial flutter with rapid ventricular response ??? Cardiomyopathy, ischemic ??? History of tobacco use ??? Irritable bowel syndrome ??? Obesity ??? Hypercholesteremia ??? Anxiety state Resolved Hospital Problems No resolved problems to display. Active Non-Hospital Problems Diagnosis ??? Urticaria ??? Unstable angina with positive stress test ??? Actinic keratosis ??? Lactose intolerance ??? Disorder of joint ??? Dyssomnia ??? Bilateral inguinal hernia ??? Intestinal disaccharidase deficiency ??? Other allergy status, other than to drugs and biological substances ??? Senile cataract ??? Glaucoma ??? Abdominal bloating EXAM: Temp: [36 ??C (96.8 ??F)-36.7 ??C (98.1 ??F)] Heart Rate: [60-78] Resp: [13-23] BP: (113-155)/(57-80) SpO2: [93 %-99 %] Heart Rate from SpO2: [56 bpm-72 bpm] Physical Exam Constitutional: General: He is in acute distress. Cardiovascular: Rate and Rhythm: Normal rate. Pulmonary: Effort: Respiratory distress present. Breath sounds: Rales present. Body mass index is 31.46 kg/m??. IS PATIENT CRITICALLY ILL ? Is there a high potential of sudden, clinically significant, or life threatening deterioration? Yes Is there a need for direct personal assessment and management to treat/prevent multiple vital organfailure/deterioration? Yes PATIENT IS CRITICALLY ILL WITH THESE DIAGNOSES BEING MANAGED: Congestive Heart Failure Unspecified Respiratory Failure Acute with hypoxia I personally performed 45 minutes of aggregate critical care time exclusive of procedures and teaching. This includes time spent during direct patient evaluation and reassessment, interpreting diagnostic tests, directing life and/or organ supporting interventions and documentation on the unit. Time noted does not include overlapping time with other physicians or associate providers. Augusto Plasencia PA - 03/29/2022 2:51 PM EDT Cardiac Electrophysiology Urgent Brief Consult Note 87yo man with hx CAD, distant CABG, preserved LVEF, no COPD, who underwent an acutely successful atrial flutter ablation this morning with Drs. Anil Francis and Den Thompson and recovered to Short Stay for anticipated overnight observation. About 30-60 minutes after arrival he developed acute onset dyspnea and decrease in oxygen saturationwithout improvement on escalating nasal oxygen. Brief exam revealed bilateral rhonchi at mid to lower lungs without wheezing. Heart sound remained normal and no LE edema was found. Oxygen saturation remained about 92-94% on six liters. Dr. Thompson was called and came to evaluate the patient. Mr. Stroud normally takes oral furosemide 20mg BID and he was treated with an additional 80mg IV. With his head of bed repositioned to 30 degrees, his breathing notably improved(he had been on bed restriction for post ablation bleeding restrictions). Life Safety had also been called and was at bedside for assistance. Plans were made to transfer him to ICCU/CSCU for diuresis and additional management, however after about 15 minutes his breathing then acutely worsened. Oxygen was changed to NRB @ 15L. Respiratory therapy was then contacted and arrived to provide BiPAP. Patient Active Problem List Diagnosis ??? Essential hypertension ??? 3+ Mitral regurgitation Overview Note: Myxomatous valve with anterior prolapse her echo at [facility] ??? CAD s/p CABG Overview Note: Presented with UA vs ND CABG 1988 - [place] to LAD, SVG to distal RCA (Dr. 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 Was on no meds as of June 2015 --> started Mevacor 20 05/2016: uptitrate Mevacor to 40. Refuses clopidogrel. ??? Atrial flutter ??? Atrial flutter with rapid ventricular response ??? Urticaria ??? Unstable angina with positive stress test ??? Cardiomyopathy, ischemic ??? Actinic keratosis ??? History of tobacco use ??? Lactose intolerance ??? Disorder of joint ??? Irritable bowel syndrome ??? Obesity ??? Dyssomnia ??? Bilateral inguinal hernia ??? Intestinal disaccharidase deficiency ??? Other allergy status, other than to drugs and biological substances ??? Senile cataract ??? Glaucoma ??? Hypercholesteremia Overview Note: ??? Anxiety state ??? Abdominal bloating EPS/ablation: 03/29/2022 1. 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 2. Successful ablation of CTI-dependent atrial flutter to sinus rhythm. 3. Bidirectional block across the CTI was persistent after a 30 min waiting period. Echocardiogram: 11/08/2021 [facility] Normal LV, LVEF 55-60% RV grossly normal Mildly dilated LA; RA normal Moderate MR; no aortic stenosis Labs: Latest Reference Range & Units 03/29/22 07:20 Sodium 135 - 145 mmol/L 142 Potassium 3.5 - 5.0 mmol/L 3.9 Chloride 98 - 107 mmol/L 108 (H) CO2 22 - 31 mmol/L 24 Anion Gap 5 - 15 mmol/L 10 BUN 10 - 20 mg/dL 14 Creatinine 0.80 - 1.50 mg/dL 1.27 Estimated GFR >=60 mL/min/1.73 m?? 55 (L) Calcium 8.5 - 10.5 mg/dL 8.9 Glucose Fasting 65 - 99 mg/dL 101 (H) (H): Data is abnormally high (L): Data is abnormally low Impression and Plan: 87yo man almost immediately post acutely successful atrial flutter ablation without apparent intraprocedural complication, who developed acute onset dyspnea in the Short Stay unit, was treated IV furosemide for presumptive fluid overload, escalating oxygen and finally BiPaP with improvement. He was then transferred to the [facility] of ongoing monitoring and treatment. Provider: SAVANNAH Campos EP Consult attending physician: Anil Oglesby MD EP Consult positional pager #[phone](EPMD) EP Device interrogation positional pager # [phone] Cristiane Mccarty RN - 03/29/2022 12:30 PM EDT Break coverage. R groin site c/d/i. Love Javier RN - 03/29/2022 10:58 AM EDT 10:45 Pt arrived to PACU. Awake and alert. R groin site dry and intact, soft, palpable DP pulse. 11:45 R groin site remains soft, dry and intact. Pt awake and alert, reports he is comfortable at this time. Awaiting inpatient bed assignment. 12:58 Report called to ELPIDIO Monteiro documented in this encounter H&P Notes Shlomo Ozuna MD - 03/29/2022 3:50 PM EDT Images from the original note were not included. Cardiology ICU H&P Patient info: Name: Timmy Stroud : 1935 PCP: Guzman Thompson MD PCP phone number: [phone] Date of Admission: 03/29/2022 ( Hospital Day 0 days ) Attending:Yury Francis MD ID: Timmy Stroud is a 87 y.o. male w/ PMH of HTN, HLD, CAD s/p CABG (1988), former smoker (quit 1988), HFpEF (EF October 2021 57%), A flutter (on apixaban and metoprolol), moderate mitral regurg who was inshort stay after successful A flutter ablation today and developed hypoxic respiratory failure 2/2 volume overload requiring rescue bipap.. HPI: Per chart review, pt was taken to PACU around 1045 after successful A flutter ablation by Dr. Francis with conversion back to sinus rhythm. Transferred to short stay for anticipated overnight observation. around 1300 hours. Developed respiratory distress around [id number], at which time life safety and EP team were paged. O2 flow via NC increased, head of bed elevated, and pt given IV lasix 80mg (he normally takes 20mg PO bid at home). Initial improvement with these measures, but per life safety team, about 15 minutes later his breathing worsened, O2 saturation dropped to the 80s, and he developed audible crackles/rales. He was trialed on non-rebreather 15L without success and ultimately required rescue bipap 16/10 FiO2 40% to bring his oxygen saturation back up. Pt reports he has been mildly SOB for the past 1-2 weeks, but denies CP, fever/chills, recent illness. 14 point ROS otherwise negative. ROS: Per HPI. PMH Past Medical History: Diagnosis Date ??? CAD (coronary artery disease) S/P cabg 1987 ??? Heart murmur MR ??? Hyperlipidemia ??? Hypertension PSH Past Surgical History: Procedure Laterality Date ??? CARDIAC CATHERIZATION ??? CORONARY ARTERY BYPASS GRAFT Allergies: Allergies Allergen Reactions ??? Ezetimibe Other reaction(s): intolerance ??? Niacin Other (See Comments) ??? Prednisone Per pt, he reported hallucinations after taking prednisone ??? Pyrazolones Other (See Comments) ??? Rosuvastatin Other (See Comments) ??? Rosuvastatin Calcium HEAD SORENESS ??? Sertraline Other (See Comments) ??? Coeujpk-Fmy-Ywd Reductase Inhibitors INTOLERANce. However, tolerates Mevacor without problems. ??? Trazodone Other (See Comments) Home Medications: Current Outpatient Medications Medication Instructions ??? albuteroL 90 mcg/actuation HFA Aerosol Inhaler 2 puffs, Inhalation, EVERY 4 HOURS PRN, Use with spacer ??? apixaban (Eliquis) 5 mg Tablet Oral ??? aspirin 81 mg, Oral, DAILY ??? carvediloL (COREG) 12.5 mg, Oral, 2 TIMES DAILY WITH MEALS ??? epiNEPHrine (EPIPEN) 0.3 mg/0.3 mL injection one injection, IM, PRN ??? EPINEPHrine 0.3 mg, Intramuscular, ONCE PRN ??? furosemide (LASIX) 20 mg, Oral, 2 TIMES DAILY ??? lovastatin (MEVACOR) 40 mg, Oral, NIGHTLY ??? metoprolol succinate XL (TOPROL XL) 50 mg, Oral, DAILY ??? nitroGLYcerin (NITROSTAT) 0.4 mg, Sublingual, EVERY 5 MIN PRN ??? omeprazole (PRILOSEC) 40 mg, Oral, DAILY Family History Family History Problem Relation Age of Onset ??? Diabetes Mother Social History Tobacco: Former smoker (quit 1988) Vaping: not asked EtOH: not asked Illicit drugs: not asked Occupation: not asked Living: not asked Recent travels: not asked Recent sick contacts: not asekd Covid Vaccine: not asked Objective: Vitals Last value Range last 24 hrs Temperature Temp: 36.7 ??C (98.1 ??F) Temp: [36 ??C (96.8 ??F)-36.7 ??C (98.1 ??F)] Heart Rate Heart Rate: 65 Heart Rate: [60-78] Blood Pressure BP: 152/76 BP: (113-155)/(57-76) Art Line BP BP (Arterial Line): -- MAP (NBP): [76 mmHg-99 mmHg] Respiratory Rate Resp: 20 Resp: [13-21] SpO2 SpO2: 99 % SpO2: [93 %-99 %] Oxygen Delivery Oxygen Therapy O2 Device: Bi-PAP O2 Flow Rate (L/min): 2 L/min FiO2 (%): 40 % Bipap: 16/10 with 40% FiO2 Intake/Output Summary (Last 24 hours) at 03/29/2022 1556 Last data filed at 03/29/2022 1500 Gross per 24 hour Intake -- Output 100 ml Net -100 ml Patient Vitals for the past 168 hrs: Weight 03/29/22 0714 78 kg (172 lb) Physical Exam: Gen: in bed in NAD. bipap in place. HEENT: anicteric, EOMI intact, JVD indeterminate CV: RRR, 2-3/6 holosystolic murmur best heart at apex Resp: CTAB, no crackles/wheezes/ronchi, decreased breath sounds at right base Abd: normal bowel sounds, soft, non-tender to palpation, no rebound or guarding Ext: 2+ radial pulses, 2+ pitting edema in bilateral lower extremities Neuro: no focal deficits noted, CN II-XII grossly intact, moves all extremities spontaneously Psych: cooperative. Skin: no rashes, lesions, or ulcerations noted Lines/Drains/Airways: PIV x1 Labs: Recent Labs 03/29/22 0720 WBC 5.1 HGB 12.7* HCT 37.9* PLATELET 155 MCV 91.5 Recent Labs 03/29/22 0720 NA 142 CL 108* CO2 24 K 3.9 CALCIUM 8.9 BUN 14 CREATININE 1.27 LFTs No results for input(s): PROT, ALBUMIN, AST, ALT, ALKPHOS, BILITOT, BILIDIR in the last 168 hours. Coags Recent Labs 03/29/22 0720 INR 1.8 PT 21.0* Cardiac Enzymes No results for input(s): CK, TROPONINT, PROBNP in the last 168 hours. Endocrine No results for input(s): TSH, CORTISOL in the last 7068 hours. Invalid input(s): [id number] No results for input(s): POCGLU in the last 168 hours. Heme No results for input(s): LDH, HAPTOGLOBIN, URICACID in the last 168 hours. Microbiology: x Imaging/Diagnostics: CXR 03/29/22: FINDINGS: Right lower lobe opacity with obscuration of the right hemidiaphragm. Increased prominence of the pulmonary vascular and interstitial markings. No pneumothorax. Small to moderate right pleural effusion. No left pleural effusion. Cardiomediastinal silhouette is slightly enlarged when compared to prior. No acute osseous abnormality. ?? IMPRESSION 1. Pulmonary vascular congestion with interstitial edema. 2. Right lower lobe opacity likely representing a combination of effusion, atelectasis, and/or edema. Superimposed infection cannot be excluded. Op note A flutter ablation 03/29/22: Findings: 1. 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 2. Successful ablation of CTI-dependent atrial flutter to sinus rhythm. 3. Bidirectional block across the CTI was persistent after a 30 min waiting period. TTE 11/08/21: TTE 08/14/16: SUMMARY: ?? 1. The left ventricular chamber size is normal. Left ventricular wall thickness is normal. There are left ventricular segmental wall motion abnormalities present, as shown in the diagram below. There is normal global left ventricular systolic function. The quantitative left ventricular ejection fraction by biplane Day's method is 70%. 2. The right ventricle is normal in size. Right ventricular global systolic function is low normal. 3. There is prolapse of the anterior mitral valve leaflet. There is moderate (2+/4+) mitral regurgitation present. 4. Pulmonary artery hypertension could not be assessed due to inadequate tricuspid regurgitation jet. 5. See remainder of report for additional findings. ?? Medications Scheduled: ??? apixaban 5 mg Oral BID ??? [START ON 03/30/2022] aspirin 81 mg Oral Daily ??? acetaminophen 975 mg Oral Q6H CHARY Continuous: PRN: albuteroL Assessment & Plan: Timmy Stroud is a 87 y.o. male w/ PMH of HTN, HLD, CAD s/p CABG (1988), former smoker (quit 1988), HFpEF (EF October 2021 57%), A flutter (on apixaban and metoprolol), moderate mitral regurg who was in short stay after successful A flutter ablation today and developed hypoxic respiratory failure 2/2 volume overload requiring rescue bipap. Per discussion with Dr. Francis, approximately 1L fluid was given through the catheter during the procedure. Given hx HTN, HFpEF, and stiff LV, most likely explanation is that pt was unable to handle this extra fluid resulting in an episode of flash pulmonary edema. CXR consistent with pulmonary vascular congestion and possible pleural effusion. Pt HDS and O2 sat greatly improved with rescue bipap. Considered pericardial tamponade iso A flutter ablation, but unlikely given normal blood pressures. Due to need for rescue bipap, pt will be admitted to [facility] for monitoring. Will order stat EKG and TTE. Trop not necessary (will be high after ablation) and pro-BNP not helpful given that pt is clearly volume overloaded. BMP, Mg, phos ordered. We will continue to diurese with goal of net negative 2L and until he is once again able to tolerate room air. Neuro --no active issues Cardiovascular #Acute on chronic HFpEF --BMP, Mg, Phos ordered --stat EKG and TTE --no need for trop or pro-BNP unless clinical picture changes --s/p IV lasix 80mg, will continue to diurese for goal of net negative 2L and/or until pt can once again tolerate room air --hold home metoprolol and carvedilol given acute decompensation #A flutter s/p successful ablation 03/29/22 --continue Eliquis for now #CAD s/p CABG (1988) --continue ASA 81 --takes lovastain (Mevacor) at home, apparent hx intolerance to other statins per chart Pulmonary #Hypoxic respiratory failure #Flash pulmonary edema --Currently on bipap 16/10, 40% FiO2. Will attempt to wean with ongoing diuresis. Renal/Fluid/Electrolytes --no active issues --basleline Cr from 2017 around 1.0. Today was 1.27 Gastrointestinal/Metabolic/Nutrition #GERD --on prilosec at home, will do pantoprazole in hospital Hematology #A flutter clot prophylaxis --continue home apixaban 5 bid (ok per EP) Infection --no active issues #Routine Diet: Daily Healthy Menu Choices/Cardiac diet ([facility]-Diet) BM: DVT Prophylaxis: DOAC GI Prophylaxis: Pantoprazole 40mg daily Dispo: Pending clinical course Code Status: Attempt Cardiopulmonary Resuscitation - Inpatient Shlomo Ozuna MD Internal Medicine, PGY-1 Cardiology 03/29/22 3:56 PM Associated attestation - Kentrell Michelle MD - 03/30/2022 8:56 AM EDT I have seen the patient and reviewed the resident's above history and I agree with the details as written. The assessment and plan were formulated in discussion with me and I agree with them as documented. Flash pulm edema s/p fluids and propofol during procedure. Will continue support with diuresis and bipap for now. Yury Francis MD - 03/29/2022 7:13 AM EDT Images from the original note were not included. Clinical Cardiac Electrophysiology Interval History and Physical Exam For Planned Procedure HISTORY OF PRESENT ILLNESS: Timmy Stroud is a 87 y.o. male with a history of CABG, HTN, MR, and atrial flutter who presents for aflutter ablation. Feels well today, no fevers, nausea, vomiting, or diarrhea. Has not missed any doses of apixaban in the last 30 days. Presents today with his son, Len. ROS: Denies recent fevers, chills. No syncope No orthopnea No bleeding No neurological changes PHYSICAL EXAM: Vital Signs: There were no vitals taken for this visit. A&O x 3, calm conversant, no acute distress JVD inderminate Lung: clear to auscultation bilaterally, normal respiratory effort Heart: regular heart rate Chest: no open wound or new rash, Ext: no edema PROBLEM LIST: Patient Active Problem List Diagnosis Code ??? Hypercholesteremia E78.00 ??? Anxiety state F41.1 ??? Abdominal bloating R14.0 ??? Actinic keratosis L57.0 ??? Disorder of joint M25.9 ??? CAD s/p CABG I25.10 ??? Essential hypertension I10 ??? History of tobacco use Z87.891 ??? Irritable bowel syndrome K58.9 ??? Lactose intolerance E73.9 ??? 3+ Mitral regurgitation I05.9 ??? Obesity E66.9 ??? Dyssomnia G47.9 ??? Unstable angina with positive stress test I20.0 ??? Cardiomyopathy, ischemic I25.5 ??? Bilateral inguinal hernia K40.20 ??? Intestinal disaccharidase deficiency E73.9 ??? Other allergy status, other than to drugs and biological substances Z91.09 ??? Senile cataract H25.9 ??? Glaucoma H40.9 ??? Urticaria L50.9 ??? Atrial flutter with rapid ventricular response I48.92 ALLERGIES: Allergies Allergen Reactions ??? Aspirin Patient underwent desensitization ??? Ezetimibe Other reaction(s): intolerance ??? Niacin Other (See Comments) ??? Prednisone Per pt, he reported hallucinations after taking prednisone ??? Pyrazolones Other (See Comments) ??? Rosuvastatin Other (See Comments) ??? Rosuvastatin Calcium HEAD SORENESS ??? Sertraline Other (See Comments) ??? Zfghmxh-Zmk-Gwf Reductase Inhibitors INTOLERANce. However, tolerates Mevacor without problems. ??? Trazodone Other (See Comments) MEDICATIONS: Current Facility-Administered Medications Medication Dose Route Frequency Provider Last Rate Last Admin ??? sodium chloride 0.9 % (flush) (BD PosiFlush Normal Saline 0.9) flush 5-20 mL 5-20 mL IntravenousQ1 Min PRN Amado Rolon MD ??? lidocaine (Xylocaine) 1% (10 mg/mL) injection 3 mg 0.3 mL Subcutaneous Once PRN Amado Rolon MD ??? lactated ringers infusion 1,000 mL Intravenous Continuous Amado Rolon MD ??? sodium chloride 0.9 % (flush) (BD PosiFlush Normal Saline 0.9) flush 5 mL 5 mL Intravenous Q12H Yury Francis MD ??? sodium chloride 0.9 % (flush) (BD PosiFlush Normal Saline 0.9) flush 5-20 mL 5-20 mL IntravenousQ1 Min PRN Yury Francis MD ??? lidocaine (Xylocaine) 1% (10 mg/mL) injection 3 mg 0.3 mL Subcutaneous Once PRN Yury Francis MD PAST SURGICAL HISTORY: Past Surgical History: Procedure Laterality Date ??? CARDIAC CATHERIZATION ??? CORONARY ARTERY BYPASS GRAFT LAB VALUES: Laboratory Data: Lab Results Component Value Date WBC 6.2 08/16/2016 HGB 14.0 08/16/2016 HCT 39.8 (L) 08/16/2016 MCV 86.9 08/16/2016 Lab Results Component Value Date NA 139 08/16/2016 K 3.6 08/16/2016 CL 101 08/16/2016 CO2 24 08/16/2016 BUN 18 08/16/2016 CREATININE 0.93 08/16/2016 GLUCOSE 105 08/14/2016 GLUCFASTING 117 (H) 08/16/2016 CALCIUM 8.7 08/16/2016 ESTGFR >60 08/16/2016 Lab Results Component Value Date TSH 3.11 08/13/2016 Lab Results Component Value Date INR 1.0 08/13/2016 ASSESSMENT AND PLAN: Timmy Stroud is a 87 y.o. male with a history of CABG, HTN, p/f atrial flutter ablation. No contraindications to proceeding today. No FLORENCE. Rationales for, intended benefits and potential risk of planned procedures reviewed. The patient indicated understanding and agreement with the plan. Informed consent signed. Lopez Thompson MD. 03/29/2022 I met with the patient today and independently confirmed the history, physical exam, and testing. I personally reviewed and interpreted the available ECGs and additional cardiac testing (echo), as wellas the labs. I agree with the detailed management plan as written in the fellow note today. I discussed this plan with the patient, who is also in agreement. ?? These notes are in addition to the history, exam and plan that I reviewed in detail, listed above: 1. Mr. Stroud presents with typical atrial flutter. He took his apixaban this morning and has missed no doses in the past 4 weeks, at least. ?? Dr. Yury Francis, electrophysiology attending ([id number]) documented in this encounter Miscellaneous Notes Plan of Care - Hortensia Lamb MD - 03/29/2022 4:57 PM EDT [facility] Fellow Plan of Care 87 yo man with hx CAD, distant CABG, preserved LVEF, no COPD, who underwent an acutely successful atrial flutter ablation this morning with Dr. Yury Francis, and about 1 hours post-op was hypoxic and dyspneic. Reportedly modest amount of fluids received during his EP case. Had audible crackles, paleness, diaphoresis, placed on BiPAP 100%, then down to 40-50%. [place] a bit better after lasix IV given. CXR showing pulmonary edema Bedside echo by Dante Cadena MD shosulema preserved LVEF, moderate MR, no pericardial effusion Patient Vitals for the past 8 hrs: BP Temp Temp src Pulse Resp SpO2 03/29/22 1615 128/80 36.7 ??C (98.1 ??F) Axillary 75 23 99 % 03/29/22 1500 152/76 -- -- -- 20 99 % 03/29/22 1447 -- -- -- -- 19 98 % 03/29/22 1337 146/76 36.7 ??C (98.1 ??F) Oral -- 20 98 % 03/29/22 1300 127/67 -- -- 65 18 98 % 03/29/22 1200 128/66 -- -- 63 14 99 % 03/29/22 1145 134/64 36.4 ??C (97.5 ??F) -- 62 13 98 % 03/29/22 1130 126/57 -- -- 60 21 98 % 03/29/22 1115 119/58 -- -- 63 13 97 % 03/29/22 1100 113/60 -- -- 61 19 93 % 03/29/22 1045 124/72 36 ??C (96.8 ??F) Temporal 65 13 97 % Exam - RRR, crackles, neuro intact, on bipap, comfortable A/P Acute pulm edema after AFl ablation -Resp support with bipap, wean as tolerated -IV diuresis, continue tonight -[facility] for monitoring -cont eliquis per ep -admit s2 Hortensia Lamb MD [facility] Computer Terminal Operator, PGY-5 Pager #[phone] Can Epic message me 7AM-4PM on weekdays for non-urgent matters Associated attestation - Kentrell Michelle MD - 03/30/2022 8:58 AM EDT I have seen the patient and reviewed the fellow's above history and I agree with the details as written. The assessment and plan were formulated in discussion with me and I agree with them as documented. 30 minutes spent in critical care time caring for patient during acute exacerbation. Consult Note - Dae Platt RN - 03/29/2022 3:11 PM EDT Life Safety Program Consult Note Called to see Timmy Stroud who is a 87 y.o.male by RN for increased respiratory distress. Admission Date/Time 03/29/2022 6:48 AM Hospital Day 0 days Problem List: Active Hospital Problems Diagnosis ??? Atrial flutter Resolved Hospital Problems No resolved problems to display. Active Non-Hospital Problems Diagnosis ??? Essential hypertension ??? 3+ Mitral regurgitation ??? CAD s/p CABG ??? Atrial flutter with rapid ventricular response ??? Urticaria ??? Unstable angina with positive stress test ??? Cardiomyopathy, ischemic ??? Actinic keratosis ??? History of tobacco use ??? Lactose intolerance ??? Disorder of joint ??? Irritable bowel syndrome ??? Obesity ??? Dyssomnia ??? Bilateral inguinal hernia ??? Intestinal disaccharidase deficiency ??? Other allergy status, other than to drugs and biological substances ??? Senile cataract ??? Glaucoma ??? Hypercholesteremia ??? Anxiety state ??? Abdominal bloating Allergies Allergen Reactions ??? Ezetimibe Other reaction(s): intolerance ??? Niacin Other (See Comments) ??? Prednisone Per pt, he reported hallucinations after taking prednisone ??? Pyrazolones Other (See Comments) ??? Rosuvastatin Other (See Comments) ??? Rosuvastatin Calcium HEAD SORENESS ??? Sertraline Other (See Comments) ??? Haccyse-Fmq-Gzs Reductase Inhibitors INTOLERANce. However, tolerates Mevacor without problems. ??? Trazodone Other (See Comments) Subjective: Timmy Stroud is a87 y/o male with PMHx of CABG, MR, HTN, MR and A-Flutter. He was admitted today for an A-flutter ablation. Reported that procedure went well and he was converted to an sinus rhythm. Reported per chart review that the patient arrived to the PACU at 1045 hrs and continued to do well. He was transferred to the floor around 1300 hours. Per Primary RN patient began to have some increased respiratory effort between [id number]. Life Safety and EP team paged at that time. Objective: Vital Signs: Last value Range last 8 hrs Temperature Temp: 36.7 ??C (98.1 ??F) Temp: [36 ??C (96.8 ??F)-36.7 ??C (98.1 ??F)] Heart Rate Heart Rate: 65 Heart Rate: [60-65] Blood Pressure BP: 152/76 BP: (113-152)/(57-76) Respiratory Rate Resp: 20 Resp: [13-21] SpO2 SpO2: 99 % SpO2: [93 %-99 %] Intake/Output Summary (Last 24 hours) at 03/29/2022 1512 Last data filed at 03/29/2022 1500 Gross per 24 hour Intake -- Output 100 ml Net -100 ml Gen: Obvious respiratory distress HEENT: NC/AT, Pupils PERRL, Neck: no visible JVD due to habitus Respiratory: Crackles in bases with wheezes on the left side and diminished on the right. Rhonchi noted in the apices. Noted accessory muscle use with abdomen. Cardiovascular: S1/S2 with noted midsystolic murmur best heard over 5th intercostal space midclaviular line. Neuro:CN2-12 grossly intact. No focal deficits Skin: Pale, cool, diaphoretic Extremities: +1 pedal edema Current Medications: Infusions: Scheduled medications: ??? apixaban 5 mg Oral BID ??? [START ON 03/30/2022] aspirin 81 mg Oral Daily ??? carvediloL 12.5 mg Oral BID WC ??? furosemide 20 mg Oral BID ??? [START ON 03/30/2022] metoprolol succinate XL 50 mg Oral Daily ??? acetaminophen 975 mg Oral Q6H CHARY PRN Medications: albuteroL Laboratory: Lab Results Component Value Date WBC 5.1 03/29/2022 Hemoglobin 12.7 (L) 03/29/2022 Hematocrit 37.9 (L) 03/29/2022 Platelets 155 03/29/2022 INR 1.8 03/29/2022 PT 21.0 (H) 03/29/2022 Potassium 3.9 03/29/2022 Calcium 8.9 03/29/2022 CO2 24 03/29/2022 BUN 14 03/29/2022 Creatinine 1.27 03/29/2022 Studies: Radiology: chest x ray Assessment: Timmy Stroud is a 87 y/o male with history of A-flutter which he was admitted today for an ablation. The ablation went well but he developed dyspnea about 30 minutes post arrival to the short stay unit this afternoon. On this RN arrival to the bedside EP team at bedside assessing. Believed to have pulmonary edema per Dr. Thompson and was repositioned and sat up to about a 45 degree angle. Patient reports improvement in breathing. Order for 80 mg of lasix received and administered. Shortly after administration he began to report a flushed feeling, increased dyspnea, and visibly anxious. Primary team paged, respiratory paged. Patient had audible crackles with respiration form across the room. Skinbecame pale and diaphoretic. Primary team at bedside and patient placed on BiPAP 16/10 with FiO2 at 100% quickly titrated down to 40%. Decision made to transfer to [facility] for continued monitoring, airwaymanagement, and diuresis. Chest xray completed. 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 2. Successful ablation of CTI-dependent atrial flutter to sinus rhythm. 3. Bidirectional block across the CTI was persistent after a 30 min waiting period. Complications: none Intake: Intraprocedure Crystalloid Total None Transfusion No data found in the last 1 encounters. Output: Estimated Blood Loss: Urine Output:: (no urine output recorded) Other Output: (no other output recorded) Drains: none Specimens removed during surgery: None Disposition: awakened from anesthesia, extubated and taken to the recovery room in a stable condition, having suffered no apparent untoward event. Condition: doing well without problems Attestation: Yury Francis MD Case Date: 03/29/2022 I was present and I participated during the entire procedure (does not need to include opening and closing). (Please see the Surgical Encounter Summary for any Implant and Specimen details pertinent to this patient.) Surgical Infection Prevention Bundle Used? N/A documented in this encounter Plan of Treatment Not on filedocumented as of this encounter Procedures Procedure Name Priority Date/Time Associated Comments Diagnosis HC TROPONIN T STAT 03/30/2022 8:00 Results for this AM EDT procedure are i n the results section. HC POTASSIUM Routine 03/30/2022 8:00 Results for [...] AUTO DIFF Routine 03/30/2022 1:30 AM EDT HC MAGNESIUM, SERUM Routine 03/30/2022 1:30 Resul ts for this AM EDT procedure are i n the results section. BASIC METABOLIC PANEL Routine 03/30/2022 1:30 Res [...] DIFF Routine 03/29/2022 5:20 PM EDT HC PROBNP Routine 03/29/2022 5:20 Results for this PM EDT procedure are i n the results section. BASIC METABOLIC PANEL Routine 03/29/2022 5:20 Res ults for this (NON-FASTING) PM EDT procedure are in the results section. HC TROPONIN T STAT 03/29/2022 4:15 Results for this PM EDT procedure are i n the results section. HC PROBNP Routine 03/29/2022 4:15 Results for this PM EDT procedure are i n the results section. EKG 12-LEAD STAT 03/29/2022 [...] are i n the results section. HC PROTHROMBIN TIME STAT 03/29/2022 7:20 Resul ts for this AM EDT procedure are i n the results section. HC CBC,PLT & AUTO DIFF STAT 03/29/2022 7:20 AM EDT documented in this encounter Results Potassium (03/30/2022 8:00 AM EDT) P athologist Signature Potassium 3.7 3.5 - 5.0 [facility] mmol/L [facility] Comment: Please note: ??Patients [...] / Volume Laterality Blood 03/30/2022 8:00 AM 8:11 EDT AM EDT Resulting Agency Comment Spec In Lab Kentrell Michelle MD CHEMISTRY ORDERABLES Performing Organization Address City/State/[place] [address] (ABNORMAL) Troponin (03/30/2022 8:00 AM EDT) P athologist Signature Troponin-T 0.47 (H) 0.00 - [place] 0.00 ng/mL [facility] Comment: The 99th percentile for Troponin T is le ss than 0.01 ng/mL, any detectable cTnT concentration using this assay should be considered elevated. According to the third universal definit ion of myocardial infarction the following criteria with a clinical prese ntation consistent with acute myocardial ischemia meets the diagnosis for a myocardial infarction (ND). Detection of a rise and/or fall of [...] additional sample may be indicated. Reference: Third Concrete Definition of Myocardial Infarction. Journal of the [place] [employer] 2012;60:1581-98 Troponin-T HS 430 (H) <=22 ng/L [place] [facility] Comment: This patient's troponin [...] troponin value can be found in the [facility] Laboratory Test Catalog Troponin - [facility] Laboratory Test Catalog Reference: Fourth Concrete Definition of Myocardia l Infarction. Journal of the [place] [employer] 2018;72:1512-1974 Specimen Anatomical Collection Method Collection Time Receive d Time (Source) Location / / Volume Laterality Blood 03/30/2022 8:00 AM 8:11 EDT AM EDT Resulting Agency Comment Spec In Lab Jaja Cronin MD CHEMISTRY ORDERABLES Performing Organization Address City/State/ZIP Code Phon e Number [facility] [place] [address] EKG 12 Lead (03/30/2022 7:51 AM EDT) Component Value Ref Range Test Analysis Performed Pathologis t Method Time At Signature Ventricular rate 70 BPM MUSE SYSTEM Atrial Rate 70 BPM MUSE SYSTEM P-R Interval 196 ms MUSE SYSTEM QRS Duration 100 ms MUSE SYSTEM Q-T Interval 400 ms MUSE SYSTEM QTC Calculated 432 ms MUSE SYSTEM (Bezet) Calculated P [place] 41 degrees MUSE SYSTEM Calculated R [place] 53 degrees MUSE SYSTEM Calculated T [place] -25 degrees MUSE SYSTEM INTERPRETATION Sinus rhythm Occasional Premature ventricular complexe s MUSE SYSTEM T wave abnormality, consider anterior ischemia Inferior infarct Abnormal ECG When compared with ECG of 29-MAR-2022 15:59, (unconfirmed) No significant change was found Confirmed by fellow MD Yosef, Anthony ([id number]) on 03/30/2022 9:42:51 AM Confirmed by MD Miguel Angel, Kentrell ([id number]) on 03/30/2022 10:41:05 AM Specimen Anatomical Collection Method Collection Time Receive d Time (Source) Location / / Volume Laterality 03/30/2022 7:51 AM EDT 10:41 AM EDT Kentrell Michelle MD ECG ORDERABLES Performing Organization Address City/State/ZIP Code Phon e Number MUSE SYSTEM XR Chest One View (03/30/2022 6:25 AM EDT) Anatomical Region Laterality Modality Chest N/A Digital [...] who have questions please contact the health childcare administrator that requested your imaging first. ? Narrative 03/30/2022 8:26 AM EDT EXAMINATION: XR [...] ho have questions please contact the health childcare administrator that requested your imaging first. Yury Francis MD IMG DX ORDERABLES (ABNORMAL) Troponin (03/30/2022 1:30 AM EDT) athologist Signature Troponin-T 0.56 (H) 0.00 - [place] 0.00 ng/mL [facility] Comment: The 99th percentile for Troponin T is le ss than 0.01 ng/mL, any detectable cTnT concentration using this assay should be considered elevated. According to the third universal definit ion of myocardial infarction the following criteria with a clinical prese ntation consistent with acute myocardial ischemia meets the diagnosis for a myocardial infarction (ND). Detection of a rise and/or fall of [...] additional sample may be indicated. Reference: Third Concrete Definition of Myocardial Infarction. Journal of the [place] [employer] 2012;60:1581-98 Troponin-T HS 524 (H) <=22 ng/L [facility] Comment: This patient's troponin T concentration [...] troponin value can be found in the [facility] Laboratory Test Catalog Troponin - [facility] Laboratory Test Catalog Reference: Fourth Concrete Definition of Myocardia l Infarction. Journal of the [place] [employer] 2018;72:4786-1126 Specimen Anatomical Collection Method Collection Time Receive d Time (Source) Location / / Volume Laterality Blood 03/30/2022 1:30 AM 2 2:15 EDT AM EDT Resulting Agency Comment Spec In Lab Kentrell Michelle MD CHEMISTRY ORDERABLES Performing Organization Address City/State/[place] [address] Differential, Automated (03/30/2022 1:30 AM EDT) P athologist Signature Neutrophils % 72.2 % [facility] Neutr Abs (ANC) 5.83 1.70 - [facility] 6.10 [facility] x10(3)/[facility] LABORATORY Lymphocytes % 16.7 % [facility] Lymphocytes Abs 1.4 0.9 - 3.[address] [facility] x10(3)/[facility] LABORATORY Monocytes % 9.0 % [facility] Monocyte Abs 0.7 0.3 - 0.[address] [facility] x10(3)/[facility] LABORATORY Eosinophils % 1.7 % [facility] Eosinophils Abs 0.1 0.0 - 0.[address] [facility] x10(3)/[facility] LABORATORY Basophils % 0.2 % [facility] Basophils Abs 0.0 0.0 - 0.[address] [facility] x10(3)/[facility] LABORATORY Immature Gran % 0.20 % [facility] Comment: Immature granulocytes(IG's)percentage an d absolute count will include metamyelocytes, myelocytes, and promyelo cytes. Blood smears from CBCs yielding IG's will be scanned manually for concor dance. If this scan disagrees with the automated IG or if promyelocytes are not ed, a manual differential will be performed. Karen Gran Abs 0.02 0.00 - 0.04 x10(3)/[facility] LABORATORY Specimen Anatomical Collection Method Collection Time Receive d Time (Source) Location / / Volume Laterality Blood 03/30/2022 1:30 AM 2 2:15 EDT AM EDT Resulting Agency Comment Spec In Lab Lissa Franco MD HEMATOLOGY ORDERABLES Performing Organization Address City/State/ZIP Code Phon e Number [address] (ABNORMAL) Hemogram (03/30/2022 1:30 AM EDT) Analysis Performed At Patho logist Time Signature WBC 8.1 4.0 - 9.5 [facility] LABORATORY RBC 3.94 (L) 4.58 - [place] 5.54 [facility] x10(6)/[facility] LABORATORY Hemoglobin 12.1 (L) 13.7 - [facility] 16.5 g/dL [facility] Hematocrit 36.0 (L) 40.5 - [facility] 48.5 % [facility] MCV 91.4 82.9 - [facility] 93.1 [facility] LABORATORY MCH 30.7 27.5 - [place] 32.1 pg [facility] LABORATORY MCHC 33.6 32.0 - [place] 35.7 g/dL [facility] Platelets 165 145 - [address] [facility] x10(3)/[facility] LABORATORY RDWSD 45.0 36.0 - [facility] 45.0 [facility] LABORATORY RDWCV 13.4 11.4 - [facility] 13.8 % [facility] LABORATORY MPV 11.9 7.6 - 12.9 [facility] LABORATORY nRBC % Auto 0.0 % [facility] LAB[facility] nRBC Abs Auto 0.000 0.000 - [facility] 0.000 [facility] x10(3)/[facility] LABORATORY Specimen Anatomical Collection Method Collection Time Receive d Time (Source) Location / / Volume Laterality Blood 03/30/2022 1:30 AM 2 2:15 EDT AM EDT Resulting Agency Comment Spec In Lab Lissa Franco MD HEMATOLOGY ORDERABLES Performing Organization Address City/State/ZIP Code Phon e Number [address] Magnesium (03/30/2022 1:30 AM EDT) athologist Signature Magnesium 0.83 0.69 - 1.[address] [facility] mmol/L [facility] LABORATORY Specimen Anatomical Collection Method Collection Time Receive d Time (Source) Location / / Volume Laterality Blood 03/30/2022 1:30 AM 2 2:15 EDT AM EDT Resulting Agency Comment Spec In Lab Kentrell Michelle MD CHEMISTRY ORDERABLES Performing Organization Address City/State/[place] [address] (ABNORMAL) Basic Metabolic Panel (non-fasting) (03/30/2022 1:30 AM EDT) athologist Signature Glucose Lvl 118 65 - [address] [facility] mg/dL [facility] Comment: Diabetes: >=200 mg/dL plus symp toms BUN 20 10 - 20 mg/dL [facility]ORY Creatinine 1.58 (H) 0.80 - 1.50 mg/dL [facility] LABOR[facility]ORY Sodium 141 135 - 145 mmol/L [facility] LABORATORY Potassium 3.3 (L) 3.5 - 5.0 mmol/L [facility]ORY Comment: result rechecked-trb Please note: ??Patients with WBC >100,00 0 may have falsely elevated Potassium levels. ??For accurate Potassium quantif ication in these patients send serum separator tube (gold top) for subsequent determinations. ??Contact the Clinical Chemistry Laboratory if there are any qu estions. Chloride 104 98 - 107 mmol/L [facility] CO2 26 22 - 31 mmol/L [facility] Anion Gap 11 5 - 15 mmol/L [facility] Calcium 8.6 8.5 - 10.5 mg/dL [facility] LABORATORY Estimated GFR 43 (L) >=60 mL/min/1.73 m?? [facility] Comment: This patient's estimated GFR was calcula janel using the 2020 CKD-EPI equation. The estimated [...] Organization Address City/State/[place] [address] (ABNORMAL) BLOOD GAS 2 ARTERIAL (03/29/2022 5:42 PM EDT) Analysis Performed At Patho logist Time Signature pH Art 7.40 7.35 - [facility] 7.45 [facility] LABORATORY pCO2 Art 38 35 - [address] [facility] mmHg [facility] LABORATORY pO2 Art 126 (H) 85 - 104 [facility] LABORATORY HCO3 Art 23.5 20.[address] - [facility] 26.0 [facility] mmol/L [facility] LABORATORY BE Art -1.2 -3.0 - 3.[address] [facility] mmol/L [facility] LABORATORY Hgb Blood Gas 13.6 (L) 13.7 - [facility] 16.5 g/dL [facility] LABORATORY O2HB Art 97.2 (H) 94.[address] - [facility] 97.0 % [facility] LABOR[facility]ORY COHB Art 0.4 % [facility] Comment: Nonsmokers: 0.5-1.5% COHB Smokers: Variable, but usually less than 10% Toxic: 20-30% COHB Lethal: Greater than 60% COHB METHB Art 0.7 <=1.5 % [facility] LABORAT[facility] Na Whole Blood 140 135 - 145 mmol/L [facility] K Whole Blood 3.9 3.5 - 5.0 mmol/L [facility] Comment: Please note: Patients with WBC >100,000 may have falsely elevated Potassium levels. Contact the Clinical Chemistry L aboratory if there are any questions. ICa Whole Blood 1.17 1.15 - 1.33 mmol/L [facility] Comment: Note: ??Total bilirubin higher than 20 m g/dL may lead to falsely low ionized calcium. CL Whole Blood 105 98 - 107 mmol/L [facility] Gluc Whole Bld 120 65 - 199 mg/dL [facility] Comment: Diabetes: >=200 mg/dL plus symp toms. Lactate WB 1.1 0.5 - 2.2 mmol/L [facility] LABOR[facility] FIO2 Art 40 % [facility] PF Ratio Art 315 [facility] LABORATORY Specimen Anatomical Collection Method Collection Time Receive d Time (Source) Location / / Volume Laterality Blood 03/29/2022 5:42 PM 5:42 EDT PM EDT Kentrell Michelle MD CHEMISTRY ORDERABLES Performing Organization Address City/State/[place] [address] (ABNORMAL) Troponin (03/29/2022 5:20 PM EDT) P athologist Signature Troponin-T 0.37 (H) 0.[address] - [facility] 0.00 ng/mL [facility] Comment: The 99th percentile for Troponin T is le ss than 0.01 ng/mL, any detectable cTnT concentration using this assay should be considered elevated. According to the third universal definit ion of myocardial infarction the following criteria with a clinical prese ntation consistent with acute myocardial ischemia meets the diagnosis for a myocardial infarction (ND). Detection of a rise and/or fall of [...] additional sample may be indicated. Reference: Third Concrete Definition of Myocardial Infarction. Journal of the [place] [employer] 2012;60:1581-98 Troponin-T HS 366 (H) <=22 ng/L [facility] Comment: This patient's troponin T concentration [...] troponin value can be found in the [facility] Laboratory Test Catalog Troponin - [facility] Laboratory Test Catalog Reference: Fourth Concrete Definition of Myocardia l Infarction. Journal of the [place] [employer] 2018;72:0290-5075 Specimen Anatomical Collection Method Collection Time Receive d Time (Source) Location / / Volume Laterality Blood 03/29/2022 5:20 PM 5:33 EDT PM EDT Resulting Agency Comment Spec In Lab Jaja Cronin MD CHEMISTRY ORDERABLES Performing Organization Address City/State/[place] [address] (ABNORMAL) Differential, Automated (03/29/2022 5:20 PM EDT) Patholo gist Method Time Signature Neutrophils % 81.5 % [facility] Neutr Abs (ANC) 6.83 (H) 1.70 - [facility] 6.10 [facility] x10(3)/[facility] L LABORATORY Lymphocytes % 9.4 % [facility] LABOR[facility]ORY Lymphocytes Abs 0.8 (L) 0.9 - 3.[address] [facility] x10(3)/[facility] LABORATORY Monocytes % 8.2 % [facility] LAB[facility]ORY Monocyte Abs 0.7 0.3 - 0.[address] [facility] x10(3)/[facility] LABORATORY Eosinophils % 0.5 % [facility] LABOR[facility]ORY Eosinophils Abs 0.0 0.0 - 0.[address] [facility] x10(3)/[facility] LABORATORY Basophils % 0.2 % [facility] LABORATORY Basophils Abs 0.0 0.0 - 0.1 [place] 254630(3)/[facility] LABORATORY Immature Gran % 0.20 % [facility] Comment: Immature granulocytes(IG's)percentage an d absolute count will include metamyelocytes, myelocytes, and promyelo cytes. Blood smears from CBCs yielding IG's will be scanned manually for concor dance. If this scan disagrees with the automated IG or if promyelocytes are not ed, a manual differential will be performed. Karen Gran Abs 0.02 0.00 - 0.04 x10(3)/[facility] LABORATORY Specimen Anatomical Collection Method Collection Time Receive d Time (Source) Location / / Volume Laterality Blood 03/29/2022 5:20 PM 5:33 EDT PM EDT Resulting Agency Comment Spec In Lab Jaja Cronin MD HEMATOLOGY ORDERABLES Performing Organization Address City/State/[place] [address] (ABNORMAL) Hemogram (03/29/2022 5:20 PM EDT) Analysis Performed At [facility] logist Time Signature WBC 8.4 4.0 - 9.[address] [facility] x10(3)/[facility] LABORATORY RBC 4.05 (L) 4.58 - [place] 5.54 [facility] x10(6)/[facility] LABORATORY Hemoglobin 12.5 (L) 13.7 - [place] 16.5 g/dL [facility] LABORATORY Hematocrit 37.4 (L) 40.5 - [place] 48.5 % [facility] LABORATORY MCV 92.3 82.9 - [facility] 93.1 [facility] LABORATORY MCH 30.9 27.5 - [place] 32.1 pg [facility] LABORATORY MCHC 33.4 32.0 - [place] 35.7 g/dL [facility] LABORATORY Platelets 170 145 - [address] [facility] x10(3)/[facility] LABORATORY RDWSD 46.1 (H) 36.0 - [place] 45.0 [facility] LABORATORY RDWCV 13.7 11.4 - [place] 13.8 % [facility] LABORATORY MPV 11.8 7.6 - 12.9 [place] [facility] LABORATORY nRBC % Auto 0.0 % [facility] LABORATORY nRBC Abs Auto 0.000 0.000 - [place] 0.000 [facility] x10(3)/[facility] LABORATORY Specimen Anatomical Collection Method Collection Time Receive d Time (Source) Location / / Volume Laterality Blood 03/29/2022 5:20 PM 2 5:33 EDT PM EDT Resulting Agency Comment Spec In Lab Jaja Cronin MD HEMATOLOGY ORDERABLES Performing Organization Address City/State/[place] [address] (ABNORMAL) pro-Brain Natriuretic Peptide (03/29/2022 5:20 PM EDT) P athologist Signature ProBNP 3,282 (H) <=449 [facility] pg/mL [facility] LABORATORY Specimen Anatomical Collection Method Collection Time Receive d Time (Source) Location / / Volume Laterality Blood 03/29/2022 5:20 PM 2 5:33 EDT PM EDT Resulting Agency Comment Spec In Lab Jaja Cronin MD CHEMISTRY ORDERABLES Performing Organization Address City/State/ZIP [place] [address] (ABNORMAL) Basic Metabolic Panel (non-fasting) (03/29/2022 5:20 PM EDT) athologist Signature Glucose Lvl 127 65 - [address] [facility] mg/dL [facility] LAB[facility]ORY Comment: Diabetes: >=200 mg/dL plus symp toms BUN 16 10 - 20 mg/dL [facility] LABORATORY Creatinine 1.27 0.80 - 1.50 mg/dL [facility] LABOR[facility]ORY Sodium 143 135 - 145 mmol/L [facility] LABORATORY Potassium 4.6 3.5 - 5.0 mmol/L [facility] LABORATORY Comment: Please note: ??Patients with WBC >100,00 0 may have falsely elevated Potassium levels. ??For accurate Potassium quantif ication in these patients send serum separator tube (gold top) for subsequent determinations. ??Contact the Clinical Chemistry Laboratory if there are any qu estions. Chloride 107 98 - 107 mmol/L [facility] CO2 24 22 - 31 mmol/L [facility] Anion Gap 12 5 - 15 mmol/L [facility] Calcium 8.4 (L) 8.5 - 10.5 mg/dL [facility] Estimated GFR 55 (L) >=60 mL/min/1.73 m?? [facility] Comment: This patient's estimated GFR was calcula janel using the 2020 CKD-EPI equation. The estimated [...] / Volume Laterality Blood 03/29/2022 5:20 PM 2 5:33 EDT PM EDT Resulting Agency Comment Spec In Lab Jaja Cronin MD CHEMISTRY ORDERABLES Performing Organization Address City/State/ZIP Code [place] [address] (ABNORMAL) Troponin (03/29/2022 4:15 PM EDT) P athologist Signature Troponin-T 0.33 (H) 0.00 - [place] 0.00 ng/mL [facility] Comment: The 99th percentile for Troponin T is le ss than 0.01 ng/mL, any detectable cTnT concentration using this assay should be considered elevated. According to the third universal definit ion of myocardial infarction the following criteria with a clinical prese ntation consistent with acute myocardial ischemia meets the diagnosis for a myocardial infarction (ND). Detection of a rise and/or fall of [...] additional sample may be indicated. Reference: Third Concrete Definition of Myocardial Infarction. Journal of the [place] [employer] 2012;60:1581-98 Troponin-T HS 342 (H) <=22 ng/L [place] [facility] Comment: This patient's troponin [...] troponin value can be found in the [facility] Laboratory Test Catalog Troponin - [facility] Laboratory Test Catalog Reference: Fourth Concrete Definition of Myocardia l Infarction. Journal of the [place] [employer] 2018;72:9701-4004 Specimen Anatomical Collection Method Collection Time Receive d Time (Source) Location / / Volume Laterality Blood 03/29/2022 4:15 PM 2 4:26 EDT PM EDT Resulting Agency Comment Spec In Lab Yury Francis MD CHEMISTRY ORDERABLES Performing Organization Address City/State/[place] [address] (ABNORMAL) pro-Brain Natriuretic Peptide (03/29/2022 4:15 PM EDT) P athologist Signature ProBNP 3,183 (H) <=449 [facility] Specimen Anatomical Collection Method Collection Time Receive d Time (Source) Location / / Volume Laterality Blood 03/29/2022 4:15 PM 2 4:26 EDT PM EDT Resulting Agency Comment Spec In Lab Yury Francis MD CHEMISTRY ORDERABLES Performing Organization Address City/State/[place] [address] EKG 12 Lead (03/29/2022 3:59 PM EDT) Component Value Ref Range Test Analysis Performed Pathologis t Method Time At Signature Ventricular rate 69 BPM MUSE SYSTEM Atrial Rate 69 BPM MUSE SYSTEM P-R Interval 198 ms MUSE SYSTEM QRS Duration 90 ms MUSE SYSTEM Q-T Interval 406 ms MUSE SYSTEM QTC Calculated 435 ms MUSE SYSTEM (Bezet) Calculated P [place] 59 degrees MUSE SYSTEM Calculated R [place] 74 degrees MUSE SYSTEM Calculated T [place] -39 degrees MUSE SYSTEM INTERPRETATION Sinus rhythm Occasional Premature ventricular complexe s MUSE SYSTEM Possible Left atrial enlargement Cannot rule out Inferior infarct (cited on or before 2021) T wave abnormality, consider lateral ischemia Abnormal ECG When compared with ECG of 16-FEB-2022 15:56, T wave inversion now evident in Lateral leads Confirmed by MD Babb Danette ([id number]) on 03/30/2022 12:39:0 1 PM Specimen Anatomical Collection Method Collection Time Receive d Time (Source) Location / / Volume Laterality 03/29/2022 3:59 PM EDT 12:39 PM EDT Kentrell Michelle MD ECG ORDERABLES Performing Organization Address City/State/ZIP Code Phon e Number MUSE SYSTEM XR Chest One View (03/29/2022 3:10 PM EDT) Anatomical Region Laterality Modality Chest N/A Digital Radiography Specimen (Source) Anatomical Location Collection Method / Collectio n Time Received Time / Laterality Volume Impressions 03/29/2022 3:25 PM EDT 1. ??Pulmonary vascular congestion with interstitial edema. 2. ??Right lower lobe opacity likely rep resenting a combination of effusion, atelectasis, and/or edema. Superimposed infection cannot be excluded. I have personally reviewed the image(s) and the resident's interpretation and agree with the findings, Enid Yates MD at 03/29/2022 3:25 PM Thank you for letting us participate in the care of this patient. ??If you are a health care provider and have any questi ons regarding this report, please contact the number below. ??For patients who have questions please contact the health childcare administrator that requested your imaging first. ? Narrative 03/29/2022 3:25 PM EDT EXAMINATION: XR CHEST ONE VIEW CLINICAL HISTORY: vol overload TECHNIQUE: 1 view of the chest COMPARISON: Chest radiograph 08/12/2016 FINDINGS: Right lower lobe opacity with obscuratio n of the right hemidiaphragm. Increased prominence of the pulmonary vascular and interstitial markings. No pneumothorax. Small to moderate right pleural effusion . No left pleural effusion. Cardiomediastinal silhouette is slightly enlarged when compared to prior. No acute osseous abnormality. Procedure Note Enid Champagne MD - 2021 EXAMINATION: XR CHEST ONE VIEW CLINICAL HISTORY: vol overload TECHNIQUE: 1 view of the chest COMPARISON: Chest radiograph 08/12/2016 FINDINGS: Right lower lobe opacity with obscuratio n of the right hemidiaphragm. Increased prominence of the pulmonary vascular and interstitial markings. No pneumothorax. Small to moderate right pleural effusion . No left pleural effusion. Cardiomediastinal silhouette is slightly enlarged when compared to prior. No acute osseous abnormality. IMPRESSION 1. Pulmonary vascular congestion with in terstitial edema. 2. Right lower lobe opacity likely repre senting a combination of effusion, atelectasis, and/or edema. Superimposed infection cannot be excluded. I have personally reviewed the image(s) and the resident's interpretation and agree with the findings, Enid Yates MD at 03/29/2022 3:25 PM Thank you for letting us participate in the care of this patient. If you are a health care provider and have any questi ons regarding this report, please contact the number below. For patients w ho have questions please contact the health childcare administrator that requested your imaging first. Yury Francis MD IMG DX ORDERABLES ELECTROPHYSIOLOGY PROCEDURE (03/29/2022 7:32 AM EDT) Anatomical Region Laterality Modality Other Specimen (Source) Anatomical Location Collection Method / Collectio n Time Received Time / Laterality Volume Narrative 04/04/2022 10:36 PM EDT Procedure: Atrial flutter ablation Change Management Director: Yury Francis MD Fellow: Lopez Thompson MD Referring physician: [...] ms HV 49 ms RR 1289 ms [place] 214 ms, QRS 93 ms, QT 452 [...] atrial flutter abl ation Yury Francis MD [facility] Cardiac Electrophysiology 04/04/2022 10:35 PM Yury Francis MD EP PROCEDURE ORDERABLES Differential, Automated (03/29/2022 7:20 AM EDT) P athologist Signature Neutrophils % 65.5 % [facility] Neutr Abs (ANC) 3.34 1.70 - [facility] 6.10 [facility] x10(3)/[facility] LABORATORY Lymphocytes % 20.8 % [facility] Lymphocytes Abs 1.1 0.9 - 3.[address] [facility] x10(3)/[facility] LABORATORY Monocytes % 9.6 % [facility] Monocyte Abs 0.5 0.3 - 0.[address] [facility] x10(3)/[facility] LABORATORY Eosinophils % 3.5 % [facility] Eosinophils Abs 0.2 0.0 - 0.[address] [facility] x10(3)/[facility] LABORATORY Basophils % 0.4 % [facility] Basophils Abs 0.0 0.0 - 0.[address] [facility] x10(3)/[facility] LABORATORY Immature Gran % 0.20 % [facility] Comment: Immature granulocytes(IG's)percentage an d absolute count will include metamyelocytes, myelocytes, and promyelo cytes. Blood smears from CBCs yielding IG's will be scanned manually for concor dance. If this scan disagrees with the automated IG or if promyelocytes are not ed, a manual differential will be performed. Karen Gran Abs 0.01 0.00 - 0.04 x10(3)/[facility] Specimen Anatomical Collection Method Collection Time Receive d Time (Source) Location / / Volume Laterality Blood 03/29/2022 7:20 AM 7:41 EDT AM EDT Resulting Agency Comment Spec In Lab Yury Francis MD HEMATOLOGY ORDERABLES Performing Organization Address City/State/[place] [address] (ABNORMAL) Hemogram (03/29/2022 7:20 AM EDT) Analysis Performed At Patho logist Time Signature WBC 5.1 4.0 - 9.[address] [facility] x10(3)/[facility] LABORATORY RBC 4.14 (L) 4.58 - [facility] 5.54 [facility] x10(6)/[facility] LABORATORY Hemoglobin 12.7 (L) 13.[address] - [facility] 16.5 g/dL [facility] Hematocrit 37.9 (L) 40.[address] - [facility] 48.5 % [facility] MCV 91.5 82.9 - [place] 93.1 [facility] LABORATORY MCH 30.7 27.5 - [place] 32.1 pg [facility] MCHC 33.5 32.0 - [place] 35.7 g/dL [facility] Platelets 155 145 - 357 [place] x10(3)/[facility] LABORATORY RDWSD 44.8 36.0 - [place] 45.0 [facility] LABORATORY RDWCV 13.3 11.4 - [place] 13.8 % [facility] MPV 11.2 7.6 - 12.9 [place] [facility] LABORATORY nRBC % Auto 0.0 % [facility] nRBC Abs Auto 0.000 0.000 - [place] 0.000 [facility] x10(3)/[facility] LABORATORY Specimen Anatomical Collection Method Collection Time Receive d Time (Source) Location / / Volume Laterality Blood 03/29/2022 7:20 AM 7:41 EDT AM EDT Resulting Agency Comment Spec In Lab Yury Francis MD HEMATOLOGY ORDERABLES Performing Organization Address City/State/[place] [address] (ABNORMAL) BMP w/fasting Glucose (03/29/2022 7:20 AM EDT) P athologist Signature Glucose 101 (H) 65 - 99 [facility] Fasting mg/dL [facility] Comment: ?Fasting* Glucose Interpretive C riteria Normal ?65-99 mg/dL Impaired Fasting glucose ?100-125 mg/dL Consistent with Diabetes Mellitus ? >or= 126 mg/dL *Fasting is defined as no caloric intake for at least 8 hours In the absence of unequivocal hypergly cemia a plasma glucose value of >or= 126 mg/dL should be repeated on a subseq u day. Diagnosis and Classification of Diabetes Mellitus, Position Statement from the [place] [employer]. ??Diabete s Care, Volume 33, Supplement 1, Jun 2009 BUN 14 10 - 20 mg/dL [facility] Creatinine 1.27 0.80 - 1.50 mg/dL [facility] Sodium 142 135 - 145 mmol/L [facility] Potassium 3.9 3.5 - 5.0 mmol/L [facility] Comment: Please note: ??Patients with WBC >100,00 0 may have falsely elevated Potassium levels. ??For accurate Potassium quantif ication in these patients send serum separator tube (gold top) for subsequent determinations. ??Contact the Clinical Chemistry Laboratory if there are any qu estions. Chloride 108 (H) 98 - 107 mmol/L [facility] CO2 24 22 - 31 mmol/L [facility] Anion Gap 10 5 - 15 mmol/L [facility] Calcium 8.9 8.5 - 10.5 mg/dL [facility] Estimated GFR 55 (L) >=60 mL/min/1.73 m?? [facility] Comment: This patient's estimated GFR was calcula janel using the 2020 CKD-EPI equation. The estimated [...] / Volume Laterality Blood 03/29/2022 7:20 AM 7:41 EDT AM EDT Resulting Agency Comment Spec In Lab Yury Francis MD CHEMISTRY ORDERABLES Performing Organization Address City/State/[place] [address] (ABNORMAL) Prothrombin Time (03/29/2022 7:20 AM EDT) P athologist Signature PT 21.0 (H) 9.4 - 12.5 [facility] LABORATORY INR 1.8 [facility] Comment: An INR <2.0 indicates adequate [...] / Volume Laterality Blood 03/29/2022 7:20 AM 7:41 EDT AM EDT Resulting Agency Comment Spec In Lab Yury Francis MD HEMATOLOGY ORDERABLES Performing Organization Address City/State/[place] [address] documented in this encounter Visit Diagnoses Diagnosis Atrial flutter - Primary Typical atrial flutter Atrial flutter 3+ Mitral regurgitation Other and unspecified mitral valve disea ses Acute and chronic respiratory failure wi th hypoxia Acute and chronic respiratory failure Acute respiratory failure with hypoxia Acute respiratory failure Chest pain, unspecified type CAD s/p CABG Coronary atherosclerosis of nez perce coron pato artery Essential hypertension Unspecified essential hypertension Hypercholesteremia Pure hypercholesterolemia Anxiety state Anxiety state, unspecified History of tobacco use Personal history of tobacco use, present ing hazards to health Irritable bowel syndrome Obesity Obesity, unspecified Cardiomyopathy, ischemic Other specified forms of chronic ischemi c heart disease Atrial flutter with rapid ventricular re sponse Atrial flutter Typical atrial flutter Atrial flutter documented in this encounter Admitting Diagnoses Diagnosis Atrial flutter documented in this encounter Administered Medications Inactive Administered Medications - up to 3 most recent administrations Medication Order MAR Action Action Date Dose Rate Site apixaban (Eliquis) tablet 5 mg Given 03/30/2022 9:15 AM EDT 5 mg 5 mg, Oral, 2 TIMES DAILY, First dose on Mon03/29/22 at 2100, Until Discontinued, Anticoagulant, Routine, Restricted anticoagulant, choose the most appropriate response: Continuation of ongoing therapy Given 03/29/2022 8:29 PM EDT 5 mg aspirin chewable tablet 81 mg Given 03/30/2022 9:15 AM EDT 81 mg 81 mg, Oral, DAILY, First dose on Mon03/30/22 at 0900, Until Discontinued, Routine BUpivacaine (pf) (Marcaine) (5 mg/mL) 0.5% Given 03/29/2022 8:32 AM EDT 150 mg injection 150 mg 150 mg (30 mL), Subcutaneous, ONCE, 1 dose, On Mon03/29/22 at 0815, EP (Intra-Procedure), Routine furosemide (Lasix) (10 mg/mL) injection 80 mg Given 03/29/2022 2:22 PM EDT 80 mg 80 mg, Intravenous, ONCE, 1 dose, On Mon03/29/22 at 1500, STAT furosemide (Lasix) (10 mg/mL) injection 80 mg Given 03/29/2022 8:29 PM EDT 80 mg 80 mg, Intravenous, ONCE, 1 dose, On Mon03/29/22 at 2015 furosemide (Lasix) 10 mg/mL injection 1 dose, Starting on Mon03/29/22 at 1417, Until Mon03/29/22 at 1422, Cayetano Noble.: cabinet override furosemide (Lasix) tablet 20 mg Given 03/30/2022 10:58 AM EDT 20 mg 20 mg, Oral, 2 TIMES DAILY, First dose on Mon03/30/22 at 1000, Until Discontinued, Routine lactated ringers infusion Restarted 03/29/2022 7:46 AM EDT 1,000 mL, at 100 mL/hr, Intravenous, CONTINUOUS, Starting on Mon03/29/22 at 0715, Until Mon03/29/22 at 1326, Day of Surgery (Day of Procedure) New Bag 03/29/2022 7:44 AM EDT 1,000 mLs 100 mL/hr lidocaine (Xylocaine) (20 mg/mL) 2% injection Given 8:33 AM EDT 400 mg 400 mg 400 mg (20 mL), Subcutaneous, ONCE, 1 dose, On Mon03/29/22 at 0815, EP (Intra-Procedure), Routine metoprolol succinate XL (Toprol-XL) tablet 50 Given 10:58 AM EDT 50 mg mg 50 mg, Oral, DAILY, First dose on Mon03/30/22 at 1000, Until Discontinued, DO NOT CRUSH OR OPEN, Routine nitroGLYcerin (Nitrostat) disintegrating tablet 0.4 mg 0.4 mg, Sublingual, EVERY 5 MIN PRN, Starting on Mon at 1633, Until Mon03/30/22 at 1640, Chest pain, May repeat every 5 minutes for a total of three doses. Notify provider if chest pain not reliev ed with nitroglycerin. Do not administer nitroglycerin if the patient has received or taken delfino sphodiesterase (PDE-5) inhibitors such as sildenafil, tadalafil or vardenafil within the last 24 to 72 hours., Routine pantoprazole EC (Protonix) tablet 40 mg Given 03/30/2022 9:15 AM EDT 40 mg 40 mg, Oral, DAILY, First dose on Mon03/30/22 at 0900, Until Discontinued, DO NOT CRUSH OR OPEN, Routine potassium bicarbonate (Effer-K) efferves cent tablet 40-60 mEq 40-60 mEq, Oral, PER POTASSIUM PROTOCOL, Starting on Mon03/30/22 at 0310, Until Mon03/30/22 at 1640, potassium replenishment, If unable to take tablet. For serum potassium (mMol/L) of 3.3-3.8 administer Potassium liquid or SR tablets 40 mEq. For serum potassium (mMol/L) of 2.8-3.2 admi nister Potassium liquid or SR tablets 60 mEq. For serum potassium less than 2.8 C all provider for potassium dosing. Do not crush or chew, tablet is meant for disso lution in liquid prior to consumption. 10 mEq tablets: dissolve in 60 - 90 mL of cold water (fla vored tablets) or juice (unflavored tablets) 20 mEq tablets: dissolve in 90 - 120 mL of cold water (flavored tablets) or juice (unflavored tablets), Rout ine potassium chloride ER (K-Dur/Klor-Con) tablet Given 3:46 AM EDT 40 mEq 40-60 mEq 40-60 mEq, Oral, PER POTASSIUM PROTOCOL, Starting on Mon03/30/22 at 0310, Until Mon03/30/22 at 1640, potassium replenishment, DO NOT CRUSH OR OPEN For serum potassium (mMol/L) of 3.3-3.8 administer Potassium oral liquid or SR tablets 40 mEq. For serum potassium (mMol/L) of 2.8-3.2 administer Potassium oral liquid or SR tablets 60 mEq. For serum potassium less than 2.8 Call provider for potassium dosing., Routine documented in this encounter Active and Recently Administered Medications Times are shown in EDT. Scheduled Medication Order 03/28/2022 03/29/2022 03/30/2022 apixaban (Eliquis) tablet 5 mg 2028 (Given - Pro vider: Silvestre López RN) 0915 (Given - Provider: Kal Sepulveda RN) 5 mg, Oral, 2 TIMES DAILY, First dose on Mon03/29/22 at 2100, Until Discontinued, Anticoagulant, Routine, Restricted anticoagulant, choose the most appropriate response: Continuation of ongoing therapy aspirin chewable tablet 81 mg 03 10 (Given - Provider: Kal Sepulveda RN) 81 mg, Oral, DAILY, First dose on Mon at 0900, Until Discontinued, Routine BUpivacaine (pf) (Marcaine) (5 mg/mL) 0.5% injection 150 mg (COMPLETED) 831 (Given - Provider: Oanh Tillman RN) 150 mg (30 mL), Subcutaneous, ONCE, 1 do se, On Mon03/29/22 at 0815, EP (Intra- Procedure), Routine furosemide (Lasix) (10 mg/mL) injection 80 mg (COMPLETED) 1421 (Given - Provider: Cayetano Noble, EPLIDIO) 80 mg, Intravenous, ONCE, 1 dose, On Mon03/29/22 at 1500, STAT furosemide (Lasix) (10 mg/mL) injection 80 mg (COMPLETED) 2028 (Given - Provider: Silvestre López RN) 80 mg, Intravenous, ONCE, 1 dose, On Mon03/29/22 at 2015 furosemide (Lasix) tablet 20 mg 1058 (Given - Provider: Kal Sepulveda RN) 20 mg, Oral, 2 TIMES DAILY, First dose o n Mon03/30/22 at 1000, Until Discontinued, Routine lidocaine (Xylocaine) (20 mg/mL) 2% injection 400 mg (COMPLE JANEL) 0833 (Given - Provider: Oanh Tillman, ELPIDIO) 400 mg (20 mL), Subcutaneous, ONCE, 1 do se, On Mon03/29/22 at 0815, EP (Intra- Procedure), Routine metoprolol succinate XL (Toprol-XL) tablet 50 mg 1058 (Given - Provider: Kal Sepulveda, ELPIDIO) 50 mg, Oral, DAILY, First dose on Mon at 1000, Until Discontinued, DO NOT CRUSH OR OPEN, Routine pantoprazole EC (Protonix) tablet 40 mg 0915 (Given - Provider: Kal Sepulveda RN) 40 mg, Oral, DAILY, First dose on Mon at 0900, Until Discontinued, DO NOT CRUSH OR OPEN, Routine Continuous Medication Order 03/28/2022 03/29/2022 03/30/2022 lactated ringers infusion (CANCELED) 074 4 (New Bag - Provider: Alondra Ash RN)0745 (Paused - Provider: Geneva Gutierrez CRNA - Comment: Switch to gravity)0746 (Restarted - Provider: Geneva Gutierrez CRNA) 1,000 mL, at 100 mL/hr, Intravenous, CON TINUOUS, Starting on Mon03/29/22 at 0715, Until Mon03/29/22 at 1326, Day of Surgery (Day of Procedure) PRN Medication Order 03/28/2022 03/29/2022 03/30/2022 albuteroL (Proventil, Ventolin) (2.5 mg/ 3 mL) (0.083 %) nebulizer solution 2.5 mg 2.5 mg, Nebulization, EVERY 6 HOURS PRN, Starting on Mon03/29/22 at 1340, Until Mon03/30/22 at 1640, Wheezing, Routine nitroGLYcerin (Nitrostat) disintegrating tablet 0.4 mg 0.4 mg, Sublingual, EVERY 5 MIN PRN, Sta rting on Mon03/29/22 at 1633, Until Mon03/30/22 at 1640, Chest pain, May repeat every 5 minutes for a total of three doses. Notify provider if chest pain not reli eved with nitroglycerin. Do not administ er nitroglycerin if the patient has received or taken phosphodiesterase (PDE-5) inhibitors such as sildenafil, tadalafil or vardenafil within the last 24 to 72 hours., Routine potassium bicarbonate (Effer-K) effervescent tablet 40-60 mEq(Li nked Group 1) 345 (See Alternative - Provider: Silvestre López RN) 40-60 mEq, Oral, PER POTASSIUM PROTOCOL, Starting on Mon03/30/22 at 0310, Until Mon03/30/22 at 1640, potassium replenishment, If unable to take tablet. For serum potassium (mMol/L) of 3.3-3.8 administer Potassium liquid or SR tablets 40 mEq. For serum potassium (mMol/L) of 2.8-3.2 administer Potassium liquid or SR tablets 60 mEq. For serum potassium less than 2.8 Call provider for potassium dosing. Do not crush or chew, tablet is meant for dissolution in liquid prior to consumption. 10 mEq tablets: dissolve in 60 - 90 mL of cold water (flavored tablets) or juice (unflavored tablets) 20 mEq tablets: dissolve in 90 - 120 mL of cold water (f lavored tablets) or juice (unflavored tablets), Routine potassium chloride ER (K-Dur/Klor-Con) tablet 40-60 mEq(Linked G roup 1) 345 (Given - Provider: Silvestre López RN) 40-60 mEq, Oral, PER POTASSIUM PROTOCOL, Starting on Mon03/30/22 at 0310, Until Mon03/30/22 at 1640, potassium replenishment, DO NOT CRUSH OR OPEN For serum potassium (mMol/L) of 3.3-3.8 administer Potassium oral liquid or SR tablets 40 m Eq. For serum potassium (mMol/L) of 2.8- 3.2 administer Potassium oral liquid or SR tablets 60 mEq. For serum potassium less than 2.8 Call provider for potassium dosing., Routine Linked Groups Order Group 1: potassium chloride ER (K-Dur/Klor-Con) tablet 40-60 mEqJump to med 40-60 mEq, Oral, PER POTASSIUM PROTOCOL, Starting on Mon03/30/22 at 0310, Until Mon03/30/22 at 1640, potassium replenishment
DO NOT CRUSH OR OPEN For serum potassium (mMo l/L) of 3.3-3.8 administer Potassium ora l liquid or SR tablets 40 mEq. For serum potassium (mMol/L) of 2.8-3.2 administer Potassium oral liquid or SR tablets 60 mEq.&nbs p; For serum potassium less t san 2.8 Call provider for potassium dosing.
Routine Or potassium bicarbonate (Effer-K) effervescent tablet 40-60 mEqJump to med 40-60 mEq, Oral, PER POTASSIUM PROTOCOL, Starting on Mon03/30/22 at 0310, Until Mon03/30/22 at 1640, potassium replenishment
If unable to take tablet. For serum potassium (m Mol/L) of 3.3-3.8 administer Potassium l iquid or SR tablets 40 mEq. For serum potassium (mMol/L) of 2.8-3.2 administer Potassium liquid or SR tablets 60 mEq. &n bsp; For serum potassium less than 2.8 Call provider for potassium dosing. Do not crush or chew, tablet is meant for dissolution in liquid prior to consumption. 10 m Eq tablets: dissolve in 60 - 90 mL of co ld water (flavored tablets) or juice (unflavored tablets) 20 mEq tablets: dissolve in 90 - 120 mL of cold water (flavored tablets) or juice (unflavored tablets)
Routine documented in this encounter Care Teams Pusher Runner Relationship Specialty Start Date End Date Guzman Thompson MD PCP - General Family Medicine 07/14/[address] [place] [address] [address] [place] [address] documented as of this encounter
--- OUTSIDE RECORDS SUMMARY | 2022-04-08 01:37 | XMS_ITS | Encounter Summary ---
:1935 Author Organization [facility] [place] [address] Care Team Providers Name Role Phone Guzman Thompson MD Primary Care Provider [phone] Encounter Details Date Type Department Care Team Description 12/02/2021 Telephone Cardiology at [facility] [place] [address] Social History Tobacco Use Types Packs/Day Years Used Date Former Smoker Quit: 06/26/18 89 Smokeless Tobacco: Never Used Alcohol Use Standard Drinks/Week Comments Yes 1.7 (1 standard drink = 0.6 oz pure alco hol) Sex Assigned at Date Recorded Not on file documented as of this encounter Miscellaneous Notes Telephone Encounter - Mignon Ash - 12/02/2021 2:14 PM EDT Request for ECG's done on 11/24/21 faxed to [facility] at [phone]. Mignon Ash EP Scheduling documented in this encounter Plan of Treatment Not on filedocumented as of this encounter Visit Diagnoses Not on filedocumented in this encounter Care Teams Waxing Machine Operator Helper Relationship Specialty Start Date End Date Guzman Thompson MD PCP - General Family Medicine 07/14/[address] [place] [address] documented as of this encounter
--- OUTSIDE RECORDS SUMMARY | 2022-04-08 01:37 | XMS_ITS | Encounter Summary ---
:1935 Author Organization [facility] [place] [address] Care Team Providers Name Role Phone Guzman Thompson MD Primary Care Provider [phone] Reason for Visit Reason Onset Date Comments Pre Procedure Call 03/16/2022 Encounter Details Date Type Department Care Team Description 03/16/2022 Telephone Cardiology at [facility] Jeane Cedillo RN [place] [address] Social History Tobacco Use Types Packs/Day Years Used Date Former Smoker Quit: 06/26/18 89 Smokeless Tobacco: Never Used Alcohol Use Standard Drinks/Week Comments Yes 1.7 (1 standard drink = 0.6 oz pure alco hol) Sex Assigned at Date Recorded Not on file documented as of this encounter Miscellaneous Notes Telephone Encounter - Jeane Cedillo RN - 03/16/2022 9:22 AM EDTSummary: Pre Procedure Call: Atrial Flutter Ablation EP JUDICIAL ASSISTANT COORDINATION CHECKLIST Patient Name: Timmy Farrell - spoke with son Len Patient Performing Club Licensee: Yury Francis Referring Provider: Lynne Ham Date of Procedure: 03/29/22 Arrival Time/ Case Time: 6:00 am / 7:30 am Check In Location: Internal Wholes[facility] Desk 4W Date Patient was Called: 03/16/22 Procedure: Atrial Flutter Ablation Company: [employer] Orders: Yes Lab Orders: Yes Anesthesia: GA Discharge Plan/Disposition: SAME DAY DISCHARGE Med Instructions: DIURETIC - hold Lasix the AM of procedure Anticoag Type: Eliquis (apixaban) Anticoag Instructions: Continue uninterrupted Imaging: Contingent [place]OR[place] on day of procedure COVID TEST?: No - same day discharge Contrast Allergy: No DM: No Coming from an assisted living facility?: No Any recent S/S of infection (fevers, on oral ABX)?: No Other Instructions: Clear liquids (water, apple juice, elisa osmel) OK up until 2 hrs prior to procedure, nothing to eat after midnight on day of procedure.Same Day will call 03/28/22. If applicable will bring CPAP from home. Will be going home same day , understands that they will need refuse driver on day of discharge documented in this encounter Plan of Treatment Not on filedocumented as of this encounter Visit Diagnoses Not on filedocumented in this encounter Care Teams Assessment Analyst Relationship Specialty Start Date End Date Guzman Thompson MD PCP - General Family Medicine 07/14/[address] [place] [address] [address] [place] [address] documented as of this encounter
--- OUTSIDE RECORDS SUMMARY | 2022-04-08 01:37 | XMS_ITS | Encounter Summary ---
:1935 Author Organization [facility] [place] [address] Care Team Providers Name Role Phone Guzman Thompson MD Primary Care Provider [phone] Encounter Details Date Type Department Care Team Description 03/16/2018 Office Visit Cardiology at [facility] Suad Ross, ASCVD (arteriosclerotic [facility] cardiovascular disease) [facility] [id number] [place] [address] [phone] Social History Tobacco Use Types Packs/Day Years Used Date Former Smoker Quit: 06/26/18 89 Smokeless Tobacco: Never Used Alcohol Use Standard Drinks/Week Comments Yes 1.7 (1 standard drink = 0.6 oz pure alco hol) Sex Assigned at Date Recorded Not on file documented as of this encounter Last Filed Vital Signs Vital Sign Reading Time Taken Comments Blood Pressure 156/70 03/16/2018 10:24 AM EDT Pulse 60 03/16/2018 10:24 AM EDT Temperature - - Respiratory Rate - - Oxygen Saturation 97% 03/16/2018 10:24 AM EDT Inhaled Oxygen Concentration - - Weight 82.6 kg (182 lb 3.2 oz) 03/16/2018 10:24 AM EDT Height 160 cm (5' 3) 03/16/2018 10:24 AM EDT Body Mass Index 32.28 03/16/2018 10:24 AM EDT documented in this encounter Patient Instructions Patient InstructionsSuad Ross APRN - 03/16/2018 11:00 AM EDT 1. STOP clopidogrel (plavix). Continue aspirin 81 mg daily, metoprolol succinate 50 mg daily, lovastatin 40 mg. 2. Start lisinopril 5 mg (called into the mail-in pharmacy) for your blood pressure. 3. Check lipids 4.Call the Cardiology Clinic ([phone]) if you experience any chest pain, shortness of breath, palpitations, near-syncope, or syncopal events, swelling in abdomen, lower extremities, shortness of breath on exertion, laying down or if you wake up short of breath at night. documented in this encounter Progress Notes Suad Ross APRN - 03/16/2018 11:00 AM EDT Images from the original note were not included. Formerly [facility] [place] [address] General Cardiology Follow Up Subjective: HPI: Timmy Farrell is a 83 y.o. 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 He reports that he has been doing well since he was last seen in clinic in 2017. He was last seen in cardiology in July of last year at which time he underwent a cardiac catheterization where he had stents placed to the prox D1,Ostial D2, in July 2016. Echocardiogram at thetime with LVEF of 70% with moderate MR. 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 He reports that he does not like to keep still and always feels like he needs to be doing something. Denies any chest pain, dyspnea, palpitations, near-syncope, or syncopal events, swelling in the abdomen or lower extremities, orthopnea, PND. Patient Active Problem List Diagnosis Code ??? [...] H25.9 ??? Glaucoma H40.9 ??? 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 Eyes: Negative for blurred vision and visual disturbance. Cardiovascular: Negative for chest pain, dyspnea on exertion, irregular heartbeat, leg swelling, near-syncope, orthopnea, palpitations, paroxysmal nocturnal dyspnea and syncope. Respiratory: Positive for cough (phlem in the morning). Negative for hemoptysis and shortness of breath. Skin: Negative for poor wound healing. Musculoskeletal: Negative for back pain and falls. Gastrointestinal: Negative for abdominal pain, change in bowel habit and nausea. Genitourinary: Negative for dysuria and flank pain. Neurological: Negative for dizziness and light-headedness. Psychiatric/Behavioral: The patient is not nervous/anxious. Medications: Current Outpatient Prescriptions Medication Sig Dispense Refill ??? EPINEPHrine 0.3 mg/0.3 mL Auto-Injector Inject 0.3 mLs into the muscle once as needed (allergic reaction, lip swelling, shortness of breath) for up to 2 doses. 1 each 0 ??? aspirin 81 mg Tablet, Chewable Take 81 mg by mouth daily. 30 tablet 0 ??? nitroGLYcerin (NITROSTAT) 0.4 mg Tablet, Sublingual Place 1 tablet under the tongue every 5 minutes as needed for Chest pain. 25 tablet PRN ??? meTOPROLOL succinate (TOPROL XL) 50 mg Tablet Sustained Release 24 hr Take 1 tablet by mouth daily. 30 tablet 3 ??? lovastatin (MEVACOR) 40 mg Tablet Take 1 tablet by mouth nightly. 90 tablet 3 ??? epiNEPHrine (EPIPEN) 0.3 mg/0.3 mL injection one injection, IM, PRN ??? lisinopril (PRINIVIL;ZESTRIL) 5 mg Tablet Take 1 tablet by mouth daily. 90 tablet 3 Objective: Vitals: Vitals: 03/16/18 1024 BP: 156/70 Pulse: 60 SpO2: 97% Weight: 82.6 kg (182 lb 3.2 oz) Height: 160 cm (5' 3) Physical Exam: Physical Exam Constitutional: He is oriented to person, place, and time. He appears well- developed and well-nourished. No distress. Body mass index is 32.28 kg/(m^2). Poor dentition HENT: Head: Normocephalic and atraumatic. Eyes: Conjunctivae are normal. Pupils are equal, round, and reactive to light. Neck: Normal range of motion. Neck supple. No JVD present. Cardiovascular: Normal rate, regular rhythm and intact distal pulses. Exam reveals no gallop and no friction rub. Murmur (soft holosystolic murmur) heard. Sternotomy site well approximated, healed Pulmonary/Chest: Effort normal and breath sounds normal. No respiratory distress. He has no wheezes.He has no rales. He exhibits no tenderness. Abdominal: Soft. Bowel sounds are normal. He exhibits no distension. There is no tenderness. Musculoskeletal: Normal range of motion. He exhibits no edema. Neurological: He is alert and oriented to person, place, and time. Skin: Skin is warm and dry. He is not diaphoretic. No erythema. Psychiatric: He has a normal mood and affect. His behavior is normal. Vitals reviewed. Diagnostics: EKG 03/16/2018 SR with PVC, [facility] Cardiac Catheterization Jul 2016 ?Conclusions: * Significant stenosis of the left main * Two vessel coronary artery disease (LAD and RCA) * Patent left internal mammary artery graft to the LAD * Successful stent insertion of the distal LM lesion * Successful stent insertion of the proximal D1 lesion * Successful stent insertion of the ostial D2 lesion * LURDES (drug eluting stents) placed in left main, D1 via left main, and D2 via PEACOCK graft. Echocardiogram Jul 2016 SUMMARY: ?? 1. The left ventricular chamber [...] See remainder of report for additional findings. Assessment and Plan: ASCRuelas appears to be doing well since he underwent PCI to his CABG grafts last year. He has not had recurrent angina and is without heart failure symptoms at this time. As he is greater than 12 months out from this procedure, he can stop plavix at this time. Will continue aspirin 81, metoprolol 50, lovastatin 40. Start lisinopril 5 mg (had previously been on this dose), and SL nitro prn (which he has not required). Dyslipidemia We discussed switching to an alternative statin, however he declined due to pricing. Will continue on lovastatin 40 mg. Rx for lipid panel to be draw given at today's visit. Hypertension He is hypertensive today with a blood pressure of BP: (156)/(70) . He had previously been on lisinopril and reports SBP in the 120-130s while on this. He was unsure why this medication was discontinued. We discussed the benefit of taking lisinopril for both his blood pressure and for his heart given his coronary disease. Rx to resume lisinopril 5 mg. Moderate MR Noted on echocardiogram from last year. Asymptomatic at this time. Continue to follow Suad Ross APRN Cardiovascular Medicine Pager [phone] 03/16/2018 Follow up: 1 year Greater than 50% of this visit was spent counseling the patient. documented in this encounter Plan of Treatment Scheduled Orders Name Type Priority Associated Diagnoses Order S chedule EKG 12 Lead ECG Routine ASCVD (arteriosclerotic card iovascular Ordered: 03/15/2018 disease) documented as of this encounter Procedures Procedure Name Priority Date/Time Associated Diagnosis Comme nts EKG 12-LEAD Routine 03/16/2018 10:34 AM ASCVD (arteriosclerot ic Results for this EDT cardiovascular disease) proc edure are in the results section. documented in this encounter Results EKG 12 Lead (03/16/2018 10:34 AM EDT) Component Value Ref Range Test Analysis Performed Pathologis t Method Time At Signature Ventricular rate 66 BPM MUSE SYSTEM Atrial Rate 66 BPM MUSE SYSTEM P-R Interval 194 ms MUSE SYSTEM QRS Duration 92 ms MUSE SYSTEM Q-T Interval 410 ms MUSE SYSTEM QTC Calculated 429 ms MUSE SYSTEM (Bezet) Calculated P Dennis 44 degrees MUSE SYSTEM Calculated R Dennis 26 degrees MUSE SYSTEM Calculated T Dennis 2 degrees MUSE SYSTEM INTERPRETATION Sinus rhythm Occasional Premature ventricular complexe s MUSE SYSTEM Possible Inferior infarct (cited on or before 21-JUL-2015) Abnormal ECG When compared with ECG of 16-AUG-2016 07:36, Premature ventricular complexes are now Present ST no longer depressed in Lateral leads T wave inversion less evident in Inferior leads T wave inversion no longer evident in Anterolateral leads Confirmed by Obi Alatorre MD ([id number]) on 03/16/2018 4:02:14 PM Specimen Anatomical Collection Method Collection Time Receive d Time (Source) Location / / Volume Laterality 03/16/2018 10:34 03/16/2018 4:02 AM EDT PM EDT Suad Ross APRN ECG ORDERABLES Performing Organization Address City/State/ZIP Code Phon e Number MUSE SYSTEM documented in this encounter Visit Diagnoses Diagnosis ASCVD (arteriosclerotic cardiovascular d isease) Unspecified cardiovascular disease documented in this encounter Care Teams Cell Tester Relationship Specialty Start Date End Date Guzman Thompson MD PCP - General Family Medicine 07/14/[address] [place] [address] documented as of this encounter
--- OUTSIDE RECORDS SUMMARY | 2022-04-08 01:37 | XMS_ITS | Encounter Summary ---
:1935 [place] [address] Care Team Providers Name Role Phone Guzman Thompson MD Primary Care Provider [phone] Reason for Visit Reason Comments Rash Encounter Details Date Type Department Care Team Description 09/10/2018 Emergency Emergency Department Lynne Macdonald (Primary Dx) [place] [address] Social History Tobacco Use Types Packs/Day Years Used Date Former Smoker Quit: 06/26/18 89 Smokeless Tobacco: Never Used Alcohol Use Standard Drinks/Week Comments Yes 1.7 (1 standard drink = 0.6 oz pure alco hol) Sex Assigned at Date Recorded Not on file documented as of this encounter Last Filed Vital Signs Vital Sign Reading Time Taken Comments Blood Pressure 116/58 09/10/2018 10:00 AM EDT Pulse 95 09/10/2018 8:31 AM EDT Temperature 37 ??C (98.6 ??F) 09/10/2018 8:31 AM EDT Respiratory Rate 16 09/10/2018 8:31 AM EDT Oxygen Saturation 98% 09/10/2018 10:15 AM EDT Inhaled Oxygen Concentration - - Weight - - Height - - Body Mass Index - - documented in this encounter Discharge Instructions AttachmentsThe following attachments cannot be sent through Care Everywhere. Urticaria (Cypriot)documented in this encounter Medications at Time of Discharge Medication Sig Dispensed Refills Start Date End Date aspirin 81 mg Tablet, Take 81 mg by mouth 30 tablet 0 08/16 Chewable daily. nitroGLYcerin (NITROSTAT) Place 1 tablet under 25 tablet 08/16/2016 0.4 mg Tablet, Sublingual the tongue every 5 minutes as needed for Chest pain. meTOPROLOL succinate Take 1 tablet by 30 tablet 3 7 (TOPROL XL) 50 mg Tablet mouth daily. Sustained Release 24 hr lovastatin (MEVACOR) 40 Take 1 tablet by 90 tablet 3 2015 mg Tablet mouth nightly. epiNEPHrine (EPIPEN) 0.3 one injection, IM, 0 mg/0.3 mL injection PRN predniSONE (DELTASONE) 20 Take 2 tablets by 8 tablet 0 09/15/2018 mg Tablet mouth daily for 4 days. famotidine (PEPCID) 20 mg Take 1 tablet by 14 tablet 0 08/2409/17/2018 Tablet mouth 2 times daily for 7 days. EPINEPHrine 0.3 mg/0.3 mL Inject 0.3 mLs into 1 each 0 0 09/02/2017 03/30/2022 Auto-Injector the muscle once as needed (allergic reaction, lip swelling, shortness of breath) for up to 2 doses. documented as of this encounter ED Notes Shawna Carrero, TWAN - 09/10/2018 11:47 AM EDT Chief Complaint Patient presents with ??? Rash HPI 83-year-old male with past history of hyperlipidemia and hypertension presents the emergency department today with hives. Patient states that he was seen at [facility] few days ago with hives and tongue swelling after taking lisinopril. Patient states that this happened exactly 1 year ago after taking lisinopril. He states he felt nervous about the prescriptions that were given to him at [facility] and was unwilling to take them. He comes to the emergency department heretoday concerned because he has persistent hives over his body. And is starting to become itchy again. Patient denies any swelling to his lips tongue or mouth. Denies any shortness of breath difficulty swallowing or breathing. Patient denies abdominal pain nausea or vomiting. Allergies Allergen Reactions ??? Aspirin Patient underwent desensitization ??? Ezetimibe Other reaction(s): intolerance ??? Niacin Other (See Comments) ??? Prednisone Per pt, he reported hallucinations after taking prednisone ??? Pyrazoles Other (See Comments) ??? Rosuvastatin Other (See Comments) ??? Rosuvastatin Calcium HEAD SORENESS ??? Sertraline Other (See Comments) ??? Pncpycm-Npb-Grf Reductase Inhibitors INTOLERANce. However, tolerates Mevacor without problems. ??? Trazodone Other (See Comments) Review of Systems Constitutional: Negative for chills, fatigue and fever. HENT: Negative for congestion, facial swelling, nosebleeds, postnasal drip, sinus pressure, sinus pain, sneezing, sore throat and trouble swallowing. Eyes: Negative for pain, redness and itching. Respiratory: Negative for cough, shortness of breath, wheezing and stridor. Gastrointestinal: Negative for nausea and vomiting. Musculoskeletal: Negative for arthralgias and myalgias. Skin: Diffuse hives to extremities and abdomen Neurological: Negative for dizziness, weakness, light-headedness, numbness and headaches. Hematological: Negative for adenopathy. Physical Exam Constitutional: He is oriented to person, place, and time. He appears well- developed and well-nourished. HENT: Head: Normocephalic and atraumatic. Right Ear: Tympanic membrane and external ear normal. Left Ear: Tympanic membrane and external ear normal. Nose: Nose normal. Mouth/Throat: Oropharynx is clear and moist. Eyes: Conjunctivae and EOM are normal. Neck: Normal range of motion. Neck supple. Cardiovascular: Normal rate, regular rhythm, normal heart sounds and intact distal pulses. Pulmonary/Chest: Effort normal and breath sounds normal. Abdominal: Soft. Bowel sounds are normal. Musculoskeletal: Normal range of motion. Neurological: He is alert and oriented to person, place, and time. Skin: Skin is warm and dry. Capillary refill takes less than 2 seconds. Diffuse wheals over trunk and extremities. On reexamination after prednisone Benadryl and Pepcid there is great improvement in some resolution to his wheels Psychiatric: He has a normal mood and affect. Vitals reviewed. Procedures MDM 83-year-old male presents the emergency department today with diffuse hives after taking lisinopril.Patient was treated with prednisone 40 mg Benadryl and Pepcid. Patient has near resolution of his diffuse hives over his body. He has no nuchal oral pharyngeal involvement. I discussed with him holdinghis lisinopril. Patient's bottle of lisinopril was disposed of here in the emergency department I discussed with him the need to take the steroids to help support the drug reaction. Patient states thathe feels more comfortable taking the prescribed medications now he will take prednisone 40 mg daily which she is previously tolerated he states that at one time after taking prolonged use of prednisonehe did have hallucinations But states that he is not had problems with short course of steroids. Patient has near resolution of his symptoms and again has no oropharyngeal involvement. Patient is advised to take Benadryl every 8 hours as he needs to for itching and will take Pepcid twice a day for thenext week. Follow-up and return precautions are discussed in detail with the patient patient is agreeable to plan and discharge. ED Course: History and physical exam Observation Prednisone, Benadryl, Pepcid Shawna Carrero APRN 09/11/18 2314 documented in this encounter Plan of Treatment Not on filedocumented as of this encounter Visit Diagnoses Diagnosis Hives - Primary Urticaria, unspecified documented in this encounter Administered Medications Inactive Administered Medications - up to 3 most recent administrations Medication Order MAR Action Action Date Dose Rate Site diphenhydrAMINE (BENADRYL) capsule Given 09/10/2018 9:12 AM EDT 25 mg 25 mg 25 mg, Oral, ONCE, 1 dose, On Mon09/10/18 at 0843, STAT famotidine (PEPCID) tablet 20 mg Given 09/10/2018 9:12 AM EDT 20 mg 20 mg, Oral, ONCE, 1 dose, On Mon09/10/18 at 0843, STAT predniSONE (DELTASONE) tablet 40 mg Given 09/10/2018 9:11 AM EDT 40 mg 40 mg, Oral, ONCE, 1 dose, On Mon09/10/18 at 0843, STAT documented in this encounter Active and Recently Administered Medications Times are shown in EDT. Scheduled Medication Order 09/08/2018 09/09/2018 09/10/2018 diphenhydrAMINE (BENADRYL) capsule 25 mg (COMPLETED) 0912 (Given - Provider: Suad Vaz RN) 25 mg, Oral, ONCE, 1 dose, Mon09/10/18 at 0843, STAT famotidine (PEPCID) tablet 20 mg (COMPLETED) 911 (Given - Provider: Suad Vaz, RN) 20 mg, Oral, ONCE, 1 dose, 09/10/18 at 0843, STAT predniSONE (DELTASONE) tablet 40 mg (COMPLETED) 910 (Given - Provider: Suad Vaz, ELPIDIO) 40 mg, Oral, ONCE, 1 dose, 09/10/18 at 0843, STAT documented in this encounter Care Teams Chief Substation Operator Relationship Specialty Start Date End Date Guzman Thompson MD PCP - General Family Medicine 07/14/[address] [place] [address] documented as of this encounter
--- OUTSIDE RECORDS SUMMARY | 2022-04-08 01:37 | XMS_ITS | Encounter Summary ---
:1935 Author Organization [facility] [place] [address] Care Team Providers Name Role Phone Guzman Thompson MD Primary Care Provider [phone] Reason for Visit Auth/Cert Specialty Diagnoses / Procedures Referred By Contact Refer red To Contact Diagnoses Atrial flutter Typical atrial flutter [I48.3] Yury Francis MD [facility] Procedures ELECTROPHYSIOLOGY PROCEDURE [facility] [place] [address] Referral ID Status Reason Start Date Expiration Date Visits Requ ested Visits Authorized [id number] 1 1 Encounter Details Date Type Department Care Team Description 03/29/2022 Surgery Electrophysiology Lab at Yury Francis E LECTROPHYSIOLOGY [facility] PROCEDURE [facility] [place] [address] [place] [address] [place] [address] Social History Tobacco Use Types Packs/Day Years Used Date Former Smoker Quit: 06/26/18 89 Smokeless Tobacco: Never Used Alcohol Use Standard Drinks/Week Comments Not Currently 2 (1 standard drink = 0.6 oz pure alcoho l) Sex Assigned at Date Recorded Not on file documented as of this encounter Last Filed Vital Signs Vital Sign Reading Time Taken Comments Blood Pressure 126/57 03/29/2022 11:30 AM EDT Pulse 60 03/29/2022 11:30 AM EDT Temperature 36 ??C (96.8 ??F) 03/29/2022 10:45 AM EDT Respiratory Rate 21 03/29/2022 11:30 AM EDT Oxygen Saturation 98% 03/29/2022 11:30 AM EDT Inhaled Oxygen Concentration - - [...] around 1300 hours. Developed respiratory distress around 9499-9656, at which time life safety and EP [...] valve with anterior prolapse her echo at [facility] ??? CAD s/p CABG Presented with UA vs [place] CABG 1988 - [place] to LAD, SVG to distal RCA (Dr. Dawn) - no further records available Lost to follow up thereafter - did not see a legal records manager again until 2015. Was on no meds [...] Note ?? Patient Name: Timmy Stroud DOB: [id number] MR#: [id number] ?? Case Date: 03/29/2022 ?? Surgeon: Surgeon(s) [...] who have questions please contact the health care transition manager that requested your imaging first. Chest One [...] who have questions please contact the health care transition manager that requested your imaging first. 03/30/22: Echocardiogram Report ?? Name: TIMMY STROUD Study Date: 03/29/2022 04:06 PM HR: 65 : 1935 Height: 156 cm Age: 87 yrs Weight: 78 kg Gender: Male BSA: 1.8 m2 Ordering Physician: Kentrell Michelle MD Referring Physician: Kentrell Michelle MD Performed By: Neville Cadena MD Interpreting Fellow: Neville Cadena. Exam Location: [facility]. 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 TTE 08/14/16: SUMMARY: ?? 1. The [...] Contact Information: Shlomo Ozuna MD Internal Medicine [facility] Discharge References/Attachments: Discharge References/Attachments None Associated attestation [...] documented in this encounter Discharge Instructions Patient InstructionsGumaro Velázquez MD - 03/30/2022 11:33 AM EDT You [...] son. All questions answered. Patient to [facility] via wheelchair with all property. Shlomo Ozuna [...] valve with anterior prolapse her echo at [facility] ??? CAD s/p CABG Presented with UA vs [place] CABG 1988 - [place] to LAD, SVG to distal RCA (Dr. Dawn) - no further records available Lost to follow up thereafter - did not see a legal records manager again until 2016. Was on no meds as of June [...] valve with anterior prolapse her echo at [facility] ??? CAD s/p CABG Overview Note: Presented with UA vs [place] CABG 1988 - [place] to LAD, SVG to distal RCA (Dr. Dawn) - no further records available Lost to follow up thereafter - did not see a legal records manager again until 2015. Was on no meds [...] a 30 min waiting period. Echocardiogram: 11/08/2021 [facility] Normal LV, LVEF 55-60% RV grossly normal [...] improvement. He was then transferred to the [facility] of ongoing monitoring and treatment. Provider: SAVANNAH Campos EP Consult attending physician: Anil Oglesby MD EP Consult positional pager #[phone](EPMD) EP Device interrogation positional pager # [phone] Cristiane Mccarty RN - 03/29/2022 12:30 PM [...] PCP: Guzman Thompson MD PCP phone number: [phone] Date of Admission: 03/29/2022 ( Hospital Day [...] around 1300 hours. Developed respiratory distress around 0981-5716, at which time life safety and EP [...] SORENESS ??? Sertraline Other (See Comments) ??? Teythby-Zjy-Ebr Reductase Inhibitors INTOLERANce. However, tolerates Mevacor without [...] in the last 7068 hours. Invalid input(s): [id number] No results for input(s): POCGLU in the [...] #Routine Diet: Daily Healthy Menu Choices/Cardiac diet ([facility]-Diet) BM: DVT Prophylaxis: DOAC GI Prophylaxis: Pantoprazole [...] SORENESS ??? Sertraline Other (See Comments) ??? Cwqezlx-Auq-Rwz Reductase Inhibitors INTOLERANce. However, tolerates Mevacor without [...] least. ?? Dr. Yury Francis, electrophysiology attending ([id number]) documented in this encounter Miscellaneous Notes Plan [...] on BiPAP 100%, then down to 40-50%. [place] a bit better after lasix IV given. [...] per ep -admit s2 Hortensia Lamb MD [facility] Highway Maintenance Technician, PGY-5 Pager #[phone] Can Epic message me 7AM-4PM on weekdays [...] SORENESS ??? Sertraline Other (See Comments) ??? Hfclqoz-Iwv-Lzb Reductase Inhibitors INTOLERANce. However, tolerates Mevacor without [...] to have some increased respiratory effort between 8196-6089. Life Safety and EP team paged at [...] to 40%. Decision made to transfer to [facility] for continued monitoring, airwaymanagement, and diuresis. Chest xray completed. Transferred to [facility] Plan: -Lasix 80 mg IVP -BiPAP -Chest Xray Transfer to Critical Care: [facility] Dae Platt RN 3:12 PM March 29, 2022 Brief Op Note - Yury Francis MD - 03/29/2022 10:45 AM EDT Brief Operative Note Patient Name: Timmy Stroud : [id number] MR#: [id number] Case Date: 03/29/2022 Surgeon: Surgeon(s) and Role: [...] athologist Signature Potassium 3.7 3.5 - 5.0 [facility] mmol/L [facility] Comment: Please note: ??Patients with WBC [...] Organization Address City/State/[place] [address] (ABNORMAL) Troponin (03/30/2022 8:00 AM EDT) P athologist Signature Troponin-T 0.47 (H) 0.00 - L[place]NE BLEVINS 0.00 ng/mL [facility] Comment: The 99th percentile for Troponin T is le ss than 0.01 ng/mL, any detectable cTnT concentration using this assay should be considered elevated. According to the third universal definit ion of myocardial infarction the following criteria with a clinical prese ntation consistent with acute myocardial ischemia meets the diagnosis for a myocardial infarction ([place]). Detection of a rise and/or fall of [...] additional sample may be indicated. Reference: Third Peel Definition of Myocardial Infarction. Journal of the [place] [employer] 2012;60:1581-98 Troponin-T HS 430 (H) <=22 ng/L [facility] Comment: This patient's troponin T [...] troponin value can be found in the [facility] Laboratory Test Catalog Troponin - [facility] Laboratory Test Catalog Reference: Fourth Peel Definition of Myocardia l Infarction. Journal of the [place] [employer] 2018;72:3018-9205 Specimen Anatomical Collection Method Collection Time Receive d Time (Source) Location / / Volume Laterality Blood 03/30/2022 8:00 AM 8:11 EDT AM EDT Resulting Agency Comment Spec In Lab Jaja Cronin MD CHEMISTRY ORDERABLES Performing Organization Address City/State/ZIP Code Phon e Number [place] [id number] EKG 12 Lead (03/30/2022 7:51 AM EDT) Component Value Ref Range Test Analysis Performed Pathologis t Method Time At Signature Ventricular rate 70 BPM MUSE SYSTEM Atrial Rate 70 BPM MUSE SYSTEM P-R Interval 196 ms MUSE SYSTEM QRS Duration 100 ms MUSE SYSTEM Q-T Interval 400 ms MUSE SYSTEM QTC Calculated 432 ms MUSE SYSTEM (Bezet) Calculated P Gilchrist 41 degrees MUSE SYSTEM Calculated R Gilchrist 53 degrees MUSE SYSTEM Calculated T Gilchrist -25 degrees MUSE SYSTEM INTERPRETATION Sinus rhythm Occasional Premature ventricular complexe s MUSE SYSTEM T wave abnormality, consider anterior ischemia Inferior infarct Abnormal ECG When compared with ECG of 29-MAR-2022 15:59, (unconfirmed) No significant change was found Confirmed by fellow MD Yosef, Anthony ([id number]) on 03/30/2022 9:42:51 AM Confirmed by MD Miguel Angel, Kentrell ([id number]) on 03/30/2022 10:41:05 AM Specimen Anatomical Collection [...] who have questions please contact the health care transition manager that requested your imaging first. ? Electronically signed by: Kristin simmons MD, [facility] ([phone]), at 03/30/2022 8:26 AM Narrative 03/30/2022 8:26 [...] ho have questions please contact the health care transition manager that requested your imaging first. Electronically signed by: Kristin simmons MD, [facility] ([phone]), at 03/30/2022 8:26 AM Yury Francis MD IMG DX ORDERABLES (ABNORMAL) Troponin (03/30/2022 1:30 AM EDT) P athologist Signature Troponin-T 0.56 (H) 0.00 - YLNNE FELICITY 0.00 ng/mL [facility] Comment: The 99th percentile for Troponin T is le ss than 0.01 ng/mL, any detectable cTnT concentration using this assay should be considered elevated. According to the third universal definit ion of myocardial infarction the following criteria with a clinical prese ntation consistent with acute myocardial ischemia meets the diagnosis for a myocardial infarction ([place]). Detection of a rise and/or fall of [...] additional sample may be indicated. Reference: Third Peel Definition of Myocardial Infarction. Journal of the [place] [employer] 2012;60:1581-98 Troponin-T HS 524 (H) <=22 ng/L [facility] Comment: This patient's troponin T [...] troponin value can be found in the [facility] Laboratory Test Catalog Troponin - [facility] Laboratory Test Catalog Reference: Fourth Peel Definition of Myocardia l Infarction. Journal of the [place] [employer] 2018;72:3547-2086 Specimen Anatomical Collection Method Collection Time Receive d Time (Source) Location / / Volume Laterality Blood 03/30/2022 1:30 AM 2:15 EDT AM EDT Resulting Agency Comment Spec In Lab Kentrell Michelle MD CHEMISTRY ORDERABLES Performing Organization Address City/State/ZIP Code Phon e Number [place] [id number] Differential, Automated (03/30/2022 1:30 AM EDT) P athologist Signature Neutrophils % 72.2 % [facility] Neutr Abs (ANC) 5.83 1.70 - [facility] 6.10 [facility] x10(3)/[facility] LABORATORY Lymphocytes % 16.7 % [facility] Lymphocytes Abs 1.4 0.9 - 3.2 [facility] x10(3)/[facility] LABORATORY Monocytes % 9.0 % [facility] Monocyte Abs 0.7 0.3 - 0.9 [facility] x10(3)/[facility] LABORATORY Eosinophils % 1.7 % [facility] Eosinophils Abs 0.1 0.0 - 0.4 [facility] x10(3)/[facility] LABORATORY Basophils % 0.2 % [facility] Basophils Abs 0.0 0.0 - 0.1 [facility] x10(3)/[facility] LABORATORY Immature Gran % 0.20 % [facility] Comment: Immature granulocytes(IG's)percentage an d absolute count will include metamyelocytes, myelocytes, and promyelo cytes. Blood smears from CBCs yielding IG's will be scanned manually for concor dance. If this scan disagrees with the automated IG or if promyelocytes are not ed, a manual differential will be performed. Karen Gran Abs 0.02 0.00 - 0.04 x10(3)/[facility] LABORATORY Specimen Anatomical Collection Method Collection Time Receive d Time (Source) Location / / Volume Laterality Blood 03/30/2022 1:30 AM 2:15 EDT AM EDT Resulting Agency Comment Spec In Lab Lissa Franco MD HEMATOLOGY ORDERABLES Performing Organization Address City/[facility]/[place] [address] [facility] [address] (ABNORMAL) Hemogram (03/30/2022 1:30 AM EDT) Analysis Performed At Patho logist Time Signature WBC 8.1 4.0 - 9.5 [facility] x10(3)/[facility] LABORATORY RBC 3.94 (L) 4.58 [facility] 5.54 [facility] x10(6)/[facility] LABORATORY Hemoglobin 12.1 (L) 13.7 - [facility] 16.5 g/dL [facility] Hematocrit 36.0 (L) 40.5 - [facility] 48.5 % [facility] MCV 91.4 82.9 [facility] 93.1 [facility] LABORATORY MCH 30.7 27.5 [facility] 32.1 pg [facility] MCHC 33.6 32.0 - [facility] 35.[facility] g/dL [facility] Platelets 165 145 - 357 [facility] x10(3)/[facility] LABORATORY RDWSD 45.0 36.0 - [facility] 45.0 [facility] LABORATORY RDWCV 13.4 11.4 - [facility] 13.8 % [facility] MPV 11.9 7.6 - 12.9 [facility] LABORATORY nRBC % Auto 0.0 % [facility] nRBC Abs Auto 0.000 0.000 - [facility] 0.000 [facility] x10(3)/[facility] LABORATORY Specimen Anatomical Collection Method Collection Time Receive d Time (Source) Location / / Volume Laterality Blood 03/30/2022 1:30 AM 2 2:15 EDT AM EDT Resulting Agency Comment Spec In Lab Lissa Franco MD HEMATOLOGY ORDERABLES Performing Organization Address City/State/[place] [address] Magnesium (03/30/2022 1:30 AM EDT) P athologist Signature Magnesium 0.83 0.69 - 1.07 [facility] mmol/L [facility] Specimen Anatomical Collection Method Collection Time Receive d Time (Source) Location / / Volume Laterality Blood 03/30/2022 1:30 AM 2 2:15 EDT AM EDT Resulting Agency Comment Spec In Lab Kentrell Michelle MD CHEMISTRY ORDERABLES Performing Organization Address City/State/[place] [address] (ABNORMAL) Basic Metabolic Panel (non-fasting) (03/30/2022 1:30 AM EDT) P athologist Signature Glucose Lvl 118 65 - 199 [facility] mg/dL [facility] Comment: Diabetes: >=200 mg/dL plus symp toms BUN 20 10 - 20 mg/dL [facility] Creatinine 1.58 (H) 0.80 - 1.50 mg/dL [facility] LAB[facility]ORY Sodium 141 135 - 145 mmol/L [facility] Potassium 3.3 (L) 3.5 - 5.0 mmol/L [facility] Comment: result rechecked-trb Please note: ??Patients with WBC >100,00 0 may have falsely elevated Potassium levels. ??For accurate Potassium quantif ication in these patients send serum separator tube (gold top) for subsequent determinations. ??Contact the Clinical Chemistry Laboratory if there are any qu estions. Chloride 104 98 - 107 mmol/L [facility] CO2 26 22 - 31 mmol/L [facility] Anion Gap 11 5 - 15 mmol/L [facility] Calcium 8.6 8.5 - 10.5 mg/dL [facility] Estimated GFR 43 (L) >=60 mL/min/1.73 m?? [facility] Comment: This patient's estimated GFR [...] Organization Address City/State/[place] [address] (ABNORMAL) BLOOD GAS 2 ARTERIAL (03/29/2022 5:42 PM EDT) Analysis Performed At Patho logist Time Signature pH Art 7.40 7.35 - [facility] 7.45 [facility] pCO2 Art 38 35 - 45 [facility] mmHg [facility] pO2 Art 126 (H) 85 - 104 [facility] LABORATORY HCO3 Art 23.5 20.0 - [facility] 26.0 [facility] mmol/L [facility] BE Art -1.2 -3.0 - 3.0 [facility] mmol/L [facility] Hgb Blood Gas 13.6 (L) 13.7 - [facility] 16.5 g/dL [facility] O2HB Art 97.2 (H) 94.0 - [facility] 97.0 % [facility] COHB Art 0.4 % [facility] Comment: Nonsmokers: 0.5-1.5% COHB Smokers: Variable, but usually less than 10% Toxic: 20-30% COHB Lethal: Greater than 60% COHB METHB Art 0.7 <=1.5 % [facility] Na Whole Blood 140 135 - 145 mmol/L [facility] K Whole Blood 3.9 3.5 - 5.0 mmol/L [facility] Comment: Please note: Patients with WBC >100,000 may have falsely elevated Potassium levels. Contact the Clinical Chemistry L aboratory if there are any questions. ICa Whole Blood 1.17 1.15 - 1.33 mmol/L [facility] Comment: Note: ??Total bilirubin higher than 20 m g/dL may lead to falsely low ionized calcium. CL Whole Blood 105 98 - 107 mmol/L [facility] Gluc Whole Bld 120 65 - 199 mg/dL [facility] Comment: Diabetes: >=200 mg/dL plus symp toms. Lactate WB 1.1 0.5 - 2.2 mmol/L [facility] FIO2 Art 40 % [facility] PF Ratio Art 315 [facility] Specimen Anatomical Collection Method Collection Time Receive d Time (Source) Location / / Volume Laterality Blood 03/29/2022 5:42 PM 5:42 EDT PM EDT Kentrell Michelle MD CHEMISTRY ORDERABLES Performing Organization Address City/State/[place] [address] (ABNORMAL) Troponin (03/29/2022 5:20 PM EDT) P athologist Signature Troponin-T 0.37 (H) 0.00 - [facility] 0.00 ng/mL [facility] Comment: The 99th percentile for Troponin T is le ss than 0.01 ng/mL, any detectable cTnT concentration using this assay should be considered elevated. According to the third universal definit ion of myocardial infarction the following criteria with a clinical prese ntation consistent with acute myocardial ischemia meets the diagnosis for a myocardial infarction ([place]). Detection of a rise and/or fall of [...] additional sample may be indicated. Reference: Third Peel Definition of Myocardial Infarction. Journal of the [place] [employer] 2012;60:1581-98 Troponin-T HS 366 (H) <=22 ng/L [facility] Comment: This patient's troponin T [...] troponin value can be found in the [facility] Laboratory Test Catalog Troponin - [facility] Laboratory Test Catalog Reference: Fourth Peel Definition of Myocardia l Infarction. Journal of the [place] [employer] 2018;72:9506-8319 Specimen Anatomical Collection Method Collection Time Receive d Time (Source) Location / / Volume Laterality Blood 03/29/2022 5:20 PM 5:33 EDT PM EDT Resulting Agency Comment Spec In Lab Jaja Cronin MD CHEMISTRY ORDERABLES Performing Organization Address City/State/[place] [address] (ABNORMAL) Differential, Automated (03/29/2022 5:20 PM EDT) [facility] Method Time Signature Neutrophils % 81.5 % [facility] Neutr Abs (ANC) 6.83 (H) 1.70 - [facility] 6.10 [facility] x10(3)/[facility] L LABORATORY Lymphocytes % 9.4 % [facility] Lymphocytes Abs 0.8 (L) 0.9 - 3.2 [facility] x10(3)/[facility] LABORATORY Monocytes % 8.2 % [facility] Monocyte Abs 0.7 0.3 - 0.9 [facility] x10(3)/[facility] LABORATORY Eosinophils % 0.5 % [facility] Eosinophils Abs 0.0 0.0 - 0.4 [facility] x10(3)/[facility] LABORATORY Basophils % 0.2 % [facility] Basophils Abs 0.0 0.0 - 0.1 [facility] x10(3)/[facility] LABORATORY Immature Gran % 0.20 % [facility] Comment: Immature granulocytes(IG's)percentage an d absolute count will include metamyelocytes, myelocytes, and promyelo cytes. Blood smears from CBCs yielding IG's will be scanned manually for concor dance. If this scan disagrees with the automated IG or if promyelocytes are not ed, a manual differential will be performed. Karen Gran Abs 0.02 0.00 - 0.04 x10(3)/[facility]ORY Specimen Anatomical Collection Method Collection Time Receive d Time (Source) Location / / Volume Laterality Blood 03/29/2022 5:20 PM 5:33 EDT PM EDT Resulting Agency Comment Spec In Lab Jaja Cronin MD HEMATOLOGY ORDERABLES Performing Organization Address City/State/[place] [address] (ABNORMAL) Hemogram (03/29/2022 5:20 PM EDT) Analysis Performed At Patho logist Time Signature WBC 8.4 4.0 - 9.5 [facility] x10(3)/[facility] LABORATORY RBC 4.05 (L) 4.58 - [facility] 5.54 [facility] x10(6)/[facility] LABORATORY Hemoglobin 12.5 (L) 13.7 - [facility] 16.5 g/dL [facility] Hematocrit 37.4 (L) 40.5 - [facility] 48.5 % [facility] MCV 92.3 82.9 - [facility] 93.1 [facility] LABORATORY MCH 30.9 27.5 - LYNNE DIACK 32.1 pg [facility] MCHC 33.4 32.0 - [place] BLEVINS 35.7 g/dL [facility] Platelets 170 145 - 357 [facility] [facility]DA[facility]IC[facility] x10(3)/[facility] LABORATORY RDWSD 46.1 (H) 36.0 - L[place] BLEVINS 45.0 [facility] LABORATORY RDWCV 13.7 11.4 - L[place] BLEVINS 13.8 % [facility] MPV 11.8 7.6 - 12.9 L[place] FELICITY [facility] LABORATORY nRBC % Auto 0.0 % [facility] nRBC Abs Auto 0.000 0.000 - [place] FELICITY 0.000 [facility] x10(3)/[facility] LABORATORY Specimen Anatomical Collection Method Collection Time Receive d Time (Source) Location / / Volume Laterality Blood 03/29/2022 5:20 PM 2 5:33 EDT PM EDT Resulting Agency Comment Spec In Lab Jaja Cronin MD HEMATOLOGY ORDERABLES Performing Organization Address City/State/ZIP [place] [address] (ABNORMAL) pro-Brain Natriuretic Peptide (03/29/2022 5:20 PM EDT) P athologist Signature ProBNP 3,282 (H) <=449 [place] FELCIITY pg/mL [facility] Specimen Anatomical Collection Method Collection Time Receive d Time (Source) Location / / Volume Laterality Blood 03/29/2022 5:20 PM 2 5:33 EDT PM EDT Resulting Agency Comment Spec In Lab Jaja Cronin MD CHEMISTRY ORDERABLES Performing Organization Address City/State/ZIP [place] [address] (ABNORMAL) Basic Metabolic Panel (non-fasting) (03/29/2022 5:20 PM EDT) P athologist Signature Glucose Lvl 127 65 - 199 [facility] FELICITY mg/dL [facility] Comment: Diabetes: >=200 mg/dL plus symp toms BUN 16 10 - 20 mg/dL [facility] Creatinine 1.27 0.80 - 1.50 mg/dL [facility]ORY Sodium 143 135 - 145 mmol/L [facility] Potassium 4.6 3.5 - 5.0 mmol/L [facility] Comment: Please note: ??Patients with WBC >100,00 0 may have falsely elevated Potassium levels. ??For accurate Potassium quantif ication in these patients send serum separator tube (gold top) for subsequent determinations. ??Contact the Clinical Chemistry Laboratory if there are any qu estions. Chloride 107 98 - 107 mmol/L [facility] CO2 24 22 - 31 mmol/L [facility] Anion Gap 12 5 - 15 mmol/L [facility] Calcium 8.4 (L) 8.5 - 10.5 mg/dL [facility] Estimated GFR 55 (L) >=60 mL/min/1.73 m?? [facility] Comment: This patient's estimated GFR [...] Organization Address City/State/[place] [address] (ABNORMAL) Troponin (03/29/2022 4:15 PM EDT) P athologist Signature Troponin-T 0.33 (H) 0.00 - LYNNE BLEVINS 0.00 ng/mL [facility] Comment: The 99th percentile for Troponin T is le ss than 0.01 ng/mL, any detectable cTnT concentration using this assay should be considered elevated. According to the third universal definit ion of myocardial infarction the following criteria with a clinical prese ntation consistent with acute myocardial ischemia meets the diagnosis for a myocardial infarction ([place]). Detection of a rise and/or fall of [...] additional sample may be indicated. Reference: Third Peel Definition of Myocardial Infarction. Journal of the [place] [employer] 2012;60:1581-98 Troponin-T HS 342 (H) <=22 ng/L LYNNE Jimenez [facility] Comment: This patient's troponin [...] troponin value can be found in the [facility] Laboratory Test Catalog Troponin - [facility] Laboratory Test Catalog Reference: Fourth Peel Definition of Myocardia l Infarction. Journal of the [place] College [employer] 2018;72:7752-0707 Specimen Anatomical Collection Method Collection Time Receive d Time (Source) Location / / Volume Laterality Blood 03/29/2022 4:15 PM 2 4:26 EDT PM EDT Resulting Agency Comment Spec In Lab Yury Francis MD CHEMISTRY ORDERABLES Performing Organization Address City/State/Z[place] [address] (ABNORMAL) pro-Brain Natriuretic Peptide (03/29/2022 4:15 PM EDT) athologist Signature ProBNP 3,183 (H) <=449 [facility] Specimen Anatomical Collection Method Collection Time Receive d Time (Source) Location / / Volume Laterality Blood 03/29/2022 4:15 PM 2 4:26 EDT PM EDT Resulting Agency Comment Spec In Lab Yury Francis MD CHEMISTRY ORDERABLES Performing Organization Address City/[facility]/ZIP [place] [address] EKG 12 Lead (03/29/2022 3:59 PM EDT) Component Value Ref Range Test Analysis Performed Pathologis t Method Time At Signature Ventricular rate 69 BPM MUSE SYSTEM Atrial Rate 69 BPM MUSE SYSTEM P-R Interval 198 ms MUSE SYSTEM QRS Duration 90 ms MUSE SYSTEM Q-T Interval 406 ms MUSE SYSTEM QTC Calculated 435 ms MUSE SYSTEM (Bezet) Calculated P Gilchrist 59 degrees MUSE SYSTEM Calculated R Gilchrist 74 degrees MUSE SYSTEM Calculated T Gilchrist -39 degrees MUSE SYSTEM INTERPRETATION Sinus rhythm Occasional Premature ventricular complexe s MUSE SYSTEM Possible Left atrial enlargement Cannot rule out Inferior infarct (cited on or before 2021) T wave abnormality, consider lateral ischemia Abnormal ECG When compared with ECG of 16-FEB-2022 15:56, T wave inversion now evident in Lateral leads Confirmed by MD Babb Danette ([id number]) on 03/30/2022 12:39:0 1 PM Specimen Anatomical [...] who have questions please contact the health care transition manager that requested your imaging first. ? Narrative [...] ho have questions please contact the health care transition manager that requested your imaging first. Yury Francis MD IMG DX ORDERABLES ELECTROPHYSIOLOGY PROCEDURE (03/29/2022 7:32 AM EDT) Anatomical Region Laterality Modality Other Specimen (Source) Anatomical Location Collection Method / Collectio n Time Received Time / Laterality Volume Narrative 04/04/2022 10:36 PM EDT Procedure: Atrial flutter ablation Manager Procurement: Yury Francis MD Fellow: Lopez Thompson MD [...] ms HV 49 ms RR [address] 214 ms, QRS 93 ms, QT 452 [...] P athologist Signature Neutrophils % 65.5 % [facility] Neutr Abs (ANC) 3.34 1.70 - [facility] 6.10 [facility] x10(3)/[facility] LABORATORY Lymphocytes % 20.8 % [facility] Lymphocytes Abs 1.1 0.9 - 3.2 [facility] x10(3)/[facility] LABORATORY Monocytes % 9.6 % [facility] Monocyte Abs 0.5 0.3 - 0.9 [facility] x10(3)/[facility] LABORATORY Eosinophils % 3.5 % [facility] Eosinophils Abs 0.2 0.0 - 0.4 [facility] x10(3)/[facility] LABORATORY Basophils % 0.4 % [facility] Basophils Abs 0.0 0.0 - 0.1 [facility] x10(3)/[facility] LABORATORY Immature Gran % 0.20 % [facility] Comment: Immature granulocytes(IG's)percentage an d absolute count will include metamyelocytes, myelocytes, and promyelo cytes. Blood smears from CBCs yielding IG's will be scanned manually for concor dance. If this scan disagrees with the automated IG or if promyelocytes are not ed, a manual differential will be performed. Karen Gran Abs 0.01 0.00 - 0.04 x10(3)/[facility] Specimen Anatomical Collection Method Collection Time Receive d Time (Source) Location / / Volume Laterality Blood 03/29/2022 7:20 AM 7:41 EDT AM EDT Resulting Agency Comment Spec In Lab Yuyr Francis MD HEMATOLOGY ORDERABLES Performing Organization Address City/State/[place] [address] (ABNORMAL) Hemogram (03/29/2022 7:20 AM EDT) Analysis Performed At Patho logist Time Signature WBC 5.1 4.0 - 9.5 [facility] x10(3)/[facility] LABORATORY RBC 4.14 (L) 4.58 - [facility] 5.54 [facility] x10(6)/[facility] LABORATORY Hemoglobin 12.7 (L) 13.7 [facility] 16.[facility] g/dL [facility] Hematocrit 37.9 (L) 40.5 - [facility] 48.5 % [facility] MCV 91.5 82.9 - [facility] 93.1 fL [facility] MCH 30.7 27.5 - [facility] 32.1 pg [facility] MCHC 33.5 32.0 - [facility] 35.7 g/dL [facility] Platelets 155 145 - 357 [facility] x10(3)/[facility] LABORATORY RDWSD 44.8 36.0 - L[place]NE FELICITY 45.0 [facility] LABORATORY RDWCV 13.3 11.4 - LYNNE LINDAFELICITY 13.8 % [facility] MPV 11.2 7.6 - 12.9 [facility] LABORATORY nRBC % Auto 0.0 % [facility] nRBC Abs Auto 0.000 0.000 - [facility] FELICITY 0.000 [facility] x10(3)/[facility] LABORATORY Specimen Anatomical Collection Method Collection Time Receive d Time (Source) Location / / Volume Laterality Blood 03/29/2022 7:20 AM 7:41 EDT AM EDT Resulting Agency Comment Spec In Lab Yury Francis MD HEMATOLOGY ORDERABLES Performing Organization Address City/State/ZIP [place] [address] (ABNORMAL) BMP w/fasting Glucose (03/29/2022 7:20 AM EDT) athologist Signature Glucose 101 (H) 65 - 99 [facility] Fasting mg/dL [facility] Comment: ?Fasting* Glucose Interpretive C riteria [...] of Diabetes Mellitus, Position Statement from the [place] [employer]. ??Diabete s Care, Volume 33, Supplement 1, Jun 2009 BUN 14 10 - 20 mg/dL [facility] Creatinine 1.27 0.80 - 1.50 mg/dL [facility] Sodium 142 135 - 145 mmol/L [facility] Potassium 3.9 3.5 - 5.0 mmol/L [facility] Comment: Please note: ??Patients with WBC >100,00 0 may have falsely elevated Potassium levels. ??For accurate Potassium quantif ication in these patients send serum separator tube (gold top) for subsequent determinations. ??Contact the Clinical Chemistry Laboratory if there are any qu estions. Chloride 108 (H) 98 - 107 mmol/L [facility] CO2 24 22 - 31 mmol/L [facility] Anion Gap 10 5 - 15 mmol/L [facility] Calcium 8.9 8.5 - 10.5 mg/dL [facility] Estimated GFR 55 (L) >=60 mL/min/1.73 m?? [facility] Comment: This patient's estimated GFR [...] Organization Address City/State/[place] [address] (ABNORMAL) Prothrombin Time (03/29/2022 7:20 AM EDT) P athologist Signature PT 21.0 (H) 9.4 - 12.5 [facility] LABORATORY INR 1.8 [facility] Comment: An INR <2.0 indicates [...] Organization Address City/State/[place] [address] documented in this encounter Visit Diagnoses Diagnosis Atrial flutter - Primary Typical atrial flutter Atrial flutter 3+ Mitral regurgitation Other and unspecified mitral valve disea ses Acute and chronic respiratory failure wi th hypoxia Acute and chronic respiratory failure Acute respiratory failure with hypoxia Acute respiratory failure Chest pain, unspecified type Typical atrial flutter Atrial flutter documented in [...] at 1417, Until Mon03/29/22 at 1422, Cayetano Noble: cabineagustin override furosemide (Lasix) tablet 20 mg Given [...] (Given - Pro vider: Silvestre López RN) 5717 (Given - Provider: Kal Sepulveda RN) 5 [...] mg (COMPLETED) 1421 (Given - Provider: Cayetano Noble RN) 80 mg, Intravenous, ONCE, 1 dose, On Mon03/29/22 at 1500, STAT furosemide (Lasix) (10 mg/mL) injection 80 mg (COMPLETED) 2028 (Given - Provider: Silvestre López RN) 80 mg, Intravenous, ONCE, 1 dose, On Mon03/29/22 at 2015 furosemide (Lasix) tablet 20 mg 1057 (Given - Provider: Kal Sepulveda RN) 20 mg, Oral, 2 TIMES DAILY, First dose o n Mon03/30/22 at 1000, Until Discontinued, Routine lidocaine (Xylocaine) (20 mg/mL) 2% injection 400 mg (COMPLE JANEL) 832 (Given - Provider: Oanh Tillman RN) 400 mg (20 mL), Subcutaneous, ONCE, 1 do se, On Mon03/29/22 at 0815, EP (Intra- Procedure), Routine metoprolol succinate XL (Toprol-XL) tablet 50 mg 1057 (Given - Provider: Kal Sepulveda RN) 50 mg, Oral, DAILY, First dose on Mon at 1000, Until Discontinued, DO NOT CRUSH OR OPEN, Routine pantoprazole EC (Protonix) tablet 40 mg 914 (Given - Provider: Kal Sepulveda RN) 40 [...] effervescent tablet 40-60 mEq(Li nked Group 1) 5167 (See Alternative - Provider: Silvestre López RN) [...] (K-Dur/Klor-Con) tablet 40-60 mEq(Linked G roup 1) 0346 (Given - Provider: Silvestre López RN) 40-60 [...]
Routine documented in this encounter Care Teams Insurance Risk Analyst Relationship Specialty Start Date End Date Guzman Thompson MD PCP - General Family Medicine 07/14/15 [address] [place] [address] documented as of this encounter
--- OUTSIDE RECORDS SUMMARY | 2022-04-08 01:37 | XMS_ITS | Encounter Summary ---
:1935 Author Organization [facility] [place] [address] Care Team Providers Name Role Phone Guzman Thompson MD Primary Care Provider Reason for Visit Reason Onset Date Comments Medication Refill 11/10/2016 Encounter Details Date Type Department Care Team Description 11/10/2016 Refill [place] [facility] George Snyder MD Medication Refill [facility] [place] [address] CARDIOLOGY DEPT [phone] [place], [place] [address] (Wo rk) Social History Tobacco Use Types Packs/Day Years Used Date Former Smoker Quit: 06/26/18 89 Smokeless Tobacco: Never Used Alcohol Use Standard Drinks/Week Comments Yes 1.7 (1 standard drink = 0.6 oz pure alco hol) Sex Assigned at Date Recorded Not on file documented as of this encounter Plan of Treatment Not on filedocumented as of this encounter Visit Diagnoses Not on filedocumented in this encounter Care Teams Automotive Parts Person Relationship Specialty Start Date End Date Guzman Thompson MD PCP - General Family Medicine 07/14/[address] [place], [place] [address] documented as of this encounter
--- OUTSIDE RECORDS SUMMARY | 2022-04-08 01:37 | XMS_ITS | Encounter Summary ---
:1935 Author Organization [facility] [place] [address] Care Team Providers Name Role Phone Guzman Thompson MD Primary Care Provider [phone] Reason for Referral Diagnostic Test (Routine) - Authorized Specialty Diagnoses / Procedures Referred By Contact Refer red To Contact Cardiology Diagnoses Typical atrial flutter Yury Francis MD [facility] Non-Inv Card Lab Procedures Transesophageal Echocardiogram ([place]) [facility] [place] [address] [place] [address] Phone: Fax: Referral ID Status Reason Start Expiration Visits Visits Date Date Requested Authorized [id number] Authorized Specialty 02/16/2022 02/16/2023 1 1 Service Requested Encounter Details Date Type Department Care Team Description 02/16/2022 Office Visit Cardiology [place] [facility] [place] Yury Francis MD Typical atrial flutter [facility] [place] [phone] Social History Tobacco Use Types Packs/Day Years Used Date Former Smoker Quit: 06/26/18 89 Smokeless Tobacco: Never Used Alcohol Use Standard Drinks/Week Comments Yes 1.7 (1 standard drink = 0.6 oz pure alco hol) Sex Assigned at Date Recorded Not on file documented as of this encounter Last Filed Vital Signs Vital Sign Reading Time Taken Comments Blood Pressure 155/78 02/16/2022 3:43 PM EDT Pulse 67 02/16/2022 3:43 PM EDT Temperature - - Respiratory Rate - - Oxygen Saturation 99% 02/16/2022 3:43 PM EDT Inhaled Oxygen Concentration - - Weight 77.9 kg (171 lb 12.8 oz) 02/16/2022 3:43 PM EDT Height 157.5 cm (5' 2) 02/16/2022 3:43 PM EDT Body Mass Index 31.42 02/16/2022 3:43 PM EDT documented in this encounter Progress Notes Yury Francis MD - 02/16/2022 3:40 PM EDT Images from the original note were not included. Section of Cardiology/Cardiac Electrophysiology Clinical Cardiac Electrophysiology Consult Patient ID Timmy Farrell 1935 [id number] Timmy Farrell is referred to the EP clinic by Lynne Ham MD C/c: atrial flutter History Mr. Farrell is a 86 year old man with a history of CAD s/p CABG operation in 1988. More recently he hasa history of repeated presentations to the [facility] ED with heart failure. Concomitant with his heart failure symptoms has been atrial flutter seen on 12 lead EKG, with rapid ventricular response. Heart failure has been treated with diuresis. Flutter has been treated with apixaban and rate control. His son Len accompanies him here today. Ambulatory rhythm monitor in early November 2021 showed paroxysmal atrial flutter with rapid ventricularrates. Conversion pauses of 3-8 seconds were observed. The patient denies any syncope, lightheadedness or exertional intolerance when not in heart failure. He feels palpitations and racing heart sensation when in flutter. He has no bleeding problems with apixaban. [id number] score is at least 4 for age, chf, cad. No definite atrial fibrillation has been seen. Atrial flutter seen on EKG and event monitor is macro-reentrant and consistent with typical atrial flutter. Creatinine is 1.4 in October 2021, otherwise CBC, BMP are unremarkable. Echo in October showed LVEF 50-55%, moderate MR. Problem List Patient Active Problem List Diagnosis ??? Essential hypertension ??? 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 CAD s/p CABG Presented with UA vs MA CABG 1988 - [place] to LAD, SVG to distal RCA (Dr. Dawn) - no further records available Lost to follow up thereafter - did not see a furniture and bedding inspector again until 2015. Was on no meds [...] Hypercholesteremia ??? Anxiety state ??? Abdominal bloating Review of Systems ROS See above. All other review of systems negative. Meds Please refer to [facility] medical record for complete med list Cardiac meds: Aspirin 81 mg daily apixaban 5 mg bid Carvedilol 12.5 mg bid Lasix 20 mg daily Social History Social History Socioeconomic History ??? Marital status: Spouse name: None ??? Number of children: None ??? Years of education: None ??? Highest education level: None Occupational History ??? None Tobacco Use ??? Smoking status: Former Smoker Quit date: 06/26/1988 Years since quittin.6 ??? Smokeless tobacco: Never Used Substance and Sexual Activity ??? Alcohol use: Yes Alcohol/week: 1.7 - 2.5 standard drinks Types: 2 - 3 Standard drinks or equivalent per week ??? Drug use: None ??? Sexual activity: None Other Topics Concern ??? None Social History Narrative ??? None Social Determinants of Health Financial Resource Strain: Not on file Food Insecurity: Not on file Transportation Needs: Not on file Physical Activity: Not on file Housing Stability: Not on file Family History Family History Problem Relation Age of Onset ??? Diabetes Mother Exam Patient Vitals for the past 24 hrs: Pulse BP SpO2 02/16/22 1543 67 155/78 99 % @EXAM@ GEN: patient appears well and in no apparent distress, alert and oriented ENT: extraocular movements with full range of motion NECK: normal JVP CHEST: clear to auscultation with no wheeze, rhonchi or rales. Symmetric chest movement COR: S1S2, regular rate, normal rhythm, no discernible murmurs, rubs or gallops. ABDOMEN: soft, nontender, nondistended, normal bowel sounds EXTREMITIES: no edema, warm, well perfused NEUROLOGICAL: alert and oriented to person, place and time. CN 2-12 grossly intact. I have personally reviewed the ECG: Sinus rhythm at 63 bpm with PVC. DC 202 ms QRS 94 ms. QTc 442 ms. I have personally reviewed all pertinent labs, cardiac rhythm monitors and imaging Impression/Plan Mr. Farrell presents with a history of paroxysmal typical atrial flutter and recurrent episodes of heart failure requiring hospital visits. He has done fairly well over the past two months but atrial flutter is very likely to recur. Given that the predominant rhythm is typical flutter and his symptoms ofheart failure, an attempt at cure via ablation is indicated. The catheter ablation procedure including the risks (bleeding, infection, deep venous thrombosis, pulmonary emboli, hemothorax, pneumothorax, cardiac perforation and tamponade, the potential for inducing complete heart block requiring a permanent pacemaker insertion, and the risk of stroke/MA/ palmer uld left-sided access be required) were reviewed in detail. The patient was informed that catheter ablation is successful in approximately 95 percent of cases with a potential relapse rate of approximately 5 percent. Finally, the use of sedation and the potential for general anesthesia with the additional risks of airway and dental trauma was discussed. All questions were answered. Mr. Farrell wishes to proceed with atrial flutter ablation. Will schedule. Procedure Name Atrial flutter ablation Anesthesia type With anesthesia support Duration 3 hrs Mapping or device company [employer] [place] (Y/N) Only if missed apixaban doses CT angiogram (Y/N) N Anticoagulant instructions Continue uninterrupted Antiarrhythmic instructions n/a Other meds to hold? Lasix on day of procedure Overnight stay? N Hotel acceptable? n/a Yury Francis MD 60 total minutes were spent on this encounter for patient counseling, medical record review, note entry, physical exam Cc: Guzman Thompson MD documented in this encounter Plan of Treatment Scheduled Orders Name Type Priority Associated Order Schedule Diagnoses Transesophageal Echocardiography Routine Typical atrial Expect ed: Echocardiogram ([place]) flutter 022 (Approximate), Expires: 08/18/2022 documented as of this encounter Procedures Procedure Name Priority Date/Time Associated Diagnosis Comme nts EKG 12-LEAD Routine 02/16/2022 3:56 PM Typical atrial Results for this EDT flutter procedure are i n the results section . documented in this encounter Results EKG 12 Lead (02/16/2022 3:56 PM EDT) Component Value Ref Range Test Analysis Performed Pathologis t Method Time At Signature Ventricular rate 63 BPM MUSE SYSTEM Atrial Rate 63 BPM MUSE SYSTEM P-R Interval 202 ms MUSE SYSTEM QRS Duration 94 ms MUSE SYSTEM Q-T Interval 432 ms MUSE SYSTEM QTC Calculated 442 ms MUSE SYSTEM (Bezet) Calculated P Marcella 50 degrees MUSE SYSTEM Calculated R Marcella 36 degrees MUSE SYSTEM Calculated T Marcella -4 degrees MUSE SYSTEM INTERPRETATION Sinus rhythm Occasional Premature ventricular complexe s MUSE SYSTEM Possible Left atrial enlargement Abnormal ECG When compared with ECG of 02-DEC-2021 16:09, Sinus rhythm has replaced Atrial flutter ST no longer depressed in Inferior leads Confirmed by MD Tino, Paradise ([id number]) on 02/16/2022 4:25: 19 PM Specimen Anatomical Collection Method Collection Time Receive d Time (Source) Location / / Volume Laterality 02/16/2022 3:56 PM 4:25 EDT PM EDT Yury Francis MD ECG ORDERABLES Performing Organization Address City/State/ZIP Code Phon e Number MUSE SYSTEM documented in this encounter Visit Diagnoses Diagnosis Typical atrial flutter Atrial flutter documented in this encounter Care Teams Head Of It Relationship Specialty Start Date End Date Guzman Thompson MD PCP - General Family Medicine 07/14/[address] [place] [address] documented as of this encounter
--- OUTSIDE RECORDS SUMMARY | 2022-04-08 01:38 | XMS_ITS | Encounter Summary ---
:1935 Author Organization [facility] [place] [address] Care Team Providers Name Role Phone Guzman Thompson MD Primary Care Provider [phone] Encounter Details Date Type Department Care Team Description 08/12/2016 Hospital Encounter Radiology Library at [facility] Michelle MD [facility] [place] [address] [place], [place] [phone] (Wo rk) Social History Tobacco Use Types Packs/Day Years Used Date Former Smoker Quit: 06/26/18 89 Smokeless Tobacco: Never Used Alcohol Use Standard Drinks/Week Comments Yes 1.7 (1 standard drink = 0.6 oz pure alco hol) Sex Assigned at Date Recorded Not on file documented as of this encounter Medications at Time of Discharge Medication Sig Dispensed Refills Start Date End Date aspirin 81 mg Tablet, Take 81 mg by mouth 30 tablet 0 08/16 Chewable daily. nitroGLYcerin (NITROSTAT) Place 1 tablet 25 tablet 2016 0.4 mg Tablet, Sublingual under the tongue every 5 minutes as needed for Chest pain. meTOPROLOL succinate Take 1 tablet by 30 tablet 3 7 (TOPROL XL) 50 mg Tablet mouth daily. Sustained Release 24 hr lovastatin (MEVACOR) 40 mg Take 1 tablet by 90 tablet 3 Tablet mouth nightly. epiNEPHrine (EPIPEN) 0.3 one injection, IM, 0 mg/0.3 mL injection PRN lisinopril Take 1 tablet by 30 tablet 2 08/16/2016 11/11/19 17 (PRINIVIL;ZESTRIL) 5 mg mouth daily. Tablet clopidogrel (PLAVIX) 75 mg Take 1 tablet by 90 tablet 3 03/16/2018 Tablet mouth daily. clopidogrel (PLAVIX) 75 mg Take 1 tablet by 0 08/16/2016 Tablet mouth daily. meTOPROLOL tartrate Take 0.5 tablets by 0 017 08/16/2016 (LOPRESSOR) 25 mg Tablet mouth 2 times daily. documented as of this encounter Plan of Treatment Not on filedocumented as of this encounter Procedures Procedure Name Priority Date/Time Associated Diagnosis Comme nts FILM LIBRARY Routine 08/12/2016 12:00 AM Pain Results for this STORAGE ONLY DX EST procedure ar e in CHEST the results section. documented in this encounter Results Film Library- Storage Only DX Chest (08/12/2016 12:00 AM EST) Specimen (Source) Anatomical Location Collection Method / Collectio n Time Received Time / Laterality Volume Narrative JULIAN - 08/13/2016 5:53 PM EST This exam is for storage only and is aut o-finalizing. Kentrell Michelle MD IMG FILM LIBRARY ORDERABLES Performing Organization Address City/State/ZIP Code Phon e Number [place], [place] documented in this encounter Visit Diagnoses Diagnosis Pain Generalized pain documented in this encounter Care Teams Aeronautical Drafter Relationship Specialty Start Date End Date Guzman Thompson MD PCP - General Family Medicine 07/14/[address] [place] [address] documented as of this encounter
--- OUTSIDE RECORDS SUMMARY | 2022-04-08 01:38 | XMS_ITS | Encounter Summary ---
:1935 Author Organization [facility] [place] [address] Care Team Providers Name Role Phone Silvestre Suarez MD Primary Care Provider [phone] Encounter Details Date Type Department Care Team Description 10/05/2010 Abstract Gastroenterology at [facility] Garrett Vernon MD [facility] [address] GASTROENTEROLOGY DEPT. [phone] [place], [place] [address] Social History Tobacco Use Types Packs/Day Years Used Date Never Assessed Sex Assigned at Date Recorded Not on file documented as of this encounter Plan of Treatment Not on filedocumented as of this encounter Visit Diagnoses Not on filedocumented in this encounter Care Teams Title Processor Relationship Specialty Start Date End Date Silvestre Suarez MD PCP - General 05/18/10 [facility] [address] [place] [place] [id number] documented as of this encounter
--- OUTSIDE RECORDS SUMMARY | 2022-04-08 01:38 | XMS_ITS | Encounter Summary ---
:1935 Author Organization [facility] [address] Care Team Providers Name Role Phone Silvestre Suarez MD Primary Care Provider [phone] Reason for Visit Reason Comments Bloated Encounter Details Date Type Department Care Team Description 10/11/2010 Office Visit Gastroenterology at [facility] Garrett Vernon ([facility] Dora Howard MD Dx) [place] [address] [place] [address] [facility] [address] Social History Tobacco Use Types Packs/Day Years Used Date Former Smoker Alcohol Use Standard Drinks/Week Comments Yes 1.7 (1 standard drink = 0.6 oz pure alco hol) Sex Assigned at Date Recorded Not on file documented as of this encounter Last Filed Vital Signs Vital Sign Reading Time Taken Comments Blood Pressure 150/90 10/11/2010 8:27 AM EDT Pulse - - Temperature - - Respiratory Rate - - Oxygen Saturation - - Inhaled Oxygen Concentration - - Weight - - Height - - Body Mass Index - - documented in this encounter Progress Notes Abena Smith MD - 10/11/2010 5:17 PM EDT Addended by: Abena SMITH on: 10/11/2010 Modules accepted: Level of Service Garrett Vernon MD - 10/11/2010 8:54 AM EDT PROBLEM LIST Patient Active Problem List Diagnoses Code ??? Hypercholesteremia 272.0J ??? Anxiety 300.00E ??? Abdominal bloating 787.3X HPI Timmy Farrell is a 75 y.o. male who presents today with the complaint of bloating. He states that his current symptoms have been ongoing for abot a year now. His symptoms usually occur around meal time. He feels a lot of pressure in his abdomen prior to meals and this gets worse after meals. This is usually followed by a large amount of squealing and noise in his stomach. He will then have to have a bowel movement urgently which usually relieves his symptoms. He has tried Gas-X and TUMS which do not seem to help. Baking soda is the only thing that seems to make any difference at all. He has 2-3 softbowel movements each day (loose but not diarrhea). He has tried cutting out dairy which seems to have helped some; he admits that he has not cut it out completely. He tires to eat a healthy diet as much as possible. He loves raisins and eats 1-2 large containers each week. While he has only had symptoms for the last year and a half or so, he has had issues with his GI system for just about his whole life. He describes nausea after drinking water (for a few seconds) as well as frequent nausea which is relieved with eating. He denies any weight loss, vomiting, melena, or hematochezia. He also denies any GERD symptoms. He has never had a colonoscopy or upper endoscopy. TTG checked as an outpatient was negative. REVIEW OF SYSTEMS: Constitutional: no weight loss HEENT: no visual changes, no URI symptoms Cardio: no chest pain Resp: no cough, no SOB, no TYSON or orthopnea Hem/Lymph: no new lumps or bumps on body GI: see HPI : no dysuria Integumentary: no new rashes Musculoskeletal: no new joint pains Neuro: no new numbness, weakness in extremities PHYSICAL EXAM: Filed Vitals: 10/11/10 0827 BP: 150/90 GEN: Healthy appearing in NAD. Appears stated age. Cooperative. 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 male presents with abdominal bloating for the past 1-2 years. I suspect that his symptoms are related to his current diet which is very high in fiber (especially the large amount of raisins he eats). He also likely has some element of irritable bowel syndrome (discomfort which is relieved withbowel movements). Other possibilities include bacterial overgrowth and GERD. This would certainly angelo atypical presentation for GERD but given the relief he gets with baking soda, this should remain on the differential. Malignancy leading to some type of intestinal blockage should also be considered; this is very unlikely given the duration of his symptoms and lack of any red flags. Mr. Farrell has never had a colonoscopy or upper endoscopy. Given his age and recent onset in the past 1-2 years, these are reasonable tests to start with. This can serve as a screening exam and we can look for any evidence of malignancy. We can take small bowel biopsies as well to rule out celiac disease definitively. In the mean time, I have asked him to cut out all dairy and raisins from his diet to see if this has any effect. After the results of the endoscopies are back, we can consider a hydrogenbreath test to rule out bacterial overgrowth. 1. Colonoscopy and EGD 2. Eliminate all dairy and raisins 3. Consider hydrogen breath test 4. Consider PPI after EGD is complete (want to see evidence of gastritis/esophagitis if possible) 5. Follow up in three months documented in this encounter Plan of Treatment Not on filedocumented as of this encounter Visit Diagnoses Diagnosis Bloating - Primary Flatulence, eructation, and gas pain documented in this encounter Care Teams Marine Engineering Technicians Relationship Specialty Start Date End Date Silvestre Suarez MD PCP - General 05/18/10 07/13/[address] [place] [address] documented as of this encounter
--- OUTSIDE RECORDS SUMMARY | 2022-04-08 01:38 | XMS_ITS | Encounter Summary ---
:1935 Author Organization [facility] [place] [address] Care Team Providers Name Role Phone Guzman Thompson MD Primary Care Provider [phone] Encounter Details Date Type Department Care Team Description 06/08/2016 Office Visit Cardiology at [facility] George Snyder MD CAD s/p CABG [facility] [address] CARDIOLOGY DEPT [phone] [place] [id number] (Wo rk) Social History Tobacco Use Types Packs/Day Years Used Date Former Smoker Quit: 06/26/18 89 Smokeless Tobacco: Never Used Alcohol Use Standard Drinks/Week Comments Yes 1.7 (1 standard drink = 0.6 oz pure alco hol) Sex Assigned at Date Recorded Not on file documented as of this encounter Last Filed Vital Signs Vital Sign Reading Time Taken Comments Blood Pressure 162/68 06/08/2016 4:08 PM EST Pulse 79 06/08/2016 4:08 PM EST Temperature - - Respiratory Rate - - Oxygen Saturation 95% 06/08/2016 4:08 PM EST Inhaled Oxygen Concentration - - Weight 85.5 kg (188 lb 8 oz) 06/08/2016 4:08 PM EST Height 157.5 cm (5' 2) 06/08/2016 4:08 PM EST Body Mass Index 34.48 06/08/2016 4:08 PM EST documented in this encounter Progress Notes George Snyder MD - 06/08/2016 4:30 PM EST Cardiology Clinic Progress Note Primary care provider: Guzman Thompson MD Chief Complaint: Return office visit for cardiovascular and other problems as follows: Patient Active Problem List Diagnosis ??? 3+ Mitral regurgitation Overview Note: Myxomatous valve with anterior prolapse her echo at [facility] ??? CAD s/p CABG Overview Note: CABG 1988 - [place] to LAD, SVG to distal RCA (Dr. Dawn) Was not taking aspirin or statin as of June 2015 ??? Actinic keratosis ??? Essential hypertension ??? History of tobacco use ??? Lactose intolerance ??? Disorder of joint ??? Irritable bowel syndrome ??? Morbid obesity ??? Dyssomnia ??? Hypercholesteremia Overview Note: ??? Anxiety ??? Abdominal bloating ??? Pure hypercholesterolemia Social History: Timmy drove down from [place]. 2015 was a pretty good year for him. He cut 9 cords of wood over the summer and is using that to heat his house. He has 2 sons in [place]. 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 His own family has lived in the [facility] for generations. He brought down a lady friend but left her in the waiting room for thevis. Interval Medical History: 1. CAD - I started him on Mevacor last winter. He had previously tolerated this in the 90s or maybe the 80s. He has had no statin myalgias. There is no new lipid panel for review. He has had no recurrence of angina. He denies any exercise limitation. He has already shoveled his long driveway three times this winter. No TYSON, no palpitaitons, no lightheadedness, no orthopnea. 2. HTN - BP is again high today. We discussed the benefit of starting medication for this. He prefers to defer for now. Review of Systems: Medications: Outpatient Prescriptions Marked as Taking for the 06/08/16 encounter (Office Visit) with George Snyder MD Medication Sig Dispense Refill ??? lovastatin (MEVACOR) 40 mg Tablet Take 1 tablet by mouth nightly. 90 tablet 3 ??? [DISCONTINUED] lovastatin (MEVACOR) 20 mg tablet Take 20 mg by mouth nightly. Family History: Family History Problem Relation Age of Onset ??? Diabetes Mother Physical Exam: BP 162/68 Pulse 79 Ht 157.5 cm (5' 2) Wt 85.5 kg (188 lb 8 oz) SpO2 95% BMI 34.48 kg/m2 He looks well and is happy. Weight is the same as last visit. Cor regular, s1/2. He has a grade 3/6 late systolic MR murmur with a click heard across the apex. Normal radials and carotid upstrokes. abd soft. Chest clear Skin warm and dry 1+ LE edema Diagnostics: None new Assessment: 81 year old man with the following issues today: 1. Stable revascularized CAD without recurrent angina and without heart failure. 2. Dyslipidemia, now on Mevacor. 3. Obesity 4. Hypertension, not controlled at the patient's own preference I spent a number of recommending the rationale for the initiation of antihypertensive medication andclopidogrel for the above problems. However, he strongly declines these favoring lifestyle modification instead. He has done spectacularly well since his CABG and at the age of 81 his approach is not wi thout some merit. Therefore the plan is as follows: Plan: 1. Increase Mevacor to 40 and perhaps 80 thereafter if he tolerates this dose increase well 2. Check lipid profile 3. Diet and exercise modification to achieve signficant weight loss 4. Strongly recommend antihypertensive medication (JEREMIE/ARB likely as first choice) if he has a change of heart 5. Consider clopidogrel for CAD indication (anaphylaxis to ASA), again if he has a change of heart. RTC 1 year or sooner prn. George Snyder MD Fryline Attendant Pager [phone] documented in this encounter Plan of Treatment Not on filedocumented as of this encounter Visit Diagnoses Diagnosis CAD s/p CABG Coronary atherosclerosis of cherokee coron pato artery documented in this encounter Care Teams Gate Attendant Relationship Specialty Start Date End Date Guzman Thompson MD PCP - General Family Medicine 07/14/[address] [place] [address] documented as of this encounter
--- OUTSIDE RECORDS SUMMARY | 2022-04-08 01:38 | XMS_ITS | Encounter Summary ---
:1935 Author Organization [facility] [place] [address] Care Team Providers Name Role Phone Guzman Thompson MD Primary Care Provider [phone] Reason for Referral Consultation (Routine) - Specialty Diagnoses / Referred By Contact Referred To Contact Procedures Cardiac Rehabilitation Diagnoses S/P coronary artery stent placement Shlomo Shields, Cardiac Rehab, [address] [place] CARDIOLOGY DEPT. [id number] [place] [address] Referral ID Status Reason Start Date Expiration Date Visits V isits Requested Authorized [id number] Consult, 08/15/2016 02/11/2017 36 36 Test & Treat Reason for Visit Auth/Cert Specialty Diagnoses / Procedures Referred By Contact Refer red To Contact Diagnoses Unstable angina ACS, +STRESS Referral ID Status Reason Start Date Expiration Date Visits Requ ested Visits Authorized [id number] 1 1 Encounter Details Date Type Department Care Team Description 08/13/2016 - Hospital Intermediate Cardiac Cat Michelle MD [facility] [place] [address] CAD s/p CABG; 08/16/2016 Encounter Care Unit Shlomo Dickson MD [facility] [place] [address] Unstable angina with positive stress haritha t; [facility] ASCVD (ar teriosclerotic cardiovascular disease); Hospital S/P coronary artery stent pl acement; [facility] Essential hypertension [facility] [address] Social History Tobacco Use Types Packs/Day Years Used Date Former Smoker Quit: 06/26/18 89 Smokeless Tobacco: Never Used Alcohol Use Standard Drinks/Week Comments Yes 1.7 (1 standard drink = 0.6 oz pure alco hol) Sex Assigned at Date Recorded Not on file documented as of this encounter Last Filed Vital Signs Vital Sign Reading Time Taken Comments Blood Pressure 129/60 08/16/2016 11:34 AM EST Pulse 64 08/16/2016 11:34 AM EST Temperature 36.7 ??C (98.1 ??F) 08/16/2016 11:34 AM EST Respiratory Rate 18 08/16/2016 11:34 AM EST Oxygen Saturation 97% 08/16/2016 11:34 AM EST Inhaled Oxygen Concentration - - Weight 80.3 kg (177 lb 0.5 oz) 08/16/2016 6:00 AM EST Height 160 cm (5' 3) 08/13/2016 6:45 PM EST Body Mass Index 31.36 08/13/2016 6:45 PM EST documented in this encounter Discharge Summaries Darian Dickey, OLDER ADULT SOCIAL WORK SPECIALIST - 08/16/2016 1:04 PM EST Images from the original note were not included. Discharge Summary Patient Name: Timmy Farrell Patient Age: 81 y.o. Language: Swedish Race: White Ethnicity: Not nor Admit date: 08/13/2016 Discharge date and time: 08/16/2016 Attending Physician: Shlomo Shields MD Discharge Physician: Shlomo Shields MD Follow-up Recommendations for Providers: 1. Started Lisinopril 5 mg and Toprol XL 50 mg during this admission. Monitor heart rate and blood pressure and up titrate as tolerated. 2. Multi vessel disease on cardiac cath, PCI with drug eluting stents, needs to be on Plavix for oneyear. 3. Creatinine at discharge 0.93, recheck 08/18/16. 4. He was desensitized to Aspirin on 08/14 prior to his cardiac cath. He will be discharged on Aspirin 81 mg daily. Please monitor Inpatient Provider Contact Information: DARIAN DICKEY, OLDER ADULT SOCIAL WORK SPECIALIST [phone] Discharge Diagnoses (Hospital Problems) and Secondary Diagnoses (Chronic Problems): Active Hospital Problems Diagnosis ??? Unstable angina with positive stress test ??? Cardiomyopathy, ischemic Resolved Hospital Problems Diagnosis Date Resolved No resolved problems to display. Active Non-Hospital Problems Diagnosis ??? Essential hypertension ??? 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 CAD s/p CABG Presented with UA vs PA CABG 1988 - PEACOCK to LAD, SVG to distal RCA (Dr. Dawn) - no further records available Lost to follow up thereafter - did not see a special events director again until 2015. Was on no meds as of June 2015 --> started Mevacor 20 05/2016: uptitrate Mevacor to 40. Refuses clopidogrel. ??? Actinic keratosis ??? History of tobacco use ??? Lactose intolerance ??? Disorder of joint ??? Irritable bowel syndrome ??? Obesity ??? Dyssomnia ??? Hypercholesteremia ??? Anxiety ??? Abdominal bloating Operations/Major Procedures: Operations: Procedure(s) with comments: CARDIAC CATHETERIZATION - Procedure: Coronary Angiography 08/15/16 Conclusions: * Significant stenosis of the left main [...] left main, and D2 via PEACOCK graft. Other Major Procedures: None History of Presentation: ?? 81 yr old male from [facility] with H/O CABG x 2 vessel in 1987 (PEACOCK-LAD, SVG-RCA), 3+ MR due to myxomatous changes with late systolic prolapse of the anterior mitral leaflet, Last ECHO EF 65% in 2015,HTN, HLD, Obesity, Anxiety and Exsmoker who is allergic to ASA and statins who sees Dr.Brian Snyder in [facility] in the clinic for his CAD. ?? According to the pt he had 2-3 episodes of exertional chest discomfort and occasional SOB with moderate exertion in last year relieved with nitro. 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 He was scheduled for the cath on 08/17/2016 as out pt and advised to go to ED if he has any symptoms. He is allergic to aspirin and does not take any cardiac medications except Mevacor which was started by in May 2016. He refused to try Plavix and metoprolol in the past. With the positive stress test started on Plavix and metoprolol. ?? Today he presented to [facility] with bilateral facial flushing and numbness lasted for few minutes on Monday08/12/2016 at 8:30 am responded to one sub lingual nitro at home and called the EMS thinking that some thing is not right. On arrival to ED - [facility] his vitals stable 36.4, 69,13, 158/78 and 96% on RA.During the stay at [facility] he has another episode of mild facila flushing and chest discomfort responded to nitro. Denies any Chest pain /SOB/PND/TYSON/Syncope/myalgia/weight gain/pedal edema/blood in the stool. His work up with troponin x2 times Negative and there are mild T wave inversions in the V3-V5 which are new compare to the old EKG 09/24/2015, started him on heparin drip.Upon arrival he here he has no symptoms. Hospital Course: On admission to [facility], the patient had no complaints of chest pain or shortness of breath. Telemetry was attached which showed normal sinus rhythm. Heparin drip was infusing. [facility] records/transfer records were reviewed. Baseline labs were checked and/or drawn. Unstable angina Given the patient's risk factors, abnormal nuclear stress test on 08/10/16, atypical facial flushing and numbness, it was decided to proceed with coronary angiography. The patient went to the cardiac prosthetics lab technician for a diagnostic cath which showed significant stenosis of the left main and two vessel disease to the LAD and RCA. He had PCI to the distal LM lesion, proximal D1 lesion, and ostial D2 lesion with LURDES. He will be discharged on Plavix 75 mg, Aspirin 81 mg, Toprol XL 50 mg, Lovastatin 40 mg, and PRN Nitro. He will need to be on Plavix for one year. His post cath troponin 0.15, this was repeated and was downward trending at 0.14. Hyperlipidemia Lipid profile showed total cholesterol 178 with LDL 104. Patient has been on Mevacor 40 mg. Due to his history of myalgias with other statins, he will continue on Mevacor at discharge. ?? Aspirin allergy He was desensitized on 08/14 prior to his cardiac cath. He will be discharged on Aspirin 81 mg daily.He has had no adverse effects during his hospitalization. ?? Hypertension His BP trends during the last 24 hours were 108-148/49-81. He will be discharged on Lisinopril 5 mg and Toprol XL 50 mg. These may be up titrated as tolerated. Routine screening labs revealed the following: HA1c 5.8% TSH 3.11 Smoking cessation was advised & discussed. N/A The patient was evaluated by the cardiac rehab team. The patient tolerated supervised ambulation in the hallway and up/downstairs with no anginal symptoms. It was recommended that the patient return home and participate in a supervised cardiac rehab program. The patient was discharged home in stable condition. Functional and Cognitive Status: Oriented and ambulatory independently Important Studies and Lab Data: Labs: Lab Results Component Value Date WBC 6.2 08/16/2016 HGB 14.0 08/16/2016 HCT 39.8 (L) 08/16/2016 PLATELET 172 08/16/2016 Recent Labs 08/13/161928 INR 1.0 Lab Results Component Value Date NA 139 08/16/2016 K 3.6 08/16/2016 CL 101 08/16/2016 CO2 24 08/16/2016 BUN 18 08/16/2016 CREATININE 0.93 08/16/2016 Recent Labs 02/18/17 1929 TSH 3.11 Recent Labs 08/13/168 HA1C 5.8* Recent Labs 08/16/16 1023 08/16/16 0437 08/15/16 1130 CK 135 127 72 TROPONINT 0.14* 0.15* <0.03 Lab Results Component Value Date CHLPL 178 08/13/2016 HDL 42 08/13/2016 CHOLHDL 4.2 08/13/2016 TRIG 162 08/13/2016 LDLCHOL 104 08/13/2016 Studies: 08/14/16 Echo 1. The left ventricular chamber size is normal. Left ventricular wall thickness is normal. There areleft ventricular segmental wall motion abnormalities present, as [...] See remainder of report for additional findings. Pending Studies and Lab Data: BMP to be done on 08/18/16 Discharge Conditions/Prognosis: Able to ambulate without angina Discharge to: Home Updated Allergies/ADRs: Allergies Allergen Reactions ??? Aspirin Patient underwent desensitization ??? Prednisone Per pt, he reported hallucinations after taking prednisone ??? Rosuvastatin Calcium HEAD SORENESS ??? Sertraline ??? Vlmwtzo-Pjg-Ryh Reductase Inhibitors INTOLERANce. However, tolerates Mevacor without problems. ??? Trazodone Immunizations Given this Hospitalization: Immunization History Administered Date(s) Administered ??? Td, adult 01/03/2006 Discharge Medications: Your Medications New Medications Dose Details aspirin 81 mg Chew Take 81 mg by mouth daily. 81 mg Quantity: 30 tablet Refills: 0 lisinopril 5 mg Tab Commonly known as: PRINIVIL;ZESTRIL Take 1 tablet by mouth daily. 5 mg Quantity: 30 tablet Refills: 2 meTOPROLOL succinate 50 mg Tablet sr Commonly known as: TOPROL XL Take 1 tablet by mouth daily. 50 mg Quantity: 30 tablet Refills: 3 nitroGLYcerin 0.4 mg Subl Commonly known as: NITROSTAT Place 1 tablet under the tongue every 5 minutes as needed for Chest pain. 0.4 mg Quantity: 25 tablet Refills: PRN Continued medications, unchanged Dose Details clopidogrel 75 mg Tab Commonly known as: PLAVIX Take 1 tablet by mouth daily. 75 mg Quantity: 90 tablet Refills: 3 EPIPEN 0.3 mg/0.3 mL Atin one injection, IM, PRN Generic drug: EPINEPHrine Refills: 0 lovastatin 40 mg Tab Commonly known as: MEVACOR Take 1 tablet by mouth nightly. 40 mg Quantity: 90 tablet Refills: 3 STOPPED Medications meTOPROLOL tartrate 25 mg Tab Commonly known as: LOPRESSOR Smoking Status at Discharge: History Smoking Status ??? Former Smoker ??? Quit date: 06/26/1988 Smokeless Tobacco ??? Never Used Instructions Given to Patient at Discharge: There are no outpatient Patient Instructions on file for this admission. General Instructions Call your doctor if: Chest pain, shortness of breath, pain or swelling in legs occurs. If you have non-emergent questions between now and the time of your follow up appointments: During 8am-5pm Monday through Monday call [phone] to speak with a nurse in the cardiology clinic All other times call [phone] and ask to speak to the child welfare director occupational psychologist. Return to work: Retired Driving: No driving for 48 hours after catheterization. Follow up Appointments: PCP Guzman Thompson MD [phone] Friday August 19, 2016 at 10:[address] Llanes Cancelled appointment for August 17, 2016, rescheduled to September 22, 2016 at 10:30 am Future Appointments and Orders Future Orders Complete By Expires Basic Metabolic Panel (non-fasting) [LAB15 Custom] 08/18/2016 02/17/2017 Process Instructions: INCLUDES: Calcium, BUN, Creat, GFR, Glucose, Lytes Scheduling Instructions: Comments: Questions: Referral to Cardiac Rehab [YUX202 Custom] As directed Process Instructions: If no progress note charted, please enter Clinical details in comments. Scheduling Instructions: Questions: My question or request is: s/p PCI; cardiac rehab @ [facility] Discharge References/Attachments None Darian Waterman APRN 08/16/2016 documented in this encounter Discharge Instructions Discharge InstructionsIsabella Rios APRN - 08/16/2016 11:49 AM EST Call your doctor if: Chest pain, shortness of breath, pain or swelling in legs occurs. If you have non-emergent questions between now and the time of your follow up appointments: During 8am-5pm Monday through Monday call [phone] to speak with a nurse in the cardiology clinic All other times call [phone] and ask to speak to the child welfare director occupational psychologist. Return to work: Retired Driving: No driving for 48 hours after catheterization. Follow up Appointments: PCP Guzman Thompson MD [phone] Friday August 19, 2016 at 10:[address] Llanes Cancelled appointment for August 17, 2016, rescheduled to September 22, 2016 at 10:30 am documented in this encounter Medications at Time [...] 90 tablet 3 03/16/2018 Tablet mouth daily. documented as of this encounter Progress Notes Darby Preston - 08/16/2016 10:13 AM EST Nutrition Services - Education Note Timmy Farrell : 1935 AGE: 81 y.o. Patient Active Problem List Diagnosis Date Noted ??? *Hospital-Unstable angina with positive stress test 08/13/2016 ??? Essential hypertension 07/21/2015 Priority: High ??? 3+ Mitral regurgitation 08/26/2011 Priority: High ??? CAD s/p CABG 05/14/1988 Priority: High ??? Hospital-Cardiomyopathy, ischemic 08/13/2016 ??? Actinic keratosis 07/21/2015 ??? History of tobacco use 07/21/2015 ??? Lactose intolerance 07/21/2015 ??? Disorder of joint 08/26/2011 ??? Irritable bowel syndrome 08/26/2011 ??? Obesity 08/26/2011 ??? Dyssomnia 08/26/2011 ??? Hypercholesteremia 10/11/2010 ??? Anxiety 10/11/2010 ??? Abdominal bloating 10/11/2010 Reason for Nutrition Intervention: Consult Diet Order: [facility] Appetite: Good Food allergies: NKFA Chewing/Swallowing difficulty: None Reported Ht Readings from Last 3 Encounters: 08/13/16 160 cm (5' 3) 06/08/16 157.5 cm (5' 2) 07/21/15 157.5 cm (5' 2) Wt Readings from Last 3 Encounters: 08/16/16 80.3 kg (177 lb 0.5 oz) 06/08/16 85.5 kg (188 lb 8 oz) 07/21/15 84.2 kg (185 lb 11.2 oz) Body mass index is 31.36 kg/(m^2). Education: Guidelines for a Heart Healthy Lifestyle educational material. Verbalized good understanding. Education material, with means of contact provided. Assessment: Patient seen for nutrition consult r/t CAD with stents. Patient verbalized good understanding of current dietary restrictions at this time. Patient stated he does not add salt to food andhas read food labels for years. He reports eating at the [employer] for lunch 3x / week. He reports avoiding foods high in sodium and fat. He typically has the same thing for breakfast and refers tohimself as a bland eater. Discussed how to read a food label and what terms to look for while grocery shopping. Emphasized theimportance of portion sizes as well. Highly encouraged daily consumption of fresh fruits and vegetables, lean meats and fish, whole grains and low fat dairy products. Educational material Guidelines for a Heart Healthy Lifestyle provided with contact information if questions arise. Patient had no further questions at this time. Encouraged patient to contact Food and Nutrition services with any questions that may arise. Nutrition Plan: Continue current diet. Recommend Daily Multi Vitamins. Encourage good po intake. Monitor weight. Support and encouragement provided. Nutrition services to follow weekly thru hospital course unless consulted in the interim. DARLENE Lr Shlomo Shields MD - 08/16/2016 9:26 AM EST Images from the original note were not included. Inpatient Cardiology Progress Note Patient Name: Timmy Farrell Service: BATCHING OPERATOR / PA Responsible Attending: Shlomo Shields MD Reason for continued hospitalization: Medication adjustment 08/15 S/p left heart cath with PCI Possible discharge this afternoon Active Problems: Active Hospital Problems Diagnosis ??? Unstable angina with positive stress test ??? Cardiomyopathy, ischemic Resolved Hospital Problems Diagnosis Date Resolved No resolved problems to display. Interval History: Feels good after left heart cath. Right groin feels fine. He has been up and walking around, no chest pain or shortness of breath. He wants to go home today, [facility] [place] Review of Systems: Review of Systems Constitutional: Negative. HENT: Negative. Eyes: Negative. Respiratory: Negative for chest tightness and shortness of breath. Cardiovascular: Negative for chest pain, palpitations and leg swelling. Gastrointestinal: Negative. Endocrine: Negative. Genitourinary: Negative. Allergic/Immunologic: Negative. Neurological: Negative. Hematological: Negative. All other systems reviewed and are negative. Telemetry: HR: 68-97 Sinus rhythm, occasional PVC Meds: Scheduled Meds: ??? lisinopril 5 mg Oral Daily ??? aspirin 81 mg Oral Daily ??? atorvastatin 80 mg Oral QPM ??? meTOPROLOL tartrate 25 mg Oral Q8H CHARY ??? hydroCHLOROthiazide 25 mg Oral Daily ??? clopidogrel 75 mg Oral Daily ??? sodium chloride 0.9 % 5 mL Intravenous BID ??? famotidine 20 mg Oral Daily Continuous Infusions: ??? heparin (porcine) 1,150 Units/hr (08/14/16 1809) PRN Meds:EPINEPHrine, methylPREDNISolone, sodium chloride 0.9 %, lidocaine, nitroGLYcerin, heparin (porcine) AND heparin (porcine), acetaminophen Physical Exam: Vital Signs: Last value Range last 24 hrs Temperature Temp: 37 ??C (98.6 ??F) Temp: [36.4 ??C (97.5 ??F)-37.3 ??C (99.1 ??F)] Heart Rate Heart Rate: 80 Heart Rate: [54-80] Blood Pressure BP: 121/49 BP: (108-158)/(49-81) Respiratory Rate Resp: 18 Resp: [15-21] SpO2 SpO2: 97 % SpO2: [93 %-98 %] Patient Vitals for the past 168 hrs: Weight 08/16/16 0600 80.3 kg (177 lb 0.5 oz) 08/15/16 0845 80.7 kg (177 lb 14.6 oz) 08/15/16 0500 80.7 kg (177 lb 14.6 oz) 08/14/16 0403 81.4 kg (179 lb 7.3 oz) 08/13/16 1845 82.7 kg (182 lb 5.1 oz) Intake/Output Summary (Last 24 hours) at 08/16/16 0958 Last data filed at 08/16/16 0454 Gross per 24 hour Intake 2353 ml Output 1900 ml Net 453 ml Physical Exam Constitutional: He is oriented to person, place, and time. He appears well- developed and well-nourished. No distress. HENT: Head: Normocephalic and atraumatic. Eyes: Right eye exhibits no discharge. Left eye exhibits no discharge. Neck: Normal range of motion. Cardiovascular: Normal rate, regular rhythm and intact distal pulses. Exam reveals no gallop and no friction rub. No murmur heard. Pulmonary/Chest: Effort normal and breath sounds normal. No respiratory distress. He has no wheezes.He has no rales. Abdominal: Soft. Bowel sounds are normal. Musculoskeletal: Normal range of motion. He exhibits no edema. Neurological: He is alert and oriented to person, place, and time. Skin: Skin is warm and dry. He is not diaphoretic. Right groin is clean, dry and intact. No hematoma or ooze. Intact distal pedal pulses. No bruit. Psychiatric: He has a normal mood and affect. His behavior is normal. Nursing note and vitals reviewed. Lab Comments: Recent Labs 08/16/16 0437 08/15/16 0348 08/14/16 0439 WBC 6.2 6.6 6.0 HGB 14.0 15.1 14.3 HCT 39.8* 42.6 41.1 PLATELET 172 167 173 Recent Labs 08/13/16 1929 INR 1.0 Recent Labs 08/16/16 0437 08/15/16 1130 08/14/16 0439 NA 139 134* 140 K 3.6 3.8 3.8 CL 101 100 104 CO2 24 25 24 BUN 18 15 13 CREATININE 0.93 0.95 0.95 No results for input(s): AST, ALT, ALKPHOS, BILITOT, BILIDIR in the last 168 hours. Recent Labs 08/16/16 04308/15/16 1130 08/14/16 043 CALCIUM 8.7 8.1* 8.9 MAGNESIUM -- -- 0.85 Recent Labs 08/16/16 04308/15/16 1130 08/14/16 0439 CK 127 72 141 TROPONINT 0.15* <0.03 <0.03 Lab Results Component Value Date CHLPL 178 08/13/2016 HDL 42 08/13/2016 CHOLHDL 4.2 08/13/2016 TRIG 162 08/13/2016 LDLCHOL 104 08/13/2016 Pertinent Radiographic/Diagnostic Results: I have personally reviewed this EKG 1. 08/16/16 EKG Normal sinus rhythm, q waves in inferior leads, t wave inversions in inferior leads and anterolateral leads. 2. 08/14/16 Echo SUMMARY: 1. The left ventricular chamber size is normal. Left ventricular wall thickness is normal. There areleft ventricular segmental wall motion abnormalities present, as [...] See remainder of report for additional findings. 3. 08/14/16 Cardiac cath Conclusions: * Significant stenosis of the left main [...] left main, and D2 via PEACOCK graft. Assessment: Timmy Farrell is a 81 y.o. 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 Cath on Tuesday 08/15. Asa desensitizing 08/14. Plan for possible discharge later today. Plan: 1. CAD s/p PCI PCI of distal LM, prox D1, and ostial D2 with LURDES Continue Plavix 75 mg, Aspirin 81 mg, Metoprolol 25 mg q 8, Atorvastatin 80 mg Post cath troponin 0.15, will repeat x1 this morning If downward trend, will discharge home later today Cardiac rehab and dietary consults, to be seen today 2. ASA allergy Desensitizing 08/14 prior to cath in unit Follow 3. HTN BP trends last 24 hours: 108-148/49-81 Continue HCTZ, lisinopril, and metoprolol 4. Dyslipidemia On mevacor at home Not on formulary here Started lipitor 08/15/16 Will transition to Mevacor at discharge given his history of myalgias with any other statin 5. Full Code Discussed with Shlomo Shields MD Amanda Higginbotham, APRN 08/16/2016 STAFF ADDENDUM Patient interviewed and examined. Medical record reviewed. I agree with the Intercurrent History Past Medical History Physical Exam Objective Data Assessment and Plan as detailed by Carlee TRENT, with whom the patient was interviewed, examined, and discussed, with the following additions and/or exceptions. No chest pains or pressures. No TYSON. Up and ambulating. Tolerating medications. VSS. Lungs clear. II/ holosystolic murmur. Arterial access site without h ematoma, thrill or bruit. Distal pulses and sensation intact. Telemetry benign. CR wnl. Slight post-procedure bump in TN. Will plan to repeat TN. If it is falling can safely discharge. Will need a repeat check of his BUN/CR in 24-48 hours. Shirley Coyle RN - 08/16/2016 9:13 AM EST Walk / stairs completed without difficulty. HRs in the 90's SR. BP 121/49 Edson Sterling - 08/15/2016 8:00 PM EST Diesel Tractor Engine Mechanic Encounter Note Patient Name: Timmy Farrell : [id number] MR#: [id number] Admit Date: 08/13/2016 6:43 PM Hospital Day 3 days Narrative: Senior Linux Administrator initiated visit while rounding. Patient receptive to visit and talked about various aspectsof his life. Assessment: Pt shared about his & his 's involvement in the [employer]. He said that his in home tutor has visited. He especially lit up when talking about his grandchildren and said that is why he especiallywants to keep living to see them grow-up/graduate. Intervention and Outcome: Provided pastoral/supportive presence and active listening. Follow-up: Yes, if requested Time in Direct Care: 15 min. 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 Unstable angina with positive stress test ??? Cardiomyopathy, ischemic Resolved Hospital Problems Diagnosis Date Resolved No resolved problems to display. Interval History: Patient went to the unit for asa desensitization yesterday. Review of Systems: Review of Systems Constitutional: Negative. HENT: Negative. Eyes: Negative. Respiratory: Positive for chest tightness and shortness of breath. Endocrine: Negative. Genitourinary: Negative. Allergic/Immunologic: Negative. Neurological: Negative. Hematological: Negative. Telemetry: HR: 79 sinus rhythm Meds: Scheduled Meds: ??? [AUG Hold] lisinopril 5 mg Oral Daily ??? [AUG Hold] aspirin 81 mg Oral Daily ??? [AUG Hold] atorvastatin 80 mg Oral QPM ??? [AUG Hold] meTOPROLOL tartrate 25 mg Oral Q8H CHARY ??? [AUG Hold] hydroCHLOROthiazide 25 mg Oral Daily ??? [AUG Hold] clopidogrel 75 mg Oral Daily ??? [AUG Hold] sodium chloride 0.9 % 5 mL Intravenous BID ??? sodium chloride 0.9 % 5 mL Intravenous Q12H ??? [AUG Hold] famotidine 20 mg Oral Daily ??? sodium chloride 0.9 % 5 mL Intravenous Q12H Continuous Infusions: ??? [Aug] heparin (porcine) 1,150 Units/hr (08/14/16 180) PRN Meds:lidocaine, midazolam (PF), fentaNYL (PF), [AUG Hold] diphenhydrAMINE, [AUG Hold] EPINEPHrine, [AUG Hold] methylPREDNISolone, [AUG Hold] sodium chloride 0.9 %, [AUG Hold] lidocaine, [AUG Hold] nitroGLYcerin, [AUG Hold] heparin (porcine) AND [AUG Hold] heparin (porcine), sodium chloride 0.9%, [AUG Hold] acetaminophen, lidocaine, sodium chloride 0.9 % Physical Exam: Vital Signs: Last value Range last 24 hrs Temperature Temp: 36.5 ??C (97.7 ??F) Temp: [36.3 ??C (97.3 ??F)-36.9 ??C (98.4 ??F)] Heart Rate Heart Rate: 58 Heart Rate: [53-70] Blood Pressure BP: 140/73 BP: (111-163)/(56-98) Respiratory Rate Resp: 14 Resp: [11-24] SpO2 SpO2: 96 % SpO2: [95 %-98 %] Physical Exam Constitutional: He appears well-developed and well-nourished. No distress. HENT: Head: Normocephalic and atraumatic. Eyes: Pupils are equal, round, and reactive to light. No scleral icterus. Neck: No JVD present. Cardiovascular: Normal rate, regular rhythm, S1 normal and S2 normal. Exam reveals no gallop and no friction rub. No murmur heard. Pulmonary/Chest: No respiratory distress. He has no wheezes. He has no rales. Abdominal: He exhibits no distension. There is no tenderness. There is no rebound. Musculoskeletal: He exhibits no edema, tenderness or deformity. Neurological: He is alert. Skin: Skin is warm and dry. He is not diaphoretic. Lab Comments: Recent Labs 08/15/16 0348 08/14/169 08/13/161928 WBC 6.6 6.0 5.8 HGB 15.1 14.3 14.3 HCT 42.6 41.1 40.1* PLATELET 167 173 169 Recent Labs 08/13/161928 INR 1.0 Recent Labs 08/14/1643808/13/161928 NA 140 142 K 3.8 3.9 CL 104 106 CO2 24 23 BUN 13 15 CREATININE 0.95 1.00 No results for input(s): AST, ALT, ALKPHOS, BILITOT, BILIDIR in the last 168 hours. Recent Labs 08/14/16 0439 08/13/161928 CALCIUM 8.9 8.7 MAGNESIUM 0.85 -- Recent Labs 08/14/16 0439 08/14/16 0140 08/13/161928 CK 141 131 144 TROPONINT <0.03 <0.03 <0.03 Pertinent Radiographic/Diagnostic Results: No new tests Assessment: Timmy Farrell is a 81 y.o. 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 Echo yesterday and cath on Monday. Asa desensitizing yesterday. Stable. Plan: 1. Chest pain, positive stress test, awaiting cath Continue telemetry monitoring Serial enzymes Echo Cath NPO 2. ASA allergy Desensitizing yesterday in unit Follow 3. HTN Metoprolol Monitor trends 4. Dyslipidemia On mevacor at home Not on formulary here Started lipitor 08/15/16 5. Full Code Patient seen and discussed with Dr. Shields. SAVANNAH MOCK 08/15/2016 Pager [phone] STAFF ADDENDUM Patient interviewed and examined. Medical record reviewed. I agree with the Intercurrent History Past Medical History Physical Exam Objective Data Assessment and Plan as detailed by Danis NUÑEZ, with whom the patient was interviewed, examined, and discussed, with the following additions and/or exceptions. Successful desensitization. Has no complaints. No recurrentchest pain/pressures. Tolerating medications. VSS. Lungs clear. Normal CVP. No new murmurs, rubs, gallops. Telemetry benign. Ready to proceed with cath and possible PCI. No contraindication to LURDES. Clare Hairston RN - 08/14/2016 2:59 PM EST 08/14/16 1126 Vital Signs Heart Rate from SPO2 55 bpm Heart Rate 55 Heart Rate Source Monitor Cardiac Rhythm SB BP 141/66 MAP (NBP) 85 mmHg BP Method Automatic BP Location (NBP) Left arm Resp 24 SpO2 96 % Oxygen Therapy O2 Device RA Pain Scale/Rating Pain Assessment Scale Word (verbal rating pain scale) Pain Level 0 Pain Goal 0 Patient arrived to [facility] for ASA desensitization. Orders verified, 2nd IV placed. All emergency medications at bedside. 1400- Patient has received all 11 doses of ASA with no c/o sob, itching, all VS stable. 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 Unstable angina with positive stress test ??? Cardiomyopathy, ischemic Resolved Hospital Problems Diagnosis Date Resolved No resolved problems to display. Interval History: Patient is going to the unit for asa desensitization. Review of Systems: Review of Systems Constitutional: Negative. HENT: Negative. Eyes: Negative. Respiratory: Positive for chest tightness and shortness of breath. Endocrine: Negative. Genitourinary: Negative. Allergic/Immunologic: Negative. Neurological: Negative. Hematological: Negative. Telemetry: HR: 79 sinus rhythm Meds: Scheduled Meds: ??? meTOPROLOL tartrate 25 mg Oral Q8H CHARY ??? hydroCHLOROthiazide 25 mg Oral Daily ??? aspirin 3 mg Oral Once Followed by ??? aspirin 6 mg Oral Once Followed by ??? aspirin 10 mg Oral Once Followed by ??? aspirin 20 mg Oral Once Followed by ??? aspirin 40.5 mg Oral Once Followed by ??? aspirin 81 mg Oral Once Followed by ??? aspirin 162 mg Oral Once Followed by ??? aspirin 325 mg Oral Once ??? clopidogrel 75 mg Oral Daily ??? sodium chloride 0.9 % 5 mL Intravenous BID ??? sodium chloride 0.9 % 5 mL Intravenous Q12H ??? famotidine 20 mg Oral Daily ??? sodium chloride 0.9 % 5 mL Intravenous Q12H Continuous Infusions: ??? heparin (porcine) 1,150 Units/hr (08/14/16 0536) PRN Meds:diphenhydrAMINE, EPINEPHrine, methylPREDNISolone, sodium chloride 0.9 %, lidocaine, nitroGLYcerin, heparin (porcine) AND heparin (porcine), sodium chloride 0.9 %, acetaminophen, lidocaine,sodium chloride 0.9 % Physical Exam: Vital Signs: Last value Range last 24 hrs Temperature Temp: 36.3 ??C (97.3 ??F) Temp: [36.3 ??C (97.3 ??F)-36.8 ??C (98.2 ??F)] Heart Rate Heart Rate: 61 Heart Rate: [55-76] Blood Pressure BP: 163/70 BP: (131-177)/(63-82) Respiratory Rate Resp: 19 Resp: [15-24] SpO2 SpO2: 97 % SpO2: [95 %-98 %] Physical Exam Constitutional: He appears well-developed and well-nourished. No distress. HENT: Head: Normocephalic and atraumatic. Eyes: Pupils are equal, round, and reactive to light. No scleral icterus. Neck: No JVD present. Cardiovascular: Normal rate and regular rhythm. Exam reveals no gallop and no friction rub. Murmur heard. Systolic murmur is present with a grade of 3/6 Pulmonary/Chest: No respiratory distress. He has no wheezes. He has no rales. Abdominal: He exhibits no distension. There is no tenderness. There is no rebound. Musculoskeletal: He exhibits no edema or tenderness. Neurological: He is alert. No cranial nerve deficit. Coordination normal. Skin: Skin is warm and dry. He is not diaphoretic. No erythema. Lab Comments: Recent Labs 08/14/1643808/13/161928 WBC 6.0 5.8 HGB 14.3 14.3 HCT 41.1 40.1* PLATELET 173 169 Recent Labs 08/13/161928 INR 1.0 Recent Labs 08/14/1643808/13/161928 NA 140 142 K 3.8 3.9 CL 104 106 CO2 24 23 BUN 13 15 CREATININE 0.95 1.00 No results for input(s): AST, ALT, ALKPHOS, BILITOT, BILIDIR in the last 168 hours. Recent Labs 08/14/1643808/13/161928 CALCIUM 8.9 8.7 MAGNESIUM 0.85 -- Recent Labs 08/14/16 0439 08/14/16 0140 08/13/161928 CK 141 131 144 TROPONINT <0.03 <0.03 <0.03 Pertinent Radiographic/Diagnostic Results: No new tests Assessment: Timmy Farrell is a 81 y.o. 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 Echo today and cath on Monday. Asa desensitizing today. Stable. Plan: 1. Chest pain, positive stress test, awaiting cath Continue telemetry monitoring Serial enzymes Echo Cath NPO after MN 2. ASA allergy Desensitizing today in unit Follow 3. HTN Metoprolol Monitor trends 4. Dyslipidemia On mevacor at home Not on formulary here 5. Full Code Patient seen and discussed with Dr. Shields. SAVANNAH MOCK 08/14/2016 Pager [phone] STAFF ADDENDUM Patient interviewed and examined. Medical record reviewed. I agree with the Intercurrent History Past Medical History Physical Exam Objective Data Assessment and Plan as detailed by Danis NUÑEZ, with whom the patient was interviewed, examined, and discussed, with the following additions and/or exceptions. No chest pains or pressures. Tolerating medications. VSS. Lungs clear. Normal CVP. II/ holosystolic murmur heard best in the L anterior axillary line. Pulses full and symmetrical. Has been having exertional chest pressure and has a positive stress test suggesting ischemia in the CX or RCA distribution. The stress test is of concern for a reported EF of 36%. However, the patient states that over the last month he could walk up 4 flights of stairs. Also has ahistory of hives with ASA. It makes no sense to proceed with coronary angiography unless he can takeASA. Will proceed with desensitization today. Will obtain an echocardiogram to insure that his symptoms are likely secondary to his CAD and not to progressive MR with LV dysfunction. María Elena Smith RN - 08/13/2016 7:15 PM EST Pt arrived to unit approx. 1845 via stretcher from OSH. A&O. VSS on RA. BP elevated. Pt denied CP or SOB. On heparin upon arrival. D/c bag upon arrival and will restart with order. Assessment WNL. Oriented to room and call bed. Wt obtained and vitals. Labs obtained. Granddaughter at bedside. With trend trops. Obtain EKG. Get second IV. documented in this encounter H&P Notes Josefina Woo MD - 08/13/2016 6:46 PM EST Cardiology Admission History and Physical Patient Name: Timmy Farrell Service: Cardiology Responsible Attending: PCP: Guzman Thompson MD PCP phone #: [phone] ID/Chief Complaint: Bilateral facial numbness/flushing that resolved with 1 sub ling nitro. History of Present Illness: pt is poor historian. 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 According to the pt he had 2-3 episodes of exertional chest discomfort and occasional SOB with moderate exertion in last year relieved with nitro. 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 He was scheduled for the cath on 08/17/2016 as out pt and advised to go to ED if he has any symptoms. He is allergic to aspirin and does not take any cardiac medications except Mevacor which was started by in May 2016. He refused to try Plavix and metoprolol in the past. With the positive stress test started on Plavix and metoprolol. Today he presented to [facility] with bilateral facial flushing and numbness lasted for few minutes on Monday08/12/2016 at 8:30 am responded to one sub lingual nitro at home and called the EMS thinking that some thing is not right. On arrival to ED - [facility] his vitals stable 36.4, 69,13, 158/78 and 96% on RA.During the stay at [facility] he has another episode of mild facila flushing and chest discomfort responded to nitro. Denies any Chest pain /SOB/PND/TYSON/Syncope/myalgia/weight gain/pedal edema/blood in the stool. His work up with troponin x2 times Negative and there are mild T wave inversions in the V3-V5 which are new compare to the old EKG 09/24/2015, started him on heparin drip.Upon arrival he here he has no symptoms. OSH medications: Heparin drip with bolus 4000 units NS 1 liter Nitroglycerin 0.4 mg sub ling OSH labs prior to transfer: Troponin - negative- 0.03-0.02 EKG - new T wave inversions in V3-V5 compare to old EKG 09/24/2015. 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 EF is severely decreased, around 36%. ST depressions in the stress EKG. Excersize for 7 minutes, stopped due to fatigue. 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 No pulmonary HTN. CABG 1987 X 2 vessel- PEACOCK-LAD, SVG- distal RCA. Home medications: Plavix 75 mg daily started on 08/10/16 Metoprolol 12.5 mg BID started on 08/10/16 Mevacor 10 mg daily NTG 0.4 mg Review of Systems: negative except as stated. GENERAL HEENT CV PULM x All negative x All negative All negative x All negative Weight loss Headache x Chest Pain Non-productive cough Weight gain Vision change Palpitations Productive cough Fevers Sinus congestion Orthopnea Wheezing Chills Hoarseness LE edema Hemoptysis Night sweats Epistaxis PND Pleuritic pain Fatigue Syncope SOB Claudication [facility] x All negative x All negative x All negative x All negative Arthralgias Frequency Heat intolerance Blood in stool Myalgias Urgency Cold intolerance Dysphagia Weakness Hematuria Polydipsia Odynophagia Stiffness Flank pain Polyphagia Abdominal discomfort Dysuria Cushingoid Constipation Foamy urine Diarrhea Discharge Nausea/Vomiting LYMPH SKIN NEURO PSYCH x All negative x All negative x All negative All negative Swollen nodes Rash Seizures Depressed affect Tender nodes Ulcers Tremors Occupational stress Diffuse nodes Bruising Spasticity x Anxiety Local nodes Tanned skin Focal weakness Insomnia Night sweats Telangiectasias Diplopia Paresthesias Dizziness Problem List/Past Medical History Patient Active Problem List Diagnosis ??? Essential hypertension ??? 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 CAD s/p CABG Presented with UA vs PA CABG 1988 - PEACOCK to LAD, SVG to distal RCA (Dr. Dawn) - no further records available Lost to follow up thereafter - did not see a special events director again until 2015. Was on no meds as of June 2015 --> started Mevacor 20 05/2016: uptitrate Mevacor to 40. Refuses clopidogrel. ??? Actinic keratosis ??? History of tobacco use ??? Lactose intolerance ??? Disorder of joint ??? Irritable bowel syndrome ??? Obesity ??? Dyssomnia ??? Hypercholesteremia ??? Anxiety ??? Abdominal bloating No past medical history on file. Meds: No current facility-administered medications on file prior to encounter. Current Outpatient Prescriptions on File Prior to Encounter Medication Sig Dispense Refill ??? lovastatin (MEVACOR) 40 mg Tablet Take 1 tablet by mouth nightly. 90 tablet 3 ??? epiNEPHrine (EPIPEN) 0.3 mg/0.3 mL injection one injection, IM, PRN (Patient not taking: No sig reported) At home meds reviewed Allergies: aspirin, statins, niacin,ezetamibe, sertraline,trazadone. Allergies Allergen Reactions ??? Aspirin ??? Rosuvastatin Calcium HEAD SORENESS ??? Dgohbmo-Xap-Xpb Reductase Inhibitors INTOLERANce. However, tolerates Mevacor without problems. 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 Vitals: Last value Range last 24 hrs Temperature Temp: -- Heart Rate Heart Rate: -- Blood Pressure BP: ()/() Respiratory Rate Resp: -- SpO2 SpO2: -- Examination: General: Pleasant, alert, appropriate, in NAD. Appears stated age. Mild obese HEENT: EOMI, PERRL, anicteric sclera. Oropharynx clear w/o lesions. Moist mucous membranes Neck: Supple, No obvious LAD. JVD ~ normal Cardiac: Normal S1 and S2, Regular rate and rhythm; 2/6 systolic murmur at the apex. Respiratory: Nonlabored. Clear to auscultation bilaterally; No wheezes/ rhonchi/ rales. Abd: + BS; soft, non-tender, non-distended, no obvious masses. Ext: WWP without le edema, cyanosis or clubbing. DPP 2+ bilaterally. Neuro: II-XII grossly intact. Alert and orientated, no-focal deficits, sensation intact to crude touch Skin: No rashs, no lesions, no petechiae Laboratory: Recent Labs 08/13/161928 WBC 5.8 HGB 14.3 HCT 40.1* PLATELET 169 Recent Labs 08/13/161928 NA 142 K 3.9 CL 106 CO2 23 BUN 15 CREATININE 1.00 No results for input(s): AST, ALT, ALKPHOS, BILITOT, BILIDIR in the last 168 hours. 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 PLAN: 1) Unstable angina with recent Positive stress test Trend the cardiac enzymes - 0.03 x3 Echo in AM Will try to get the nuclear stress images from [facility] Heparin drip as per protocol plavix 75 mg, no load was given as pt is taking since last 3 days . Metoprolol 12.5 bid Start the ACEI after the cath Lovastatin 20 mg daily, says he can not tolerate more than 20 mg, may consider PCSK-9 Inhibitors in the future HBA1c- 5.8 Lipid panel Keep NPO for the cath. 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 Watch for now as he has no Symptoms of CHF, no P HTN and no palpitations to suggest any A fib. 5) HTN Metoprolol 12.5 mg BID 6) HLD Lipid panel Lovastatin 20 mg 7) Aspirin/statin allergy Code Status: full Josefina Woo MD Cardiology Hospitalist 08/13/2016 documented in this encounter Miscellaneous Notes Plan of Care - Bre Bustillos RN - 08/16/2016 4:36 AM EST Problem: Patient Care Overview Goal: Plan of Care Review Outcome: Ongoing (Interventions Implemented as Appropriate) 08/16/16 0434 Coping/Psychosocial Plan Of Care Reviewed With patient Plan of Care Review Progress improving OUTCOME EVALUATION NOTE: OUTCOME SUMMARY: VSS on RA, SB/SR with occ PACs and rare blocked PACs. Right groin site benign; gauze removed this morning. Denies chest pain/SOB. Potassium replaced. Says he is ready to go home. Slept comfortably overnight. PLAN MOVING FORWARD: Discharge today? INDIVIDUALIZED FALL PREVENTION INTERVENTIONS: Patient-specific fall risk factors per assessment: [current deficits]: None Assistance [level of assistance required for transfers and ambulation]: IND Supervision [direct monitoring required during toileting and ADLs]: Room near unit station, call issa in reach, bed in lowest position Surveillance [continuous indirect monitoring]: Telemetry, purposeful hourly rounding Patient-specific fall prevention interventions for sensory deficits provided, if applicable: [X] No CPG GOAL OUTCOME EVALUATION: Ongoing Plan of Care - María Elena Smith RN - 08/15/2016 5:23 PM EST Problem: Patient Care Overview Goal: Plan of Care Review Outcome: Ongoing (Interventions Implemented as Appropriate) 08/15/16 0735 08/15/16 1552 Coping/Psychosocial Plan Of Care Reviewed With patient -- Plan of Care Review Progress -- improving OUTCOME EVALUATION NOTE: OUTCOME SUMMARY: A&O. VSS on RA. Denied CP or SOB. SR on tele. Taken to prosthetics lab technician around 0800. Refer to results for details. R femoral access. Dressing dry and intact. No bleeding or hematoma at site. Bedrest was held until 1530. VSS post cath. Post cath fluids maintained. PLAN MOVING FORWARD: Adjust meds, d/c maribeth? INDIVIDUALIZED FALL PREVENTION INTERVENTIONS: Patient-specific fall risk factors per assessment: [current deficits]: New meds, nightmares, urgencywith getting up, cath Assistance [level of assistance required for transfers and ambulation]: SBA Supervision [direct monitoring required during toileting and ADLs]: SBA Surveillance [continuous indirect monitoring]: Tele, hourly rounding Patient-specific fall prevention interventions for sensory deficits provided, if applicable: [X] Yes CPG GOAL OUTCOME EVALUATION: ongoing Goal: Fall Prevention-Safe Patient Handling Outcome: Ongoing (Interventions Implemented as Appropriate) 08/15/16 0735 08/15/16 1535 Santacruz Fall Risk History of Falling 0 -- Secondary Diagnosis 15 -- Ambulatory Aids 0 -- Intravenous Therapy/Heparin/Saline Lock 20 -- Gait/Transferring 0 -- Mental Status 0 -- Score 35 -- OTHER Santacruz Fall Risk Med -- Restraint Interventions Safety Promotion/Fall Prevention safety round/check completed;nonskid shoes/slippers when out of bed;muscle strengthening facilitated;fall prevention program maintained;activity supervised -- Positioning Body Position -- supine, head elevated Goal: Infection Control Outcome: Ongoing (Interventions Implemented as Appropriate) 08/15/16 0735 Safety Interventions Isolation Precautions standard precautions maintained Infection Prevention rest/sleep promoted;personal protective equipment utilized;environmental surveillance performed Coping Strategies Supportive Measures active listening utilized;self-care encouraged Goal: Discharge Needs Assessment Outcome: Ongoing (Interventions Implemented as Appropriate) 08/15/16 0218 Discharge Needs Assessment Concerns To Be Addressed no discharge needs identified Equipment Needed After Discharge none Discharge Disposition home or self-care Current Health Anticipated Changes Related to Illness none Activity/Self Care Review of Systems Equipment Currently Used at Home none Living Environment Transportation Available family or friend will provide Goal: Interdisciplinary Rounds/Family Conf Outcome: Ongoing (Interventions Implemented as Appropriate) 08/14/16 1623 Interdisciplinary Rounds/Family Conf Participants nursing;physician;patient Initial Assessments - Charly Morales RN - 08/15/2016 3:15 PM EST Office of Care Management 4 [facility] Cardiac Care Director Learning And Development RN Charly Morales RN, MSN Pager [phone] Provider: Dr. Shields, pager [phone] Office of Care Management Initial Assessment Charly Morales RN reviewed record and discussed patient with Care Team. Source of Information: patient, son Introduced self/reviewed role; services accepted. Reason for Hospitalization: unstable angina with positive stress test Past Medical History Diagnosis Date ??? CAD (coronary artery disease) S/P cabg 1987 ??? Heart murmur MR ??? Hyperlipidemia ??? Hypertension Hospitalizations Within the Past 30 Days: none Anticipated Length Of Stay (If known): 1-2 days Current Decision-Making Capacity: self Advance Care Planning: copy of AD at home Current Coping/Education/Information Needs: appears to be in good spirits, readily interacts with staff, laying in bed visiting with son Current Functional Ability: SBA Functional Status Prior to Admission: independent, drives, cuts wood, shovels snow Home Environment: 1 step to enter the home, one flight down cellar Social & Family Supports/Community Resources: son lives in area, able to stop by and help if needed Behavioral Health History: anxiety Substance Use/Abuse: quit smoking 1987 Other Pertinent/Service Specific Information: none Health/Prescription Coverage: Primary Insurance: medicare A/B Secondary Insurance: Tempolib Prescription Coverage: [employer] Preferred Pharmacy: [facility] Other: none Primary Care Provider: Guzman Thompson MD [phone] Patient/Caregiver Goals of Treatment: return to normal daily routine Potential Needs for Transition of Care: Rehab/SNF: n/a Home Health: n/a DME: none Dialysis: n/a Community Resources: none Transportation: son (Pranav) or granddaughter (Bre) Other: none Anticipated Barriers to Discharge/Special Considerations: not medically ready Plan: home with family support A member of the Care Management team will continue to monitor progress, follow for continuity of care and assist with transition of care planning. Consult Note - Marline Rivas RN - 08/15/2016 2:35 PM EST Timmy Farrell is s/p PCI today with h/o prior CABG He was seen today by Cardiac Rehabilitation for: Activity evaluation - Not done; He is still on bedrest post PCI Educational packet regarding CAD, cardiac risk factors, and managing angina given to the patient. Heart diagram reviewed. Mediterranean diet guidelines briefly reviewed. Given parameters for home exercise. He has difficulty with sustained walking d/t flat feel and heel pain. 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 He did this after his CABG Patient agrees to a referral to this program. The referral will be sent at discharge and the patient should be contacted by the Program within 1- 2 weeks from discharge. Plan of Care - Aleisha Osuna RN - 08/15/2016 2:43 AM EST Problem: Patient Care Overview Goal: Plan of Care Review OUTCOME EVALUATION NOTE: OUTCOME SUMMARY: No issues during evening. Rested until about 0130 and woke with nightmare. Assisted to chair and watched TV until head cleared. PLAN MOVING FORWARD: ardiac cath in am INDIVIDUALIZED FALL PREVENTION INTERVENTIONS: Patient-specific fall risk factors per assessment: [current deficits]: Tubings, Assistance [level of assistance required for transfers and ambulation]: Stand by assist Supervision [direct monitoring required during toileting and ADLs]: Stand by assist Surveillance [continuous indirect monitoring]: Hourly rounding, telemetry Patient-specific fall prevention interventions for sensory deficits provided, if applicable: [X] N/A CPG GOAL OUTCOME EVALUATION: Plan of Care - María Elena Smith RN - 08/14/2016 5:05 PM EST Problem: Patient Care Overview Goal: Plan of Care Review Outcome: Ongoing (Interventions Implemented as Appropriate) 08/14/16 1029 08/14/16 4602 Coping/Psychosocial Plan Of Care Reviewed With patient -- Plan of Care Review Progress -- progress toward functional goals is gradual OUTCOME EVALUATION NOTE: OUTCOME SUMMARY: A&O. VSS on RA. Denied CP or SOB. Anxiety with procedures and plan of care. Ambulated in room SBA. Went over to [facility] around 1000 for aspirin desensitization. 2nd IV placed in [facility]. Refer to notes for results and details. no adverse effects noted. Heparin gtt maintained per protocol. Echo done in [facility]. SR on tele. No events noted. PLAN MOVING FORWARD: NPO for cath INDIVIDUALIZED FALL PREVENTION INTERVENTIONS: Patient-specific fall risk factors per assessment: [current deficits]: New meds, flushing and chest tightness, aspirin desensitization Assistance [level of assistance required for transfers and ambulation]: SBA Supervision [direct monitoring required during toileting and ADLs]: SBA Surveillance [continuous indirect monitoring]: Tele, hourly rounding Patient-specific fall prevention interventions for sensory deficits provided, if applicable: [X] Yes CPG GOAL OUTCOME EVALUATION: ongoing Goal: Fall Prevention-Safe Patient Handling Outcome: Ongoing (Interventions Implemented as Appropriate) 08/14/16 0740 Santacruz Fall Risk History of Falling 0 Secondary Diagnosis 15 Ambulatory Aids 0 Intravenous Therapy/Heparin/Saline Lock 20 Gait/Transferring 0 Mental Status 0 Score 35 OTHER Santacruz Fall Risk Med Restraint Interventions Safety Promotion/Fall Prevention activity supervised;nonskid shoes/slippers when out of bed;safety round/check completed Positioning Body Position independent Goal: Infection Control Outcome: Ongoing (Interventions Implemented as Appropriate) 08/14/16 0740 Safety Interventions Isolation Precautions standard precautions maintained Infection Prevention rest/sleep promoted;single patient room provided Coping Strategies Supportive Measures active listening utilized Goal: Interdisciplinary Rounds/Family Conf Outcome: Ongoing (Interventions Implemented as Appropriate) 08/14/16 1623 Interdisciplinary Rounds/Family Conf Participants nursing;physician;patient Plan of Care - María Elena Smith RN - 08/14/2016 4:31 PM EST Problem: Patient Care Overview Goal: Plan of Care Review Outcome: Ongoing (Interventions Implemented as Appropriate) 08/14/16 1029 08/14/16 1623 Coping/Psychosocial Plan Of Care Reviewed With patient -- Plan of Care Review Progress -- progress toward functional goals is gradual OUTCOME EVALUATION NOTE: OUTCOME SUMMARY: A&O. Verbalized being anxious because normally very healthy. VSS on RA. Denied CP or SOB. Deniedpain. Pt SBA/IND. Went to [facility] around 1000 for an aspirin desensitization. No adverse reactions noted. Refer to notes for details. 2nd IV placed in [facility]. Echo done. Stable on return. Hep gtt maintained per protocol. SR on tele. PLAN MOVING FORWARD: NPO for cath tomorrow INDIVIDUALIZED FALL PREVENTION INTERVENTIONS: Patient-specific fall risk factors per assessment: [current deficits]: New meds, heparin gtt, generalized weakness Assistance [level of assistance required for transfers and ambulation]: SBA Supervision [direct monitoring required during toileting and ADLs]: SBA Surveillance [continuous indirect monitoring]: Tele, hourly rounding Patient-specific fall prevention interventions for sensory deficits provided, if applicable: [X] Yes CPG GOAL OUTCOME EVALUATION: ongoing Goal: Fall Prevention-Safe Patient Handling Outcome: Ongoing (Interventions Implemented as Appropriate) 08/14/16 0740 Santacruz Fall Risk History of Falling 0 Secondary Diagnosis 15 Ambulatory Aids 0 Intravenous Therapy/Heparin/Saline Lock 20 Gait/Transferring 0 Mental Status 0 Score 35 OTHER Santacruz Fall Risk Med Restraint Interventions Safety Promotion/Fall Prevention activity supervised;nonskid shoes/slippers when out of bed;safety round/check completed Positioning Body Position independent Goal: Infection Control Outcome: Ongoing (Interventions Implemented as Appropriate) 08/14/16 0740 Safety Interventions Isolation Precautions standard precautions maintained Infection Prevention rest/sleep promoted;single patient room provided Coping Strategies Supportive Measures active listening utilized Goal: Interdisciplinary Rounds/Family Conf Outcome: Ongoing (Interventions Implemented as Appropriate) 08/14/16 1623 Interdisciplinary Rounds/Family Conf Participants nursing;physician;patient Plan of Care - Karlie Monae RN - 08/14/2016 7:51 AM EST Problem: Patient Care Overview Goal: Plan of Care Review Outcome: Ongoing (Interventions Implemented as Appropriate) 08/14/16 0748 Coping/Psychosocial Plan Of Care Reviewed With patient Plan of Care Review Progress no change OUTCOME EVALUATION NOTE: OUTCOME SUMMARY: SR 60-90s w/ rare PVCs. Denies CP overnight. O2 sats stable on RA. Bed alarm on throughout shift, ptforgetful to use call light. Continues on Heparin gtt at 1150 units/hr. Next PTT at 1130. No acute events overnight. PLAN MOVING FORWARD: NPO. Continue to monitor rate/rhythm, pain, labs, and strict 1&O. Notify MDs as necessary for pertinent pt condition changes. INDIVIDUALIZED FALL PREVENTION INTERVENTIONS: Patient-specific fall risk factors per assessment: [current deficits]: IV tubing Assistance [level of assistance required for transfers and ambulation]: SBA Supervision [direct monitoring required during toileting and ADLs]: Call light w/in reach. Pt w/in arms reach when transferring or ambulating to bathroom. Door open throughout shift Surveillance [continuous indirect monitoring]: Hourly rounding Patient-specific fall prevention interventions for sensory deficits provided, if applicable: Yes CPG GOAL OUTCOME EVALUATION: documented in this encounter Plan of Treatment Scheduled Referrals Name Type Priority Associated Diagnoses Order S chedule Referral to Outpatient Referral Routine S/P coronary artery O rdered: Cardiac Rehab stent placement 08/15/2016 documented as of this encounter Procedures Procedure Name Priority Date/Time Associated Diagnosis Comme nts GLOBAL PROGRAM DIRECTOR SCAN 08/17/2016 12:00 Res ults for this AM EST procedure are i n the results section. CARDIAC ENZYMES Timed 08/16/2016 10:23 Results for this ([facility] [place]) AM EST procedure are i n the results section. EKG 12-LEAD Routine 08/16/2016 7:36 Unstable angina with Resu lts for this AM EST positive stress test procedu re are in the results section. BMP W/FASTING GLUCOSE Routine 08/16/2016 4:37 Res ults for this AM EST procedure are i n the results section. HEMOGRAM Routine 08/16/2016 4:37 Results for this AM EST procedure are i n the results section. DIFFERENTIAL, Routine 08/16/2016 4:37 Results for this AUTOMATED AM EST procedure are i n the results section. CARDIAC ENZYMES Routine 08/16/2016 4:37 Results f or this ([facility] [place]/P) AM EST procedure are i n the results section. APTT STAT 08/16/2016 4:37 Results for this AM EST procedure are i n the results section. CBC (WITH DIFF) Routine 08/16/2016 4:37 AM EST HEPATIC FUNCTION PANEL Routine 08/16/2016 4:37 Re sults for this AM EST procedure are i n the results section. EKG 12-LEAD Routine 08/15/2016 12:00 Unstable angina with Res ults for this PM EST positive stress test procedu re are in the results section. BMP W/FASTING GLUCOSE STAT 08/15/2016 11:30 Re sults for this AM EST procedure are i n the results section. CARDIAC ENZYMES STAT 08/15/2016 11:30 Results for this ([facility] [place]) AM EST procedure are i n the results section. HEMOGRAM Routine 08/15/2016 3:48 Results for this AM EST procedure are i n the results section. DIFFERENTIAL, Routine 08/15/2016 3:48 Results for this AUTOMATED AM EST procedure are i n the results section. APTT STAT 08/15/2016 3:48 Results for this AM EST procedure are i n the results section. CBC (WITH DIFF) Routine 08/15/2016 3:48 AM EST APTT STAT 08/14/2016 5:28 Results for this PM EST procedure are i n the results section. ECHOCARDIOGRAM Routine 08/14/2016 1:15 Unstable angina with Re sults for this COMPLETE W CONTRAST PM EST positive stress test procedure are in the results section. APTT STAT 08/14/2016 11:25 Results for this AM EST procedure are i n the results section. EKG 12-LEAD Routine 08/14/2016 8:46 ASCVD Results for this AM EST (arteriosclerotic procedure are in cardiovascular the results disease) section. HEMOGRAM Routine 08/14/2016 4:39 Results for this AM EST procedure are i n the results section. DIFFERENTIAL, Routine 08/14/2016 4:39 Results for this AUTOMATED AM EST procedure are i n the results section. CARDIAC ENZYMES Routine 08/14/2016 4:39 Results f or this ([facility] [place]) AM EST procedure are i n the results section. APTT STAT 08/14/2016 4:39 Results for this AM EST procedure are i n the results section. CBC (WITH DIFF) Routine 08/14/2016 4:39 AM EST MAGNESIUM Routine 08/14/2016 4:39 Results for this AM EST procedure are i n the results section. BASIC METABOLIC PANEL Routine 08/14/2016 4:39 Res ults for this (NON-FASTING) AM EST procedure are in the results section. CARDIAC ENZYMES STAT 08/14/2016 1:40 Results f or this ([facility] [place]) AM EST procedure are i n the results section. EKG 12-LEAD STAT 08/13/2016 8:26 CAD s/p CABG Results for this PM EST procedure are i n the results section. HEMOGRAM STAT 08/13/2016 7:29 Results for this PM EST procedure are i n the results section. DIFFERENTIAL, STAT 08/13/2016 7:29 Results for this AUTOMATED PM EST procedure are i n the results section. CARDIAC ENZYMES STAT 08/13/2016 7:29 Results f or this ([facility] [place]) PM EST procedure are i n the results section. APTT STAT 08/13/2016 7:29 Results for this PM EST procedure are i n the results section. PROTHROMBIN TIME STAT 08/13/2016 7:29 Results for this PM EST procedure are i n the results section. CBC (WITH DIFF) STAT 08/13/2016 7:29 PM EST TSH STAT 08/13/2016 7:29 Results for this PM EST procedure are i n the results section. PRO-BRAIN NATRIURETIC STAT 08/13/2016 7:29 Res ults for this PEPTIDE PM EST procedure are i n the results section. LIPID PANEL (REFLEX STAT 08/13/2016 7:29 Resul ts for this DIRECT LDL) PM EST procedure are i n the results section. BASIC METABOLIC PANEL STAT 08/13/2016 7:29 Res ults for this (NON-FASTING) PM EST procedure are in the results section. HEMOGLOBIN A1C Routine 08/13/2016 7:28 Results fo r this PM EST procedure are i n the results section. documented in this encounter Results SCAN DOC: GLOBAL PROGRAM DIRECTOR (08/17/2016 12:00 AM EST) Narrative 08/17/2016 12:00 AM EST This result has an attachment that is no t available. Ordered by an unspecified provider. Scanning Provider MEDIA MGR SCAN EXT ORDR/RSLT (ABNORMAL) Cardiac Enzymes (08/16/2016 10:23 AM EST) P athologist Signature Troponin-T 0.14 (H) <=0.03 [facility] ng/mL [facility] Comment: 0.03 ng/mL: Represents the 99th percenti le upper reference limit for normals. >0.03 ng/mL: Elevated cardiac troponin T level indicative of myocardial damage. Diagnosis of acute, evolving or recent M I requires a typical rise and gradual fall of cTnT with at least ONE of the fo llowing: a) Ischemic symptoms b) Development of pathologic Q waves on the ECG c) ECG changes indicative of eschemia (S -T segment elevation/depression) d) Coronary artery intervention Serial bloods should be obtained for haritha ting on admission, at 6 to 9 hrs and again at 12 to 24 hrs if earlier samples are negative and the clinical index of suspicion is high. Reference: [Myocardial infarction redefined? a consensus document of the Joint Society of Cardiology/[place] College o f [employer] Committee for the redefinition of myocardial infarction. ? ?Journal of the [place] College [employer]iology 2000; 36: 959-969] CK, Total 135 0 - 200 unit/L [facility] Specimen Anatomical Collection Method Collection Time Receive d Time (Source) Location / / Volume Laterality Blood specimen 08/16/2016 10:23 7 (specimen) AM EST 10:27 AM EST Resulting Agency Comment Spec In Lab Shlomo Shields MD CHEMISTRY ORDERABLES Performing Organization Address City/State/[place] [address] EKG 12 Lead (08/16/2016 7:36 AM EST) Component Value Ref Range Test Analysis Performed Pathologis t Method Time At Signature Ventricular rate 77 BPM MUSE SYSTEM Atrial Rate 77 BPM MUSE SYSTEM P-R Interval 180 ms MUSE SYSTEM QRS Duration 96 ms MUSE SYSTEM Q-T Interval 376 ms MUSE SYSTEM QTC Calculated 425 ms MUSE SYSTEM (Bezet) Calculated P [place] 56 degrees MUSE SYSTEM Calculated R [place] 39 degrees MUSE SYSTEM Calculated T [place] -98 degrees MUSE SYSTEM INTERPRETATION Normal sinus rhythm MUSE SYSTEM Left atrial enlargement Early transition Voltage criteria for left ve ntricular hypertrophy with repolarization abnormality cannot exclude ischemia Inferior infarct (cited on or before 21-JUL-2015) Abnormal ECG When compared with ECG of 15-AUG-2016 12:00, Non-specific change in ST segment in Anterior leads Inverted T waves have replac ed nonspecific T wave abnormality in Inferior leads T wave inversion more evident in Anterolateral leads Rate faster I personally reviewed the tracing and edited the fellows int erpretation Confirmed by fellow MD MACKENZIE, SOUMYA ([id number]) on 08/16/2016 9:4 5:50 AM Confirmed by MD Lottie, Francesco Morrison ([id number]) on 08/17/2016 7:43: 58 AM Specimen Anatomical Collection Method Collection Time Receive d Time (Source) Location / / Volume Laterality 08/16/2016 7:36 AM 7 7:43 EST AM EST Luanne Moran MD ECG ORDERABLES Performing Organization Address City/[facility]/ZIP Code Phon e Number MUSE SYSTEM Hepatic Function Panel (08/16/2016 4:37 AM EST) P athologist Signature Total Protein 6.9 6.1 - 8.0 [facility] Albumin 3.8 3.2 - 5.2 [facility] gm/dL [facility] AST 20 0 - 39 [facility] unit/L [facility] ALT 17 0 - 55 [facility] unit/L [facility] Alk Phos 68 40 - 120 [facility] unit/L [facility] Total 0.8 0.2 - 1.3 [facility] Bilirubin mg/dL [facility] Bili, Direct 0.1 0.0 - 0.3 [facility] mg/dL [facility] Specimen Anatomical Collection Method Collection Time Receive d Time (Source) Location / / Volume Laterality Blood specimen Venous Draw / 08/16/2016 4:37 AM 2016 4:50 (specimen) Unknown EST AM EST Resulting Agency Comment Spec In Lab Shlomo Shields MD CHEMISTRY ORDERABLES Performing Organization Address City/[facility]/[place] [address] Differential, Automated (08/16/2016 4:37 AM EST) athologist Signature Neutrophils % 71.3 % [facility] Neutr Abs (ANC) 4.44 1.70 - [facility] 6.10 [facility] x10(3)/[facility] LABORATORY Lymphocytes % 14.6 % [facility] Lymphocytes Abs 0.9 0.9 - 3.2 [facility] x10(3)/[facility] LABORATORY Monocytes % 10.9 % [facility] Monocyte Abs 0.7 0.3 - 0.9 [facility] x10(3)/[facility] LABORATORY Eosinophils % 2.7 % [facility] Eosinophils Abs 0.2 0.0 - 0.4 [facility] x10(3)/[facility] LABORATORY Basophils % 0.2 % [facility] Basophils Abs 0.0 0.0 - 0.1 [facility] x10(3)/[facility] LABORATORY Immature Gran % 0.30 % [facility] Comment: Immature granulocytes(IG's)percentage an d absolute count will include metamyelocytes, myelocytes, and promyelo cytes. Blood smears from CBCs yielding IG's will be scanned manually for concor dance. If this scan disagrees with the automated IG or if promyelocytes are not ed, a manual differential will be performed. Karen Gran Abs 0.02 0.00 - 0.04 x10(3)/[facility] Specimen Anatomical Collection Method Collection Time Receive d Time (Source) Location / / Volume Laterality Blood specimen 08/16/2016 4:37 AM 017 4:46 (specimen) EST AM EST Resulting Agency Comment Spec In Lab Luanne Moran MD HEMATOLOGY ORDERABLES Performing Organization Address City/State/ZIP Code Phon e Number [place] [id number] (ABNORMAL) Hemogram (08/16/2016 4:37 AM EST) Analysis Performed At Patho logist Time Signature WBC 6.2 4.0 - 9.5 [facility] x10(3)/[facility] LABORATORY RBC 4.58 4.58 - [facility] x10(6)/[facility] LABORATORY Hemoglobin 14.0 13.7 - [facility] 16.5 gm/dL [facility] Hematocrit 39.8 (L) 40.5 - [facility] 48.5 % [facility] MCV 86.9 82.9 - [facility] 93.1 fL [facility] MCH 30.6 27.5 - [facility]1 pg [facility] MCHC 35.2 32.0 - [facility] 35.7 gm/dL [facility] Platelets 172 145 - 357 [facility] x10(3)/[facility] LABORATORY RDWSD 38.8 36.0 - LIZ BLEVINS 45.[address] [facility] LABORATORY RDWCV 12.1 11.4 - [facility] 13.8 % [facility] MPV 10.9 7.6 - 12.9 [facility] LABORATORY nRBC % Auto 0.0 % [facility] nRBC Abs Auto 0.000 0.000 - [facility] 0.000 [facility] x10(3)/[facility] LABORATORY Specimen Anatomical Collection Method Collection Time Receive d Time (Source) Location / / Volume Laterality Blood specimen 08/16/2016 4:37 AM 017 4:46 (specimen) EST AM EST Resulting Agency Comment Spec In Lab Luanne Moran MD HEMATOLOGY ORDERABLES Performing Organization Address City/State/[place] [address] (ABNORMAL) BMP w/fasting Glucose (08/16/2016 4:37 AM EST) athologist Signature Glucose 117 (H) 65 - 99 [facility] Fasting mg/dL [facility] Comment: ?Fasting* Glucose Interpretive C riteria [...] of Diabetes Mellitus, Position Statement from the [place] [employer]. ??Diabete s Care, Volume 33, Supplement 1, Jun 2009 BUN 18 10 - 20 mg/dL [facility] Creatinine 0.93 0.80 - 1.50 mg/dL [facility] Comment: Please note that the pediatric reference intervals supplied above were not validated at [facility]. Results from pediatri c patients should be interpreted in conjunction to the patient's age, height and muscle mass. Sodium 139 135 - 145 mmol/L [facility] Potassium 3.6 3.5 - 5.0 mmol/L [facility] Comment: Please note: ??Patients with WBC >100,00 0 may have falsely elevated Potassium levels. ??For accurate Potassium quantif ication in these patients send serum separator tube (gold top) for subsequent determinations. ??Contact the Clinical Chemistry Laboratory if there are any qu estions. Chloride 101 98 - 107 mmol/L [facility] CO2 24 22 - 31 mmol/L [facility] Anion Gap 14 5 - 15 mmol/L [facility] Calcium 8.7 8.5 - 10.5 mg/dL [facility] Estimated GFR >60 >=60 [facility] Comment: This estimated GFR (eGFR) value was calc ulated using the MDRD equation which has been validated on patients between t he ages of 18 and 70. The MDRD should not be used to assess kidney function in patients < 18 years of age or in patients with extremes of body mass, or in patients with acute kidney failure. This value should be multiplied by 1.2 f or patients. For further information please copy and past e the following links into your internet browser. [email or web address] Specimen Anatomical Collection Method Collection Time Receive d Time (Source) Location / / Volume Laterality Blood specimen 08/16/2016 4:37 AM 017 4:46 (specimen) EST AM EST Resulting Agency Comment Spec In Lab Luanne Moran MD CHEMISTRY ORDERABLES Performing Organization Address City/State/[place] [address] (ABNORMAL) Cardiac Enzymes (08/16/2016 4:37 AM EST) P athologist Signature Troponin-T 0.15 (H) <=0.03 [facility] ng/mL [facility] Comment: 0.03 ng/mL: Represents the 99th percenti le upper reference limit for normals. >0.03 ng/mL: Elevated cardiac troponin T level indicative of myocardial damage. Diagnosis of acute, evolving or recent M I requires a typical rise and gradual fall of cTnT with at least ONE of the fo llowing: a) Ischemic symptoms b) Development of pathologic Q waves on the ECG c) ECG changes indicative of eschemia (S -T segment elevation/depression) d) Coronary artery intervention Serial bloods should be obtained for haritha ting on admission, at 6 to 9 hrs and again at 12 to 24 hrs if earlier samples are negative and the clinical index of suspicion is high. Reference: [Myocardial infarction redefined? a consensus document of the Joint Society of Cardiology/[place] [employer] o f [employer] Committee for the redefinition of myocardial infarction. ? ?Journal of the [place] [employer] 2000; 36: 959-969] CK, Total 127 0 - 200 unit/L [facility] Comment: result rechecked-[facility] Specimen Anatomical Collection Method Collection Time Receive d Time (Source) Location / / Volume Laterality Blood specimen 08/16/2016 4:37 AM 017 4:46 (specimen) EST AM EST Resulting Agency Comment Spec In Lab Luanne Moran MD CHEMISTRY ORDERABLES Performing Organization Address City/[facility]/[place] [address] APTT (08/16/2016 4:37 AM EST) P athologist Signature PTT 30 25 - 35 sec [facility] Comment: The recommended therapeutic range for fu ll dose, unfractionated heparin at [facility] is 80 ? 114 seconds. The use of the anti-Xa (heparin) level rather than the PTT is recommended for monitoring anticoagul ation intensity in critically ill patients receiving unfractionated hepari n by continuous IV infusion. Specimen Anatomical Collection Method Collection Time Receive d Time (Source) Location / / Volume Laterality Blood specimen 08/16/2016 4:37 AM 017 4:46 (specimen) EST AM EST Resulting Agency Comment Spec In Lab Shlomo Shields MD HEMATOLOGY ORDERABLES Performing Organization Address City/[facility]/[place] [address] EKG 12 Lead (08/15/2016 12:00 PM EST) Component Value Ref Range Test Analysis Performed Pathologis t Method Time At Signature Ventricular rate 53 BPM MUSE SYSTEM Atrial Rate 53 BPM MUSE SYSTEM P-R Interval 208 ms MUSE SYSTEM QRS Duration 94 ms MUSE SYSTEM Q-T Interval 418 ms MUSE SYSTEM QTC Calculated 392 ms MUSE SYSTEM (Bezet) Calculated P [place] 35 degrees MUSE SYSTEM Calculated R [place] 19 degrees MUSE SYSTEM Calculated T [place] 10 degrees MUSE SYSTEM INTERPRETATION Sinus bradycardia MUSE SY STEM Possible Left atrial enlargement Inferior infarct , age undetermined T wave abnormality, consider lateral ischemia Abnormal ECG When compared with ECG of 14-AUG-2016 08:46, Inferior infarct is now Present Nonspecific T wave abnormality has repla jenaro inverted T waves in Inferior leads Confirmed by MD FLAKITA, DERIC ([id number]) on 08/15/2016 1:30:2 2 PM Specimen Anatomical Collection Method Collection Time Receive d Time (Source) Location / / Volume Laterality 08/15/2016 12:00 08/15/2016 1:30 PM EST PM EST Luanne Moran MD ECG ORDERABLES Performing Organization Address City/State/ZIP Code Phon e Number MUSE SYSTEM (ABNORMAL) BMP w/fasting Glucose (08/15/2016 11:30 AM EST) P athologist Signature Glucose 102 (H) 65 - 99 [facility] Fasting mg/dL [facility] Comment: ?Fasting* Glucose Interpretive C riteria [...] of Diabetes Mellitus, Position Statement from the [place] [employer]. ??Diabete s Care, Volume 33, Supplement 1, Jun 2009 BUN 15 10 - 20 mg/dL [facility] Creatinine 0.95 0.80 - 1.50 mg/dL [facility] Comment: Please note that the pediatric reference intervals supplied above were not validated at [facility]. Results from pediatri c patients should be interpreted in conjunction to the patient's age, height and muscle mass. Sodium 134 (L) 135 - 145 mmol/L [facility] Potassium 3.8 3.5 - 5.0 mmol/L [facility] Comment: Please note: ??Patients with WBC >100,00 0 may have falsely elevated Potassium levels. ??For accurate Potassium quantif ication in these patients send serum separator tube (gold top) for subsequent determinations. ??Contact the Clinical Chemistry Laboratory if there are any qu estions. Chloride 100 98 - 107 mmol/L [facility] CO2 25 22 - 31 mmol/L [facility] Anion Gap 9 5 - 15 mmol/L [facility] Calcium 8.1 (L) 8.5 - 10.5 mg/dL [facility] Estimated GFR >60 >=60 [facility] Comment: This estimated GFR (eGFR) value was calc ulated using the MDRD equation which has been validated on patients between t he ages of 18 and 70. The MDRD should not be used to assess kidney function in patients < 18 years of age or in patients with extremes of body mass, or in patients with acute kidney failure. This value should be multiplied by 1.2 f or patients. For further information please copy and past e the following links into your internet browser. [email or web address] Specimen Anatomical Collection Method Collection Time Receive d Time (Source) Location / / Volume Laterality Blood specimen Venous Draw / 08/15/2016 11:30 08/15/19 17 (specimen) Unknown AM EST 11:45 AM EST Resulting Agency Comment Spec In Lab Shlomo Shields MD CHEMISTRY ORDERABLES Performing Organization Address City/State/[place] [address] Cardiac Enzymes (08/15/2016 11:30 AM EST) athologist Signature Troponin-T <0.03 <=0.03 [facility] ng/mL [facility] Comment: 0.03 ng/mL: Represents the 99th percenti le upper reference limit for normals. >0.03 ng/mL: Elevated cardiac troponin T level indicative of myocardial damage. Diagnosis of acute, evolving or recent M I requires a typical rise and gradual fall of cTnT with at least ONE of the fo llowing: a) Ischemic symptoms b) Development of pathologic Q waves on the ECG c) ECG changes indicative of eschemia (S -T segment elevation/depression) d) Coronary artery intervention Serial bloods should be obtained for haritha ting on admission, at 6 to 9 hrs and again at 12 to 24 hrs if earlier samples are negative and the clinical index of suspicion is high. Reference: [Myocardial infarction redefined? a consensus document of the Joint Society of Cardiology/[place] [employer] o f [employer]iology Committee for the redefinition of myocardial infarction. ? ?Journal of the [place] [employer]iology 2000; 36: 959-969] CK, Total 72 0 - 200 unit/L [facility] Specimen Anatomical Collection Method Collection Time Receive d Time (Source) Location / / Volume Laterality Blood specimen 08/15/2016 11:30 7 (specimen) AM EST 11:43 AM EST Resulting Agency Comment Spec In Lab Shlomo Shields MD CHEMISTRY ORDERABLES Performing Organization Address City/State/[place] [address] (ABNORMAL) APTT (08/15/2016 3:48 AM EST) athologist Signature PTT 89 (H) 25 - 35 sec [facility] Comment: The recommended therapeutic range for fu ll dose, unfractionated heparin at [facility] is 80 ? 114 seconds. The use of the anti-Xa (heparin) level rather than the PTT is recommended for monitoring anticoagul ation intensity in critically ill patients receiving unfractionated hepari n by continuous IV infusion. Specimen Anatomical Collection Method Collection Time Receive d Time (Source) Location / / Volume Laterality Blood specimen 08/15/2016 3:48 AM 02/20/2 017 4:15 (specimen) EST AM EST Resulting Agency Comment Spec In Lab Josefina Woo MD HEMATOLOGY ORDERABLES Performing Organization Address City/State/[place] [address] Differential, Automated (08/15/2016 3:48 AM EST) P athologist Signature Neutrophils % 65.7 % [facility] Neutr Abs (ANC) 4.30 1.70 - [facility] 6.10 [facility] x10(3)/[facility] LABORATORY Lymphocytes % 19.1 % [facility] Lymphocytes Abs 1.2 0.9 - 3.2 [facility] x10(3)/[facility] LABORATORY Monocytes % 9.9 % [facility] Monocyte Abs 0.6 0.3 - 0.9 [facility] x10(3)[facility] LABORATORY Eosinophils % 4.7 % [facility] Eosinophils Abs 0.3 0.0 - 0.4 [facility] x10(3)/[facility] LABORATORY Basophils % 0.3 % [facility] Basophils Abs 0.0 0.0 - 0.1 [facility] x10(3)[facility] LABORATORY Immature Gran % 0.30 % [facility] Comment: Immature granulocytes(IG's)percentage an d absolute count will include metamyelocytes, myelocytes, and promyelo cytes. Blood smears from CBCs yielding IG's will be scanned manually for concor dance. If this scan disagrees with the automated IG or if promyelocytes are not ed, a manual differential will be performed. Karen Gran Abs 0.02 0.00 - 0.04 x10(3)/[facility] LABORATORY Specimen Anatomical Collection Method Collection Time Receive d Time (Source) Location / / Volume Laterality Blood specimen 08/15/2016 3:48 AM 017 4:15 (specimen) EST AM EST Resulting Agency Comment Spec In Lab Josefina Woo MD HEMATOLOGY ORDERABLES Performing Organization Address City/[facility]/ZIP Code Phon e Number [place] [id number] Hemogram (08/15/2016 3:48 AM EST) P athologist Signature WBC 6.6 4.0 - 9.5 [facility] x10(3)/[facility] LABORATORY RBC 4.83 4.58 - [facility] 5.54 [facility] x10(6)/[facility] LABORATORY Hemoglobin 15.1 13.7 - [facility]/dL [facility] Hematocrit 42.6 40.5 - [facility] 48.5 % [facility] MCV 88.2 82.9 - [facility] [facility] LAB[facility]ATORY MCH 31.3 27.5 - [facility] 32.1 pg [facility] MCHC 35.4 32.0 - [facility] 35.7 gm/dL [facility] Platelets 167 145 - 357 [facility] x10(3)/[facility] LABORATORY RDWSD 39.1 36.0 - [facility] [facility] LABORATORY RDWCV 12.0 11.4 - [facility] 13.8 % [facility] MPV 11.3 7.6 - 12.9 [facility] LABORATORY nRBC % Auto 0.0 % [facility] nRBC Abs Auto 0.000 0.000 - [facility] 0.000 [facility] x10(3)/[facility] LABORATORY Specimen Anatomical Collection Method Collection Time Receive d Time (Source) Location / / Volume Laterality Blood specimen 08/15/2016 3:48 AM 017 4:15 (specimen) EST AM EST Resulting Agency Comment Spec In Lab Josefina Woo MD HEMATOLOGY ORDERABLES Performing Organization Address City/State/[place] [address] (ABNORMAL) APTT (08/14/2016 5:28 PM EST) P athologist Signature PTT 93 (H) 25 - 35 sec [facility] Comment: The recommended therapeutic range for fu ll dose, unfractionated heparin at [facility] is 80 ? 114 seconds. The use of the anti-Xa (heparin) level rather than the PTT is recommended for monitoring anticoagul ation intensity in critically ill patients receiving unfractionated hepari n by continuous IV infusion. Specimen Anatomical Collection Method Collection Time Receive d Time (Source) Location / / Volume Laterality Blood specimen 08/14/2016 5:28 PM 017 5:35 (specimen) EST PM EST Resulting Agency Comment Spec In Lab Josefina Woo MD HEMATOLOGY ORDERABLES Performing Organization Address City/State/[place] [address] ECHOCARDIOGRAM COMPLETE W CONTRAST (08/14/2016 1:15 PM EST) athologist Signature EF 70 [facility] Anatomical Region Laterality Modality Other Specimen (Source) Anatomical Location Collection Method / Collectio n Time Received Time / Laterality Volume 08/14/2016 Narrative 08/14/2016 3:40 PM EST Procedure: ?Transthoracic Echocardiogram Patient: ?LUANNE Pantoja ?(Age): 1935(81y) Med Rec#: ? [id number] ?Sex: ?M ? Site Loc: ? [facility] ?Ht / Wt: ??160(cm)/81(kg) Pt. Loc: ?ICU ? BSA: ?1.84 Study Date: ?? 08/14/2016 ?Pt. Type: Inpatient Tape: ? Referring: DEEJAY Reading: Shlomo Shileds ([id number]) Lane Attendant: Marisel Burton Diagnosis: *ICD-10-PCS Unstable angina (I20.0) CPT Codes: *Echo Full (06573) *Spectral Doppler (50098) *Color Doppler (29310) *Optison (95877HH) BP: ? 146/63 SUMMARY: 1. The left ventricular chamber size is normal. Left ventricular wall thickness is normal. There are left vent ricular segmental wall motion abnormalities present, as shown in the d iagram below. ??There is normal global left ventricular systolic functio n. The quantitative left ventricular ejection fraction by biplane Day's method is 70%. 2. The right ventricle is normal in size . Right ventricular global systolic function is low normal. 3. 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 There is moderate (2+/4+) mitral regurgitation pr esent. 4. Pulmonary artery hypertension could n ot be assessed due to inadequate tricuspid regurgitation jet. 5. See remainder of report for additiona l findings. Findings ? : Left Ventricle: ? The left ventricul ar chamber size is normal. ?Left ventricular wall thickness is normal. ?No ventricular septal defect is vi sualized. ?There is normal global left ventri cular systolic function. ?The quantitative left ventricular ejection fraction by biplane Day's method is 70%. ?There are left ventricular segment al wall motion abnormalities present, as shown in the diagram below. ?Assessment of diastolic function i s indeterminate. ?The ??basal inferior, and ??mid in ferior wall segments are hypokinetic (score 2). ?Overall wallmotion score index is ??1.13 Left Atrium: ? The left atrium is mi ldly dilated. ?There is no evidence of a patent f oramen ovale by color Doppler. Right Ventricle: ? The right ventric le is normal in size. ?Right ventricular global systolic function is low normal. ?Pulmonary artery hypertension coul d not be assessed due to inadequate tricuspid regurgitation jet. ?The estimated right atrial pressur e is 3 mmHg. Right Atrium: ? The right atrium is normal in size. Aortic Valve: ? The aortic valve is tricuspid. ?Systolic excursion of the aortic v alve is normal. ?There is no evidence of aortic amarilis ve stenosis. ?There is no evidence of aortic reg urgitation. Mitral Valve: ? The mitral valve vince flets are mildly thickened. ?There is prolapse of the anterior mitral valve leaflet. ?There is mild mitral valve prolaps e. ?There is moderate (2+/4+) mitral r egurgitation present. Tricuspid Valve: ? The tricuspid amarilis ve leaflets are morphologically normal. ?There is trace tricuspid regurgita tion present. Pulmonic Valve: ? The pulmonic valve appears normal. ?There is trace pulmonic regurgitat ion present. Pericardium: ? The pericardium appea rs normal and there is no evidence of a pericardial effusion. Aorta: ? There is mild dilatation of the aortic root. ?The ascending aorta is normal in s ize. Pulmonary Artery: ? The main pulmona ry artery appears normal. Venous: ? The inferior vena cava johanna ears normal in size. ?There is a greater than 50% respir atory change in the inferior vena cava dimension. Misc: ? Two-dimensional echo, spectr al Doppler and color Doppler performed. ?Optison contrast (one 3 ml vial) w as used to enhance endocardial definition. Excess contrast was discarde d. Chambers 2D ?Value ?Units (Range) ? IVSd (2D) ? 1 ?cm ? LVPWd (2D) ?1.1 ?cm ? IVS:LVPW ratio (2D) 0.9 ?ratio ? LVIDd (2D) ?4.7 ?cm ? LVIDs (2D) ?3.6 ?cm ? LVIDd (2D) index ?2.6 ?cm/m2 ? LVIDs (2D) index ?1.9 ?cm/m2 ? LV FS (2D) ?25 ? % ? EF Teichholz (2D) ?? 49 ? % ? Ao root diameter (2D3.7 ?cm (2.1 - 3.6) ? Ascending Ao ?3.4 ?cm (2 - 3.5) ? Volumes/Mass ?Value ?Units (Range) ? LA Area 4 CH ?23.5 ? cm2 (<21) ? LA ESV BP (A/L) inde39.7 ? ml/m2 ? RA AREA 4CH ? 17.3 ? cm2 ? LA ESV SP 4CH (MOD) 75.6 ? ml ? LA ESV SP 2CH (MOD) 58.5 ? ml ? LV ESV SP 4CH (MOD) 26.6 ? ml ? LV ESV SP 2CH (MOD) 36.3 ? ml ? LV EDV BP ? 128.1 ?ml ? LV ESV BP ? 32 ? ml ? BP EF (MOD) ? 75 ? % ? LV mass (2D) ?184.1 ?g ? LV mass (2D) index ??100.1 ?g/m2 ? Diastolic/Systolic Function ?Value ?Units (Range) ? MV E-wave Vmax ?0.8 ?m/sec ? MV deceleration ewhd912.6 ? msec ? MV A-wave Vmax ?0.6 ?m/sec ? MV E:A ratio ?1.2 ?ratio ? LV septal e' Vmax ?? 0.1 ?m/sec ? LV lateral e' Vmax ??0.1 ?m/sec ? LV average e' Vmax ??0.1 ?m/sec ? LV E:e' septal ratio15.6 ? ratio ? LV E:e' lateral rati7.8 ?ratio ? LV average E:e' rati9.7 ?ratio ? Tricuspid Valve ?Value ?Units (Range) ? RAP ? 3 ?mmHg ? Measurement Trending Name ? 08/14/2016 ? LV EDV BP ?1 28.05 LVIDd (2D) ? 4. 72 LV ESV BP ?3 2.02 LVIDs (2D) ? 3. 56 Wall Motion: Segment Name ?Rest ? Base-Anteroseptal ?? Normal ? Base-Anterior ? Normal ? Base-Anterolateral ??Normal ? Base-Posterolateral Normal ? Base-Inferior ? Hypokinetic ? Base-Inferoseptal ?? Normal ? Mid-Anteroseptal ?Normal ? Mid-Anterior ?Normal ? Mid-Anterolateral ?? Normal ? Mid-Posterolateral ??Normal ? Mid-Inferior ?Hypokinetic ? Mid-Inferoseptal ?Normal ? [place]-Septal ? Normal ? [place]-Anterior ? Normal ? [place]-Lateral ?Normal ? [place]-Inferior ? Normal ? [place]-Tip ?Normal ? This report has been electronically sign ed by: _ Shlomo Shields MD ? 08/14/2016 15 :40:01 Images reviewed and interpretation verif ied [facility] Cardiac Ultrasound Laboratory Procedure Note Shlomo Shields MD - 08/14/2016Formatt ing of this note might be different from the original. Procedure: Transthoracic Echocardiogram Patient: LUANNE GOYAL(Age): [birth year](81y) Med Rec#: [id number] Sex: M Site Loc: [facility] Ht / Wt: 160(cm)/81(kg) Pt. Loc: ICU BSA: 1.84 Study Date: 08/14/2016 Pt. Type: Inpatie nt Tape: [facility] Reading: Shlomo Shields ([id number]) Lane Attendant: Marisel Burton Diagnosis: *ICD-10-PCS Unstable angina (I20.0) CPT Codes: *Echo Full (34714) *Spectral Doppler (70751) *Color Doppler (64779) *Optison ([id number]) BP: 146/63 SUMMARY: 1. The left ventricular chamber size is normal. Left ventricular wall thickness is normal. There are left vent ricular segmental wall motion abnormalities present, as shown in the d iagram below. There is normal global left ventricular systolic functio n. The quantitative left ventricular ejection fraction by biplane Day's method is 70%. 2. The right ventricle is normal in size . Right ventricular global systolic function is low normal. 3. 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 There is moderate (2+/4+) mitral regurgitation pr esent. 4. Pulmonary artery hypertension could n ot be assessed due to inadequate tricuspid regurgitation jet. 5. See remainder of report for additiona l findings. Findings : Left Ventricle: The left ventricular doreen mber size is normal. Left ventricular wall thickness is norm al. No ventricular septal defect is visuali zed. There is normal global left ventricular systolic function. The quantitative left ventricular eject ion fraction by biplane Day's method is 70%. There are left ventricular segmental wa ll motion abnormalities present, as shown in the diagram below. Assessment of diastolic function is ind eterminate. The basal inferior, and mid inferior wa ll segments are hypokinetic (score 2). Overall wallmotion score index is 1.13 Left Atrium: The left atrium is mildly d ilated. There is no evidence of a patent forame n ovale by color Doppler. Right Ventricle: The right ventricle is normal in size. Right ventricular global systolic funct ion is low normal. Pulmonary artery hypertension could not be assessed due to inadequate tricuspid regurgitation jet. The estimated right atrial pressure is 3 mmHg. Right Atrium: The right atrium is normal in size. Aortic Valve: The aortic valve is tricus pid. Systolic excursion of the aortic valve is normal. There is no evidence of aortic valve st enosis. There is no evidence of aortic regurgit ation. Mitral Valve: The mitral valve leaflets are mildly thickened. There is prolapse of the anterior gregg l valve leaflet. There is mild mitral valve prolapse. There is moderate (2+/4+) mitral regurg itation present. Tricuspid Valve: The tricuspid valve vince flets are morphologically normal. There is trace tricuspid regurgitation present. Pulmonic Valve: The pulmonic valve appea rs normal. There is trace pulmonic regurgitation p resent. Pericardium: The pericardium appears nor mal and there is no evidence of a pericardial effusion. Aorta: There is mild dilatation of the a ortic root. The ascending aorta is normal in size. Pulmonary Artery: The main pulmonary art sofie appears normal. Venous: The inferior vena cava appears n ormal in size. There is a greater than 50% respiratory change in the inferior vena cava dimension. Misc: Two-dimensional echo, spectral Dop pler and color Doppler performed. Optison contrast (one 3 ml vial) was us ed to enhance endocardial definition. Excess contrast was discarde d. Chambers 2D Value Units (Range) IVSd (2D) 1 cm LVPWd (2D) 1.1 cm IVS:LVPW ratio (2D) 0.9 ratio LVIDd (2D) 4.7 cm LVIDs (2D) 3.6 cm LVIDd (2D) index 2.6 cm/m2 LVIDs (2D) index 1.9 cm/m2 LV FS (2D) 25 % EF Teichholz (2D) 49 % Ao root diameter (2D3.7 cm (2.1 - 3.6) Ascending Ao 3.4 cm (2 - 3.5) Volumes/Mass Value Units (Range) LA Area 4 CH 23.5 cm2 (<21) LA ESV BP (A/L) inde39.7 ml/m2 RA AREA 4CH 17.3 cm2 LA ESV SP 4CH (MOD) 75.6 ml LA ESV SP 2CH (MOD) 58.5 ml LV ESV SP 4CH (MOD) 26.6 ml LV ESV SP 2CH (MOD) 36.3 ml LV EDV BP 128.1 ml LV ESV BP 32 ml BP EF (MOD) 75 % LV mass (2D) 184.1 g LV mass (2D) index 100.1 g/m2 Diastolic/Systolic Function Value Units (Range) MV E-wave Vmax 0.8 m/sec MV deceleration vsuq562.6 msec MV A-wave Vmax 0.6 m/sec MV E:A ratio 1.2 ratio LV septal e' Vmax 0.1 m/sec LV lateral e' Vmax 0.1 m/sec LV average e' Vmax 0.1 m/sec LV E:e' septal ratio15.6 ratio LV E:e' lateral rati7.8 ratio LV average E:e' rati9.7 ratio Tricuspid Valve Value Units (Range) RAP 3 mmHg Measurement Trending Name 08/14/2016 LV EDV BP 128.05 LVIDd (2D) 4.72 LV ESV BP 32.02 LVIDs (2D) 3.56 Wall Motion: Segment Name Rest Base-Anteroseptal Normal Base-Anterior Normal Base-Anterolateral Normal Base-Posterolateral Normal Base-Inferior Hypokinetic Base-Inferoseptal Normal Mid-Anteroseptal Normal Mid-Anterior Normal Mid-Anterolateral Normal Mid-Posterolateral Normal Mid-Inferior Hypokinetic Mid-Inferoseptal Normal [place] [place]-Septal Normal [place]Anterior Normal [place]Lateral Normal [place]-Inferior Normal [place]-Tip Normal This report has been electronically sign ed by: _ Shlomo Shields MD 08/14/2016 15:40:01 Images reviewed and interpretation nicolle alvarez [facility] Cardiac Ultrasound Laboratory Josefina Woo MD ECHO ORDERABLES (ABNORMAL) APTT (08/14/2016 11:25 AM EST) P athologist Signature PTT 90 (H) 25 - 35 sec [facility] Comment: The recommended therapeutic range for fu ll dose, unfractionated heparin at [facility] is 80 ? 114 seconds. The use of the anti-Xa (heparin) level rather than the PTT is recommended for monitoring anticoagul ation intensity in critically ill patients receiving unfractionated hepari n by continuous IV infusion. Specimen Anatomical Collection Method Collection Time Receive d Time (Source) Location / / Volume Laterality Blood specimen 08/14/2016 11:25 7 (specimen) AM EST 11:31 AM EST Resulting Agency Comment Spec In Lab Josefina Woo MD HEMATOLOGY ORDERABLES Performing Organization Address City/State/ZIP Code Phon e Number [place] [id number] EKG 12 Lead (08/14/2016 8:46 AM EST) Component Value Ref Range Test Analysis Performed Pathologis t Method Time At Signature Ventricular rate 65 BPM MUSE SYSTEM Atrial Rate 65 BPM MUSE SYSTEM P-R Interval 188 ms MUSE SYSTEM QRS Duration 92 ms MUSE SYSTEM Q-T Interval 368 ms MUSE SYSTEM QTC Calculated 382 ms MUSE SYSTEM (Bezet) Calculated P Windsor 49 degrees MUSE SYSTEM Calculated R Windsor 51 degrees MUSE SYSTEM Calculated T Windsor -39 degrees MUSE SYSTEM INTERPRETATION Normal sinus rhythm MUSE SYSTEM T wave abnormality, consider inferolateral ischemia Abnormal ECG When compared with ECG of 13-AUG-2016 20:26, Criteria for Inferior infarct are no longer Present Inverted T waves have replac ed nonspecific T wave abnormality in Inferior leads Confirmed by MD RYAN, SHEMAR ([id number]) on 08/14/2016 12:52:15 PM Specimen Anatomical Collection Method Collection Time Receive d Time (Source) Location / / Volume Laterality 08/14/2016 8:46 AM 7 EST 12:52 PM EST Luanne Herrera MD ECG ORDERABLES Performing Organization Address City/State/ZIP Code Phon e Number MUSE SYSTEM Cardiac Enzymes (08/14/2016 4:39 AM EST) P athologist Signature Troponin-T <0.03 <=0.03 [facility] ng/mL [facility] Comment: 0.03 ng/mL: Represents the 99th percenti le upper reference limit for normals. >0.03 ng/mL: Elevated cardiac troponin T level indicative of myocardial damage. Diagnosis of acute, evolving or recent M I requires a typical rise and gradual fall of cTnT with at least ONE of the fo llowing: a) Ischemic symptoms b) Development of pathologic Q waves on the ECG c) ECG changes indicative of eschemia (S -T segment elevation/depression) d) Coronary artery intervention Serial bloods should be obtained for haritha ting on admission, at 6 to 9 hrs and again at 12 to 24 hrs if earlier samples are negative and the clinical index of suspicion is high. Reference: [Myocardial infarction redefined? a consensus document of the Joint Society of Cardiology/[place] [employer] o f [employer] Committee for the redefinition of myocardial infarction. ? ?Journal of the [place] [employer] 2000; 36: 959-969] CK, Total 141 0 - 200 unit/L [facility] Specimen Anatomical Collection Method Collection Time Receive d Time (Source) Location / / Volume Laterality Blood specimen Venous Draw / 08/14/2016 4:39 AM 2016 4:57 (specimen) Unknown EST AM EST Resulting Agency Comment Spec In Lab Josefina Woo MD CHEMISTRY ORDERABLES Performing Organization Address City/State/[place] [address] (ABNORMAL) APTT (08/14/2016 4:39 AM EST) athologist Signature PTT 62 (H) 25 - 35 sec [facility] Comment: The recommended therapeutic range for fu ll dose, unfractionated heparin at [facility] is 80 ? 114 seconds. The use of the anti-Xa (heparin) level rather than the PTT is recommended for monitoring anticoagul ation intensity in critically ill patients receiving unfractionated hepari n by continuous IV infusion. Specimen Anatomical Collection Method Collection Time Receive d Time (Source) Location / / Volume Laterality Blood specimen 08/14/2016 4:39 AM 017 4:57 (specimen) EST AM EST Resulting Agency Comment Spec In Lab Josefina Woo MD HEMATOLOGY ORDERABLES Performing Organization Address City/State/[place] [address] Differential, Automated (08/14/2016 4:39 AM EST) P athologist Signature Neutrophils % 65.2 % [facility] Neutr Abs (ANC) 3.92 1.70 - [facility] 6.10 [facility] x10(3)[facility] LABORATORY Lymphocytes % 21.9 % [facility] Lymphocytes Abs 1.3 0.9 - 3.2 [facility] x10(3)/[facility] LABORATORY Monocytes % 8.6 % [facility] Monocyte Abs 0.5 0.3 - 0.9 [facility] x10(3)/[facility] LABORATORY Eosinophils % 3.8 % [facility] Eosinophils Abs 0.2 0.0 - 0.4 [facility] x10(3)[facility] LABORATORY Basophils % 0.2 % [facility] Basophils Abs 0.0 0.0 - 0.1 [facility] x10(3)[facility] LABORATORY Immature Gran % 0.30 % [facility] Comment: Immature granulocytes(IG's)percentage an d absolute count will include metamyelocytes, myelocytes, and promyelo cytes. Blood smears from CBCs yielding IG's will be scanned manually for concor dance. If this scan disagrees with the automated IG or if promyelocytes are not ed, a manual differential will be performed. Karen Gran Abs 0.02 0.00 - 0.04 x10(3)/[facility]ORATORY Specimen Anatomical Collection Method Collection Time Receive d Time (Source) Location / / Volume Laterality Blood specimen 08/14/2016 4:39 AM 017 4:57 (specimen) EST AM EST Resulting Agency Comment Spec In Lab Josefina Woo MD HEMATOLOGY ORDERABLES Performing Organization Address City/State/ZIP Code Phon e Number [address] Hemogram (08/14/2016 4:39 AM EST) P athologist Signature WBC 6.0 4.0 - 9.5 [facility] x10(3)/[facility] LABORATORY RBC 4.70 4.58 - [facility] 5.54 [facility] x10(6)/[facility] LABORATORY Hemoglobin 14.3 13.7 - [facility] 16.5 gm/dL [facility] Hematocrit 41.1 40.5 - [facility] 48.5 % [facility] MCV 87.4 82.9 [facility] [facility] LABORATORY MCH 30.4 27.5 - [facility] 32.1 pg [facility] MCHC 34.8 32.0 - [facility] 35.7 gm/dL [facility] Platelets 173 145 - 357 [facility] x10(3)/[facility] LABORATORY RDWSD 38.5 36.0 - [facility] 45.[address] [facility] LABORATORY RDWCV 11.9 11.4 - [facility] 13.8 % [facility] MPV 11.2 7.6 - 12.9 [facility] LABORATORY nRBC % Auto 0.0 % [facility] nRBC Abs Auto 0.000 0.000 - [facility] FELICITY 0.000 [facility] x10(3)/[facility] LABORATORY Specimen Anatomical Collection Method Collection Time Receive d Time (Source) Location / / Volume Laterality Blood specimen 08/14/2016 4:39 AM 017 4:57 (specimen) EST AM EST Resulting Agency Comment Spec In Lab Josefina Woo MD HEMATOLOGY ORDERABLES Performing Organization Address City/State/ZIP Code Phon e Number [address] Magnesium (08/14/2016 4:39 AM EST) athologist Signature Magnesium 0.85 0.69 - 1.07 [facility] mmol/L [facility] Specimen Anatomical Collection Method Collection Time Receive d Time (Source) Location / / Volume Laterality Blood specimen 08/14/2016 4:39 AM 017 4:57 (specimen) EST AM EST Resulting Agency Comment Spec In Lab Josefina Woo MD CHEMISTRY ORDERABLES Performing Organization Address City/State/[place] [address] Basic Metabolic Panel (non-fasting) (08/14/2016 4:39 AM EST) athologist Signature Glucose Lvl 105 65 - 199 [facility] mg/dL [facility] Comment: Diabetes: >=200 mg/dL plus symp toms BUN 13 10 - 20 mg/dL [facility] Creatinine 0.95 0.80 - 1.50 mg/dL [facility] Comment: Please note that the pediatric reference intervals supplied above were not validated at [facility]. Results from pediatri c patients should be interpreted in conjunction to the patient's age, height and muscle mass. Sodium 140 135 - 145 mmol/L [facility] Potassium 3.8 3.5 - 5.0 mmol/L [facility] Comment: Please note: ??Patients with WBC >100,00 0 may have falsely elevated Potassium levels. ??For accurate Potassium quantif ication in these patients send serum separator tube (gold top) for subsequent determinations. ??Contact the Clinical Chemistry Laboratory if there are any qu estions. Chloride 104 98 - 107 mmol/L [facility] CO2 24 22 - 31 mmol/L [facility] Anion Gap 12 5 - 15 mmol/L [facility] Calcium 8.9 8.5 - 10.5 mg/dL [facility] Estimated GFR >60 >=60 [facility] Comment: This estimated GFR (eGFR) value was calc ulated using the MDRD equation which has been validated on patients between t he ages of 18 and 70. The MDRD should not be used to assess kidney function in patients < 18 years of age or in patients with extremes of body mass, or in patients with acute kidney failure. This value should be multiplied by 1.2 f or patients. For further information please copy and past e the following links into your internet browser. [email or web address] [email or web address] Specimen Anatomical Collection Method Collection Time Receive d Time (Source) Location / / Volume Laterality Blood specimen 08/14/2016 4:39 AM 017 4:57 (specimen) EST AM EST Resulting Agency Comment Spec In Lab Josefina Woo MD CHEMISTRY ORDERABLES Performing Organization Address City/State/[place] [address] Cardiac Enzymes (08/14/2016 1:40 AM EST) P athologist Signature Troponin-T <0.03 <=0.03 [facility] ng/mL [facility] Comment: 0.03 ng/mL: Represents the 99th percenti le upper reference limit for normals. >0.03 ng/mL: Elevated cardiac troponin T level indicative of myocardial damage. Diagnosis of acute, evolving or recent M I requires a typical rise and gradual fall of cTnT with at least ONE of the fo llowing: a) Ischemic symptoms b) Development of pathologic Q waves on the ECG c) ECG changes indicative of eschemia (S -T segment elevation/depression) d) Coronary artery intervention Serial bloods should be obtained for haritha ting on admission, at 6 to 9 hrs and again at 12 to 24 hrs if earlier samples are negative and the clinical index of suspicion is high. Reference: [Myocardial infarction redefined? a consensus document of the Joint Society of Cardiology/[place] [employer] o f [employer]iology Committee for the redefinition of myocardial infarction. ? ?Journal of the [place] [employer]iology 2000; 36: 959-969] CK, Total 131 0 - 200 unit/L [facility] Specimen Anatomical Collection Method Collection Time Receive d Time (Source) Location / / Volume Laterality Blood specimen 08/14/2016 1:40 AM 017 1:44 (specimen) EST AM EST Resulting Agency Comment Spec In Lab Josefina Woo MD CHEMISTRY ORDERABLES Performing Organization Address City/State/[place] [address] EKG 12 Lead (08/13/2016 8:26 PM EST) Component Value Ref Range Test Analysis Performed Pathologis t Method Time At Signature Ventricular rate 69 BPM MUSE SYSTEM Atrial Rate 69 BPM MUSE SYSTEM P-R Interval 194 ms MUSE SYSTEM QRS Duration 100 ms MUSE SYSTEM Q-T Interval 364 ms MUSE SYSTEM QTC Calculated 390 ms MUSE SYSTEM (Bezet) Calculated P Windsor 46 degrees MUSE SYSTEM Calculated R [place] 23 degrees MUSE SYSTEM Calculated T [place] 29 degrees MUSE SYSTEM INTERPRETATION Sinus rhythm with Premature ventricular complexes MUSE SYSTEM Possible Inferior infarct (cited on or before 21-JUL-2015) Nonspecific T wave abnormality Abnormal ECG When compared with ECG of 21-JUL-2015 16:16, Nonspecific T wave abnormality has repla jenaro inverted T waves in Inferior leads Confirmed by MD RYAN, SHEMAR ([id number]) on 08/14/2016 5:54:56 A M Specimen Anatomical Collection Method Collection Time Receive d Time (Source) Location / / Volume Laterality 08/13/2016 8:26 PM 7 5:54 EST AM EST Josefina Woo MD ECG ORDERABLES Performing Organization Address City/[facility]/ZIP Code Phon e Number MUSE SYSTEM Lipid Panel (08/13/2016 7:29 PM EST) Patholo gist Method Time Signature Chol, Total 178 <=239 [facility] mg/dL [facility] Triglycerides 162 <=199 [facility] mg/dL [facility] HDL 42 >=40 [facility] mg/dL [facility] LDL Cholesterol 104 <=190 [facility] mg/dL [facility] Chol/HDL Ratio 4.2 ratio [facility] Lipid See Note [facility]Z Interpretation [facility] Comment: Lipid management should be guided by a p atient? s ASCVD risk, goals and preferences. ACC/AHA Guidelines recommend high intens ity statin if clinical ASCVD or LDL greater than or equal to 190 mg/dL. http://circ.ahajournals.org/content/raza y/.cir.4741906918.71555.7a Adults aged 40-75 with LDL 70-189 mg/dL should have their 10 year ASCVD risk estimated with the ACC/AHA ASCVD risk es timator http://tools.acc.org/TEJJH-Bnvv-Wbxzyygv r/ Statin should be discussed if risk great er than or equal to 7.5% in non-diabetics. With diabetes, moderate i ntensity statin is recommended if risk less than 7.5%, high intensity if risk g reater than or equal to 7.5%. Annual lipid monitoring on statins is no t necessary. Evaluate secondary causes of Triglycerid es greater than 500 mg/dL or LDL greater than 190 mg/dL: See table 6 of A CC/AHA Guideline. Lifestyle modification is a critical com ponent of ASCVD risk reduction. Specimen Anatomical Collection Method Collection Time Receive d Time (Source) Location / / Volume Laterality Blood specimen Venous Draw / 08/13/2016 7:29 PM 2016 7:37 (specimen) Unknown EST PM EST Resulting Agency Comment Spec In Lab Josefina Woo MD CHEMISTRY ORDERABLES Performing Organization Address City/State/ZIP Code Phon e Number [address] TSH (08/13/2016 7:29 PM EST) P athologist Signature TSH 3.11 0.27 - 4.20 [facility] mcIU/mL [facility] Specimen Anatomical Collection Method Collection Time Receive d Time (Source) Location / / Volume Laterality Blood specimen Venous Draw / 08/13/2016 7:29 PM 2016 7:37 (specimen) Unknown EST PM EST Resulting Agency Comment Spec In Lab Josefina Woo MD CHEMISTRY ORDERABLES Performing Organization Address City/[facility]/ZIP Code Phon e Number [address] Differential, Automated (08/13/2016 7:29 PM EST) athologist Signature Neutrophils % 63.7 % [facility] Neutr Abs (ANC) 3.73 1.70 - [facility] 6.10 [facility] x10(3)/[facility] LABORATORY Lymphocytes % 23.8 % [facility] Lymphocytes Abs 1.4 0.9 - 3.2 [facility] x10(3)/[facility] LABORATORY Monocytes % 9.1 % [facility] Monocyte Abs 0.5 0.3 - 0.9 [facility] x10(3)/[facility] LABORATORY Eosinophils % 2.9 % [facility] Eosinophils Abs 0.2 0.0 - 0.4 [facility] x10(3)/[facility] LABORATORY Basophils % 0.3 % [facility] Basophils Abs 0.0 0.0 - 0.1 [facility] x10(3)/[facility] LABORATORY Immature Gran % 0.20 % [facility] Comment: Immature granulocytes(IG's)percentage an d absolute count will include metamyelocytes, myelocytes, and promyelo cytes. Blood smears from CBCs yielding IG's will be scanned manually for concor dance. If this scan disagrees with the automated IG or if promyelocytes are not ed, a manual differential will be performed. Karen Gran Abs 0.01 0.00 - 0.04 x10(3)/[facility] MAR Y [facility] Specimen Anatomical Collection Method Collection Time Receive d Time (Source) Location / / Volume Laterality Blood specimen 08/13/2016 7:29 PM 017 7:37 (specimen) EST PM EST Resulting Agency Comment Spec In Lab Josefina Woo MD HEMATOLOGY ORDERABLES Performing Organization Address City/State/[place] [address] (ABNORMAL) Hemogram (08/13/2016 7:29 PM EST) Analysis Performed At Patho logist Time Signature WBC 5.8 4.0 - 9.5 [facility] x10(3)/[facility] LABORATORY RBC 4.59 4.58 - [facility] 5.54 [facility] x10(6)/[facility] LABORATORY Hemoglobin 14.3 13.7 - [facility] 16.5 gm/dL [facility] Hematocrit 40.1 (L) 40.5 - [facility] DIACK 48.5 % [facility] MCV 87.4 82.9 - [facility] 93.[address] [facility] LABORATORY MCH 31.2 27.5 - [facility] [place] 32.1 pg [facility] MCHC 35.7 32.0 - [facility] [place] 35.7 gm/dL [facility] Platelets 169 145 - 357 [facility] x10(3)/[facility] LABORATORY RDWSD 38.6 36.0 - [facility] [place] 45.[address] [facility] LABORATORY RDWCV 12.1 11.4 - [facility] [place] 13.8 % [facility] MPV 11.1 7.6 - 12.9 [facility] LABORATORY nRBC % Auto 0.0 % [facility] nRBC Abs Auto 0.000 0.000 - [facility] [place] 0.000 [facility] x10(3)/[facility] LABORATORY Specimen Anatomical Collection Method Collection Time Receive d Time (Source) Location / / Volume Laterality Blood specimen 08/13/2016 7:29 PM 017 7:37 (specimen) EST PM EST Resulting Agency Comment Spec In Lab Josefina Woo MD HEMATOLOGY ORDERABLES Performing Organization Address City/State/[place] [address] Cardiac Enzymes (08/13/2016 7:29 PM EST) P athologist Signature Troponin-T <0.03 <=0.03 [facility] Comment: 0.03 ng/mL: Represents the 99th percenti le upper reference limit for normals. >0.03 ng/mL: Elevated cardiac troponin T level indicative of myocardial damage. Diagnosis of acute, evolving or recent M I requires a typical rise and gradual fall of cTnT with at least ONE of the fo llowing: a) Ischemic symptoms b) Development of pathologic Q waves on the ECG c) ECG changes indicative of eschemia (S -T segment elevation/depression) d) Coronary artery intervention Serial bloods should be obtained for haritha ting on admission, at 6 to 9 hrs and again at 12 to 24 hrs if earlier samples are negative and the clinical index of suspicion is high. Reference: [Myocardial infarction redefined? a consensus document of the Joint Society of Cardiology/[place] [employer] o f [employer]iology Committee for the redefinition of myocardial infarction. ? ?Journal of the [place] [employer]iology 2000; 36: 959-969] CK, Total 144 0 - 200 unit/L [facility] Specimen Anatomical Collection Method Collection Time Receive d Time (Source) Location / / Volume Laterality Blood specimen 08/13/2016 7:29 PM 017 7:37 (specimen) EST PM EST Resulting Agency Comment Spec In Lab Josefina Woo MD CHEMISTRY ORDERABLES Performing Organization Address [facility] [place] [address] (ABNORMAL) APTT (08/13/2016 7:29 PM EST) P athologist Signature PTT 44 (H) 25 - 35 sec [facility] Comment: The recommended therapeutic range for fu ll dose, unfractionated heparin at [facility] is 80 ? 114 seconds. The use of the anti-Xa (heparin) level rather than the PTT is recommended for monitoring anticoagul ation intensity in critically ill patients receiving unfractionated hepari n by continuous IV infusion. Specimen Anatomical Collection Method Collection Time Receive d Time (Source) Location / / Volume Laterality Blood specimen 08/13/2016 7:29 PM 017 7:37 (specimen) EST PM EST Resulting Agency Comment Spec In Lab Josefina Woo MD HEMATOLOGY ORDERABLES Performing Organization Address [facility] [place] [address] Prothrombin Time (08/13/2016 7:29 PM EST) P athologist Signature PT 13.4 12.0 - 15.0 [facility]ORATORY Comment: An INR <2.0 indicates adequate [...] be appropriate depending on c linical circumstances. INR 1.0 0.9 - 1.1 [facility] Specimen Anatomical Collection Method Collection Time Receive d Time (Source) Location / / Volume Laterality Blood specimen 08/13/2016 7:29 PM 017 7:37 (specimen) EST PM EST Resulting Agency Comment Spec In Lab Josefina Woo MD HEMATOLOGY ORDERABLES Performing Organization Address City/[facility]/ZIP [facility] Phon [place] Number [address] pro-Brain Natriuretic Peptide (08/13/2016 7:29 PM EST) athologist Signature ProBNP 201 <=450 pg/mL [facility] Specimen Anatomical Collection Method Collection Time Receive d Time (Source) Location / / Volume Laterality Blood specimen 08/13/2016 7:29 PM 017 7:37 (specimen) EST PM EST Resulting Agency Comment Spec In Lab Josefina Woo MD CHEMISTRY ORDERABLES Performing Organization Address City/[facility] Phon e Number [address] Basic Metabolic Panel (non-fasting) (08/13/2016 7:29 PM EST) athologist Signature Glucose Lvl 105 65 - 199 [facility] mg/dL [facility] Comment: Diabetes: >=200 mg/dL plus symp toms BUN 15 10 - 20 mg/dL [facility] Creatinine 1.00 0.80 - 1.50 mg/dL [facility] Comment: Please note that the pediatric reference intervals supplied above were not validated at [facility]. Results from pediatri c patients should be interpreted in conjunction to the patient's age, height and muscle mass. Sodium 142 135 - 145 mmol/L [facility] Potassium 3.9 3.5 - 5.0 mmol/L [facility] Comment: Please note: ??Patients with WBC >100,00 0 may have falsely elevated Potassium levels. ??For accurate Potassium quantif ication in these patients send serum separator tube (gold top) for subsequent determinations. ??Contact the Clinical Chemistry Laboratory if there are any qu estions. Chloride 106 98 - 107 mmol/L [facility] CO2 23 22 - 31 mmol/L [facility] LABORATORY Anion Gap 13 5 - 15 mmol/L [facility] Calcium 8.7 8.5 - 10.5 mg/dL [facility] Estimated GFR >60 >=60 [facility] Comment: This estimated GFR (eGFR) value was calc ulated using the MDRD equation which has been validated on patients between t he ages of 18 and 70. The MDRD should not be used to assess kidney function in patients < 18 years of age or in patients with extremes of body mass, or in patients with acute kidney failure. This value should be multiplied by 1.2 f or patients. For further information please copy and past e the following links into your internet browser. [email or web address] Specimen Anatomical Collection Method Collection Time Receive d Time (Source) Location / / Volume Laterality Blood specimen 08/13/2016 7:29 PM 017 7:37 (specimen) EST PM EST Resulting Agency Comment Spec In Lab Josefina Woo MD CHEMISTRY ORDERABLES Performing Organization Address City/State/ZIP Code Phon e Number [place] [id number] (ABNORMAL) Hemoglobin A1c (08/13/2016 7:28 PM EST) Analysis Performed At Patho logist Time Signature Hemoglobin A1C 5.8 (H) 4.3 - 5.6 [facility] Comment: Reference Range: 4.3 - 5.6% 5.7 - 6.4% - Increased Risk of Developin g Diabetes Mellitus >= 6.5% - Consistent with diagnosis of D iabetes Mellitus In the absence of hyperglycemia (i.e. pl asma glucose > 200 mg/dL) or classic symptoms of hyperglycemia a repeat measu rement of HbA1c should be performed on a separate sample to confirm the diagnos is. Diagnosis and Classification of Diabetes Mellitus, Diabetes Care 2013; 36: Suppl. 1, S67-74 Est Avg Gluc See note mg/dL [facility] Comment: Estimated Average Glucose not appropriat e for patients over 70 years of age. eAG equivalents for HbA1c percentages: HbA1c(%) ?eAG(mg/dL) 6.0 ?126 6.5 ?140 7.0 ?154 7.5 ?169 8.0 ?183 8.5 ?197 9.0 ?212 9.5 ?226 10.0 ? 240 Limitations: The eAG calculation has not been validated on women, individuals below 18 years old and above 70 years old, and individuals with hemoglobinopathies. Additional resources are available on [facility] website: [email or web address] – OKLAHOMA CITYadacalc [place] ALBA, Mason J, Shari R, et al. ??Tr anslating the A1C assay into estimated average glucose values. ??Diabetes Care 2008:31(8):9606-5636. 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 1 mg 0.1 mg 0.1 mg, Oral, ONCE, 1 dose, On 08/14/16 at 1100, Dose #1, Routine, WARNING : Evaluate type of allergy reaction before using the Aspirin Desensitization Protocol, Does this patient have a history of asthma or chronic rhinositis? No, Did this patient experience upper or lower respiratory symptoms after taking asprin or other NSAIDs? No aspirin 1 mg/mL oral suspension 0.3 mg Given 08/14/2016 11:47 AM EST 0.3 mg 0.3 mg, Oral, ONCE, 1 dose, On 08/14/16 at 1115, Dose #2 (give 15 minutes after previous dose), Routine aspirin 1 mg/mL oral suspension 1 mg Given 08/14/2016 12:02 PM EST 1 mg 1 mg, Oral, ONCE, 1 dose, On 08/14/16 at 1130, Dose #3 (give 15 minutes after previous dose), Routine aspirin 1 mg/mL oral suspension 10 mg Given 08/14/2016 12:15 PM EST 10 mg 10 mg, Oral, ONCE, 1 dose, On 08/14/16 at 1215, Dose #6 (give 15 minutes after previous dose), Routine aspirin 1 mg/mL oral suspension 3 mg Given 08/14/2016 12:16 PM EST 3 mg 3 mg, Oral, ONCE, 1 dose, On 08/14/16 at 1145, Dose #4 (give 15 minutes after previous dose), Routine aspirin 1 mg/mL oral suspension 6 mg Given 08/14/2016 12:31 PM EST 6 mg 6 mg, Oral, ONCE, 1 dose, On 08/14/16 at 1200, Dose #5 (give 15 minutes after previous dose), Routine aspirin 30 mg/mL oral suspension 20 mg Given 08/14/2016 1:01 PM EST 20 mg 20 mg, Oral, ONCE, 1 dose, On 08/14/16 at 1230, Dose #7 (give 15 minutes after previous dose), Routine aspirin 30 mg/mL oral suspension 40.5 mg Given 08/14/2016 1:20 PM EST 40.5 mg 40.5 mg, Oral, ONCE, 1 dose, On 08/14/16 at 1245, Dose #8 (give 15 minutes after previous dose), Routine aspirin 30 mg/mL oral suspension 81 mg Given 08/14/2016 1:43 PM EST 81 mg 81 mg, Oral, ONCE, 1 dose, On Mon08/14/16 at 1300, Dose #9 (give 15 minutes after previous dose), Routine aspirin chewable tablet 162 mg Given 08/14/2016 1:54 PM EST 162 mg 162 mg (rounded from 160 mg), Oral, ONCE, 1 dose, On 08/14/16 at 1315, Dose #10 (give 15 minutes after previous dose), Routine aspirin chewable tablet 81 mg Given 08/16/2016 8:57 AM EST 81 mg 81 mg, Oral, DAILY, First dose on Mon08/15/16 at 0900, Until Discontinued, Routine aspirin tablet 325 mg Given 08/14/2016 2:08 PM EST 325 mg 325 mg, Oral, ONCE, 1 dose, On Mon08/14/16 at 1330, Dose #11 (give 15 minutes after previous dose), Routine atorvastatin (LIPITOR) tablet 80 mg Given 08/15/2016 5:34 PM EST 80 mg 80 mg, Oral, EVERY EVENING, First dose on Mon08/15/16 at 1700, Until Discontinued, Routine clopidogrel (PLAVIX) tablet 75 mg Given 08/16/2016 8:57 AM EST 75 mg 75 mg, Oral, DAILY, First dose on Mon08/14/16 at 0900, Until Discontinued, Routine Given 08/15/2016 7:50 AM EST 75 mg Given 08/14/2016 9:44 AM EST 75 mg EPINEPHrine (EpiPen) injection 0.3 mg/0. 3 mL 0.3 mg, Intramuscular, ONCE PRN, 1 dose, Starting on Mon08/14/16 at 1000, Until Mon08/16/16 at 1600, Allergic Reaction, For severe reaction (hypotension, tachycardia, respiratory distress, ect) administer ep inephrine and methylprednisone and notify HO and life safety nurse immediately., Routine famotidine (PEPCID) tablet 20 mg Given 08/16/2016 8:57 AM EST 20 mg 20 mg, Oral, DAILY, First dose on 08/14/16 at 0900, Until Discontinued, Routine Given 08/15/2016 1:59 PM EST 20 mg Given 08/14/2016 9:45 AM EST 20 mg heparin (porcine) injection 0-4,000 Given 08/14/2016 5:32 AM EST 2,000 Units Units 0-4,000 Units, Intravenous, BOLUS PER HEPARIN PROTOCOL, Starting on Mon08/13/16 at 2030, Until Mon08/16/16 at 1600, Per Protocol, START ADJUSTMENT SCHEDULE 6 HOURS AFTER STARTING INFUSION aPTT Between 60 - 79 seconds: Bolus 2,000 units aPTT Less than 60 seconds: Bolus 4,000 units Increase infusion and recheck aPTT in 6 hours. , Routine heparin 25,000 units in New Bag 08/14/2016 6:09 PM EST 1,150 Units /hr 23 mL/hr dextrose 5% 500 mL infusion 0-5,000 Units/hr (0-100 mL/hr), Intravenous, CONTINUOUS, Starting on Mon08/13/16 at 2100, Until Mon08/16/16 at 1600, BEGIN infusion at 1,000 units per hr (12 units/kg/hr). MAX INITIAL infusion rate is 1,000 units/hr. Target PTT = 80 - 114 seconds Start adjustment schedule 6 hours after starting infusion. If PTT is: - less than 60 seconds, Administer PRN bolus and increase rate by 350 units per hr (4 units/kg/hr) - 60 - 79 seconds, Administer PRN bolus and increase rate by 150 units per hr (2 units/kg/hr) - 80 - 114 seconds, No Change - 115 - 129 seconds, decrease rate by 100 units per hr ( 1 units/kg/hr) - 130 - 145 seconds, stop infusion for 30 minutes, then decrease rate by 150 units per hr (2 units/kg/hr) - Greater than 145 seconds, stop infusion for 60 minutes, then decrease rate by 250 units per hour (3 units/kg/hr) Repeat aPTT 6 hours after initiating heparin. Then 6 hours after each dose adjustment. When 2 consecutive aPTT within target range of 80 - 114 seconds, change aPTT to once every 24 hours with A.M. labs while on heparin. RN to order required aPTT - Per Protocol, Routine, Indication: ACS (STEMI vs NSTEMI vs UA) Rate/Dose Verify 08/14/2016 1:00 PM EST 1,150 Units/hr 23 mL/hr Rate/Dose Change 08/14/2016 5:36 AM EST 1,150 Units/hr 23 mL/hr hydroCHLOROthiazide (HYDRODIURIL) tablet 25 mg Given 08/16/2016 8:58 AM EST 25 mg 25 mg, Oral, DAILY, First dose on 08/14/16 at 0900, Until Discontinued, Routine Given 08/15/2016 2:00 PM EST 25 mg Given 08/14/2016 9:44 AM EST 25 mg lisinopril (PRINIVIL;ZESTRIL) tablet 5 m g Given 08/16/2016 8:58 AM EST 5 mg 5 mg, Oral, DAILY, First dose on 08/15/16 at 0900, Until Discontinued, Routine Given 08/15/2016 2:12 PM EST 5 mg methylPREDNISolone sodium succinate (PF) (SOLU-Medrol) injection 125 mg 125 mg, Intravenous, ONCE PRN, 1 dose, S tarting on Mon08/14/16 at 1000, Until Mon08/16/16 at 1600, Allergic Reaction, For severe reaction (hypotension, tachycardia, respiratory distress, ect) administer ep inephrine and methylprednisone and notify HO and life safety nurse immediately. meTOPROLOL (LOPRESSOR) tablet 12.5 mg Given 08/13/2016 9:18 PM EST 12.5 mg 12.5 mg, Oral, 2 TIMES DAILY, First dose on 08/13/16 at 2100, Until Discontinued, Routine meTOPROLOL tartrate (LOPRESSOR) tablet 2 5 mg Given 08/16/2016 8:59 AM EST 25 mg 25 mg, Oral, EVERY 8 HOURS SCHEDULED, First dose (after last modification) on 08/14/16 at 0800, Until Discontinued, Routine Given 08/15/2016 11:00 PM EST 25 mg Given 08/15/2016 3:40 PM EST 25 mg perflutren protein-A microspheres (OPTISON) Given 08/14/2016 1:0 0 PM EST 3 mLs 0.22 mg/mL injection 3 mL 3 mL, Intravenous, ONCE PRN, 1 dose, Starting on 08/14/16 at 1315, Until Mon08/14/16 at 1300, for enhancement of sub-optimal echo images, Echo Lab (Intra-Procedure), Routine potassium chloride (K-DUR/KLOR-CON) extended Given 6:33 AM EST 40 mEq release tablet 40 mEq 40 mEq, Oral, ONCE, 1 dose, On Mon08/16/16 at 0645, 20 mEq tablet may be dissolved in water for administration, Routine sodium chloride 0.9 % flush 5 mL Given 08/16/2016 9:00 AM EST 5 mLs 5 mL, Intravenous, 2 TIMES DAILY, First dose on 08/13/16 at 2100, Until Discontinued, Routine Given 08/15/2016 8:08 PM EST 5 mLs sodium chloride 0.9 % flush 5 mL Given 08/14/2016 9:19 PM EST 5 mLs 5 mL, Intravenous, EVERY 12 HOURS, First dose on 08/13/16 at 2100, Until Discontinued, Cath (Day of Procedure), Routine Given 08/13/2016 9:18 PM EST 5 mLs sodium chloride 0.9% infusion New Bag 08/15/2016 12:05 PM EST 125 mL/hr 125 mL/hr 125 mL/hr, Intravenous, CONTINUOUS, Starting on Mon08/15/16 at 1200, Until Mon08/15/16 at 1759, Recovery (Recovery-Hospital Unit) documented in this encounter Active and Recently Administered Medications Times are shown in EST. Scheduled Medication Order 08/14/2016 08/15/2016 08/16/2016 aspirin 1 mg/mL oral suspension 0.1 mg (COMPLETED) 112 7 (Given - Provider: Clare Ozuna RN) 0.1 mg, Oral, ONCE, 1 dose, 08/14/16 at 1100, Dose #1, Routin e aspirin 1 mg/mL oral suspension 0.3 mg (COMPLETED) 114 7 (Given - Provider: Clare Ozuna RN) 0.3 mg, Oral, ONCE, 1 dose, 08/14/16 at 1115, Dose #2 (give 15 minutes after previous dose), Routine aspirin 1 mg/mL oral suspension 1 mg (COMPLETED) 1202 (Given - Provider: Clare Ozuna RN) 1 mg, Oral, ONCE, 1 dose, 08/14/16 at 1130, Dose #3 (give 15 minutes after previous dose), Routine aspirin 1 mg/mL oral suspension 10 mg (COMPLETED) 1215 (Given - Provider: Clare Ozuna RN) 10 mg, Oral, ONCE, 1 dose, 08/14/16 a t 1215, Dose #6 (give 15 minutes after previous dose), Routine aspirin 1 mg/mL oral suspension 3 mg (COMPLETED) 1216 (Given - Provider: Clare Ozuna RN) 3 mg, Oral, ONCE, 1 dose, 08/14/16 at 1145, Dose #4 (give 15 minutes after previous dose), Routine aspirin 1 mg/mL oral suspension 6 mg (COMPLETED) 1231 (Given - Provider: Clare Ozuna RN) 6 mg, Oral, ONCE, 1 dose, 08/14/16 at 1200, Dose #5 (give 15 minutes after previous dose), Routine aspirin 30 mg/mL oral suspension 20 mg (COMPLETED) 130 1 (Given - Provider: Clare Ozuna RN) 20 mg, Oral, ONCE, 1 dose, 08/14/16 a t 1230, Dose #7 (give 15 minutes after previous dose), Routine aspirin 30 mg/mL oral suspension 40.5 mg (COMPLETED) 1 320 (Given - Provider: Clare Ozuna RN) 40.5 mg, Oral, ONCE, 1 dose, 08/14/16 at 1245, Dose #8 (give 15 minutes after previous dose), Routine aspirin 30 mg/mL oral suspension 81 mg (COMPLETED) 134 3 (Given - Provider: Clare Ozuna RN) 81 mg, Oral, ONCE, 1 dose, 08/14/16 a t 1300, Dose #9 (give 15 minutes after previous dose), Routine aspirin chewable tablet 162 mg (COMPLETED) 1354 (Given - Provider: Clare Ozuna RN) 162 mg (rounded from 160 mg), Oral, ONCE , 1 dose, 08/14/16 at 1315, Dose #10 (give 15 minutes after previous dose), Routine aspirin chewable tablet 81 mg 0846 (MAR Hold - Provider: Admin Adt - Reason: Transfer to a Procedural area)0900 (Not Given - Provider: María Elena Smith RN - Reason: See comment - Comment: 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)1311 (MAR Unhold - Provider: Admin Adt) 0857 (Given - Provider: Shirley stephenson RN) 81 mg, Oral, DAILY, First dose on Mon at 0900, Until Discontinued, Routine aspirin tablet 325 mg (COMPLETED) 1408 (Given - Provider: Saeed Ozuna RN) 325 mg, Oral, ONCE, 1 dose, 08/14/16 at 1330, Dose #11 (give 15 minutes after previous dose), Routine atorvastatin (LIPITOR) tablet 80 mg 0846 (AUG Hold - Provider: Admin Adt - Reason: Transfer to a Procedural area)1311 (AUG Unhold - Provider: Admin Adt)1734 (Given - Provider: María Elena Smith RN) 80 mg, Oral, EVERY EVENING, First dose o n Mon08/15/16 at 1700, Until Discontinued, Routine clopidogrel (PLAVIX) tablet 75 mg 0944 (Given - Provider: Yessica Smith RN) 0750 (Given - Provider: María Elena Smith RN - Comment: per MD order. 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)1311 ([facility] Unhold - Provider: Admin Adt) famotidine (PEPCID) tablet 20 mg 0945 (Given - Provider: Col ciarra Smith RN) 0846 (AUG Hold - Provider: Admin Adt - Reason: Transfer to a Procedural area)1311 ([facility] Unhold - Provider: Admin Adt)1359 (Given - Provider: María Elena Smith RN) 0857 (Given - Provider: Shirley stephenson RN) 20 mg, Oral, DAILY, First dose on Sun at 0900, Until Discontinued, Routine hydroCHLOROthiazide (HYDRODIURIL) tablet 25 mg 0944 (G iven - Provider: María Elena Smith RN) 0846 ([facility] Hold - Provider: Admin Adt - R laura: Transfer to a Procedural area)1311 ([facility] Unhold - Provider: Admin Adt)1400 (Given - Provider: María Elena Smith RN) 0858 (Given - Provider: Shirley stephenson RN) 25 mg, Oral, DAILY, First dose on Sun at 0900, Until Discontinued, Routine lisinopril (PRINIVIL;ZESTRIL) tablet 5 mg 0846 (MAR Hold - Provider: Admin Adt - Reason: Transfer to a Procedural area)1311 (MAR Unhold - Provider: Admin Adt)1412 (Given - Provider: María Elena Smith RN) 0858 (Given - Provider: Shirley Coyle RN) 5 mg, Oral, DAILY, First dose on 07/28 at 0900, Until Discontinued, Routine meTOPROLOL tartrate (LOPRESSOR) tablet 25 mg 0945 (Giv en - Provider: María Elena Smith RN)1528 (Given - Provider: María Elena Smith RN - Comment: at procedure in [facility])2119 (Given - Provider: Aleisha Osuna RN) 0542 (Given - Provider: Aleisha Osuna RN)0846 (MAR Hold - Provider: Admin Adt - Reason: Transfer to a Procedural area)1311 (MAR Unhold - Provider: Admin Adt)1540 (Given - Provider: María Elena Smith RN - Comment: per SULAIMAN lopez verbal order) 0859 (Given - Provider: Shirley Coyle RN) 25 mg, Oral, EVERY 8 HOURS SCHEDULED, Fi rst dose on 08/14/16 at 0800, Until Discontinued, Routine 2300 (Given - Provider: Bre gonzalez RN) potassium chloride (K-DUR/KLOR-CON) extended release tablet 40 mEq (COMPLETED) 0633 (Given - Provider: Bre lomax RN) 40 mEq, Oral, ONCE, 1 dose, 08/16/16 at 0645, 20 mEq tablet may be dissolved in water for administration, Routine sodium chloride 0.9 % flush 5 mL 0900 (Not Given - Pro vider: María Elena Smith RN - Reason: See comment - Comment: iv infusing)2100 (Not Given - Provider: Aleisha Osuna RN - Reason: Contraindicated) 0846 (MAR Hold - Provider: Admin Adt - Reason: Transfer to a Procedural area)0900 (Automatically Held - Provider: Admin Adt)1311 (MAR Unhold - Provider: Admin Adt)2007 (Given - Provider: Bre david, RN) 09 (Given - Provider: Shirley stephenson RN) 5 mL, Intravenous, 2 TIMES DAILY, First dose on 08/13/16 at 2100, Until Discontinued, Routine sodium chloride 0.9 % flush 5 mL (CANCELED) 899 (Not Given - Provider: María Elena Smith, ELPIDIO - Reason: Contraindicated - Comment: iv infusing)2118 (Given - Provider: Aleisha Osuna, ELPIDIO) 09 (Not Given - Provider: María Elena Villarreal, ELPIDIO - Reason: Contraindicated - Comment: IV infusing) 5 mL, Intravenous, EVERY 12 HOURS, First dose on 08/13/16 at 2100, Until Discontinued, Cath (Day of Procedure), Routine Continuous Medication Order 08/14/2016 08/15/2016 08/16/2016 heparin 25,000 units in dextrose 5% 500 mL infusion(Li nked Group 1) 0536 (Rate/Dose Change - Provider: Karlie Monae, RN)1300 (Rate/Dose Verify - Provider: Clare Ozuna, ELPIDIO)1809 (New Bag - Provider: María Elena Smith, RN) 0846 (MAR Hold - Provider: Admin Adt - Reason: Transfer to a Procedural area)1311 (AUG Unhold - Provider: Admin Adt) 0-5,000 Units/hr (0-100 mL/hr), Intraven ous, at 0-100 mL/hr, CONTINUOUS, Starting 08/13/16 at 2100, Until Mon08/16/16 at 1600, BEGIN infusion at 1,000 units per hr (12 units/kg/hr). MAX INITIAL infus ion rate is 1,000 units/hr. Target PTT = 80 - 114 seconds Start adjustment schedule 6 hours after starting infusion. If PTT is: - less than 60 seconds, Administer PRN bolus and increase rate by 350 unit s per hr (4 units/kg/hr) - 60 - 79 secon ds, Administer PRN bolus and increase rate by 150 units per hr (2 units/kg/hr) - 80 - 114 seconds, No Change - 115 - 129 seconds, decrease rate by 100 units per h r ( 1 units/kg/hr) - 130 - 145 seconds, stop infusion for 30 minutes, then decrease rate by 150 units per hr (2 units/kg/hr) - Greater than 145 seconds, stop infusion for 60 minutes, then decrease rate by 250 units per hour (3 units/kg/hr) Re peat aPTT 6 hours after initiating heparin. Then 6 hours after each dose adjustment. When 2 consecutive aPTT within target range of 80 - 114 seconds, change aPTT to once every 24 hours with A.M. labs wh ile on heparin. RN to order required aPTT - Per Protocol, Routine sodium chloride 0.9% infusion () 1205 (New Bag - Provider: Suzanne Cyr RN) 125 mL/hr, at 125 mL/hr, Intravenous, CO NTINUOUS, Starting Mon08/15/16 at 1200, Until Mon08/15/16 at 1759, Recovery (Recovery-Hospital Unit) PRN Medication Order 08/14/2016 08/15/2016 08/16/2016 acetaminophen (TYLENOL) tablet 650 mg 08 46 (AUG Hold - Provider: Admin Adt - Reason: Transfer to a Procedural area)1311 ([facility] Unhold - Provider: Admin Adt) 650 mg, Oral, EVERY 6 HOURS PRN, Startin g 08/13/16 at 2030, Until Mon08/16/16 at 1600, Pain, Headaches, Maximum dose of acetaminophen is 4000 mg from all sources in 24 hours., Routine aspirin chewable tablet (CANCELED) 1136 (Given - Provider: Arnel Mclaughlin) ONCE PRN, Starting Mon08/15/16 at 1136, Until Mon08/15/16 at 1137, Intra- Operative (Intra-Procedure), Routine EPINEPHrine (EpiPen) injection 0.3 mg/0.3 mL 0846 (AUG Hold - Provider: Admin Adt - Reason: Transfer to a Procedural area)1311 ([facility] Unhold - Provider: Admin Adt) 0.3 mg, Intramuscular, ONCE PRN, 1 dose, Starting 08/14/16 at 1000, Until Mon08/16/16 at 1600, Allergic Reaction, For severe reaction (hypotension, tachycardia, respiratory distress, ect) administer epinephrine and methylprednisone and not violetta HO and life safety nurse immediately., Routine fentaNYL 50 mcg/mL multi-dose injection (CANCELED) 0904 (Given - Provider: Arnel Mclaughlin)0926 (Given - Provider: Arnel Mclaughlin)1016 (Given - Provider: Arnel Mclaughlin)1050 (Given - Provider: Arnel Mclaughlin)1121 (Given - Provider: Arnel Mclaughlin) ONCE PRN, Starting 08/15/16 at 0904, Until Mon08/15/16 at 1128, Cath (Intra- Procedure), Routine heparin (porcine) injection 0-4,000 Units(Linked Group 1) 0532 (Given - Provider: Karlie Monae RN) 0846 (AUG Hold - Provider: Admin Adt - R laura: Transfer to a Procedural area)1311 (AUG Unhold - Provider: Admin Adt) 0-4,000 Units, Intravenous, BOLUS PER [facility] PROTOCOL, Starting 08/13/16 at 2030, Until 08/16/16 at 1600, Per Protocol, START ADJUSTMENT SCHEDULE 6 HOURS AFTER STARTING INFUSION aPTT Between 60 - 79 seconds: Bolus 2,000 units aPTT Less than 60 seconds: Bolus 4,000 units Increase infusion and recheck aPTT in 6 hours. , Routine heparin (porcine) injection (CANCELED) 0 948 (Given - Provider: Arnel Mclaughlin) ONCE PRN, Starting Mon08/15/16 at 0948, Until Mon08/15/16 at 1128, Cath (Intra- Procedure), Routine iohexol (OMNIPAQUE) 350 mg/mL solution (CANCELED) 1128 (Given - Provider: Luanne Moran MD) ONCE PRN, Starting 08/15/16 at 1128, Until Mon08/15/16 at 1132, Cath (Intra- Procedure), Routine lidocaine (XYLOCAINE) 10 mg/mL (1 %) injection 3 mg 0846 (AUG Hold - Provider: Admin Adt - Reason: Transfer to a Procedural area)1311 ([facility] Unhold - Provider: Admin Adt) 3 mg (0.3 mL), Subcutaneous, ONCE PRN, 1 dose, Starting 08/13/16 at 2030, Until Tu08/16/16 at 1600, for discomfort with PIV insertion, Routine lidocaine (XYLOCAINE) 10 mg/mL (1 %) injection (CANCELED) 09 (Given - Provider: Luanne Moran MD - Comment: right groin)1055 (Given - Provider: Luanne Moran MD - Comment: right groin) ONCE PRN, Starting 08/15/16 at 0903, Until Mon08/15/16 at 1128, Cath (Intra- Procedure), Routine methylPREDNISolone sodium succinate (PF) (SOLU-Medrol) injec tion 125 mg 0846 (AUG Hold - Provider: Admin Adt - Reason: Transfer to a Procedural area)131 (AUG Unhold - Provider: Admin Adt) 125 mg, Intravenous, ONCE PRN, 1 dose, S tarting 08/14/16 at 1000, Until Mon08/16/16 at 1600, Allergic Reaction, For severe reaction (hypotension, tachycardia, respiratory distress, ect) administer ep inephrine and methylprednisone and notify HO and life safety nurse immediately. midazolam (PF) (VERSED) 1 mg/mL multi-dose injection (CANCEL ED) 09 (Given - Provider: Arnel Mclaughlin)0926 (Given - Provider: Arnel Mclaughlin)112 (Given - Provider: Arnel Mclaughlin) ONCE PRN, Starting Mon08/15/16 at 0904, Until Mon08/15/16 at 1252, Cath (Intra- Procedure), Routine nitroGLYcerin (NITROSTAT) SL tablet 0.4 mg 0846 (AUG Hold - Provider: Admin Adt - Reason: Transfer to a Procedural area)131 ([facility] Unhold - Provider: Admin Adt) 0.4 mg, Sublingual, EVERY 5 MIN PRN, Sta rting 08/13/16 at 2030, Until Mon08/16/16 at 1600, Chest pain, May repeat every 5 minutes for a total of three doses. Notify provider if chest pain not relieve d with nitroglycerin. Do not administer nitroglycerin if the patinet has received or taken phosphodiesterase (PDE-5) inhibitors such as sildenafil, tadalafil or vardenafil within the last 24 to 72 hours., Routine perflutren protein-A microspheres (OPTIS ON) 0.22 mg/mL injection 3 mL (COMPLETED) 1300 (Given - Provider: Marisel Burton) 3 mL, Intravenous, ONCE PRN, 1 dose, Sta rting 08/14/16 at 1315, Until 08/14/16 at 1300, for enhancement of sub-optimal echo images, Echo Lab (Intra- Procedure), Routine sodium chloride 0.9 % flush 5-20 mL 0846 (AUG Hold - Provider: Admin Adt - Reason: Transfer to a Procedural area)1311 (AUG Unhold - Provider: Admin Adt) 5-20 mL, Intravenous, EVERY 1 MIN PRN, S tarting 08/13/16 at 2030, Until 08/16/16 at 1600, flush, Flush pertains to all indwelling lines. Flush per protocol found in the job aid using the link provided on this medication record., Routine Linked Groups Order Group 1: heparin (porcine) injection 0-4,000 UnitsJump to med 0-4,000 Units, Intravenous, BOLUS PER HE ELI PROTOCOL, Starting 08/13/16 at 2030, Until 08/16/16 at 1600, Per Protocol
START ADJUSTMENT SCHEDULE 6 HOURS AFTER STARTING INFUSION&n bsp; aPTT Between 60 - 79 seconds: Bolus 2,000 units aPTT Less than 60 seconds: Bolus 4,000 units Increase infusion and recheck aPTT in 6 hours.
Routine And heparin 25,000 units in dextrose 5% 500 mL infusionJump to med 0-5,000 Units/hr (0-100 mL/hr), Intraven ous, at 0-100 mL/hr, CONTINUOUS, Starting 08/13/16 at 2100, Until Tu08/16/16 at 1600
BEGIN infusion at 1,000 units per hr (12 units/kg/hr). MAX INITI AL infusion rate is 1,000 units/hr. &nbs p; Target PTT = 80 - 114 seconds Start adjustment schedule 6 hours after starting infusion. If PTT is: &n bsp;- less than 60 seconds, Administer P RN bolus and increase rate by 350 units per hr (4 units/kg/hr) - 60 - 79 seconds, Administer PRN bolus and increase rate by 150 units per hr (2 units/kg /hr) - 80 - 114 seconds, No Change - 115 - 129 seconds, decrease rate by 100 units per hr ( 1 units/kg/hr) - 130 - 145 seconds, stop infusion for 30 minutes, then decrease rate by 15 0 units per hr (2 units/kg/hr) - G reater than 145 seconds, stop infusion for 60 minutes, then decrease rate by 250 units per hour (3 units/kg/hr) Repeat aPTT 6 hours after initiating heparin. Then 6 hours after e ach dose adjustment. When 2 consecutive aPTT within target range of 80 - 114 seconds, change aPTT to once every 24 hours with A.M. labs while on heparin. &nbs p; RN to order required aPTT - Per Protocol
Routine documented in this encounter Care Teams Hospital Aide Relationship Specialty Start Date End Date Guzman Thompson MD PCP - General Family Medicine 07/14/[address] [place] [address] documented as of this encounter
--- OUTSIDE RECORDS SUMMARY | 2022-04-08 01:38 | XMS_ITS | Encounter Summary ---
:1935 [place] [address] Care Team Providers Name Role Phone Guzman Thompson MD Primary Care Provider [phone] Reason for Visit Auth/Cert Specialty Diagnoses / Procedures Referred By Contact Refer red To Contact Diagnoses Unstable angina ACS, +STRESS Referral ID Status Reason Start Date Expiration Date Visits Requ ested Visits Authorized [id number] 1 1 Encounter Details Date Type Department Care Team Description 08/15/2016 Surgery Mechanical Artist Anita Harrell MD CARDIAC CATHETERIZATION [facility] [place] [address] [place] [address] [phone] (Wo rk) Social History Tobacco Use Types [...] EST documented in this encounter Discharge Summaries Shawna Dickey APRN - 08/16/2016 1:04 PM EST Images from the original note were not included. Discharge Summary Patient Name: Timmy Farrell Patient Age: 81 y.o. Language: Portuguese Race: White Ethnicity: Not nor Admit date: [...] daily. Please monitor Inpatient Provider Contact Information: SHAWNA DICKEY APRN [phone] Discharge Diagnoses (Hospital Problems) and Secondary Diagnoses (Chronic Problems): Active Hospital Problems Diagnosis ??? Unstable angina with positive stress test ??? Cardiomyopathy, ischemic Resolved Hospital Problems Diagnosis Date Resolved No resolved problems to display. Active Non-Hospital Problems Diagnosis ??? Essential hypertension ??? 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 ??? CAD s/p CABG Presented with UA vs AL CABG 1988 - [place] to LAD, SVG to distal RCA (Dr. Dawn) - no further records available Lost to follow up thereafter - did not see a mathematical sciences professor again until 2015. Was on no meds as of June 2015 --> started Mevacor 05/2016: uptitrate Mevacor to 40. Refuses clopidogrel. [...] Presentation: ?? 81 yr old male from 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 ?? According to the pt he had 2-3 episodes of exertional chest discomfort and occasional SOB with moderate exertion in last year relieved with nitro. He undergone Nuclear stress test on 08/10/[address] [facility], which showed decreased EF (around 36% in stress test) which is new (Echo in 2015 EF 60%) and moderate sized reversible defect [...] and metoprolol. ?? Today he presented to [facility] with bilateral facial flushing and numbness lasted for few minutes on Monday08/12/2016 at 8:30 am responded to one sub lingual nitro at home and called the EMS thinking that some thing is not right. On arrival to ED - [facility] his vitals stable 36.4, 69,13, 158/78 and 96% on RA.During the stay at [facility] he has another episode of mild facila [...] no symptoms. Hospital Course: On admission to [facility], the patient had no complaints of chest pain or shortness of breath. Telemetry was attached which showed normal sinus rhythm. Heparin drip was infusing. [facility] records[place]transfer records were reviewed. Baseline labs were checked and/or drawn. Unstable angina Given the patient's risk factors, abnormal nuclear stress test on 08/10/16, atypical facial flushing and numbness, it was decided to proceed with coronary angiography. The patient went to the cardiac labor mediator for a diagnostic cath which showed significant [...] 18 08/16/2016 CREATININE 0.93 08/16/2016 Recent Labs 08/13/16 1929 TSH 3.11 Recent Labs 08/13/16 1928 HA1C 5.8* Recent Labs 08/16/16 1023 08/16/16 [...] Rosuvastatin Calcium HEAD SORENESS ??? Sertraline ??? Rrclrjx-Rzf-Yje Reductase Inhibitors INTOLERANce. However, tolerates Mevacor without [...] appointments: During 8am-5pm Monday through Monday call [phone] to speak with a nurse in the cardiology clinic All other times call [phone] and ask to speak to the archival records clerk instructional leader. Return to work: Retired Driving: No driving for 48 hours after catheterization. Follow up Appointments: PCP Guzman Thompson MD [phone] Friday August 19, 2016 at 10:[address] Llanes Cancelled appointment for August 17, 2016, rescheduled to September 22, 2016 at 10:30 am Future Appointments and Orders Future Orders Complete By Expires Basic Metabolic Panel (non-fasting) [LAB15 Custom] 08/18/2016 02/17/2017 Process Instructions: INCLUDES: Calcium, BUN, Creat, GFR, Glucose, Lytes Scheduling Instructions: Comments: Questions: Referral to Cardiac Rehab [[id number] Custom] As directed Process Instructions: If no progress note charted, please enter Clinical details in comments. Scheduling Instructions: Questions: My question or request is: s/p PCI; cardiac rehab @ [facility] Discharge References/Attachments None Shawna Waterman APRN 08/16/2016 documented in this encounter Discharge Instructions Discharge InstructionsIsabella Rios APRN - 08/16/2016 11:49 AM EST Call your doctor if: Chest pain, shortness of breath, pain or swelling in legs occurs. If you have non-emergent questions between now and the time of your follow up appointments: During 8am-5pm Monday through Monday call [phone] to speak with a nurse in the cardiology clinic All other times call [phone] and ask to speak to the archival records clerk instructional leader. Return to work: Retired Driving: No driving for 48 hours after catheterization. Follow up Appointments: PCP Guzman Thompson MD [phone] Friday August 19, 2016 at 10:00 am [...] Reason for Nutrition Intervention: Consult Diet Order: [facility] Appetite: Good Food allergies: [...] for years. He reports eating at the [employer] for lunch 3x / week. 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 Review of Systems: Review of Systems Constitutional: [...] vitals reviewed. Lab Comments: Recent Labs 08/16/16 04308/15/16 0348 08/14/16 0439 WBC 6.2 6.6 6.0 [...] the last 168 hours. Recent Labs 08/16/16 0437 08/15/16 1130 08/14/16 0439 CALCIUM 8.7 8.1* 8.9 MAGNESIUM -- -- 0.85 Recent Labs 08/16/16 0437 08/15/16 1130 08/14/16 0439 CK 127 72 141 [...] Edson Sterling - 08/15/2016 8:00 PM EST Adina Encounter Note Patient Name: Timmy GOYAL: [id number] MR#: [id number] Admit Date: 08/13/2016 6:43 PM Hospital Day 3 days Narrative: Operations Lieutenant initiated visit while rounding. Patient receptive to visit and talked about various aspectsof his life. Assessment: Pt shared about his & his 's involvement in the [employer]. He said that his brick wheeler has visited. He especially lit up when talking about his grandchildren and said that is why he especiallywants to keep living to see them grow-up/graduate. Intervention and Outcome: Provided pastoral/supportive presence and active listening. Follow-up: Yes, if requested Time in Direct Care: 15 min. 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 [Aug] atorvastatin 80 mg Oral QPM ??? [AUG [...] 5 mL Intravenous Q12H Continuous Infusions: ??? [AUG Hold] heparin (porcine) 1,150 Units/hr (08/14/16 1809) PRN Meds:lidocaine, midazolam (PF), fentaNYL (PF), [AUG Hold] diphenhydrAMINE, [AUG Hold] EPINEPHrine, [AUG Hold] methylPREDNISolone, [AUG Hold] sodium chloride 0.9 %, [AUG Hold] lidocaine, [AUG Hold] nitroGLYcerin, [AUG Hold] heparin (porcine) AND [AUG Hold] heparin (porcine), sodium chloride 0.9%, [MAR Hold] acetaminophen, lidocaine, sodium chloride 0.9 % [...] diaphoretic. Lab Comments: Recent Labs 08/15/16 0348 08/14/1643808/13/161928 WBC 6.6 6.0 5.8 HGB 15.1 14.3 14.3 HCT 42.6 41.1 40.1* PLATELET 167 173 169 Recent Labs 08/13/161928 INR 1.0 Recent Labs 08/14/16 0439 08/13/161928 NA 140 142 K 3.8 3.9 CL [...] with Dr. Shields. SAVANNAH MOCK 08/15/2016 Pager [phone] STAFF ADDENDUM Patient interviewed and examined. Medical [...] possible PCI. No contraindication to LURDES. Clare Ozuna RN - 08/14/2016 2:59 PM EST 08/14/16 [...] 0 Pain Goal 0 Patient arrived to [facility] for ASA desensitization. Orders verified, 2nd IV placed. All emergency medications at bedside. 1400- Patient has received all 11 doses of ASA with no c/o sob, itching, all VS stable. Will continue to closely monitor Shlomo Shields MD - 08/14/2016 11:36 AM EST Inpatient Cardiology Progress Note Patient Name: Timmy Farrell Service: HOUSEKEEPING ASSISTANT / PA Responsible Attending: Shlomo Shields MD [...] 8.9 8.7 MAGNESIUM 0.85 -- Recent Labs 08/14/1643808/14/16 0140 08/13/161928 CK 141 131 144 TROPONINT [...] with Dr. Shields. SAVANNAH MOCK 08/14/2016 Pager [phone] STAFF ADDENDUM Patient interviewed and examined. Medical [...] PCP: Guzman Thompson MD PCP phone #: [phone] ID/Chief Complaint: Bilateral facial numbness/flushing that resolved with 1 sub ling nitro. History of Present Illness: pt is poor historian. 81 yr old male from 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 According to the pt he had 2-3 episodes of exertional chest discomfort and occasional SOB with moderate exertion in last year relieved with nitro. He undergone Nuclear stress test on 08/10/[address] [facility], which showed decreased EF (around 36% in stress test) which is new (Echo in 2015 EF 60%) and moderate sized reversible defect [...] Plavix and metoprolol. Today he presented to [facility] with bilateral facial flushing and numbness lasted for few minutes on Monday08/12/2016 at 8:30 am responded to one sub lingual nitro at home and called the EMS thinking that some thing is not right. On arrival to ED - [facility] his vitals stable 36.4, 69,13, 158/78 and 96% on RA.During the stay at [facility] he has another episode of mild facila [...] Cardiac history: Nuclear stress test 08/10/[address] [facility] Moderate sized reversible defect in apical, inferior [...] valve with anterior prolapse her echo at [facility] ??? CAD s/p CABG Presented with UA vs AL CABG 1988 - [place] to LAD, SVG to distal RCA (Dr. Dawn) - no further records available Lost to follow up thereafter - did not see a mathematical sciences professor again until 2015. Was on no meds [...] Aspirin ??? Rosuvastatin Calcium HEAD SORENESS ??? Sgvwhjs-Fhm-Jue Reductase Inhibitors INTOLERANce. However, tolerates Mevacor without [...] chnages ASSESSMENT: 81 yr old male from [facility] with H/O CABG x 2 vessel in [...] new depressed EF 36% presented to the [facility] with bilateral facial flushing and numbness resolved with one nitro and transferred to [facility] for unstable angina. PLAN: 1) Unstable angina with recent Positive stress test Trend the cardiac enzymes - 0.03 x3 Echo in AM Will try to get the nuclear stress images from 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 VSS on RA. Denied CP or SOB. SR on tele. Taken to labor mediator around 0800. Refer to results for details. [...] PM EST Office of Care Management 4 [facility] Cardiac Care Math And Physics Instructor RN Charly Morales RN, MSN Pager [phone] Provider: Dr. Shields, pager [phone] Office of Care Management Initial Assessment Charly [...] Coverage: Primary Insurance: medicare A/B Secondary Insurance: [place] Prescription Coverage: Hum[employer] Preferred Pharmacy: [facility] Other: none Primary Care Provider: Guzman Thompson MD [phone] Patient/Caregiver Goals of Treatment: return to normal [...] to an outpatient cardiac rehabilitation program at [facility] was discussed. He did this after his [...] or SOB. Deniedpain. Pt SBA/IND. Went to [facility] around 1000 for an aspirin desensitization. No [...] Name Priority Date/Time Associated Diagnosis Comme nts LUSTERER SCAN 08/17/2016 12:00 Res ults for this AM EST procedure are i n the results section. CARDIAC ENZYMES Timed 08/16/2016 10:23 Results for this ([facility] AM EST procedure are [...] Routine 08/16/2016 4:37 Results f or this ([facility] AM EST procedure are i n the [...] ENZYMES STAT 08/15/2016 11:30 Results for this ([facility] AM EST procedure are i n the [...] Routine 08/14/2016 4:39 Results f or this ([facility] AM EST procedure are [...] STAT 08/14/2016 1:40 Results f or this ([facility]) AM EST procedure are [...] STAT 08/13/2016 7:29 Results f or this ([facility] PM EST procedure are i n the [...] documented in this encounter Results SCAN DOC: LUSTERER (08/17/2016 12:00 AM EST) Narrative 08/17/2016 12:00 AM EST This result has an attachment that is no t available. Ordered by an unspecified provider. Scanning Provider MEDIA MGR SCAN EXT ORDR/RSLT (ABNORMAL) Cardiac Enzymes (08/16/2016 10:23 AM EST) P athologist Signature Troponin-T 0.14 (H) <=0.03 [facility] ng/mL [facility] Comment: 0.03 ng/mL: Represents the 99th [...] consensus document of the Joint Society of Cardiology/[place] College o f Cardiology Committee for the redefinition of myocardial infarction. ? ?Journal of the [place] College of Cardiology 2000; 36: 959-969] CK, Total 135 0 - 200 unit/L [facility] Specimen Anatomical Collection Method Collection Time Receive d Time (Source) Location / / Volume Laterality Blood specimen 08/16/2016 10:23 7 (specimen) AM EST 10:27 AM EST Resulting Agency Comment Spec In Lab Shlomo Shields MD CHEMISTRY ORDERABLES Performing Organization Address City/State/[place] [address] EKG 12 Lead (08/16/2016 7:36 AM EST) Component Value Ref Range Test Analysis Performed Pathologis t Method Time At Signature Ventricular rate 77 BPM MUSE SYSTEM Atrial Rate 77 BPM MUSE SYSTEM P-R Interval 180 ms MUSE SYSTEM QRS Duration 96 ms MUSE SYSTEM Q-T Interval 376 ms MUSE SYSTEM QTC Calculated 425 ms MUSE SYSTEM (Bezet) Calculated P [place] 56 degrees MUSE SYSTEM Calculated R [place] 39 degrees MUSE SYSTEM Calculated T [place] -98 degrees MUSE SYSTEM INTERPRETATION Normal sinus [...] City/State/ZIP Code Phon e Number MUSE SYSTEM Hepatic Function Panel (08/16/2016 4:37 AM EST) P athologist Signature Total Protein 6.9 6.1 - 8.0 [employer] FELICITY gm/dL [facility] Albumin 3.8 3.2 - 5.2 [employer] [facility] gm/dL [facility] AST 20 0 - 39 [facility] unit/L [facility] ALT 17 0 - 55 [facility] [facility] unit/L [facility] Alk Phos 68 40 - 120 [place] unit/L [facility] Total 0.8 0.2 - 1.3 [employer] Bilirubin mg/dL [facility] Bili, Direct 0.1 0.0 - 0.3 [employer] mg/dL [facility] Specimen Anatomical Collection Method Collection Time Receive d Time (Source) Location / / Volume Laterality Blood specimen Venous Draw / 08/16/2016 4:37 AM 2016 4:50 (specimen) Unknown EST AM EST Resulting Agency Comment Spec In Lab Shlomo Shields MD CHEMISTRY ORDERABLES Performing Organization Address City/State/[place] [address] Differential, Automated (08/16/2016 4:37 AM EST) athologist Signature Neutrophils % 71.3 % [facility] Neutr Abs (ANC) 4.44 1.70 - [facility] 6.10 [facility] x10(3)/[facility] LABORATORY Lymphocytes % 14.6 % [facility] Lymphocytes Abs 0.9 0.9 - 3.2 [facility] x10(3)/[facility] LABORATORY Monocytes % 10.9 % [facility] Monocyte Abs 0.7 0.3 - 0.9 [facility] x10(3)/[facility] LABORATORY Eosinophils % 2.7 % [facility] Eosinophils Abs 0.2 0.0 - 0.4 [facility] x10(3)/[facility] LABORATORY Basophils % 0.2 % [facility] Basophils Abs 0.0 0.0 - 0.1 [facility] x10(3)/[facility] LABORATORY Immature Gran % 0.30 % [facility] Comment: Immature granulocytes(IG's)percentage an d absolute count will include metamyelocytes, myelocytes, and promyelo cytes. Blood smears from CBCs yielding IG's will be scanned manually for concor dance. If this scan disagrees with the automated IG or if promyelocytes are not ed, a manual differential will be performed. Karen Gran Abs 0.02 0.00 - 0.04 x10(3)/[facility] Specimen Anatomical Collection Method Collection Time Receive d Time (Source) Location / / Volume Laterality Blood specimen 08/16/2016 4:37 AM 017 4:46 (specimen) EST AM EST Resulting Agency Comment Spec In Lab Luanne Moran MD HEMATOLOGY ORDERABLES Performing Organization Address City/State/[place] [address] (ABNORMAL) Hemogram (08/16/2016 4:37 AM EST) Analysis Performed At Patho logist Time Signature WBC 6.2 4.0 - 9.5 [facility] LABORATORY RBC 4.58 4.58 - [place] FELIC[facility] 5.54 [facility] x10(6)/[facility] LABORATORY Hemoglobin 14.0 13.7 - [facility] 16.5 gm/dL [facility] Hematocrit 39.8 (L) 40.5 - [facility] 48.5 % [facility] MCV 86.9 82.9 - [facility] 93.1 [facility]ORATORY MCH 30.6 27.5 - [facility] FELICITY 32.1 pg [facility] MCHC 35.2 32.0 - [facility] 35.7 gm/dL [facility] Platelets 172 145 - 357 [facility] x10(3)/[facility] LABORATORY RDWSD 38.8 36.0 - [facility] 45.0 [facility] LABORATORY RDWCV 12.1 11.4 - [facility] FELICITY 13.8 % [facility] MPV 10.9 7.6 - 12.9 [facility] FELICITY [facility] LABORATORY nRBC % Auto 0.0 % [facility] nRBC Abs Auto 0.000 0.000 - [facility] FELICITY 0.000 [facility] x10(3)/[facility] LABORATORY Specimen Anatomical Collection Method Collection Time Receive d Time (Source) Location / / Volume Laterality Blood specimen 08/16/2016 4:37 AM 017 4:46 (specimen) EST AM EST Resulting Agency Comment Spec In Lab Luanne Moran MD HEMATOLOGY ORDERABLES Performing Organization Address City/State/[place] [address] (ABNORMAL) BMP w/fasting Glucose (08/16/2016 4:37 AM EST) P athologist Signature Glucose 117 (H) 65 - 99 [facility] Fasting mg/dL [facility] Comment: ?Fasting* Glucose Interpretive C [...] of Diabetes Mellitus, Position Statement from the [place] Diabetes Association. ??Diabete s Care, Volume 33, Supplement 1, Jun 2009 BUN 18 10 - 20 mg/dL [facility] Creatinine 0.93 0.80 - 1.50 mg/dL [facility] Comment: Please note that the pediatric reference intervals supplied above were not validated at [facility]. Results from pediatri c patients should be interpreted in conjunction to the patient's age, height and muscle mass. Sodium 139 135 - 145 mmol/L [facility] Potassium 3.6 3.5 - 5.0 mmol/L [facility] Comment: Please note: ??Patients with WBC >100,00 0 may have falsely elevated Potassium levels. ??For accurate Potassium quantif ication in these patients send serum separator tube (gold top) for subsequent determinations. ??Contact the Clinical Chemistry Laboratory if there are any qu estions. Chloride 101 98 - 107 mmol/L [facility] CO2 24 22 - 31 mmol/L [facility] Anion Gap 14 5 - 15 mmol/L [facility] Calcium 8.7 8.5 - 10.5 mg/dL [facility] Estimated GFR >60 >=60 [facility] Comment: This estimated GFR (eGFR) value [...] the following links into your internet browser. [email or web address] [email or web address] Specimen Anatomical Collection Method Collection Time Receive d Time (Source) Location / / Volume Laterality Blood specimen 08/16/2016 4:37 AM 017 4:46 (specimen) EST AM EST Resulting Agency Comment Spec In Lab Luanne Moran MD CHEMISTRY ORDERABLES Performing Organization Address City/State/ZIP Code Phon e Number [place] [id number] (ABNORMAL) Cardiac Enzymes (08/16/2016 4:37 AM EST) P athologist Signature Troponin-T 0.15 (H) <=0.03 [facility] ng/mL [facility] Comment: 0.03 ng/mL: Represents the 99th [...] consensus document of the Joint Society of Cardiology/[place] College o f Cardiology Committee for the redefinition of myocardial infarction. ? ?Journal of the [place] College of Cardiology 2000; 36: 959-969] CK, Total 127 0 - 200 unit/L [facility] Comment: result rechecked-[facility] Specimen Anatomical Collection Method Collection Time Receive d Time (Source) Location / / Volume Laterality Blood specimen 08/16/2016 4:37 AM 017 4:46 (specimen) EST AM EST Resulting Agency Comment Spec In Lab Luanne Moran MD CHEMISTRY ORDERABLES Performing Organization Address City/[facility]/ZIP [facility] [place] Phon [place] Number [address] APTT (08/16/2016 4:37 AM EST) P athologist Signature PTT 30 25 - 35 sec [facility] Comment: The recommended therapeutic range for fu ll dose, unfractionated heparin at [facility] is 80 ? 114 [...] Shields MD HEMATOLOGY ORDERABLES Performing Organization Address [facility] [place] [address] EKG 12 Lead (08/15/2016 12:00 PM EST) Component Value Ref Range Test Analysis Performed Pathologis t Method Time At Signature Ventricular rate 53 BPM MUSE SYSTEM Atrial Rate 53 BPM MUSE SYSTEM P-R Interval 208 ms MUSE SYSTEM QRS Duration 94 ms MUSE SYSTEM Q-T Interval 418 ms MUSE SYSTEM QTC Calculated 392 ms MUSE SYSTEM (Bezet) Calculated P [place] 35 degrees MUSE SYSTEM Calculated R [place] 19 degrees MUSE SYSTEM Calculated T [place] 10 degrees MUSE SYSTEM INTERPRETATION Sinus bradycardia [...] Moran MD ECG ORDERABLES Performing Organization Address City/[facility]/ZIP [facility] [place] [facility] [place] MUSE SYSTEM (ABNORMAL) BMP w/fasting Glucose (08/15/2016 11:30 AM EST) athologist Signature Glucose 102 (H) 65 - 99 [facility] Fasting mg/dL [facility] Comment: ?Fasting* Glucose Interpretive C [...] of Diabetes Mellitus, Position Statement from the [place] [employer]. ??Diabete s Care, Volume 33, Supplement 1, Jun 2009 BUN 15 10 - 20 mg/dL [facility] Creatinine 0.95 0.80 - 1.50 mg/dL [facility] Comment: Please note that the pediatric reference intervals supplied above were not validated [place] [facility] [place] Results from pediatri c patients should be interpreted in conjunction to the patient's age, height and muscle mass. Sodium 134 (L) 135 - 145 mmol/L [facility] Potassium 3.8 3.5 - 5.0 mmol/L [facility] Comment: Please note: ??Patients with WBC >100,00 0 may have falsely elevated Potassium levels. ??For accurate Potassium quantif ication in these patients send serum separator tube (gold top) for subsequent determinations. ??Contact the Clinical Chemistry Laboratory if there are any qu estions. Chloride 100 98 - 107 mmol/L [facility] CO2 25 22 - 31 mmol/L [facility] Anion Gap 9 5 - 15 mmol/L [facility] Calcium 8.1 (L) 8.5 - 10.5 mg/dL [facility] Estimated GFR >60 >=60 [facility] Comment: This estimated GFR (eGFR) value [...] the following links into your internet browser. http://[employer]/DHnkdep [email or web address]/DHMCnkf Specimen Anatomical Collection Method Collection Time Receive d Time (Source) Location / / Volume Laterality Blood specimen Venous Draw / 08/15/2016 11:30 08/15/19 17 (specimen) Unknown AM EST 11:45 AM EST Resulting Agency Comment Spec In Lab Shlomo Shields MD CHEMISTRY ORDERABLES Performing Organization Address City/State/[place] [address] Cardiac Enzymes (08/15/2016 11:30 AM EST) P athologist Signature Troponin-T <0.03 <=0.03 [facility] ng/mL [facility] Comment: 0.03 ng/mL: Represents the 99th [...] consensus document of the Joint Society of Cardiology/[place] College o f Cardiology Committee for the redefinition of myocardial infarction. ? ?Journal of the [place] College of Cardiology 2000; 36: 959-969] CK, Total 72 0 - 200 unit/L [facility] Specimen Anatomical Collection Method Collection Time Receive d Time (Source) Location / / Volume Laterality Blood specimen 08/15/2016 11:30 7 (specimen) AM EST 11:43 AM EST Resulting Agency Comment Spec In Lab Shlomo Shields MD CHEMISTRY ORDERABLES Performing Organization Address City/[facility]/ZIP Code Phon e Number [address] (ABNORMAL) APTT (08/15/2016 3:48 AM EST) P athologist Signature PTT 89 (H) 25 - 35 sec [facility] Comment: The recommended therapeutic range for fu ll dose, unfractionated heparin at [facility] [place] 80 ? 114 [...] Woo MD HEMATOLOGY ORDERABLES Performing Organization Address City/[facility]/ZIP Code Phon e Number [address] Differential, Automated (08/15/2016 3:48 AM EST) athologist Signature Neutrophils % 65.7 % [facility] Neutr Abs (ANC) 4.30 1.70 - [facility] 6.10 [facility] x10(3)/[facility] LABORATORY Lymphocytes % 19.1 % [facility] Lymphocytes Abs 1.2 0.9 - 3.2 [facility] x10(3)/[facility] LABORATORY Monocytes % 9.9 % [facility] Monocyte Abs 0.6 0.3 - 0.9 [facility] x10(3)/[facility] LABORATORY Eosinophils % 4.7 % [facility] Eosinophils Abs 0.3 0.0 - 0.4 [facility] x10(3)/[facility] LABORATORY Basophils % 0.3 % [facility] Basophils Abs 0.0 0.0 - 0.1 [facility] x10(3)/[facility] LABORATORY Immature Gran % 0.30 % [facility] Comment: Immature granulocytes(IG's)percentage an d absolute count will include metamyelocytes, myelocytes, and promyelo cytes. Blood smears from CBCs yielding IG's will be scanned manually for concor dance. If this scan disagrees with the automated IG or if promyelocytes are not ed, a manual differential will be performed. Karen Gran Abs 0.02 0.00 - 0.04 x10(3)/[facility] MAR Y [facility] Specimen Anatomical Collection Method Collection Time Receive d Time (Source) Location / / Volume Laterality Blood specimen 08/15/2016 3:48 AM 017 4:15 (specimen) EST AM EST Resulting Agency Comment Spec In Lab Josefina Woo MD HEMATOLOGY ORDERABLES Performing Organization Address City/State/[place] [address] Hemogram (08/15/2016 3:48 AM EST) P athologist Signature WBC 6.6 4.0 - 9.5 [facility] x10(3)/[facility] LABORATORY RBC 4.83 4.58 - [facility] x10(6)/[facility] LABORATORY Hemoglobin 15.1 13.7 - [facility] 16.5 gm/dL [facility] Hematocrit 42.6 40.5 - [facility] 48.[facility] % [facility] MCV 88.2 82.9 - [facility] 93[facility]1 [facility] LABORATORY MCH 31.3 27.5 - [facility] 32.1 pg [facility] MCHC 35.4 32.0 - [facility] 35.7 gm/dL [facility] Platelets 167 145 - 357 [facility] x10(3)/[facility] LABORATORY RDWSD 39.1 36.0 - [facility] 45.0 [facility] LABORATORY RDWCV 12.0 11.4 - [facility] FELICITY 13.8 % [facility] MPV 11.3 7.6 - 12.9 [facility] fL [facility] nRBC % Auto 0.0 % [facility] nRBC Abs Auto 0.000 0.000 - [facility] [place] 0.000 [facility] x10(3)/[facility] LABORATORY Specimen Anatomical Collection Method Collection Time Receive d Time (Source) Location / / Volume Laterality Blood specimen 08/15/2016 3:48 AM 017 4:15 (specimen) EST AM EST Resulting Agency Comment Spec In Lab Josefina Woo MD HEMATOLOGY ORDERABLES Performing Organization Address City/[facility]/ZIP Code Phon e Number [address] (ABNORMAL) APTT (08/14/2016 5:28 PM EST) P athologist Signature PTT 93 (H) 25 - 35 sec [facility] Comment: The recommended therapeutic range for fu ll dose, unfractionated heparin at [facility] [place] is 80 ? 114 [...] Woo MD HEMATOLOGY ORDERABLES Performing Organization Address City/[facility]/[place] [address] ECHOCARDIOGRAM COMPLETE W CONTRAST (08/14/2016 1:15 PM EST) P athologist Signature EF 70 HEARTLAB SYSTEM Anatomical Region Laterality Modality Other Specimen (Source) Anatomical Location Collection Method / Collectio n Time Received Time / Laterality Volume 08/14/2016 Narrative 08/14/2016 3:40 PM EST Procedure: ?Transthoracic Echocardiogram Patient: ?LUANNE TIMMY A ?(Age): 1935(81y) Med Rec#: ? [id number] ?Sex: ?M ? [place] Loc: ? [facility] [place] ?Ht / Wt: ??160(cm)/81(kg) Pt. Loc: ?ICU ? BSA: ?1.84 Study Date: ?? 08/14/2016 ?Pt. Type: Inpatient Tape: ? [facility] Reading: Shlomo Shields ([id number]) Tissue Specialist: Marisel Burton Diagnosis: *ICD-10-PCS Unstable angina (I20.0) CPT Codes: *Echo Full (10004) *Spectral Doppler (08945) *Color Doppler (45601) *Optison (16702YD) BP: ? 146/63 SUMMARY: 1. The left [...] E-wave Vmax ?0.8 ?m/sec ? MV deceleration [id number] ? msec ? MV A-wave Vmax ?0.6 [...] ? Mid-Inferior ?Hypokinetic ? Mid-Inferoseptal ?Normal ? [place]-Septal ? Normal ? [place]-Anterior ? Normal ? [place]-Lateral ?Normal ? [place]-Inferior ? Normal ? [place]-Tip ?Normal ? This report has been electronically sign ed by: _ Shlomo Shields MD ? 08/14/2016 15 :40:01 Images reviewed and interpretation [facility] Cardiac Ultrasound Laboratory Procedure Note Shlomo Shields MD - 08/14/2016Formatt ing of this note might be different from the original. Procedure: Transthoracic Echocardiogram Patient: LUANNE GOYAL(Age): [birth year](81y) Med Rec#: [id number] Sex: M [place] Loc[place] [facility] [place] Ht / Wt: 160(cm)/81(kg) Pt. Loc: ICU BSA: 1.84 Study Date: 08/14/2016 Pt. Type: Inpatie nt Tape: Referring: DEEJAY Reading: Shlomo Shields ([id number]) Tissue Specialist: Marisel Burton Diagnosis: *ICD-10-PCS Unstable angina (I20.0) CPT Codes: *Echo Full (25534) *Spectral Doppler (00899) *Color Doppler (68375) *Optison (15195YG) BP: 146/63 SUMMARY: 1. The left ventricular [...] MV E-wave Vmax 0.8 m/sec MV deceleration [id number] msec MV A-wave Vmax 0.6 m/sec MV [...] Normal Mid-Posterolateral Normal Mid-Inferior Hypokinetic Mid-Inferoseptal Normal [place]-Septal Normal [place]-Anterior Normal [place]-Lateral Normal [place]-Inferior Normal [place]-Tip Normal This report has been electronically sign ed by: _ Shlomo Shields MD 08/14/2016 15:40:01 Images reviewed and interpretation [facility] Cardiac Ultrasound Laboratory Josefina Woo MD ECHO ORDERABLES (ABNORMAL) APTT (08/14/2016 11:25 AM EST) P athologist Signature PTT 90 (H) 25 - 35 sec [facility] Comment: The recommended therapeutic range for fu ll dose, unfractionated heparin at [facility] [place] 80 ? 114 [...] Organization Address City/State/ZIP Code Phon e Number [place] [phone] EKG 12 Lead (08/14/2016 8:46 AM EST) Component Value Ref Range Test Analysis Performed Pathologis t Method Time At Signature Ventricular rate 65 BPM MUSE SYSTEM Atrial Rate 65 BPM MUSE SYSTEM P-R Interval 188 ms MUSE SYSTEM QRS Duration 92 ms MUSE SYSTEM Q-T Interval 368 ms MUSE SYSTEM QTC Calculated 382 ms MUSE SYSTEM (Bezet) Calculated P [place] 49 degrees MUSE SYSTEM Calculated R [place] 51 degrees MUSE SYSTEM Calculated T [place] -39 degrees MUSE SYSTEM INTERPRETATION Normal sinus [...] Herrera MD ECG ORDERABLES Performing Organization Address City/[facility]/ZIP Code Phon e Number MUSE SYSTEM Cardiac Enzymes (08/14/2016 4:39 AM EST) P athologist Signature Troponin-T <0.03 <=0.03 [facility] ng/mL [facility] Comment: 0.03 ng/mL: Represents the 99th [...] consensus document of the Joint Society of Cardiology/[place] College o f Cardiology Committee for the redefinition of myocardial infarction. ? ?Journal of the [place] College of Cardiology 2000; 36: 959-969] CK, Total 141 0 - 200 unit/L [facility] Specimen Anatomical Collection Method Collection Time Receive d Time (Source) Location / / Volume Laterality Blood specimen Venous Draw / 08/14/2016 4:39 AM 2016 4:57 (specimen) Unknown EST AM EST Resulting Agency Comment Spec In Lab Josefina Woo MD CHEMISTRY ORDERABLES Performing Organization Address City/[facility]/ZIP [facility] [place] [address] (ABNORMAL) APTT (08/14/2016 4:39 AM EST) P athologist Signature PTT 62 (H) 25 - 35 sec [facility] Comment: The recommended therapeutic range for fu ll dose, unfractionated heparin at [facility] [place] is 80 ? 114 [...] Woo MD HEMATOLOGY ORDERABLES Performing Organization Address [facility] [place] [address] Differential, Automated (08/14/2016 4:39 AM EST) P athologist Signature Neutrophils % 65.2 % [facility] Neutr Abs (ANC) 3.92 1.70 - [facility] 6.10 [facility] x10(3)/[facility] LABORATORY Lymphocytes % 21.9 % [facility] Lymphocytes Abs 1.3 0.9 - 3.2 [facility] x10(3)/[facility] LABORATORY Monocytes % 8.6 % [facility] Monocyte Abs 0.5 0.3 - 0.9 [facility] x10(3)/[facility] LABORATORY Eosinophils % 3.8 % [facility] Eosinophils Abs 0.2 0.0 - 0.4 [facility] x10(3)/[facility] LABORATORY Basophils % 0.2 % [facility] Basophils Abs 0.0 0.0 - 0.1 [facility] x10(3)/[facility] LABORATORY Immature Gran % 0.30 % [facility] Comment: Immature granulocytes(IG's)percentage an d absolute count will include metamyelocytes, myelocytes, and promyelo cytes. Blood smears from CBCs yielding IG's will be scanned manually for concor dance. If this scan disagrees with the automated IG or if promyelocytes are not ed, a manual differential will be performed. Karen Gran Abs 0.02 0.00 - 0.04 x10(3)/[facility] Specimen Anatomical Collection Method Collection Time Receive d Time (Source) Location / / Volume Laterality Blood specimen 08/14/2016 4:39 AM 017 4:57 (specimen) EST AM EST Resulting Agency Comment Spec In Lab Josefina Woo MD HEMATOLOGY ORDERABLES Performing Organization Address City/State/ZIP Code Phon e Number [place] [phone] Hemogram (08/14/2016 4:39 AM EST) P athologist Signature WBC 6.0 4.0 - 9.5 [facility] x10(3)/[facility] LABORATORY RBC 4.70 4.58 - [facility] 5.54 [facility] x10(6)/[facility] LABORATORY Hemoglobin 14.3 13.7 - [facility] 16.[facility] gm/dL [facility] Hematocrit 41.1 40.5 - [facility] 48.5 % [facility] MCV 87.4 82.9 - [facility] 93.1 fL [facility] MCH 30.4 27.5 - [facility] 32.1 pg [facility] MCHC 34.8 32.0 - [facility] 35.7 gm/dL [facility] Platelets 173 145 - 357 [facility] x10(3)/[facility] LABORATORY RDWSD 38.5 36.0 - [facility] 45.0 [facility] LABORATORY RDWCV 11.9 11.4 - [facility] 13.8 % [facility] MPV 11.2 7.6 - 12.9 [facility] LABORATORY nRBC % Auto 0.0 % [facility] nRBC Abs Auto 0.000 0.000 - [facility] 0.000 [facility] x10(3)/[facility] LABORATORY Specimen Anatomical Collection Method Collection Time Receive d Time (Source) Location / / Volume Laterality Blood specimen 08/14/2016 4:39 AM 017 4:57 (specimen) EST AM EST Resulting Agency Comment Spec In Lab Josefina Woo MD HEMATOLOGY ORDERABLES Performing Organization Address City/[facility]/ZIP [facility] [place] [facility] [place] Ph[place] Number [address] Magnesium (08/14/2016 4:39 AM EST) athologist Signature Magnesium 0.85 0.69 - 1.07 [facility] mmol/L [facility] Specimen Anatomical Collection Method Collection Time Receive d Time (Source) Location / / Volume Laterality Blood specimen 08/14/2016 4:39 AM 017 4:57 (specimen) EST AM EST Resulting Agency Comment Spec In Lab Josefina Woo MD CHEMISTRY ORDERABLES Performing Organization Address City/[facility] [place] [address] Basic Metabolic Panel (non-fasting) (08/14/2016 4:39 AM EST) athologist Signature Glucose Lvl 105 65 - 199 [facility] mg/dL [facility] Comment: Diabetes: >=200 mg/dL plus symp toms BUN 13 10 - 20 mg/dL [facility] Creatinine 0.95 0.80 - 1.50 mg/dL [facility] Comment: Please note that the pediatric reference intervals supplied above were not validated at [facility] [place]. Results from pediatri c patients should be interpreted in conjunction to the patient's age, height and muscle mass. Sodium 140 135 - 145 mmol/L [facility] Potassium 3.8 3.5 - 5.0 mmol/L [facility] Comment: Please note: ??Patients with WBC >100,00 0 may have falsely elevated Potassium levels. ??For accurate Potassium quantif ication in these patients send serum separator tube (gold top) for subsequent determinations. ??Contact the Clinical Chemistry Laboratory if there are any qu estions. Chloride 104 98 - 107 mmol/L [facility] CO2 24 22 - 31 mmol/L [facility] Anion Gap 12 5 - 15 mmol/L [facility] Calcium 8.9 8.5 - 10.5 mg/dL [facility] Estimated GFR >60 >=60 [facility] Comment: This estimated GFR (eGFR) value [...] the following links into your internet browser. http://Republic [employer]/DHnkdep [email or web address] Specimen Anatomical Collection Method Collection Time Receive d Time (Source) Location / / Volume Laterality Blood specimen 08/14/2016 4:39 AM 017 4:57 (specimen) EST AM EST Resulting Agency Comment Spec In Lab Josefina Woo MD CHEMISTRY ORDERABLES Performing Organization Address City/State/[place] [address] Cardiac Enzymes (08/14/2016 1:40 AM EST) P athologist Signature Troponin-T <0.03 <=0.03 [facility] ng/mL [facility] Comment: 0.03 ng/mL: Represents the 99th [...] consensus document of the Joint Society of Cardiology/[place] College o f Cardiology Committee for the redefinition of myocardial infarction. ? ?Journal of the [place] College of Cardiology 2000; 36: 959-969] CK, Total 131 0 - 200 unit/L [facility] Specimen Anatomical Collection Method Collection Time Receive d Time (Source) Location / / Volume Laterality Blood specimen 08/14/2016 1:40 AM 017 1:44 (specimen) EST AM EST Resulting Agency Comment Spec In Lab Josefina Woo MD CHEMISTRY ORDERABLES Performing Organization Address City/State/[place] [address] EKG 12 Lead (08/13/2016 8:26 PM EST) Component Value Ref Range Test Analysis Performed Pathologis t Method Time At Signature Ventricular rate 69 BPM MUSE SYSTEM Atrial Rate 69 BPM MUSE SYSTEM P-R Interval 194 ms MUSE SYSTEM QRS Duration 100 ms MUSE SYSTEM Q-T Interval 364 ms MUSE SYSTEM QTC Calculated 390 ms MUSE SYSTEM (Bezet) Calculated P [place] 46 degrees MUSE SYSTEM Calculated R [place] 23 degrees MUSE SYSTEM Calculated T [place] 29 degrees MUSE SYSTEM INTERPRETATION Sinus rhythm [...] Woo MD ECG ORDERABLES Performing Organization Address City/State/ZIP Code Phon e Number MUSE SYSTEM Lipid Panel (08/13/2016 7:29 PM EST) [facility] Method Time Signature Chol, Total 178 <=239 [facility] mg/dL [facility] Triglycerides 162 <=199 [facility] mg/dL [facility] HDL 42 >=40 [facility] mg/dL [facility] LDL Cholesterol 104 <=190 [facility] mg/dL [facility] Chol/HDL Ratio 4.2 ratio [facility] Lipid See Note LIZ Interpretation [facility] Comment: Lipid management should be guided by a p atient? s ASCVD risk, goals and preferences. ACC/AHA Guidelines recommend high intens ity statin if clinical ASCVD or LDL greater than or equal to 190 mg/dL. http://circ.ahajournals.org/content/raza y/.cir.4783394577.79450.7a Adults aged 40-75 with LDL 70-189 mg/dL should have their 10 year ASCVD risk estimated with the ACC/AHA ASCVD risk es timator http://tools.acc.org/NFNLN-Hber-Fwjnqbsh r/ Statin should be discussed if risk [...] Organization Address City/State/[place] [address] [facility] LAB[address] Drive TSH (08/13/2016 7:29 PM EST) athologist Signature TSH 3.11 0.27 - 4.20 [facility] mcIU/mL [facility] Specimen Anatomical Collection Method Collection Time Receive d Time (Source) Location / / Volume Laterality Blood specimen Venous Draw / 08/13/2016 7:29 PM 2016 7:37 (specimen) Unknown EST PM EST Resulting Agency Comment Spec In Lab Josefina Woo MD CHEMISTRY ORDERABLES Performing Organization Address City/State/ZIP Code Phon e Number [address] Differential, Automated (08/13/2016 7:29 PM EST) athologist [facility] Neutrophils % 63.7 % [facility] Neutr Abs (ANC) 3.73 1.70 - [facility] 6.10 [facility] x10(3)/[facility] LABORATORY Lymphocytes % 23.8 % [facility] Lymphocytes Abs 1.4 0.9 - 3.2 [facility] x10(3)/[facility] LABORATORY Monocytes % 9.1 % [facility] Monocyte Abs 0.5 0.3 - 0.9 [facility] x10(3)/[facility] LABORATORY Eosinophils % 2.9 % [facility] Eosinophils Abs 0.2 0.0 - 0.4 [facility] x10(3)/[facility] LABORATORY Basophils % 0.3 % [facility] Basophils Abs 0.0 0.0 - 0.1 [facility] x10(3)/[facility] LABORATORY Immature Gran % 0.20 % [facility] Comment: Immature granulocytes(IG's)percentage an d absolute count will include metamyelocytes, myelocytes, and promyelo cytes. Blood smears from CBCs yielding IG's will be scanned manually for concor dance. If this scan disagrees with the automated IG or if promyelocytes are not ed, a manual differential will be performed. Karen Gran Abs 0.01 0.00 - 0.04 x10(3)/[facility] MAR Y [facility] Specimen Anatomical Collection Method Collection Time Receive d Time (Source) Location / / Volume Laterality Blood specimen 08/13/2016 7:29 PM 017 7:37 (specimen) EST PM EST Resulting Agency Comment Spec In Lab Josefina Woo MD HEMATOLOGY ORDERABLES Performing Organization Address City/State/[place] [address] (ABNORMAL) Hemogram (08/13/2016 7:29 PM EST) Analysis Performed At Patho logist Time Signature WBC 5.8 4.0 - 9.5 [facility] x10(3)/[facility] LABORATORY RBC 4.59 4.58 - [facility] 5.54 [facility] x10(6)/[facility] LABORATORY Hemoglobin 14.3 13.7 - [facility] 16[facility] gm/dL [facility] Hematocrit 40.1 (L) 40.5 - [facility] 48.5 % [facility] MCV 87.4 82.9 - [facility] 93.1 [facility] LABORATORY MCH 31.2 27.5 - [facility] 32.1 pg [facility] MCHC 35.7 32.0 - [facility] 35.7 gm/dL [facility] Platelets 169 145 - 357 [facility] x10(3)/[facility] LABORATORY RDWSD 38.6 36.0 - [facility] FELICITY 45.0 [facility] LABORATORY RDWCV 12.1 11.4 - [facility] 13.8 % [facility] MPV 11.1 7.6 - 12.9 [facility] LABORATORY nRBC % Auto 0.0 % [facility] nRBC Abs Auto 0.000 0.000 - [facility] 0.000 [facility] x10(3)/[facility] LABORATORY Specimen Anatomical Collection Method Collection Time Receive d Time (Source) Location / / Volume Laterality Blood specimen 08/13/2016 7:29 PM 017 7:37 (specimen) EST PM EST Resulting Agency Comment Spec In Lab Josefina Woo MD HEMATOLOGY ORDERABLES Performing Organization Address [facility]/[place] [address] Cardiac Enzymes (08/13/2016 7:29 PM EST) P athologist Signature Troponin-T <0.03 <=0.03 [facility] ng/mL [facility] Comment: 0.03 ng/mL: Represents the 99th [...] consensus document of the Joint Society of Cardiology/[place] College o f Cardiology Committee for the redefinition of myocardial infarction. ? ?Journal of the [place] College of Cardiology 2000; 36: 959-969] CK, Total 144 0 - 200 unit/L [facility] Specimen Anatomical Collection Method Collection Time Receive d Time (Source) Location / / Volume Laterality Blood specimen 08/13/2016 7:29 PM 017 7:37 (specimen) EST PM EST Resulting Agency Comment Spec In Lab Josefina Woo MD CHEMISTRY ORDERABLES Performing Organization Address City/[facility]/ZIP Code Phon e Number [place] [phone] (ABNORMAL) APTT (08/13/2016 7:29 PM EST) P athologist Signature PTT 44 (H) 25 - 35 sec [facility] Comment: The recommended therapeutic range for fu ll dose, unfractionated heparin [place] [facility] 80 ? 114 [...] Woo MD HEMATOLOGY ORDERABLES Performing Organization Address City/[facility]/[place] [address] Prothrombin Time (08/13/2016 7:29 PM EST) P athologist Signature PT 13.4 12.0 - 15.0 [facility] LABORATORY Comment: An INR <2.0 indicates [...] linical circumstances. INR 1.0 0.9 - 1.1 [facility] LABORATORY Specimen Anatomical Collection Method Collection Time Receive d Time (Source) Location / / Volume Laterality Blood specimen 08/13/2016 7:29 PM 017 7:37 (specimen) EST PM EST Resulting Agency Comment Spec In Lab Josefina Woo MD HEMATOLOGY ORDERABLES Performing Organization Address City/[facility]/ZIP Code Phon e Number [place] [phone]OS[address] pro-Brain Natriuretic Peptide (08/13/2016 7:29 PM EST) P athologist Signature ProBNP 201 <=450 pg/mL [facility] Specimen Anatomical Collection Method Collection Time Receive d Time (Source) Location / / Volume Laterality Blood specimen 08/13/2016 7:29 PM 017 7:37 (specimen) EST PM EST Resulting Agency Comment Spec In Lab Josefina Woo MD CHEMISTRY ORDERABLES Performing Organization Address City/[facility]/[place] [address] Basic Metabolic Panel (non-fasting) (08/13/2016 7:29 PM EST) athologist Signature Glucose Lvl 105 65 - 199 [facility] mg/dL [facility] Comment: Diabetes: >=200 mg/dL plus symp toms BUN 15 10 - 20 mg/dL [facility] Creatinine 1.00 0.80 - 1.50 mg/dL [facility] Comment: Please note that the pediatric reference intervals supplied above were not validated at [facility]. Results from pediatri c patients should be interpreted in conjunction to the patient's age, height and muscle mass. Sodium 142 135 - 145 mmol/L [facility] Potassium 3.9 3.5 - 5.0 mmol/L [facility] Comment: Please note: ??Patients with WBC >100,00 0 may have falsely elevated Potassium levels. ??For accurate Potassium quantif ication in these patients send serum separator tube (gold top) for subsequent determinations. ??Contact the Clinical Chemistry Laboratory if there are any qu estions. Chloride 106 98 - 107 mmol/L [facility] CO2 23 22 - 31 mmol/L [facility] Anion Gap 13 5 - 15 mmol/L [facility] Calcium 8.7 8.5 - 10.5 mg/dL [facility] Estimated GFR >60 >=60 [facility] Comment: This estimated GFR (eGFR) value [...] the following links into your internet browser. [email or web address] [email or web address] Specimen Anatomical Collection Method Collection Time Receive d Time (Source) Location / / Volume Laterality Blood specimen 08/13/2016 7:29 PM 017 7:37 (specimen) EST PM EST Resulting Agency Comment Spec In Lab Josefina Woo MD CHEMISTRY ORDERABLES Performing Organization Address City/State/[place] [address] (ABNORMAL) Hemoglobin A1c (08/13/2016 7:28 PM EST) Analysis Performed At [facility] Time Signature Hemoglobin A1C 5.8 (H) 4.3 - 5.6 [facility] Comment: Reference Range: 4.3 - [...] Mellitus, Diabetes Care 2013; 36: Suppl. 1, S67-88 Est Avg Gluc See note mg/dL [facility] Comment: Estimated Average Glucose not appropriat [...] with hemoglobinopathies. Additional resources are available on [facility] website: [email or web address]/[facility] [place]adacalc [place] ALBA, Mason J, Shari R, et al. ??Tr anslating the A1C assay into estimated average glucose values. ??Diabetes Care 2008:31(8):6683-1301. 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 ASCVD (arteriosclerotic cardiovascular d isease) Unspecified cardiovascular disease S/P coronary artery stent placement Postsurgical percutaneous transluminal c oronary angioplasty status Essential hypertension Unspecified essential hypertension Cardiomyopathy, ischemic Other specified forms of chronic ischemi c heart disease ASCVD (arteriosclerotic cardiovascular d isease) Unspecified cardiovascular disease documented in this encounter Administered Medications Inactive Administered Medications - up to 3 most recent administrations Medication Order MAR Action Action Date Dose Rate Site aspirin chewable tablet 81 mg Given 08/16/2016 8:57 AM EST 81 mg 81 mg, Oral, DAILY, First dose on Mon08/15/16 at 0900, Until Discontinued, Routine aspirin chewable tablet Given 08/15/2016 11:36 AM EST 81 mg ONCE PRN, Starting on Mon08/15/16 at 1136, Until Mon08/15/16 at 1137, Intra-Operative (Intra-Procedure), Routine atorvastatin (LIPITOR) tablet 80 mg Given [...] 20 mg, Oral, DAILY, First dose on Mon08/14/16 at 0900, Until Discontinued, Routine Given 08/15/2016 1:59 PM EST 20 mg Given 08/14/2016 9:45 AM EST 20 mg fentaNYL 50 mcg/mL multi-dose injection Given 08/15/2016 11:21 AM EST 25 mcg ONCE PRN, Starting on Mon08/15/16 at 0904, Until Mon08/15/16 at 1128, Cath (Intra-Procedure), Routine Given 08/15/2016 10:50 AM EST 25 mcg Given 08/15/2016 10:16 AM EST 25 mcg heparin (porcine) injection 0-4,000 Given 08/14/2016 5:32 AM EST 2,000 Units Units 0-4,000 Units, Intravenous, BOLUS PER HEPARIN PROTOCOL, Starting on 08/13/16 at 2030, Until Mon08/16/16 at 1600, Per Protocol, START ADJUSTMENT SCHEDULE 6 HOURS AFTER STARTING INFUSION aPTT Between 60 - 79 seconds: Bolus 2,000 units aPTT Less than 60 seconds: Bolus 4,000 units Increase infusion and recheck aPTT in 6 hours. , Routine heparin (porcine) injection Given 08/15/2016 9:48 AM EST 6,000 Units ONCE PRN, Starting on Mon08/15/16 at 0948, Until Mon08/15/16 at 1128, Cath (Intra-Procedure), Routine heparin 25,000 units in New Bag 08/14/2016 6:09 PM EST 1,150 Units /hr 23 mL/hr dextrose 5% 500 mL infusion 0-5,000 Units/hr (0-100 mL/hr), Intravenous, CONTINUOUS, Starting on 08/13/16 at 2100, Until Tu08/16/16 at 1600, BEGIN infusion at 1,000 units [...] 25 mg, Oral, DAILY, First dose on Mon08/14/16 at 0900, Until Discontinued, Routine Given 08/15/2016 2:00 PM EST 25 mg Given 08/14/2016 9:44 AM EST 25 mg iohexol (OMNIPAQUE) 350 mg/mL solution Given 08/15/2016 11:28 AM EST 280 mLs ONCE PRN, Starting on Mon08/15/16 at 1128, Until Mon08/15/16 at 1132, Cath (Intra-Procedure), Routine lidocaine (XYLOCAINE) 10 mg/mL (1 %) Given 08/15/2016 10:[address] 5 mLs injection ONCE PRN, Starting on Mon08/15/16 at 0903, Until Mon08/15/16 at 1128, Cath (Intra-Procedure), Routine Given 08/15/2016 9:03 AM EST 10 mLs lisinopril (PRINIVIL;ZESTRIL) tablet 5 m g Given 08/16/2016 8:58 AM EST 5 mg 5 mg, Oral, DAILY, First dose on Mon08/15/16 at 0900, Until Discontinued, Routine Given 08/15/2016 2:12 PM EST 5 mg methylPREDNISolone sodium succinate (PF) (SOLU-Medrol) injection 125 mg 125 mg, Intravenous, ONCE PRN, 1 dose, S tarting on Mon08/14/16 at 1000, Until Mon08/16/16 at 1600, Allergic Reaction, For severe reaction (hypotension, tachycardia, respiratory distress, ect) administer ep inephrine and methylprednisone and notify HO and life safety nurse immediately. meTOPROLOL tartrate (LOPRESSOR) tablet 2 5 mg Given 08/16/2016 8:59 AM EST 25 mg 25 mg, Oral, EVERY 8 HOURS SCHEDULED, First dose (after last modification) on Mon08/14/16 at 0800, Until Discontinued, Routine Given 08/15/2016 11:00 PM EST 25 mg Given 08/15/2016 3:40 PM EST 25 mg midazolam (PF) (VERSED) 1 mg/mL multi-dose Given 08/15/2016 11:2 1 AM EST 1 mg injection ONCE PRN, Starting on Mon08/15/16 at 0904, Until Mon08/15/16 at 1252, Cath (Intra-Procedure), Routine Given 08/15/2016 9:26 AM EST 1 mg Given 08/15/2016 9:04 AM EST 1 mg sodium chloride 0.9 % flush 5 mL Given 08/16/2016 9:00 AM EST 5 mLs 5 mL, Intravenous, 2 TIMES DAILY, First dose on Mon08/13/16 at 2100, Until Discontinued, Routine Given 08/15/2016 8:08 PM EST 5 mLs documented in this encounter Active and Recently [...] Reason: See comment - Comment: given in labor mediator)1311 (MAR Unhold - Provider: Admin Adt) 0857 (Given - Provider: Shirley stephenson RN) 81 mg, Oral, DAILY, First dose on Mon at 0900, Until Discontinued, Routine aspirin tablet 325 mg (COMPLETED) 1408 (Given - Provider: Saeed Ozuna RN) 325 mg, Oral, ONCE, 1 dose, 08/14/16 at 1330, Dose #11 (give 15 minutes after previous dose), Routine atorvastatin (LIPITOR) tablet 80 mg 0846 (MAR Hold - Provider: Admin [...] Comment: per MD order. prior to cath)0846 (AUG Hold - Provider: Admin Adt - Reason: Transfer to a Procedural area) 0857 (Given - Provider: Shirley stephenson RN) 75 mg, Oral, DAILY, First dose on Sun at 0900, Until Discontinued, Routine 0900 (Canceled Entry - Provi sanjeev: María Elena Smith RN - Reason: See comment - Comment: given prior to labor mediator)1311 (AUG Unhold - Provider: Admin Adt) famotidine (PEPCID) tablet 20 mg 0945 (Given - Provider: Col ciarra E Smith, RN) 0846 ([facility] Hold - Provider: Admin Adt - Reason: Transfer to a Procedural area)1311 ([facility] Unhold - Provider: Admin Adt)1359 (Given - Provider: María Elena Smith RN) 0857 (Given - Provider: Shirley stephenson RN) 20 mg, Oral, DAILY, First dose on Sun at 0900, Until Discontinued, Routine hydroCHLOROthiazide (HYDRODIURIL) tablet 25 mg 0944 (G iven - Provider: María Elena Smith RN) 0846 ([facility] Hold - Provider: Admin Adt - R laura: Transfer to a Procedural area)1311 ([facility] Unhold - Provider: Admin Adt)1400 (Given - Provider: María Elena Smith RN) 0858 (Given - Provider: Shirley stephenson RN) 25 mg, Oral, DAILY, First dose on Sun at 0900, Until Discontinued, Routine lisinopril (PRINIVIL;ZESTRIL) tablet 5 mg 0846 ([facility] Hold - Provider: Admin Adt - Reason: Transfer to a Procedural area)1311 ([facility] Unhold - Provider: Admin Adt)1412 (Given - [...] procedure in CVCC)2119 (Given - Provider: Aleisha Osuna, ELPIDIO) 0542 (Given - Provider: Aleisha Osuna, ELPIDIO)0846 ([facility] Hold - Provider: Admin Adt - Reason: Transfer to a Procedural area)1311 ([facility] Unhold - Provider: Admin Adt)1540 (Given - Provider: María Elena Smith RN - Comment: per HOUSEKEEPING ASSISTANT jessica verbal order) 0859 (Given - Provider: Shirley Coyle, ELPIDIO) 25 mg, Oral, EVERY 8 HOURS SCHEDULED, Fi rst dose on 08/14/16 at 0800, Until Discontinued, Routine 2300 (Given - Provider: Bre gonzalez RN) potassium chloride (K-DUR/KLOR-CON) extended release tablet 40 mEq (COMPLETED) 0633 (Given - Provider: Bre lomax, RN) 40 mEq, Oral, ONCE, 1 dose, 08/16/16 at 0645, 20 mEq tablet may be dissolved in water for administration, Routine sodium chloride 0.9 % flush 5 mL 0900 (Not Given - Pro vider: María Elena mSith RN - Reason: See comment - Comment: iv infusing)2100 (Not Given - Provider: Aleisha Osuna RN - Reason: Contraindicated) 0846 (MAR Hold - Provider: Admin Adt - Reason: Transfer to a Procedural area)0900 (Automatically Held - Provider: Admin Adt)1311 (MAR Unhold - Provider: Admin Adt)2007 (Given - Provider: Bre david, ELPIDIO) 0900 (Given - Provider: Shirley stephenson RN) 5 mL, Intravenous, 2 TIMES DAILY, First dose on 08/13/16 at 2100, Until Discontinued, Routine sodium chloride 0.9 % flush 5 mL (CANCELED) 0900 (Not Given - Provider: María Elena Smith RN - Reason: Contraindicated - Comment: iv infusing)2118 (Given - Provider: Aleisha Osuna, ELPIDIO) 0900 (Not Given - Provider: María Elena Villarrela RN - Reason: Contraindicated - Comment: IV infusing) 5 mL, Intravenous, EVERY 12 HOURS, First dose on 08/13/16 at 2100, Until Discontinued, Cath (Day of Procedure), Routine Continuous Medication Order 08/14/2016 08/15/2016 08/16/2016 heparin 25,000 units in dextrose 5% 500 mL infusion(Li nked Group 1) 0536 (Rate/Dose Change - Provider: Karlie Monae, RN)1300 (Rate/Dose Verify - Provider: Clare Ozuna, RN)1809 (New Bag - Provider: María Elena Smith RN) 0846 (MAR Hold - Provider: Admin Adt - Reason: Transfer to a Procedural area)1311 (MAR Unhold - Provider: Admin Adt) 0-5,000 Units/hr [...] () 1205 (New Bag - Provider: Suzanne Cyr, ELPIDIO) 125 mL/hr, at 125 mL/hr, Intravenous, CO NTINUOUS, Starting Mon08/15/16 at 1200, Until Mon08/15/16 at 1759, Recovery (Recovery-Hospital Unit) PRN Medication Order 08/14/2016 08/15/2016 08/16/2016 acetaminophen (TYLENOL) tablet 650 mg 08 46 (AUG Hold - Provider: Admin Adt - Reason: Transfer to a Procedural area)1311 (AUG Unhold - Provider: Admin Adt) 650 mg, Oral, EVERY 6 HOURS PRN, Startin g 08/13/16 at 2030, Until Mon08/16/16 at 1600, Pain, Headaches, Maximum dose of acetaminophen is 4000 mg from all sources in 24 hours., Routine aspirin chewable tablet (CANCELED) 1136 (Given - Provider: Arnel Mclaughlin) ONCE PRN, Starting 08/15/16 at 1136, Until Mon08/15/16 at 1137, Intra- Operative (Intra-Procedure), Routine EPINEPHrine (EpiPen) injection 0.3 mg/0.3 mL 0846 (AUG Hold - Provider: Admin Adt - Reason: Transfer to a Procedural area)1311 (AUG Unhold - Provider: Admin Adt) 0.3 mg, [...] Starting Mon08/15/16 at 0904, Until Mon08/15/16 at 1128, Cath (Intra- Procedure), Routine heparin (porcine) injection 0-4,000 Units(Linked Group 1) 0532 (Given - Provider: Karlie Monae RN) 0846 (AUG Hold - Provider: Admin Adt - R laura: Transfer to a Procedural area)1311 (AUG Unhold - Provider: Admin Adt) 0-4,000 Units, Intravenous, BOLUS PER HE ELI PROTOCOL, Starting 08/13/16 at 2030, Until Mon08/16/16 at 1600, Per Protocol, START ADJUSTMENT SCHEDULE 6 HOURS AFTER STARTING INFUSION aPTT Between 60 - 79 seconds: Bolus 2,000 units aPTT Less than 60 seconds: Bolus 4,000 units Increase infusion and recheck aPTT in 6 hours. , Routine heparin (porcine) injection (CANCELED) 0 948 (Given - Provider: Arnel Mclaughlin) ONCE PRN, Starting 08/15/16 at 0948, Until Mon08/15/16 at 1128, Cath (Intra- Procedure), Routine iohexol (OMNIPAQUE) 350 mg/mL solution (CANCELED) 112 (Given - Provider: Luanne Moran MD) ONCE PRN, Starting 08/15/16 at 1128, Until Mon08/15/16 at 1132, Cath (Intra- Procedure), Routine lidocaine (XYLOCAINE) 10 mg/mL (1 %) injection 3 mg 0846 (AUG Hold - Provider: Admin Adt - Reason: Transfer to a Procedural area)131 ([facility] Unhold - Provider: Admin Adt) 3 mg (0.3 mL), Subcutaneous, ONCE PRN, 1 dose, Starting 08/13/16 at 2030, Until Tu08/16/16 at 1600, for discomfort with PIV insertion, Routine lidocaine (XYLOCAINE) 10 mg/mL (1 %) injection (CANCELED) 09 (Given - Provider: Luanne Moran MD - Comment: right groin)1055 (Given - Provider: Luanne Moran MD - Comment: right groin) ONCE PRN, Starting Mon08/15/16 at 0903, Until Mon08/15/16 at 1128, Cath (Intra- Procedure), Routine methylPREDNISolone sodium succinate (PF) (SOLU-Medrol) injec tion 125 mg 0846 (AUG Hold - Provider: Admin Adt - Reason: Transfer to a Procedural area)131 ([facility] Unhold - Provider: Admin Adt) 125 mg, Intravenous, ONCE PRN, 1 dose, S tarting 08/14/16 at 1000, Until Mon08/16/16 at 1600, Allergic Reaction, For severe reaction (hypotension, tachycardia, respiratory distress, ect) administer ep inephrine and methylprednisone and notify HO and life safety nurse immediately. midazolam (PF) (VERSED) 1 mg/mL multi-dose injection (CANCEL ED) 0904 (Given - Provider: Arnel Mclaughlin)0926 (Given - Provider: Arnel Mclaughlin)112 (Given - Provider: Arnel Mclaughlin) ONCE PRN, Starting 08/15/16 at 0904, Until Mon08/15/16 at 1252, Cath (Intra- Procedure), Routine nitroGLYcerin (NITROSTAT) SL tablet 0.4 mg 0846 (AUG Hold - Provider: Admin Adt - Reason: Transfer to a Procedural area)1311 (MAR Unhold - Provider: Admin Adt) 0.4 mg, Sublingual, EVERY 5 MIN PRN, Sta rting 08/13/16 at 2030, Until Tu08/16/16 at 1600, Chest pain, May repeat every [...] chloride 0.9 % flush 5-20 mL 0846 (MAR Hold - Provider: Admin Adt - Reason: Transfer to a Procedural area)1311 ([facility] Unhold - Provider: Admin Adt) 5-20 mL, Intravenous, EVERY 1 MIN PRN, S tarting 08/13/16 at 2030, Until Mon08/16/16 at 1600, flush, Flush pertains to all indwelling lines. Flush per protocol found in the job aid using the link provided on this medication record., Routine Linked Groups Order Group 1: heparin (porcine) injection 0-4,000 UnitsJump to med 0-4,000 Units, Intravenous, BOLUS PER HE ELI PROTOCOL, Starting 08/13/16 at 2030, Until Mon08/16/16 at 1600, Per Protocol
START ADJUSTMENT SCHEDULE [...] mL/hr, CONTINUOUS, Starting 08/13/16 at 2100, Until 08/16/16 at 1600
BEGIN infusion at 1,000 units [...]
Routine documented in this encounter Care Teams Hvac Instructor Relationship Specialty Start Date End Date Guzman Thompson MD PCP - General Family Medicine 07/14/[address] [place] [address] documented as of this encounter
--- OUTSIDE RECORDS SUMMARY | 2022-04-08 01:38 | XMS_ITS | Encounter Summary ---
:1935 [place] [address] Care Team Providers Name Role Phone Guzman Thompson MD Primary Care Provider [phone] Encounter Details Date Type Department Care Team Description 08/10/2016 Hospital Encounter Radiology Library at [facility] Michelle MD [facility] [place] [address] [place], [place] [phone] (Wo rk) Social History Tobacco Use Types Packs/Day Years Used Date Former Smoker Quit: 06/26/18 89 Smokeless Tobacco: Never Used Alcohol Use Standard Drinks/Week Comments Yes 1.7 (1 standard drink = 0.6 oz pure alco hol) Sex Assigned at Date Recorded Not on file documented as of this encounter Medications at Time of Discharge Medication Sig Dispensed Refills Start Date End Date lovastatin (MEVACOR) 40 Take 1 tablet by 90 tablet 3 2015 mg Tablet mouth nightly. epiNEPHrine (EPIPEN) 0.3 one injection, IM, 0 mg/0.3 mL injection PRN clopidogrel (PLAVIX) 75 Take 1 tablet by 0 201608/16/2016 mg Tablet mouth daily. meTOPROLOL tartrate Take 0.5 tablets by 0 017 08/16/2016 (LOPRESSOR) 25 mg Tablet mouth 2 times daily. documented as of this encounter Plan of Treatment Not on filedocumented as of this encounter Procedures Procedure Name Priority Date/Time Associated Diagnosis Comme nts FILM LIBRARY Routine 08/10/2016 12:00 AM Pain Results for this STORAGE ONLY EST procedure are i n NUCLEAR MEDICINE the results section. documented in this encounter Results Film Library- Storage Only nuclear medicine (08/10/2016 12:00 AM EST) Specimen (Source) Anatomical Location Collection Method / Collectio n Time Received Time / Laterality Volume Narrative [facility] - 08/13/2016 5:56 PM EST This exam is for storage only and is aut o-finalizing. Kentrell Michelle MD G FILM LIBRARY ORDERABLES Performing Organization Address City/State/ZIP Code Phon e Number [place], [place] documented in this encounter Visit Diagnoses Diagnosis Pain Generalized pain documented in this encounter Care Teams Linter Operator Relationship Specialty Start Date End Date Guzman Thompson MD PCP - General Family Medicine 07/14/[address] [place] [address] documented as of this encounter
--- OUTSIDE RECORDS SUMMARY | 2022-04-08 01:38 | XMS_ITS | Encounter Summary ---
:1935 [place] [address] Care Team Providers Name Role Phone Guzman Thompson MD Primary Care Provider [phone] Encounter Details Date Type Department Care Team Description 08/01/2016 Hospital Encounter Radiology Library at [facility] Michelle MD [facility] [place] [address] [place] [phone] (Wo rk) Social History Tobacco Use Types [...] Start Date End Date lovastatin (MEVACOR) 40 mg Take 1 tablet by 90 tablet 3 Tablet mouth nightly. epiNEPHrine (EPIPEN) 0.3 one injection, IM, 0 mg/0.3 mL injection PRN documented as of this encounter Plan of Treatment Not on filedocumented as of this encounter Procedures Procedure Name Priority Date/Time Associated Diagnosis Comme nts FILM LIBRARY Routine 08/01/2016 12:00 AM Pain Results for this STORAGE ONLY DX EST procedure ar e in CHEST the results section. documented in this encounter Results Film Library- Storage Only DX Chest (08/01/2016 12:00 AM EST) Specimen (Source) Anatomical Location Collection Method / Collectio n Time Received Time / Laterality Volume Narrative [facility] - 08/13/2016 5:53 PM EST This exam is for storage only and is aut o-finalizing. Kentrell Michelle MD IMG FILM LIBRARY ORDERABLES Performing Organization Address City/State/ZIP Code Phon e Number [place], [place] documented in this encounter Visit Diagnoses Diagnosis Pain Generalized pain documented in this encounter Care Teams Cardiac/Vascular Sonographer Relationship Specialty Start Date End Date Guzman Thompson MD PCP - General Family Medicine 07/14/[address] [place] [address] documented as of this encounter
--- OUTSIDE RECORDS SUMMARY | 2022-04-08 01:38 | XMS_ITS | Encounter Summary ---
:1935 Author Organization [facility] [place] [address] Care Team Providers Name Role Phone Guzman Thompson MD Primary Care Provider [phone] Encounter Details Date Type Department Care Team Description 08/11/2016 Orders Only Cardiology [place] [facility] [place] Howie Jimenez ASCVD (arteriosclerotic [facility] SAVANNAH Larson cardiovascular disease) [place], [place] C[place] [id number] CARDIOLOGY DEPT. [phone] [place], [place] [address] Social History Tobacco Use Types [...] Name Priority Date/Time Associated Diagnosis Comme nts CARDIAC CATHETERIZATION Routine 08/15/2016 11:35 ASCVD Results for this AM EST (arteriosclerotic procedure are in cardiovascular the results disease) section. documented in this encounter Results CARDIAC CATHETERIZATION (08/15/2016 11:35 AM EST) Anatomical Region Laterality Modality Other Specimen (Source) Anatomical Location Collection Method / Collectio n Time Received Time / Laterality Volume Narrative 08/15/2016 12:23 PM EST ?[facility] ? Cardiac Cathete rization/Intervention Report ? Patient Name: Bud, Timmy A. ? Procedure Date: 08/15/2016 ? A #: [id number] ? Primary Physician: Luisa, Bud E ? Case #: [id number] ? File Name: [id number] ? Catheterization Order Number: [id number] ? [facility] ? Final Report [place], [place] ? Patient Name: ? Timmy A. Bud ?ID#: ?[id number] ? : ?1935 ? Procedure Date: ? February 20, 20 17 ?Case #: ? [id number] ? Room: ? 5 ? Case Physician: ? Barbara Gutierrez ? Start: ?09:10 ? Admission: ??08/13/2016 ? Referring ? Bon Castano M.D. ?Discharge: ??08/16/2016 ? Physicians: ?Blayne Thompson M.D. ? Procedures: ?* Coronary Angiography ?* Bypass Graft Study ?* Coronary Stent Insertion ?* Vascular Closure Device Deplo yment ?* Access Site Angiography ? History ?Timmy Farrell is a 81 year old man. He has hypertension. The patient has ?a history of smoking. He has hy percholesterolemia managed with lipid ?therapy. The patient has unstab le angina, negative troponin and a prior ?history of coronary artery dise ase. He had remote coronary artery bypass ?surgery and one prior coronary bypass operation. The patient also has a ?history of an abnormal stress t est and an abnormal echocardiogram. Prior ?to the initiation of this proce dure, the patient was designated as ASA ?Class IV. ? Indications for Diagnostic Cath: ?The patient presented with: uns table angina (w/i 60 days). [place] ?[employer]iovascular Society angina c lass was IV. This patient was on beta ?blockers prior to the procedure . A SPECT stress test was performed and ?results were Positive and Inter mediate ischemia assessment. The status of ?the diagnostic procedure was Ur gent. ? Technique: ?A 6Fr sheath was inserted in th e right femoral artery utilizing the ?Seldinger technique. The mammar y artery was injected utilizing a 5Fr STEFF ?catheter. A 6Fr JL 4.5 catheter was used to inject the left coronary ?artery. The right coronary roxann ry was injected utilizing a 6Fr JR 4 ?catheter. Coronary stent insert ion was performed and the equipment ?utilized will be described in t he intervention summary section. 6,000 ?units of heparin were administe red. A total of 300cc of Omnipaque were ?opened, 280cc of Omnipaque were administered and 20cc of Omnipaque were ?wasted. Radiation: Fluoro time was 36.8 minutes, dose area product was ?148,811 mGYcm2 and air kerma wa s 3,850 mGY. See the case log for ?additional details. ?The patient received the follow ing medications prior to and during the ?procedure: Aspirin (any), Clopi dogrel and Unfractionated Heparin (any). ? Hemodynamics: ?Left Heart Pressures ? Resting: ? Syst D iast ? EDP ?a ?v ? m ?Ao 143 ?? 49 ?88 ? Coronary Angiography: ?Dominance: Right ?Left Main ? There was an 80% long se gmental stenosis of the distal segment of ? the left main artery. ?? This lesion involved bifurcation. ?Left Anterior Descending ? There was severe diffuse (>=75% stenosis) disease of the distal ? segment of the left ante rior descending artery (LAD) distal to the ? insertion of a bypass gr aft. ??The proximal 1 segment of the LAD had ? a single discrete total occlusion. ??Distal flow was via a bypass ? graft. ? 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 ??Th e proximal segment of the Diagonal 1 had a ? long segmental 80% steno sis. ? There was a 90% single d iscrete stenosis of the ostial segment of ? the second diagonal bran ch (Diagonal 2) of the LAD distal to the ? insertion of a bypass gr aft. ??Distal flow was decreased. ?Left Circumflex ? There was mild diffuse ( <=25% stenosis) disease of the proximal ? segment of the left circ umflex artery (LCX). ?Right Coronary Artery ? This vessel was non-gerry ctively injected. ? There was a single discr ete total occlusion of the ostial segment of ? the right coronary arter y (RCA). ??Distal flow was via collaterals ? from the LAD and collate rals from the LCX. ? Small conus branch could be engaged but the ostium of the RCA proper ? could not be engaged wit h either an STEFF or a JR4 catheter and was ? not apparent on a flush injection in the aortic root. The RCA is ? thus apparently occluded at its ostium. Distal branches fill via L ? => R collaterals. ? Bypass Grafts: ?There was a total of two bypass grafts evaluated during this procedure. ?1. ?? Left internal mammary art sofie graft to the LAD ? There was a left interna l mammary artery graft with a single ? anastomosis to the left anterior descending artery (LAD). ? There was no evidence of obstruction in this graft. Distal flow was ? normal. ?2. ?? Saphenous vein graft to t he RCA ? There was a saphenous ve in graft with a single anastomosis to the ? right coronary artery (R CA). ? This vessel could not be visualized. There was a single discrete ? total occlusion of the o stial portion of the segment of this graft ? between the origin of th is graft and the RCA. ? Not evident on flush inj ection of aortic root and presumed occluded. ? Indication for Intervention: ?Coronary intervention was indic ated for treatment of unstable angina. ?Left ventricular Ejection Fract ion was estimated at 70 percent. The ?priority for the procedure was Urgent. The NCDR indication for the ?procedure was PCI for high risk Non-STEMI or unstable angina. ? Intervention Summary: ?Left Main Artery ? Distal 80% ? Stent insertion was performed on the 80% stenosis in the ? distal segment of the left main. This was a de vicenta lesion. ? According to th e ACC/AHA classification system, this lesion ? was a type B2 h igh risk lesion. Primary prevention of ? restenosis was the indication for stent insertion. This was ? the culprit les ion. Vessel flow pre intervention was JONATHAN 3. ? This lesion was contiguous with LCX-proximal. The lesion ? involves a bifu rcation with the LAD. This bifurcation lesion ? was treated wit h a single stent, side branch dilated post ? stent technique . ? Stent insertion was accomplished through a 6 Fr. EBU 4.0 ? guide. ??The le joyce was predilated with a 2.00mm EUPHORA 15 MM ? . ??A premounte d 3.00 x 18 mm Resolute (LURDES) was deployed with ? a maximum infla tion pressure of 16 atmospheres. ??Following ? stent deploymen t, the lesion was dilated using a 3.00mm NC ? EUPHORA 12 MM b alloon with a maximum inflation pressure of 18 ? atmospheres. ? The final outco me was defined as successful. There was no ? residual stenos is following this intervention. The final JONATHAN ? flow was 3. ? Stent extends i nto ostium of LCX. Sequentially opened side ? cell into LAD/d iag and then post-dilated the stent. ?First Diagonal Branch of the LA D ? Proximal 80% ? Stent insertion was performed on the 80% stenosis in the ? proximal segmen t of the Diagonal 1. This was a de vicenta lesion. ? This lesion was designated a type B2 moderate risk lesion ? based on ACC/AH A classification system. Primary prevention of ? restenosis was the indication for stent insertion. This was ? the culprit les ion. Vessel flow pre intervention was JONATHAN 3. ? Stent insertion was accomplished through a 6 Fr. EBU 4.0 ? guide. ??The le joyce was predilated with a 2.00mm EUPHORA 15 MM ? balloon with a maximum inflation pressure of 9 atmospheres. ??A ? premounted 2.50 x 22 mm Resolute (LURDES) was deployed with a ? maximum inflati on pressure of 16 atmospheres. ??Following stent ? deployment, the lesion was dilated using a 2.75mm NC EUPHORA ? 15 MM balloon w ith a maximum inflation pressure of 18 ? atmospheres. ? The final outco me was defined as successful. There was no ? residual stenos is following this intervention. The final JONATHAN ? flow was 3. ?Second Diagonal Branch of the L AD ? Ostial 90% ? Stent insertion was performed on the 90% stenosis in the ? ostial segment of the Diagonal 2 distal to the insertion of a ? bypass graft. T his was a de vicenta lesion. According to the ? ACC/AHA classif ication system, this lesion was a type B1 ? moderate risk l esion. Primary prevention of restenosis was the ? indication for stent insertion. This was the culprit lesion. ? Vessel flow pre intervention was JONATHAN 3. ? Stent insertion was accomplished through a 6 Fr. STEFF 90 cm ? guide. ??The le joyce was predilated with a 2.00mm EUPHORA 15 MM ? balloon with a maximum inflation pressure of 10 atmospheres. ? A premounted 2. 75 x 12 mm Resolute (LURDES) was deployed with a ? maximum inflati on pressure of 14 atmospheres. ? The final outco me was defined as successful. There was no ? residual stenos is following this intervention. The final JONATHAN ? flow was 3. ? Lesion approach ed through STEFF which was moderately tortuous. ? Typical chest p ain with vessel manipulation. ? Vascular Access: ?Vascular Access Angiogram: ? A selective angiogram at the right femoral artery revealed no ? significant obstructive disease. ?Vascular Access Management: ? A 6 Fr Perclose was depl oyed at the right femoral artery access ? site. This device was mata ccessful. ? Conclusions: ?* Significant stenosis of the l eft main ?* Two vessel coronary artery di sease (LAD and RCA) ?* Patent left internal mammary artery graft to the LAD ?* Successful stent insertion of the distal LM lesion ?* Successful stent insertion of the proximal D1 lesion ?* Successful stent insertion of the ostial D2 lesion ?* LURDES (drug eluting stents) leydi jenaro in left main, D1 via left main, and D2 ?via PEACOCK graft. ? Complications/Events: ?The patient had no complication s during these procedures. ? Recommendations: ?The patient's medical regimen w as changed as follows: Drug eluting ?stent(s) implanted in treatment of acute coronary syndrome (ACS) or ?STEMI. Clopidogrel loaded prior to the chemical lab technician. Recommend continued dual ?antiplatelet therapy (DAPT) wit h low dose aspirin (81 mg daily) and ?clopidogrel 75 mg daily for a m inimum 12 months. If overt bleeding or ?high bleeding risk, it may be r easonable to stop clopidogrel after 6 ?months. ??Low dose aspirin to b e continued indefinitely unless ?contraindicated. ?The attending physician was presen t for the entire procedure. ?Dr. Bud Moran M.D. performed t he coronary angiography, bypass graft ?study, stent insertion-coronary, v ascular closure device and access site ?angiography. ? Bud Moran, M.D. ? Electronically Signed by: Bud Moran, M.D. ? Report Finalized: 08/15/2016 ??12:17 ? Report Last Ammended: 02/22/2021 ??15:42 ? Procedure Note Bud Moran MD - 02/22/2021 [facility] Cardiac Catheterization/Intervention Re port Patient Name: Timmy Farrell Procedure Date: 08/15/2016 A #: [id number] Primary Physician: Bud Moran Case #: [id number] File Name: [id number] Catheterization Order Number: [id number] [facility] Final Report [place], [place] Patient Name: Timmy Farrell ID#: [id number] 3-4 : 1935 Procedure Date: August 15, 2016 Case # : [id number] Room: 5 Case Physician: Bud Moran M.D. Start : 09:10 Admission: 08/13/2016 Referring Bon Castano M.D. Discharge: 0 08/16/2016 Physicians: Guzman Thompson M.D. Procedures: * Coronary Angiography * Bypass Graft Study * Coronary Stent Insertion * Vascular Closure Device Deployment * Access Site Angiography History Timmy Farrell is a 81 year old man. He has hypertension. The patient has a history of smoking. He has hyperchole sterolemia managed with lipid therapy. The patient has unstable angin a, negative troponin and a prior history of coronary artery disease. He had remote coronary artery bypass surgery and one prior coronary bypass o peration. The patient also has a history of an abnormal stress test and an abnormal echocardiogram. Prior to the initiation of this procedure, th e patient was designated as ASA Class IV. Indications for Diagnostic Cath: The patient presented with: unstable an mira (w/i 60 days). [place] Cardiovascular Society angina class was IV. This patient was on beta blockers prior to the procedure. A SPEC T stress test was performed and results were Positive and Intermediate ischemia assessment. The status of the diagnostic procedure was Urgent. Technique: A 6Fr sheath was inserted in the right femoral artery utilizing the Seldinger technique. The mammary artery was injected utilizing a 5Fr STEFF catheter. A 6Fr JL 4.5 catheter was use d to inject the left coronary artery. The right coronary artery was i njected utilizing a 6Fr JR 4 catheter. Coronary stent insertion was performed and the equipment utilized will be described in the inter vention summary section. 6,000 units of heparin were administered. A t otal of 300cc of Omnipaque were opened, 280cc of Omnipaque were adminis tered and 20cc of Omnipaque were wasted. Radiation: Fluoro time was 36.8 minutes, dose area product was 148,811 mGYcm2 and air kerma was 3,850 mGY. See the case log for additional details. The patient received the following medi cations prior to and during the procedure: Aspirin (any), Clopidogrel a nd Unfractionated Heparin (any). Hemodynamics: Left Heart Pressures Resting: Syst Diast EDP a v m Ao 143 49 88 Coronary Angiography: Dominance: Right Left Main There was an 80% long segmental stenosi s of the distal segment of the left main artery. This lesion invol cher bifurcation. Left Anterior Descending There was severe diffuse (>=75% stenosi s) disease of the distal segment of the left anterior descending artery (LAD) distal to the insertion of a bypass graft. The proxim al 1 segment of the LAD had a single discrete total occlusion. Dist al flow was via a bypass graft. 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 The proximal segmen t of the Diagonal 1 had a long segmental 80% stenosis. There was a 90% single discrete stenosi s of the ostial segment of the second diagonal branch (Diagonal 2) of the LAD distal to the insertion of a bypass graft. Distal dimas w was decreased. Left Circumflex There was mild diffuse (<=25% stenosis) disease of the proximal segment of the left circumflex artery ( LCX). Right Coronary Artery This vessel was non-selectively injecte d. There was a single discrete total occlu joyce of the ostial segment of the right coronary artery (RCA). Distal flow was via collaterals from the LAD and collaterals from the L CX. Small conus branch could be engaged but the ostium of the RCA proper could not be engaged with either an STEFF or a JR4 catheter and was not apparent on a flush injection in th e aortic root. The RCA is thus apparently occluded at its ostium. Distal branches fill via L => R collaterals. Bypass Grafts: There was a total of two bypass grafts evaluated during this procedure. 1. Left internal mammary artery graft t o the LAD There was a left internal mammary arter y graft with a single anastomosis to the left anterior descen ding artery (LAD). There was no evidence of obstruction in this graft. Distal flow was normal. 2. Saphenous vein graft to the RCA There was a saphenous vein graft with a single anastomosis to the right coronary artery (RCA). This vessel could not be visualized. Th ere was a single discrete total occlusion of the ostial portion o f the segment of this graft between the origin of this graft and th e RCA. Not evident on flush injection of aorti c root and presumed occluded. Indication for Intervention: Coronary intervention was indicated for treatment of unstable angina. Left ventricular Ejection Fraction was estimated at 70 percent. The priority for the procedure was Urgent. The NCDR indication for the procedure was PCI for high risk Non-BARRIE ME or unstable angina. Intervention Summary: Left Main Artery Distal 80% Stent insertion was performed on the 80 % stenosis in the distal segment of the left main. This w as a de vicenta lesion. According to the ACC/AHA classification system, this lesion was a type B2 high risk lesion. Primary prevention of restenosis was the indication for stent insertion. This was the culprit lesion. Vessel flow pre int ervention was JONATHAN 3. This lesion was contiguous with LCX-pro ximal. The lesion involves a bifurcation with the LAD. Th is bifurcation lesion was treated with a single stent, side b ranch dilated post stent technique. Stent insertion was accomplished throug h a 6 Fr. EBU 4.0 guide. The lesion was predilated with a 2.00mm EUPHORA 15 MM . A premounted 3.00 x 18 mm Resolute (D ES) was deployed with a maximum inflation pressure of 16 atmo spheres. Following stent deployment, the lesion was dilate d using a 3.00mm NC EUPHORA 12 MM balloon with a maximum in flation pressure of 18 atmospheres. The final outcome was defined as succes sful. There was no residual stenosis following this interv ention. The final JONATHAN flow was 3. Stent extends into ostium of LCX. Seque ntially opened side cell into LAD/diag and then post-dilate d the stent. First Diagonal Branch of the LAD Proximal 80% Stent insertion was performed on the 80 % stenosis in the proximal segment of the Diagonal 1. Thi s was a de vicenta lesion. This lesion was designated a type B2 mo derate risk lesion based on ACC/AHA classification system. Primary prevention of restenosis was the indication for stent insertion. This was the culprit lesion. Vessel flow pre int ervention was JONATHAN 3. Stent insertion was accomplished throug h a 6 Fr. EBU 4.0 guide. The lesion was predilated with a 2.00mm EUPHORA 15 MM balloon with a maximum inflation pressu re of 9 atmospheres. A premounted 2.50 x 22 mm Resolute (LURDES) was deployed with a maximum inflation pressure of 16 atmosp heres. Following stent deployment, the lesion was dilated usin g a 2.75mm NC EUPHORA 15 MM balloon with a maximum inflation pressure of 18 atmospheres. The final outcome was defined as succes sful. There was no residual stenosis following this interv ention. The final JONATHAN flow was 3. Second Diagonal Branch of the LAD Ostial 90% Stent insertion was performed on the 90 % stenosis in the ostial segment of the Diagonal 2 distal to the insertion of a bypass graft. This was a de vicenta lesion . According to the ACC/AHA classification system, this les ion was a type B1 moderate risk lesion. Primary preventio n of restenosis was the indication for stent insertion. This wa s the culprit lesion. Vessel flow pre intervention was JONATHAN 3 . Stent insertion was accomplished throug h a 6 Fr. STEFF 90 cm guide. The lesion was predilated with a 2.00mm EUPHORA 15 MM balloon with a maximum inflation pressu re of 10 atmospheres. A premounted 2.75 x 12 mm Resolute (LURDES ) was deployed with a maximum inflation pressure of 14 atmosp heres. The final outcome was defined as succes sful. There was no residual stenosis following this interv ention. The final JONATHAN flow was 3. Lesion approached through STEFF which was moderately tortuous. Typical chest pain with vessel manipula tion. Vascular Access: Vascular Access Angiogram: A selective angiogram at the right femo ral artery revealed no significant obstructive disease. Vascular Access Management: A 6 Fr Perclose was deployed at the [facility] femoral artery access site. This device was successful. Conclusions: * Significant stenosis of the left main * Two vessel coronary artery disease (L AD and RCA) * Patent left internal mammary artery g raft to the LAD * Successful stent insertion of the dis ronald LM lesion * Successful stent insertion of the pro ximal D1 lesion * Successful stent insertion of the ost ial D2 lesion * LURDES (drug eluting stents) placed in l eft main, D1 via left main, and D2 via PEACOCK graft. Complications/Events: The patient had no complications during these procedures. Recommendations: The patient's medical regimen was stevens ed as follows: Drug eluting stent(s) implanted in treatment of acut e coronary syndrome (ACS) or STEMI. Clopidogrel loaded prior to the chemical lab technician. Recommend continued dual antiplatelet therapy (DAPT) with low do se aspirin (81 mg daily) and clopidogrel 75 mg daily for a minimum 1 2 months. If overt bleeding or high bleeding risk, it may be reasonabl e to stop clopidogrel after 6 months. Low dose aspirin to be continue d indefinitely unless contraindicated. The attending physician was present for the entire procedure. Dr. Bud Moran M.D. performed the co ronary angiography, bypass graft study, stent insertion-coronary, vascul ar closure device and access site angiography. Bud Moran M.D. Electronically Signed by: Bud Moran M.D. Report Finalized: 08/15/2016 12:17 Report Last Ammended: 02/22/2021 15:42 Bud Moran MD CARDIAC CATH ORDERABLES documented in this encounter Visit Diagnoses Diagnosis ASCVD (arteriosclerotic cardiovascular d isease) Unspecified cardiovascular disease ASCVD (arteriosclerotic cardiovascular d isease) Unspecified cardiovascular disease documented in this encounter Care Teams Recording Studio Setup Worker Relationship Specialty Start Date End Date Guzman Thompson MD PCP - General Family Medicine 07/14/[address] [place] [address] documented as of this encounter
[2022-04-08 12:26] LABS: Anion Gap 5.9 mmol/L (3-11); BUN 16 mg/dL (7-18); CO2 29.1 mmol/L (21.0-32.0); CREATININE 1.5 mg/dL (0.70-1.30); Calcium 8.4 mg/dL (8.5-10.1); Chloride 105 mmol/L (98-107); Estimated GFR 45.34 (mL/min/1.73m2); Glucose 85 mg/dL (74-106); Potassium 3.6 mmol/L (3.5-5.1); Sodium 140 mmol/L (136-145)
== END 2022-04-08 01:35 | disposition home or self-care (01) ==
LOC: LOS 01:34
PROVIDERS: Physician Assistant; PCP Family Medicine; Visit Provider Family Medicine
DX: E86.0 Dehydration (principal)
CPT/HCPCS: 36415; 80048

== ENCOUNTER 2022-04-09 09:38 | Outpatient (REF) | payer MEDICARE, OTHER, SELFPAY ==
[2022-04-09 11:44] LABS: C Diff PCR Negative (Negative)
[2022-04-11 10:50] LABS: Campylobacter PCR Negative (Negative); Salmonella PCR Negative (Negative); Shiga Toxin PCR Negative (Negative); Shigella/Enteroinvasive Ecoli Negative (Negative)
== END 2022-04-09 09:39 | disposition home or self-care (01) ==
LOC: LBN 09:38
PROVIDERS: PCP Family Medicine; Visit Provider Physician Assistant
DX: R19.7 Diarrhea, unspecified (principal)
CPT/HCPCS: 87493; 87505

== ENCOUNTER 2022-04-27 09:23 | Outpatient (CLI) | payer MEDICARE, OTHER, SELFPAY ==
--- NOTE | 2022-04-27 09:15 | RT.EKG_ITS ---
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
== END 2022-04-27 09:24 | disposition home or self-care (01) ==
LOC: DI.CARD 09:25
PROVIDERS: PCP Family Medicine; Visit Provider Internal Medicine Cardiovascular Disease
DX: I48.92 Unspecified atrial flutter (principal)
CPT/HCPCS: 93010

== ENCOUNTER → 2022-04-27 14:53 | Outpatient (BNVA) | payer MEDICARE, OTHER, SELFPAY | PROVIDERS: PCP Family Medicine; Referring Provider Family Medicine; Visit Provider Internal Medicine Cardiovascular Disease | DX: I48.92 Unspecified atrial flutter (principal) | CPT/HCPCS: 93005; 99213 ==

== ENCOUNTER 2022-07-13 10:38 | Outpatient (CLI) | payer MEDICARE, SELFPAY ==
--- NOTE | 2022-07-13 10:30 | DI.RAD_ITS ---
Exam(s) XR FOOT RT COMPLETE EXAM: XR FOOT RT COMPLETE CLINICAL HISTORY: Right foot pain trauma--log fell on it,M79.411. TECHNIQUE: 2D digital imaging was performed. COMPARISON: CR XR FOOT LT COMPLETE from 06/14/2019 FINDINGS: 3 views There is dorsal soft tissue swelling of the foot. Also some vascular calcification. No fracture bhargavi dent. No diastasis of the Nydia seema joint. Mild degenerative changes in the great toe metatarsophal angeal joint. Small inferior calcaneal spur. Enthesophyte at the posterior bone density normal. No osseous lesions. Aspect the Achilles on the posterior calcaneus. IMPRESSION: DATA REPOSITORY: RADIATION DOSE DELIVERED:
== END 2022-07-13 10:58 ==
PROVIDERS: PCP Family Medicine; Visit Provider Family Medicine
DX: M79.671 Pain in right foot (principal); M79.89 Other specified soft tissue disorders; M77.31 Calcaneal spur, right foot; M19.071 Primary osteoarthritis, right ankle and foot
CPT/HCPCS: 73630

== ENCOUNTER → 2022-07-21 10:51 | Outpatient (BNVA) | payer MEDICARE, SELFPAY | PROVIDERS: PCP Family Medicine; Referring Provider Family Medicine; Visit Provider Internal Medicine Cardiovascular Disease | DX: I48.92 Unspecified atrial flutter (principal); I25.10 Atherosclerotic heart disease of native coronary artery without angina pectoris; I34.0 Nonrheumatic mitral (valve) insufficiency; Z86.79 Personal history of other diseases of the circulatory system; Z98.890 Other specified postprocedural states | CPT/HCPCS: 99214 ==

== ENCOUNTER 2022-11-08 03:15 | Outpatient (CLI) | payer MEDICARE, SELFPAY ==
[2022-11-08 12:45] LABS: Abs Immature Grans 0.01 10^3/uL (0.0-0.06); Absolute Basophil Count 0.03 10^3/uL (0.0-0.2); Absolute Eosinophil Count 0.16 10^3/uL (0.0-0.7); Absolute Lymphocyte Count 1.39 10^3/uL (1.2-3.4); Absolute Monocyte Count 0.67 10^3/uL (0.1-0.8); Absolute Neutrophil Count 3.31 10^3/uL (1.2-6.7); Basophils % 0.5; Eosinophils % 2.9; HCT 38.8 % (40.0-50.0); Immature Grans % 0.2; MCH 30.7 pg (27.0-33.0); MCHC 33.5 % (32.0-36.0); MCV 92 fL (80-95); MPV 11.4 fL (8.0-11.0); Neutrophils % 59.4; Platelet Count 196 10^3/uL (130-400); RBC 4.23 10^6/uL (4.36-5.78); RDW 13.1 % (11.8-14.1); WBC 5.57 10^3/uL (4.4-10.8)
[2022-11-08 13:10] LABS: Anion Gap 3.8 mmol/L (3-11); BUN 18 mg/dL (7-18); CO2 29.2 mmol/L (21.0-32.0); CREATININE 1.3 mg/dL (0.70-1.30); Calcium 8.5 mg/dL (8.5-10.1); Chloride 106 mmol/L (98-107); Estimated GFR 53.84 (mL/min/1.73m2); Glucose 73 mg/dL (74-106); NT-proBNP 4558 pg/mL (<300); Potassium 3.7 mmol/L (3.5-5.1); Sodium 139 mmol/L (136-145)
== END 2022-11-08 03:16 | disposition home or self-care (01) ==
PROVIDERS: PCP Family Medicine; Visit Provider Nurse Practitioner Family
DX: F41.8 Other specified anxiety disorders (principal); G47.00 Insomnia, unspecified; I48.0 Paroxysmal atrial fibrillation; I50.33 Acute on chronic diastolic (congestive) heart failure; I10 Essential (primary) hypertension
CPT/HCPCS: 36415; 80048; 83880; 85025

== ENCOUNTER → 2023-01-19 12:48 | Outpatient (BNVA) | payer MEDICARE, SELFPAY | PROVIDERS: PCP Family Medicine; Visit Provider Internal Medicine Cardiovascular Disease | DX: I48.0 Paroxysmal atrial fibrillation (principal); Z79.01 Long term (current) use of anticoagulants; I11.0 Hypertensive heart disease with heart failure; I25.84 Coronary atherosclerosis due to calcified coronary lesion; I48.92 Unspecified atrial flutter; Z98.890 Other specified postprocedural states; I25.10 Atherosclerotic heart disease of native coronary artery without angina pectoris; I50.9 Heart failure, unspecified; Z86.79 Personal history of other diseases of the circulatory system | CPT/HCPCS: 99214 ==

== ENCOUNTER → 2023-04-19 01:05 | Outpatient (CLI) | payer MEDICARE, SELFPAY ==
--- NOTE | 2023-04-19 08:25 | DI.RAD_ITS ---
Exam(s) XR FOOT LT COMPLETE EXAM: XR FOOT LT COMPLETE CLINICAL HISTORY: Lt foot pain,M79.672. TECHNIQUE: 2D digital imaging was performed. Three views. COMPARISON: CR XR FOOT RT COMPLETE from 07/13/2022 FINDINGS: BONES: No acute fracture is present. No bony destructive lesion is seen. Heel spurs. JOINTS: No dislocation present. Degenerative changes interphalangeal joints of the toes. SOFT TISSUE: Normal. IMPRESSION: No acute abnormality. DATA REPOSITORY: RADIATION DOSE DELIVERED:
== END ==
PROVIDERS: PCP Family Medicine; Visit Provider Podiatrist
DX: M79.672 Pain in left foot (principal)
CPT/HCPCS: 73630

== ENCOUNTER → 2023-07-28 09:19 | Outpatient (BNVA) | payer MEDICARE, SELFPAY | PROVIDERS: PCP Family Medicine; Referring Provider Family Medicine; Visit Provider Internal Medicine Interventional Cardiology | DX: I25.810 Atherosclerosis of coronary artery bypass graft(s) without angina pectoris (principal); Z86.79 Personal history of other diseases of the circulatory system; Z98.890 Other specified postprocedural states | CPT/HCPCS: 99213 ==

== ENCOUNTER 2024-01-25 08:35 | Outpatient (CLI) | payer MEDICARE, SELFPAY | END 2024-01-25 08:36 | disposition home or self-care (01) | LOC: DI.CARD 08:37 | PROVIDERS: PCP Family Medicine; Visit Provider Internal Medicine Cardiovascular Disease | DX: I25.10 Atherosclerotic heart disease of native coronary artery without angina pectoris (principal); I25.84 Coronary atherosclerosis due to calcified coronary lesion | CPT/HCPCS: 93010 ==

== ENCOUNTER 2024-01-30 23:41 | Inpatient (IN) | payer MEDICARE, SELFPAY ==
--- NOTE | 2024-01-30 23:30 | RT.EKG_ITS ---
APPROVED REPORT Exam: Resting ECG Reason for Exam: dizzy, short of breath Patient Location: E HR:76 bpm ECG Measurements Heart Rate 76 AXIS AZ 215 P 56 QRSd 95 QRS 54 QT 457 T -28 QTc 511 Conclusion Sinus rhythm...normal P axis, V-rate 60- 99 Borderline prolonged AZ interval...AZ >212, V-rate 50- 90 Prolonged QT interval...QTc >500mS no ST segment or T wave abnormalities to suggest occlusive VT
[2024-01-30 23:43] VITALS: BP 195/113; PULSE 76; RESP 22; TEMP 36.4; O2SAT 93
[2024-01-30 23:46] VITALS: PULSE 83; RESP 17; O2SAT 92
[2024-01-30 23:47] VITALS: BP 177/143; PULSE 82; PULSE 96; RESP 19; O2SAT 91
[2024-01-30 23:49] VITALS: BP 195/113; PULSE 76; PULSE 89; RESP 24; O2SAT 93
[2024-01-30 23:50] VITALS: PULSE 78; RESP 22; RESP 25; O2SAT 92
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
[2024-01-31] VITALS (108 sets, daily range): BP systolic 95–207; BP diastolic 56–158; PULSE 48–105; RESP 0–29; TEMP 36.5–37.7; O2SAT 89–99
--- NOTE | 2024-01-31 | DI.US_ITS ---
Exam(s) US EXTREMITY VENOUS BI EXAM: US EXTREMITY VENOUS BI CLINICAL HISTORY: PE TECHNIQUE: Grayscale, color, and doppler imaging of the deep venous system of both lower extremities was performed. COMPARISON: US US ECHOCARDIOGRAM from 11/08/2021 FINDINGS: There is no evidence of intraluminal thrombus and there is normal compression and augmentation demons trated within the common femoral veins, femoral veins, and popliteal veins of both lower extremities. In the calves the interrogated veins also exhibit normal compression/ augmentation properties. There is surgical absence of the left greater saphenous vein related to harvesting for prior CABG. IMPRESSION: 1. No ultrasound evidence of obvious DVT in either lower extremity. Left greater saphenous vein is surgically absent, having been harvested for prior CABG surgery. DATA REPOSITORY:
--- NOTE | 2024-01-31 | DI.CT_ITS ---
Exam(s) CT CHEST PE CTA EXAM: CT CHEST PE CTA CLINICAL HISTORY: short of breath. TECHNIQUE: Imaging Protocol: CT angiography of the chest was performed using pulmonary embolus zohra col. Multi planar reconstructions were performed. CONTRAST MATERIAL: Intravenous: Omnipaque 350 Contrast volume: 100 cc COMPARISON: CT CT CHEST W from 05/06/2019 CR,XR XR PORTABLE CHEST AP from 11/14/[address] ABDOMEN PELVIS W from 03/24/2022 FINDINGS: CHEST: PULMONARY ARTERIES: There are intraluminal filling defects evident within segmental right middle lobe pulmonary arteries. No evidence of upper lobe pulmonary emboli. The right middle lobe is collapsed secondary to ipsilateral pleural effusion. There do not appear to be obvious intraluminal filling d efects within the collapsed right middle lobe. There are no intra-articular filling defects in the o pposite-left lung. LUNGS: There is a moderate-large size right pleural effusion which extends into the major fissure. T here is collapse of the right lower lobe basal segments. There is partial aeration of the superior s egment of the right lower lobe.. There is no pleural effusion on the opposite-left side. Subpleural patchy infiltrate is noted in the left lower lobe. No confluent infiltrate evident in the left uppe r lobe and lingular segment. There are no significant focal findings in the trachea and mainstem bro nchi. MEDIASTINUM: There is no hilar nor mediastinal adenopathy. Visualized thyroid unremarkable. CARDIAC: There are sternotomy wires and cardiomegaly. No pericardial effusion. No shift of the inte rventricular septum. Diameter of the thoracic aorta is within normal limits. Cannot assess for diss ection as there is no IV contrast in the thoracic aorta. There is moderate-advanced coronary artery calcification noted. PARTIALLY VISUALIZED UPPERMOST ABDOMEN: No adrenal masses. No splenomegaly. No ascites OSSEOUS: No significant osseous lesions.No fractures.. IMPRESSION: 1. Study is positive for the presence of pulmonary emboli within the right middle lobe branch pulmona ry arteries..No evidence of pulmonary emboli in the opposite-left lung. 2. There is a moderate-large right pleural effusion. No pleural effusion on the left side. 3. There is significant volume loss in the basal segments of the right lower lobe associated with the unilateral right pleural effusion. There is some patchy subpleural infiltrate noted in the left pratik g. First read by [facility] RADIATION DOSE DELIVERED: Total DLP DATA REPOSITORY: All CT scans at this facility are submitted to the National Radiology Data Registry (NRDR) Dose Index Registry (DIR) with the [employer] (ACR). RADIATION OPTIMIZATION: All CT scans at this facility use at least one of these dose optimization te chniques: automated exposure control; mA and/or kV adjustment per patient size (includes targeted exa ms where dose is matched to clinical indication); or iterative reconstruction.
[2024-01-31 00:06] LABS: BE (Venous) 2 mmol/L (-2-3); HCO3 (Venous) 28 mmol/L (23-28); Lactate 1.1 mmol/L (0.6-1.4); O2 Sat (Venous) 53 %; TCO2 (Venous) 25 mmol/L (24-29); pCO2 (Venous) 48 mmHg (41-51); pH (Venous) 7.37 (7.31-7.41); pO2 (Venous) 31 mmHg
[2024-01-31] MEDS: Normal Saline - Diluent 50 ML VIAL IJ (00:07)
[2024-01-31] MEDS: Omnipaque 350 MG/ML 100 ML BTL IJ (00:07)
[2024-01-31 00:12] LABS: Abs Immature Grans 0.03 10^3/uL (0.0-0.06); Absolute Basophil Count 0.02 10^3/uL (0.0-0.2); Absolute Eosinophil Count 0.12 10^3/uL (0.0-0.7); Absolute Lymphocyte Count 1.11 10^3/uL (1.2-3.4); Absolute Monocyte Count 0.71 10^3/uL (0.1-0.8); Absolute Neutrophil Count 4.82 10^3/uL (1.2-6.7); Basophils % 0.3 %; Eosinophils % 1.8 %; HGB 12.9 g/dL (13.5-17.5); Immature Grans % 0.4 %; Lymphocytes % 16.3 %; MCH 29.6 pg (27.0-33.0); MCHC 32.3 % (32.0-36.0); MCV 92 fL (80-95); Monocytes % 10.4 %; Neutrophils % 70.8 %; Platelet Count 214 10^3/uL (130-400); RBC 4.36 10^6/uL (4.36-5.78); RDW 13.2 % (11.8-14.1); RDW-SD 44.8 fL; WBC 6.81 10^3/uL (4.4-10.8)
[2024-01-31 00:20] LABS: INR 1.2 (0.9-1.1); PTT Activated 30.5 sec (23.6-32.8)
[2024-01-31 00:29] LABS: ALT 25 U/L (16-63); AST 24 U/L (15-37); Albumin 3.5 g/dL (3.4-5.0); Alkaline Phosphatase 94 U/L (46-116); Anion Gap 10.2 mmol/L (3-11); BUN 27 mg/dL (7-18); Bilirubin, Total 1.57 mg/dL (0.2-1.0); CO2 27.8 mmol/L (21.0-32.0); CREATININE 1.5 mg/dL (0.70-1.30); Calcium 8.7 mg/dL (8.5-10.1); Chloride 102 mmol/L (98-107); Estimated GFR 45.06 (mL/min/1.73m2); Glucose 128 mg/dL (74-106); Magnesium 1.9 mg/dL (1.8-2.4); NT-proBNP 10506 pg/mL (<300); Sodium 140 mmol/L (136-145); Total Protein 7.7 g/dL (6.4-8.2); Troponin I < 50 ng/L (< or =60)
[2024-01-31] MEDS: Furosemide 40 MG/4 ML VIAL IVP ×3 (01:20→16:28)
[2024-01-31] MEDS: Metoprolol 5 MG/5 ML VIAL IVP (01:21)
--- NOTE | 2024-01-31 01:32 | DI.VRAD_ITS ---
Addendum created by Edgar Stokes MD on 01/31/2024 1:34:40 AM EDT: THIS REPORT CONTAINS FINDINGS THAT MAY BE CRITICAL TO PATIENT CARE. The findings were verbally communicated by me to ABY JARA via telephone conference at 1:34 AM EDT on 01/31/2024. The findings were acknowledged and understood. Initial report created on 01/31/2024 1:32:22 AM EDT: PROCEDURE INFORMATION: Exam: CTA Chest With Contrast Exam date and time: 01/31/2024 12:04 AM Age: 88 years old Clinical indication: Shortness of breath TECHNIQUE: Imaging protocol: Computed tomographic angiography of the chest with contrast. Exam focused on the arteries. 3D rendering (Not supervised by radiologist): MIP and/or 3D reconstructed images were created by the technologist. Contrast material: OMNI 350; Contrast volume: 100 ml; Contrast route: INTRAVENOUS (IV); COMPARISON: CT CHEST W 05/06/2019 2:43 PM FINDINGS: Pulmonary arteries: Acute-appearing pulmonary emboli within the central aspect of the right middle lobe segmental branch pulmonary artery (series 6, image 279), extending into the subsegmental branches of the right middle lobe. Aorta: Unremarkable. No aortic aneurysm. No aortic dissection. Lungs: Mild bilateral upper and lower lobe bronchial wall thickening, likely reactive airway disease or bronchitis. Pleural spaces: Moderate size right pleural effusion, with associated atelectasis. Heart: Moderate four-chamber cardiac enlargement. No evidence of acute right heart strain (RV/LV ratio is 0.7). Lymph nodes: Unremarkable. No enlarged lymph nodes. Bones/joints: Changes of prior sternotomy and CABG. Soft tissues: Unremarkable. IMPRESSION: 1. Acute-appearing pulmonary emboli within the central aspect of the right middle lobe segmental branch pulmonary artery (series 6, image 279), extending into the subsegmental branches of the right middle lobe. No evidence of acute right heart strain (RV/LV ratio is 0.7). 2. Moderate size right pleural effusion, with associated atelectasis. 3. Mild bilateral upper and lower lobe bronchial wall thickening, likely reactive airway disease or bronchitis. Dictated and Authenticated by: Edgar Stokes MD. Ordering:EUGENIA Foster MD
[2024-01-31] MEDS: Albuterol/Ipratropium 3 ML UPD VIAL (01:44)
[2024-01-31 02:35] LABS: COVID-19 PCR Negative (Negative); Influenza A PCR Negative (Negative); Influenza B PCR Negative (Negative); RSV PCR Negative (Negative)
[2024-01-31 02:38] LABS: Source Nasopharynx
--- NOTE | 2024-01-31 03:28 | NUR.NOTE ---
0230 hrs in person report from Wen Patel, RN to Prince Vega RN for transfer of care from ED to ICU. Questions asked and answered.
--- NOTE | 2024-01-31 03:45 | RT.EKG_ITS ---
APPROVED REPORT Exam: Resting ECG Reason for Exam: rhythm change on tele Patient Location: I HR:70 bpm ECG Measurements Heart Rate 70 AXIS DE 205 P 49 QRSd 105 QRS 56 QT 462 T -34 QTc 499 Conclusion Sinus rhythm...normal P axis, V-rate 60- 99 Paired ventricular premature complexes...sequence of 2 V complexes Probable left atrial enlargement...P >50mS, <-0.10mV V1
[2024-01-31 04:22] LABS: Troponin I < 50 ng/L (< or =60)
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
[2024-01-31] MEDS: MAGNESIUM SULFATE 2 GM/50 ML BAG IVINF (04:32)
[2024-01-31] MEDS: MORPHine 4 MG/ML SYR IVP (04:51)
--- NOTE | 2024-01-31 05:15 | RT.EKG_ITS ---
APPROVED REPORT Exam: Resting ECG Reason for Exam: rhythm changes Patient Location: I HR:86 bpm ECG Measurements Heart Rate 86 AXIS MT [id number] P [id number] QRSd 99 QRS -11 QT 380 T 160 QTc 455 Conclusion Atrial fibrillation.. Repol abnrm diffuse leads...ST-T neg, ant/lat/inf
--- NOTE | 2024-01-31 05:22 | NUR.NOTE ---
MD on floor. This RN called due to rhythm change and pauses with mat. Pt asymptomatic and denies any chest pain or sob with events. Pt spoke with MD and reported it was suggested he have a pacemaker years ago. Pt talking in full sentences with noted pauses and bradycardic events. Pacer pads placed in the event pt becomes symptomatic per MD. EKG ordered stat.
--- NOTE | 2024-01-31 05:54 | NUR.NOTE ---
RN called MD Menezes to discuss further plan of care with HR and pauses and pt going into afib from prev sinus rhythm. Plan is to give morphine for leg cramps, remain on 02 and MD will consult cardiology and pharmacy for recommendation. Nursing to continue to monitor for symptomatic mat and pace if indicated. No other orders at this time.
[2024-01-31 06:16] LABS: HCT 40.5 % (40.0-50.0); HGB 13.3 g/dL (13.5-17.5); MCH 29.8 pg (27.0-33.0); MCHC 32.8 % (32.0-36.0); MCV 91 fL (80-95); MPV 11.1 fL (8.0-11.0); Platelet Count 216 10^3/uL (130-400); RBC 4.46 10^6/uL (4.36-5.78); RDW 13.2 % (11.8-14.1); WBC 7.76 10^3/uL (4.4-10.8)
[2024-01-31 06:26] LABS: INR 1.2 (0.9-1.1); Prothrombin Time 11.9 sec (9.1-11.1)
[2024-01-31] MEDS: Doxycycline Hyclate 100 MG CAP PO ×2 (06:35→18:09)
[2024-01-31 06:41] LABS: TSH (W/Ref FT4) 4.98 uIU/mL (0.36-3.74)
[2024-01-31 06:49] LABS: ALT 23 U/L (16-63); AST 21 U/L (15-37); Albumin 3.5 g/dL (3.4-5.0); Alkaline Phosphatase 94 U/L (46-116); Anion Gap 11.2 mmol/L (3-11); BUN 24 mg/dL (7-18); Bilirubin, Total 1.84 mg/dL (0.2-1.0); CO2 26.8 mmol/L (21.0-32.0); CREATININE 1.5 mg/dL (0.70-1.30); Calcium 8.8 mg/dL (8.5-10.1); Chloride 102 mmol/L (98-107); Estimated GFR 45.06 (mL/min/1.73m2); Glucose 142 mg/dL (74-106); Potassium 3.6 mmol/L (3.5-5.1); Sodium 140 mmol/L (136-145); Total Protein 7.8 g/dL (6.4-8.2); Troponin I < 50 ng/L (< or =60)
[2024-01-31 07:18] LABS: FREE T4 1.24 ng/dL (0.76-1.46)
--- NOTE | 2024-01-31 08:00 | RT.EKG_ITS ---
APPROVED REPORT Exam: Resting ECG Reason for Exam: afib convert to sinus rhythm Patient Location: I HR:72 bpm ECG Measurements Heart Rate 72 AXIS TN 212 P 52 QRSd 93 QRS 46 QT 428 T -48 QTc 454 Conclusion Sinus rhythm...normal P axis, V-rate 60- 99 Atrial premature complexes...SV complexes w/ short R-R intvls Borderline prolonged TN interval...TN >212, V-rate 50- 90 Probable left atrial enlargement...P >50mS, <-0.10mV V1 Abnrm T, consider ischemia, anterolateral lds...T <-0.20mV, I aVL V2-V6
[2024-01-31] MEDS: MORPHine 2 MG/ML SYR IVP (08:34)
[2024-01-31] MEDS: Heparin in 0.45% NaCl 25,000 UNIT/250 ML BAG 14 UNIT IV (08:52)
--- NOTE | 2024-01-31 08:52 | PUCC_ITS ---
General Date of Service Date of service: 01/31/24 Time of Service: 08:52 Admit Date Admit Date: 01/30 Reason for Admission to ICU: Periods of bradycardia in the setitng of known Afib Assessment and Plan Assessment and plan (1) Pulmonary embolism: Start date: 01/31/24 Status: Chronic Assessment and plan: 88-year-old male patient with increased shortness of breath and leg edema over 2 days prior to admission. Further work up in the ED revealed right pulmonary embolus central and peripheral with no RV strain, neg trops and per report compliant to Eliquis. Hospital course complicated by atrial fibrillation with bradycardia and long pauses requiring external pads to be placed and was changed to ICU level care. -Eliquis failure - will need warfarin form now on INR goal 2-3 Qualifiers: Acute cor pulmonale presence: without acute cor pulmonale Chronicity: acute Pulmonary embolism type: other Qualified Code(s): I26.99 - Other pulmonary embolism without acute cor pulmonale (2) Pleural effusion: Start date: 01/31/24 Status: Acute Assessment and plan: R effusion wich could be 2/2 to PE, volume overload, ? malignancy given smoking hx. At this point since he has an acute PE and needs anticoagulation will hold off thoracentesis but once stable will need further investigation. (3) Acute exacerbation of chronic heart failure: Start date: 01/31/24 Status: Acute (4) Asymptomatic bradycardia: Start date: 01/31/24 Status: Acute (5) Paroxysmal atrial fibrillation: Start date: 01/31/24 Status: Acute (6) CHF (congestive heart failure): Status: Chronic Qualifiers: Heart failure chronicity: chronic Heart failure type: diastolic Qualified Code(s): I50.32 - Chronic diastolic (congestive) heart failure (7) Hypertension: Status: Chronic Qualifiers: Hypertension type: essential hypertension Qualified Code(s): I10 - Essential (primary) hypertension (8) Leg cramps: Status: Chronic (9) CKD (chronic kidney disease): Status: Chronic Qualifiers: Chronic kidney disease stage: stage 3 (moderate) Chronic kidney disease stage 3 subtype: stage 3a (GFR 45-59) Qualified Code(s): N18.31 - Chronic kidney disease, stage 3a Recommendations I&O: Intake & Output 01/28/24 01/29/24 01/30/2407/24 23:59 23:59 23:59 23:59 Output Total 1949 Balance -1949 Weight 84 kg 75 kg Date of Last Bowel Movement: 01/30/24 Code Status: Resuscitation Status DNR/DNI Subjective Critical and life-threatening events over the past 24 hours: Admitted to the floor w/ PE 2/2 to eliquis failure and tx to ICU overnight due to periods of bradycardia w/ underlying Afib. Pt c/o severe leg cramps this am. Back to sinus HR 80's Echo pending Exam Narrative Exam Narrative: AOx3 NAD Lungs CTA L, diminished on R CV RRR S1 S2 Ext no edema Most Recent VS/Results Last Vital Signs Temp 36.5 C 01/31/24 03:07 Pulse 69 01/31/24 03:17 Resp 23 01/31/24 03:17 BP 133/95 H 01/31/24 03:17 Pulse Ox 97 01/31/24 05:57 Laboratory Results - last 24 hr 01/30/24 01/31/24 01/31/24 23:59 01:40 03:20 WBC 6.81 RBC 4.36 Hgb 12.9 L Hct 40.0 MCV 92 MCH 29.6 MCHC 32.3 RDW 13.2 Plt Count 214 MPV 11.0 Immature Gran % 0.4 Neutrophils % 70.8 Lymphocytes % 16.3 Monocytes % 10.4 Eosinophils % 1.8 Basophils % 0.3 Nucleated RBC % 0.0 Absolute Neutrophils 4.82 Absolute Lymphocytes 1.11 L Absolute Monocytes 0.71 Absolute Eosinophils 0.12 Absolute Basophils 0.02 PT 12.0 H INR 1.2 H APTT 30.5 VBG pH 7.37 VBG pCO2 48 VBG pO2 31 VBG HCO3 28 VBG Total CO2 25 VBG O2 Saturation 53 VBG Base Excess 2 VBG Lactate 1.1 Sodium 140 Potassium 4.0 Chloride 102 Carbon Dioxide 27.8 Anion Gap 10.2 BUN 27 H Creatinine 1.5 H Est GFR (CKD-EPI 2020) 45.06 Glucose 128 H Calcium 8.7 Magnesium 1.9 Total Bilirubin 1.57 H AST 24 ALT 25 Alkaline Phosphatase 94 Troponin I < 50 < 50 NT-Pro-B Natriuret Pep 85256 H Total Protein 7.7 Albumin 3.5 TSH Free T4 COVID-19 Source Nasopharynx SARS-CoV-2 (PCR) Negative Influenza Type A (PCR) Negative Influenza Type B (PCR) Negative RSV (PCR) Negative 01/31/24 06:00 WBC 7.76 RBC 4.46 Hgb 13.3 L Hct 40.5 MCV 91 MCH 29.8 MCHC 32.8 RDW 13.2 Plt Count 216 MPV 11.1 H Immature Gran % Neutrophils % Lymphocytes % Monocytes % Eosinophils % Basophils % Nucleated RBC % Absolute Neutrophils Absolute Lymphocytes Absolute Monocytes Absolute Eosinophils Absolute Basophils PT 11.9 H INR 1.2 H APTT VBG pH VBG pCO2 VBG pO2 VBG HCO3 VBG Total CO2 VBG O2 Saturation VBG Base Excess VBG Lactate Sodium 140 Potassium 3.6 Chloride 102 Carbon Dioxide 26.8 Anion Gap 11.2 H BUN 24 H Creatinine 1.5 H Est GFR (CKD-EPI 2020) 45.06 Glucose 142 H Calcium 8.8 Magnesium 3.0 H Total Bilirubin 1.84 H AST 21 ALT 23 Alkaline Phosphatase 94 Troponin I < 50 NT-Pro-B Natriuret Pep Total Protein 7.8 Albumin 3.5 TSH 4.98 H Free T4 1.24 COVID-19 Source SARS-CoV-2 (PCR) Influenza Type A (PCR) Influenza Type B (PCR) RSV (PCR) Review of Systems Narrative: 13 point review of system positive for chronic leg cramps which are worsening with his peripheral edema, otherwise unrevealing or stable. Time spent with patient Time spent in Critical Care: 35 Time spent in Critical care included: Coordination of care, Chart review, Do cumenting critically ill care, Time at immediate bedside and Discussing critically ill care with other medical staff
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
[2024-01-31] MEDS: Baclofen 10 MG TAB PO ×2 (10:19→16:41)
[2024-01-31] MEDS: Aspirin 81 MG CHEW PO (10:19)
--- NOTE | 2024-01-31 11:31 | PHA.REVIEW2 ---
Pharmacy Admission Review Admission Clinical Review Admission Pharmacy Review: Asymptomatic bradycardia (Acute) Acute exacerbation of chronic heart failure (Acute) Pleural effusion (Acute) Paroxysmal atrial fibrillation (Acute) aspirin Allergy (Severe, Verified 01/31/24 00:22) Anaphylaxsis lisinopril Allergy (Severe, Verified 01/31/24 00:22) Anaphylaxsis niacin Allergy (Unknown, Verified 01/31/24 00:22) Unsure Pyrazolones (Pyrazoles) Allergy (Unknown, Verified 01/31/24 00:22) Unsure sertraline Allergy (Unknown, Verified 01/31/24 00:22) Unsure trazodone Allergy (Verified 01/31/24 00:22) Chronic fatigue ezetimibe Adverse Reaction (Unknown, Verified 01/31/24 00:22) intolerance rosuvastatin Adverse Reaction (Unknown, Verified 01/31/24 00:22) intolerance milk Adverse Reaction (Verified 01/31/24 00:22) upset stomach Resuscitation Status DNR/DNI Height 5 ft 2 in Weight 75 kg Pharmacy Admission Review Renal Dosing Renal Dosing: BUN 24 mg/dL (7-18) H 01/31/24 06:00 Creatinine 1.5 mg/dL (0.70-1.30) H 01/31/24 06:00 Medications needing adjustments: Intervened (CrCl 31.3 mL/min, BUN decreased from 27) List of meds needing interventions: Reached out to provider regarding morphine order (currently q30m PRN). Provider is okay with extending dosing interval due to kidney function. Will change to q3h for now. Anticoagulation Anticoagulation: Hgb 13.3 g/dL (13.5-17.5) L 01/31/24 06:00 Hct 40.5 % (40.0-50.0) 01/31/24 06:00 Plt Count 216 10^3/uL (130-400) 01/31/24 06:00 INR 1.2 (0.9-1.1) H 01/31/24 06:00 Creatinine 1.5 mg/dL (0.70-1.30) H 01/31/24 06:00 Therapeutic Anticoagulation: Reviewed Medications: Heparin (infusion for PE - started this morning at 0852) Opiate Usage Evaluate Pain Scale/Pains Meds: Reviewed (PRN morphine - received 1 dose so far) Scheduled Bowel Reg ordered if on Opiates?: No (PRN docusate/Miralax) Relevant Labs Relevant Labs: Sodium 140 mmol/L (136-145) 01/31/24 06:00 Potassium 3.6 mmol/L (3.5-5.1) 01/31/24 06:00 Chloride 102 mmol/L (98-107) 01/31/24 06:00 Magnesium 3.0 mg/dL (1.8-2.4) H 01/31/24 06:00 Electrolytes, C-Reactive P, ESR: Reviewed (Mg 3, glucose 142) Cardiac Review Cardiac Review: Troponin I < 50 ng/L (< or =60) 01/31/24 06:00 NT-Pro-B Natriuret Pep 96357 pg/mL (<300) H 01/30/24 23:59 BP, HR, EF%: Reviewed (BP and HR WNL) QTc Review QTc: Reviewed (EKG report pending) IV to PO Switch IV Medications: Reviewed (furosemide, heparin and morphine) Home Meds Home Med List reviewed: Reviewed Relevent Home Meds Not ordered & why?: Eliquis (on hold - has heparin infusion for PE) and Epipen (PRN) Current Meds Current Medication Order Review: Reviewed
[2024-01-31] MEDS: Metoprolol 25 MG TAB PO (13:33)
--- NOTE | 2024-01-31 14:00 | RT.EKG_ITS ---
APPROVED REPORT Exam: Resting ECG Reason for Exam: afib confirmation Patient Location: I HR:85 bpm ECG Measurements Heart Rate 85 AXIS LA [id number] P [id number] QRSd 95 QRS 45 QT 427 T 253 QTc 509 Conclusion Atrial fibrillation...V-rate 74-102, irreg A-activity Ventricular premature complex...V complex w/ short R-R interval Repol abnrm suggests ischemia, anterolateral...ST dep, T neg, I aVL V2-V6 Prolonged QT interval...QTc >500mS
[2024-01-31 15:41] LABS: PTT Activated > 155.0 sec (23.6-32.8)
[2024-01-31] MEDS: Normal Saline Flush 10 ML SYR IVP ×2 (16:28→20:06)
--- NOTE | 2024-01-31 16:50 | CHAPLAIN ---
Timmy was resting in bed when I visited. His son, Pranav, was visiting. They were watching the [employer] coverage on TV. Timmy shared some personal history. I explained my role and offered support.
[2024-01-31] MEDS: Lovastatin 20 MG TAB PO (20:05)
[2024-01-31 23:12] LABS: PTT Activated > 155.0 sec (23.6-32.8)
[2024-02-01] VITALS (39 sets, daily range): BP systolic 78–177; BP diastolic 49–107; PULSE 62–118; RESP 11–36; TEMP 36.4–37.9; O2SAT 1–99
[2024-02-01] MEDS: Heparin in 0.45% NaCl 25,000 UNIT/250 ML BAG 9 UNIT IV (01:47)
[2024-02-01] MEDS: Baclofen 10 MG TAB PO (02:48)
[2024-02-01] MEDS: Normal Saline 10 ML VIAL IJ (06:00)
[2024-02-01] MEDS: Doxycycline Hyclate 100 MG CAP PO ×2 (07:15→18:28)
--- NOTE | 2024-02-01 09:42 | PDOC.CMPRO ---
Date of service: 02/01/24 Time of Service: 09:43 Care Management Progress Note Progress Note Text Progress Note Text: Timmy is being closely monitored and treated in the ICU for a PE and CHF. Pt was lying in bed watching the news when CM met with him. He has been accepted to [facility] in transfer, pending bed availability. He indicates that he has been keeping his family up to date and they are aware he is waiting to be transferred. During our conversation Timmy advises he is independent at baseline, lives alone and is physically active climbing mountains and running up and down the stairs. Discharge Potential Discharge Needs: Other (Transfer to tertiary hospital) Anticipated Barriers to Discharge: None Identified Patient/Family Education Needs: Review discharge instructions, discuss Ask Me Three Transportation: Private vehicle Plan: Timmy has been accepted in transfer by [facility], pending bed availability. Transportation will be coordinated by RN heavy equipment supervisor. SDOH(Care Management) Screening Will the Patient Participate in the Screening?: Yes Do you worry about having a steady place to live?: no Problems where you live: no known problems In the past 12 months, have you had to go without electric, gas, oil or water in your home?: no Have you or anyone in your house had to go without enough food to eat?: no Has lack of transportation kept you from medical appointments or from doing things needed for daily living?: no Has anyone in your support network made you feel unsafe for any reason?: no Health Related Social Needs Health related social needs details: none
[2024-02-01] MEDS: Aspirin 81 MG CHEW PO (09:45)
[2024-02-01] MEDS: Normal Saline Flush 10 ML SYR IVP ×2 (09:46→20:24)
[2024-02-01] MEDS: Furosemide 40 MG/4 ML VIAL IVP ×2 (09:46→15:42)
[2024-02-01 10:32] LABS: PTT Activated 64.1 sec (23.6-32.8)
--- NOTE | 2024-02-01 15:32 | W.PM.PROGNOT ---
Date of Service Date of service: 02/01/24 Time of Service: 15:32 Assessment and Plan Assessment and plan (1) Pulmonary embolism: Start date: 01/31/24 Status: Chronic Assessment and plan: -presnted with increased shortness of breath and leg edema over 2 days prior to admission. -He is on Eliquis chronically at 5 mg twice daily and not missed any doses -initially on lovenox but was changed over to heparin drip AM 01/30 -will likely need to transition to warfarin as patient has failed eliquis -will continue heparin drip through AM 02/01 Qualifiers: Pulmonary embolism type: other Chronicity: acute Acute cor pulmonale presence: without acute cor pulmonale Qualified Code(s): I26.99 - Other pulmonary embolism without acute cor pulmonale (2) Pleural effusion: Start date: 01/31/24 Status: Acute Assessment and plan: -This may be secondary mostly to acute CHF exacerbation. -Continue following up with ongoing IV Lasix diuresis. (3) Acute exacerbation of chronic heart failure: Start date: 01/31/24 Status: Acute Assessment and plan: -Patient BNP is elevated and does have a pleural effusion with IV Lasix to be given. -Patient was on oral Lasix at home. -TTE showed EF 57-60%, normal wall motion, normal RV, mild worsening of mitral regurg now moderate (4) Asymptomatic bradycardia: Start date: 01/31/24 Status: Acute Assessment and plan: -Recurrent after patient went into atrial fibrillation with pauses up to 6 seconds which are asymptomatic in the ED -since that time, and beginning in the afternoon of 01/30, the patient has had multiple episodes of up to 8 second pauses -have since discussed with [facility] Cardiology who has accpeted the patient for transfer once a bed is available (5) Paroxysmal atrial fibrillation: Start date: 01/31/24 Status: Acute Assessment and plan: -Patient had episode of atrial fibrillation with now has returned to sinus rhythm and this truly is paroxysmal. -He was on Eliquis with question of compliance so patient states that he has a pillbox and takes his meds as scheduled every day. -Continue anticoagulation for treatment of acute PE as noted above (6) CHF (congestive heart failure): Status: Chronic Assessment and plan: -as noted above Qualifiers: Heart failure type: diastolic Heart failure chronicity: chronic Qualified Code(s): I50.32 - Chronic diastolic (congestive) heart failure (7) Hypertension: Status: Chronic Assessment and plan: -hold metoprolol, will use IV lopressor if patient develops RVR Qualifiers: Hypertension type: essential hypertension Qualified Code(s): I10 - Essential (primary) hypertension (8) Leg cramps: Status: Chronic Assessment and plan: -Severe with patient having received morphine but may be having side effects with nausea and diaphoresis. -Hold morphine if possible but patient does wish to be kept comfortable and alternatives may need to be sought. (9) CKD (chronic kidney disease): Status: Chronic Assessment and plan: Chronic with appearance of being stable. Trend labs as we diurese. Qualifiers: Chronic kidney disease stage: stage 3 (moderate) Chronic kidney disease stage 3 subtype: stage 3a (GFR 45-59) Qualified Code(s): N18.31 - Chronic kidney disease, stage 3a Subjective Subjective Interval history since last seen: Patient resting comfortably, states that he has no complaints or concerns at this time. Exam Narrative Exam Narrative: elderly gentleman laying in bed in no acute distress, AOx4, heart RRR, lungs CTAB, abdomen soft, non-tender, non-distended Objective Last Vital Signs Temp 99.0 F 02/01/24 11:08 Pulse 74 02/01/24 14:02 Resp 14 02/01/24 14:02 BP 125/85 02/01/24 14:02 Pulse Ox 97 02/01/24 14:02 Laboratory Results - last 24 hr 01/31/24 01/31/24 02/01/24 14:58 21:45 10:00 APTT > 155.0 H* > 155.0 H* 64.1 H Time Spent with Patient Time Spent with Patient: >50 minutes Time was spent: preparing to see the patient(eg.review tests), obtaining and/or reviewing separately otained hiistory, ordering medications,tests, procedures, referring, communicating with other health managed care analyst, indepentently interpreting results, counseling the patient and care coordination
[2024-02-01 16:29] LABS: PTT Activated 63.9 sec (23.6-32.8)
[2024-02-01] MEDS: Lovastatin 20 MG TAB PO (20:24)
[2024-02-02] VITALS (28 sets, daily range): BP systolic 92–161; BP diastolic 46–86; PULSE 54–128; RESP 8–24; TEMP 35.4–36.8; O2SAT 86–100
[2024-02-02] MEDS: Heparin in 0.45% NaCl 25,000 UNIT/250 ML BAG 9 UNIT IV (04:44)
[2024-02-02] MEDS: Doxycycline Hyclate 100 MG CAP PO (06:21)
[2024-02-02 06:32] LABS: HCT 42.7 % (40.0-50.0); HGB 14.3 g/dL (13.5-17.5); MCH 29.7 pg (27.0-33.0); MCHC 33.5 % (32.0-36.0); MCV 89 fL (80-95); MPV 11.6 fL (8.0-11.0); Platelet Count 202 10^3/uL (130-400); RBC 4.81 10^6/uL (4.36-5.78); RDW 13.2 % (11.8-14.1); RDW-SD 43.1 fL; WBC 6.44 10^3/uL (4.4-10.8)
[2024-02-02 06:45] LABS: PTT Activated 58.6 sec (23.6-32.8)
[2024-02-02 06:53] LABS: Anion Gap 7.9 mmol/L (3-11); BUN 31 mg/dL (7-18); CO2 32.1 mmol/L (21.0-32.0); CREATININE 1.5 mg/dL (0.70-1.30); Calcium 8.8 mg/dL (8.5-10.1); Chloride 102 mmol/L (98-107); Estimated GFR 45.06 (mL/min/1.73m2); Glucose 91 mg/dL (74-106); Potassium 3.2 mmol/L (3.5-5.1); Sodium 142 mmol/L (136-145)
[2024-02-02] MEDS: Aspirin 81 MG CHEW PO (09:20)
[2024-02-02] MEDS: Normal Saline Flush 10 ML SYR IVP (09:20)
[2024-02-02] MEDS: Furosemide 40 MG/4 ML VIAL IVP (09:20)
--- NOTE | 2024-02-02 12:31 | W.PM.PROGNOT ---
Date of Service Date of service: 02/02/24 Time of Service: 12:31 Assessment and Plan Assessment and plan (1) Pulmonary embolism: Start date: 01/31/24 Status: Chronic Assessment and plan: -presnted with increased shortness of breath and leg edema over 2 days prior to admission. -He is on Eliquis chronically at 5 mg twice daily and not missed any doses -initially on lovenox but was changed over to heparin drip AM 01/30 -will likely need to transition to warfarin as patient has failed eliquis -will continue heparin drip Qualifiers: Pulmonary embolism type: other Chronicity: acute Acute cor pulmonale presence: without acute cor pulmonale Qualified Code(s): I26.99 - Other pulmonary embolism without acute cor pulmonale (2) Pleural effusion: Start date: 01/31/24 Status: Acute Assessment and plan: -This may be secondary mostly to acute CHF exacerbation. -Continue following up with ongoing IV Lasix diuresis. (3) Acute exacerbation of chronic heart failure: Start date: 01/31/24 Status: Acute Assessment and plan: -Patient BNP is elevated and does have a pleural effusion with IV Lasix to be given. -Patient was on oral Lasix at home. -TTE showed EF 57-60%, normal wall motion, normal RV, mild worsening of mitral regurg now moderate (4) Asymptomatic bradycardia: Start date: 01/31/24 Status: Acute Assessment and plan: -Recurrent after patient went into atrial fibrillation with pauses up to 6 seconds which are asymptomatic in the ED -since that time, and beginning in the afternoon of 01/30, the patient has had multiple episodes of up to 8 second pauses -have since discussed with [facility] Cardiology who has accpeted the patient for transfer once a bed is available (5) Paroxysmal atrial fibrillation: Start date: 01/31/24 Status: Acute Assessment and plan: -Patient had episode of atrial fibrillation with now has returned to sinus rhythm and this truly is paroxysmal. -He was on Eliquis with question of compliance so patient states that he has a pillbox and takes his meds as scheduled every day. -Continue anticoagulation for treatment of acute PE as noted above (6) CHF (congestive heart failure): Status: Chronic Assessment and plan: -as noted above Qualifiers: Heart failure type: diastolic Heart failure chronicity: chronic Qualified Code(s): I50.32 - Chronic diastolic (congestive) heart failure (7) Hypertension: Status: Chronic Assessment and plan: -hold metoprolol, will use IV lopressor if patient develops RVR Qualifiers: Hypertension type: essential hypertension Qualified Code(s): I10 - Essential (primary) hypertension (8) Leg cramps: Status: Chronic Assessment and plan: -Severe with patient having received morphine but may be having side effects with nausea and diaphoresis. -Hold morphine if possible but patient does wish to be kept comfortable and alternatives may need to be sought. (9) CKD (chronic kidney disease): Status: Chronic Assessment and plan: Chronic with appearance of being stable. Trend labs as we diurese. Qualifiers: Chronic kidney disease stage: stage 3 (moderate) Chronic kidney disease stage 3 subtype: stage 3a (GFR 45-59) Qualified Code(s): N18.31 - Chronic kidney disease, stage 3a Exam Narrative Exam Narrative: elderly gentleman laying in bed in no acute distress, AOx4, heart RRR, lungs CTAB, abdomen soft, non-tender, non-distended Objective Last Vital Signs Temp 98.2 F 02/02/24 09:42 Pulse 69 02/02/24 10:43 Resp 16 02/02/24 10:44 BP 135/59 L 02/02/24 10:43 Pulse Ox 97 02/02/24 10:43 Laboratory Results - last 24 hr 02/01/24 02/02/24 16:05 05:44 WBC 6.44 RBC 4.81 Hgb 14.3 Hct 42.7 MCV 89 MCH 29.7 MCHC 33.5 RDW 13.2 Plt Count 202 MPV 11.6 H APTT 63.9 H 58.6 H Sodium 142 Potassium 3.2 L Chloride 102 Carbon Dioxide 32.1 H Anion Gap 7.9 BUN 31 H Creatinine 1.5 H Est GFR (CKD-EPI 2020) 45.06 Glucose 91 Calcium 8.8
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
--- NOTE | 2024-02-02 17:33 | CMPROGNOTE_ITS ---
Date of service: 02/02/24 Time of Service: 17:33 Care Management Progress Note Progress Note Text Progress Note Text: Timmy was transferred to [facility] for further treatment and pacemaker placement, per MD. He was transported via EMS, coordinated by RN fish hatchery supervisor. He was agreeable to this plan, and family was informed. SDOH(Care Management) Screening Will the Patient Participate in the Screening?: Yes Do you worry about having a steady place to live?: no Problems where you live: no known problems In the past 12 months, have you had to go without electric, gas, oil or water in your home?: no Have you or anyone in your house had to go without enough food to eat?: no Has lack of transportation kept you from medical appointments or from doing things needed for daily living?: no Has anyone in your support network made you feel unsafe for any reason?: no Health Related Social Needs Health related social needs details: none
== END 2024-02-02 15:45 | disposition short-term general hospital (02) | DRG 175 ==
LOC: ER 01-31 02:56 → ICU 01-31 03:01
PROVIDERS: Family Medicine; Admitting Provider Family Medicine; Emergency Provider Student in an Organized Health Care Education/Training Program; PCP Family Medicine; Visit Provider Family Medicine
DX: I26.99 Other pulmonary embolism without acute cor pulmonale (principal); I50.33 Acute on chronic diastolic (congestive) heart failure; J96.01 Acute respiratory failure with hypoxia; I13.0 Hypertensive heart and chronic kidney disease with heart failure and stage 1 through stage 4 chronic kidney disease, or unspecified chronic kidney disease; I48.0 Paroxysmal atrial fibrillation; R25.2 Cramp and spasm; N18.31 Chronic kidney disease, stage 3a; Z79.01 Long term (current) use of anticoagulants; R00.1 Bradycardia, unspecified; E83.42 Hypomagnesemia; I49.5 Sick sinus syndrome; Z66 Do not resuscitate; I25.10 Atherosclerotic heart disease of native coronary artery without angina pectoris; I25.5 Ischemic cardiomyopathy; E78.00 Pure hypercholesterolemia, unspecified; K21.9 Gastro-esophageal reflux disease without esophagitis; F41.9 Anxiety disorder, unspecified; F43.10 Post-traumatic stress disorder, unspecified; G47.00 Insomnia, unspecified; M54.2 Cervicalgia; M47.812 Spondylosis without myelopathy or radiculopathy, cervical region; Z87.891 Personal history of nicotine dependence; Z95.5 Presence of coronary angioplasty implant and graft; Z95.1 Presence of aortocoronary bypass graft
CPT/HCPCS: 00123; 36415; 71275; 80048; 80053; 82805; 85027; 87637; 93005; 94640; 96372; 96374; 96375; 99285; 99291; J3490; 83605; 83735; 83880; 84439; 84443; 84484; 85025; 85610; 85730; 93010; 93306; 93970; 99223; 99233; 99238; J1644; J1650; J1940; J2270; J3475; J7620

== ENCOUNTER → 2024-03-05 12:38 | Outpatient (BNVA) | payer MEDICARE, SELFPAY | PROVIDERS: PCP Family Medicine; Referring Provider Family Medicine; Visit Provider Nurse Practitioner Gerontology | DX: N52.9 Male erectile dysfunction, unspecified (principal) | CPT/HCPCS: 99215 ==

== ENCOUNTER → 2024-03-29 09:30 | Outpatient (BNVA) | payer MEDICARE, SELFPAY | PROVIDERS: PCP Family Medicine; Referring Provider Family Medicine; Visit Provider Internal Medicine Cardiovascular Disease | DX: I25.84 Coronary atherosclerosis due to calcified coronary lesion (principal); I25.10 Atherosclerotic heart disease of native coronary artery without angina pectoris; Z95.0 Presence of cardiac pacemaker; Z98.890 Other specified postprocedural states; Z86.79 Personal history of other diseases of the circulatory system | CPT/HCPCS: 99213 ==

== ENCOUNTER 2024-09-17 09:16 | Outpatient (CLI) | payer MEDICARE, SELFPAY ==
[2024-09-17 12:55] LABS: Potassium 4.2 mmol/L (3.5-5.1)
== END 2024-09-17 09:17 | disposition home or self-care (01) ==
PROVIDERS: PCP Family Medicine; Referring Provider Family Medicine; Visit Provider Family Medicine
DX: I10 Essential (primary) hypertension (principal); I25.10 Atherosclerotic heart disease of native coronary artery without angina pectoris; T78.40XA Allergy, unspecified, initial encounter
CPT/HCPCS: 36415; 84132

== ENCOUNTER 2024-11-07 01:38 | Outpatient (CLI) | payer MEDICARE, SELFPAY ==
[2024-11-07 11:07] LABS: Anion Gap 5.4 mmol/L (3-11); BUN 22 mg/dL (7-18); CO2 31.6 mmol/L (21.0-32.0); CREATININE 1.5 mg/dL (0.70-1.30); Chloride 103 mmol/L (98-107); Estimated GFR 44.78 (mL/min/1.73m2); Glucose 117 mg/dL (74-106); Sodium 140 mmol/L (136-145)
== END 2024-11-07 01:39 | disposition home or self-care (01) ==
PROVIDERS: PCP Family Medicine; Visit Provider Nurse Practitioner Family
DX: I50.32 Chronic diastolic (congestive) heart failure (principal)
CPT/HCPCS: 36415; 80048

== ENCOUNTER 2024-12-12 11:57 | Emergency (ER) | payer MEDICARE, SELFPAY ==
[2024-12-12 11:59] VITALS: BP 142/60; PULSE 69; RESP 18; TEMP 37; O2SAT 97
--- NOTE | 2024-12-12 12:00 | RT.EKG_ITS ---
APPROVED REPORT Exam: Resting ECG Reason for Exam: syncope Patient Location: E HR:67 bpm ECG Measurements Heart Rate 67 AXIS ID 201 P 79 QRSd 98 QRS 68 QT 431 T -37 QTc 455 Conclusion Sinus rhythm...normal P axis, V-rate 60- 99 Probable left atrial enlargement...P >50mS, <-0.10mV V1 Abnormal T, consider ischemia, anterior leads...T <-0.20mV, V2-V4 Physician: inverted t waves V2-V4
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
[2024-12-12 12:51] LABS: Abs Immature Grans 0.01 10^3/uL (0.0-0.06); Absolute Basophil Count 0.03 10^3/uL (0.0-0.2); Basophils % 0.7 %; Eosinophils % 2.3 %; HCT 38.5 % (40.0-50.0); HGB 12.5 g/dL (13.5-17.5); Immature Grans % 0.2 %; MCH 29.7 pg (27.0-33.0); MCHC 32.5 % (32.0-36.0); MCV 91 fL (80-95); MPV 10.7 fL (8.0-11.0); Monocytes % 13.5 %; Neutrophils % 65.3 %; Platelet Count 178 10^3/uL (130-400); RBC 4.21 10^6/uL (4.36-5.78); RDW 13.5 % (11.8-14.1); RDW-SD 45.9 fL; WBC 4.44 10^3/uL (4.4-10.8)
[2024-12-12 13:22] LABS: ALT 21 U/L (16-63); AST 25 U/L (15-37); Albumin 3.5 g/dL (3.4-5.0); Alkaline Phosphatase 94 U/L (46-116); Anion Gap 3.2 mmol/L (3-11); BUN 29 mg/dL (7-18); Bilirubin, Total 1.3 mg/dL (0.2-1.0); CO2 33.8 mmol/L (21.0-32.0); CREATININE 1.6 mg/dL (0.70-1.30); Chloride 99 mmol/L (98-107); Estimated GFR 41.44 (mL/min/1.73m2); Glucose 96 mg/dL (74-106); Magnesium 2.3 mg/dL (1.8-2.4); Potassium 4.9 mmol/L (3.5-5.1); Sodium 136 mmol/L (136-145); TSH (W/Ref FT4) 3.82 uIU/mL (0.36-3.74); Total Protein 8.1 g/dL (6.4-8.2); Troponin I 27 ng/L (<or=76)
[2024-12-12 13:44] LABS: FREE T4 1.16 ng/dL (0.76-1.46)
--- NOTE | 2024-12-12 13:53 | DI.RAD_ITS ---
Exam(s) XR CHEST 1V IN DI DEPT EXAM: XR CHEST 1V IN DI DEPT CLINICAL HISTORY: possible syncope TECHNIQUE: 2D digital imaging was performed. COMPARISON: CR,XR XR PORTABLE CHEST AP from 11/14/[address] CHEST PE CTA from 01/31/2024 FINDINGS: LUNGS: Small to moderate-sized left pleural effusion which appears unchanged when compared with the most recent CT examination. Other than mild right basilar compressive atelectasis, the lungs are otherwise clear. HEART: Upper limits of normal in size. Pacemaker. AORTA: Normal diameter. Mildly tortuous. BONES: Unremarkable for age. Soft tissues: Unremarkable. IMPRESSION: Stable small to moderate-sized right pleural effusion. No acute findings. DATA REPOSITORY: RADIATION DOSE DELIVERED:
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
[2024-12-12 14:26] LABS: Troponin I 30 ng/L (<or=76)
[2024-12-12 15:56] VITALS: BP 126/65; PULSE 59; RESP 16; TEMP 36.8; O2SAT 95
== END 2024-12-12 15:57 | disposition home or self-care (01) ==
PROVIDERS: Emergency Provider Physician Assistant; PCP Family Medicine
DX: R55 Syncope and collapse (principal); I13.0 Hypertensive heart and chronic kidney disease with heart failure and stage 1 through stage 4 chronic kidney disease, or unspecified chronic kidney disease; I50.32 Chronic diastolic (congestive) heart failure; N18.9 Chronic kidney disease, unspecified; I48.0 Paroxysmal atrial fibrillation; I25.10 Atherosclerotic heart disease of native coronary artery without angina pectoris; Z95.0 Presence of cardiac pacemaker; Z95.1 Presence of aortocoronary bypass graft; Z98.1 Arthrodesis status; Z79.01 Long term (current) use of anticoagulants; Z87.891 Personal history of nicotine dependence; V49.9XXA Car occupant (driver) (passenger) injured in unspecified traffic accident, initial encounter
CPT/HCPCS: 80053; 93005; 99285; 70450; 71045; 72125; 81003; 83735; 84439; 84443; 84484; 85025; 93010; 99284

== ENCOUNTER 2025-03-26 08:03 | Outpatient (CLI) | payer MEDICARE, SELFPAY ==
--- NOTE | 2025-03-26 08:00 | RT.EKG_ITS ---
APPROVED REPORT Exam: Resting ECG Reason for Exam: PAF Patient Location: O HR:68 bpm ECG Measurements Heart Rate 68 AXIS MI [id number] P [id number] QRSd 100 QRS 57 QT 392 T -17 QTc 417 Conclusion Afib/flut and V-paced complexes...other complexes, A-rate>240 No further rhythm analysis attempted due to paced rhythm
== END 2025-03-26 08:04 | disposition home or self-care (01) ==
LOC: DI.CARD 08:04
PROVIDERS: PCP Family Medicine; Visit Provider Internal Medicine Cardiovascular Disease
DX: I25.10 Atherosclerotic heart disease of native coronary artery without angina pectoris (principal); I25.84 Coronary atherosclerosis due to calcified coronary lesion; I48.0 Paroxysmal atrial fibrillation
CPT/HCPCS: 93010

== ENCOUNTER → 2025-03-26 10:48 | Outpatient (BNVA) | payer MEDICARE, SELFPAY | PROVIDERS: PCP Family Medicine; Referring Provider Family Medicine; Visit Provider Internal Medicine Cardiovascular Disease | DX: I25.10 Atherosclerotic heart disease of native coronary artery without angina pectoris (principal); I25.84 Coronary atherosclerosis due to calcified coronary lesion; I48.0 Paroxysmal atrial fibrillation; Z45.018 Encounter for adjustment and management of other part of cardiac pacemaker; Z79.01 Long term (current) use of anticoagulants | CPT/HCPCS: 93280; 93005 ==

== ENCOUNTER → 2025-03-28 09:46 | Outpatient (BNVA) | payer MEDICARE, SELFPAY | PROVIDERS: PCP Family Medicine; Visit Provider Internal Medicine Cardiovascular Disease | DX: I34.0 Nonrheumatic mitral (valve) insufficiency (principal); I25.10 Atherosclerotic heart disease of native coronary artery without angina pectoris; Z95.0 Presence of cardiac pacemaker | CPT/HCPCS: 99214 ==

== ENCOUNTER 2025-06-05 13:35 | Outpatient (CLI) | payer MEDICARE, SELFPAY ==
--- NOTE | 2025-06-05 13:30 | RT.EKG_ITS ---
APPROVED REPORT Exam: Resting ECG Reason for Exam: Falls Patient Location: O HR:63 bpm ECG Measurements Heart Rate 63 AXIS OK 206 P 74 QRSd 101 QRS 72 QT 400 T -32 QTc 410 Conclusion Sinus rhythm...normal P axis, V-rate 50- 99 Left atrial enlargement...P, P'>60mS, <-0.15mV V1
== END 2025-06-05 13:36 | disposition home or self-care (01) ==
LOC: DI.CM 13:36
PROVIDERS: PCP Family Medicine; Visit Provider Family Medicine
DX: R55 Syncope and collapse (principal)
CPT/HCPCS: 93010

== ENCOUNTER 2025-06-05 13:52 | Outpatient (CLI) | payer MEDICARE, SELFPAY ==
[2025-06-05 16:29] LABS: HCT 37.5 % (40.0-50.0); HGB 12.4 g/dL (13.5-17.5); MCH 31.0 pg (27.0-33.0); MCHC 33.1 % (32.0-36.0); MCV 94 fL (80-95); MPV 11.1 fL (8.0-11.0); Platelet Count 198 10^3/uL (130-400); RBC 4.00 10^6/uL (4.36-5.78); RDW 13.3 % (11.8-14.1); RDW-SD 45.9 fL; WBC 5.38 10^3/uL (4.4-10.8)
[2025-06-05 16:42] LABS: Anion Gap 9 mmol/L (3-11); BUN 29 mg/dL (9-23); CO2 29.4 mmol/L (20.0-31.0); Calcium 9.1 mg/dL (8.3-10.6); Chloride 93 mmol/L (98-107); Glucose 101 mg/dL (74-106); Potassium 4.5 mmol/L (3.5-5.1); Sodium 131 mmol/L (136-145)
== END 2025-06-05 13:53 | disposition home or self-care (01) ==
PROVIDERS: PCP Family Medicine; Visit Provider Family Medicine
DX: R53.83 Other fatigue (principal); E87.1 Hypo-osmolality and hyponatremia
CPT/HCPCS: 36415; 80048; 85027